=== PATIENT | male | born 1955 | race Caucasian/White ===

== ENCOUNTER 2017-08-24 10:00 | Emergency (ER) | payer OTHER, SELFPAY ==
[2017-08-24 10:01] VITALS: BP 179/108; PULSE 113; RESP 18; TEMP 36.4; O2SAT 96; BMI 37.1
[2017-08-24 10:14] VITALS: BP 167/105; PULSE 105; RESP 17; O2SAT 97
--- NOTE | 2017-08-24 10:23 | EKG12_ITS ---
Test Reason : CP Blood Pressure : / mmHG Vent. Rate : 109 BPM Atrial Rate : 109 BPM P-R Int : 142 ms QRS Dur : 088 ms QT Int : 324 ms P-R-T Axes : 069 -10 051 degrees QTc Int : 436 ms Sinus tachycardia Nonspecific ST abnormality Abnormal ECG Confirmed by JUSTIN SHERWOOD, SARAH ([id number]), commissioning editor HEIDY RAPHAEL ([id number] on 08/27/2017 3:53:56 PM Referred By: BRIAN Confirmed By:SARAH ANDERSON MD
--- NOTE | 2017-08-24 10:23 | RAD_ITS ---
STUDY: X-RAY CHEST REASON FOR EXAM: Male, 62 years old. Chest pain TECHNIQUE: Frontal and lateral views of the chest. COMPARISON: None. FINDINGS: The lungs are clear and expanded. There is no demonstrated pleural abnormality. Normal size heart. Normal mediastinum and ramon. Normal visualized pulmonary arteries. Normal visualized aortic arch and descending thoracic aorta. There are diffuse degenerative changes of the visualized thoracic spine. There is degenerative osteoarthritis of the bilateral shoulders. There is no demonstrated abnormality of the visualized soft tissue structures of the upper abdomen. RAD/Chest PA and Lateral IMPRESSION: Degenerative changes, as described above. No demonstrated acute cardiopulmonary process. Electronically Signed: Giselle Pelletier MD at 10:56 EST Tel , Service support ,
--- NOTE | 2017-08-24 10:24 | ED.VISSUMM ---
- ER Visit Summary Date of Service: 08/24/17 Chief Complaint: High blood pressure, blurry vision History of Present Illness: The patient is a 62 M with history of hypertension on lisinopril who presents concerned for frequent high blood pressure and an episode of blurry vision this morning. Patient is currently under a lot of stress from a court case in [place], and is having to drive back and forth. He has been documenting his blood pressure and noted it is been running high. He saw his doctor on August 16 and it was high at that time as well. He states he has been on lisinopril for quite some time for blood pressure control and it usually is within normal limits. Patient noted on his drive home this morning in the dark that his vision seemed blurry. He currently denies any issues with it. Also while in court he had a brief episode of left-sided chest discomfort this past week that resolved spontaneously. He denies any further chest pain, shortness of breath, nausea or vomiting, fever, weakness in the arms or legs or any other complaints. Physical Examination: Vital signs: afebrile, hemodynamically stable, no hypoxia on room air General: well nourished, well developed, in no distress Skin: warm, dry, no rash, no pallor HEENT: normocephalic and atraumatic; PERRL, EOMI, moist mucous membranes Cardiovascular: Tachycardic rate and rhythm without murmurs, no peripheral edema, 2+ pulses all distal extremities Respiratory: No increased work of breathing, lungs are clear to auscultation bilaterally, no rales, rhonchi or wheezing Abdominal: Abdomen is soft, nontender with normoactive bowel sounds, no guarding or rebound, no masses MSK: Moves all extremities, no deformities, normal strength Neuro: Awake and alert, oriented ?4. No facial droop, sensation and motor function intact and symmetric Test Results: Abnormal Lab Results 08/24/17 08/24/17 08/24/17 10:15 10:15 10:15 WBC 7.9 RBC 5.66 Hgb 16.9 H Hct 49.1 MCV 86.7 MCH 29.9 MCHC 34.4 RDW 13.3 RDW Differential 42.1 Plt Count 226 MPV 11.0 Immature Gran % (Auto) 0.100 Neut % (Auto) 71.8 H Lymph % (Auto) 18.7 L [place] % (Auto) 5.9 Eos % (Auto) 2.9 Baso % (Auto) 0.6 Absolute Neuts (auto) 5.7 Absolute Lymphs (auto) 1.48 Total Counted Not Reportable D-Dimer Quant (PE/DVT) < 0.27 L Sodium 143 Potassium 4.2 Chloride 108 H Carbon Dioxide 29.0 Anion Gap 6 BUN 18 Creatinine 0.92 Estim Creat Clear Calc 84.86 Est GFR (MDRD) Af Amer 107 Est GFR (MDRD) Non-Af 89 BUN/Creatinine Ratio 19.6 Glucose 94 Calcium 8.7 Troponin I < 0.02 Emergency Department Course and Treatment: Patient presents mainly concerned about his hypertension that is been an ongoing issue, especially with increased stress with family and core issues in his life. Patient's blood pressure remained with consistently elevated systolic and diastolic pressure. Chest x-ray showed no acute process. EKG showed a sinus rhythm without ischemia or ectopy. Patient was tachycardic when he would move and when he became more tearful. Because of his tachycardia and anxiousness and the fact he has been doing a lot of driving, d-dimer was included to rule out PE, and it was negative. Labs were unremarkable. Patient was discussed with his primary care practice regarding his persistent elevated blood pressure and whether they would like us to go ahead and start him on another antihypertensive. They requested he be started on daily HCTZ. Patient will follow up on Saturday with his doctor. He was given one Ativan tablet to take home to use tonight to help him sleep and to help him relax. We discussed that his blood pressure may be partly due to the constant stress in his life. Patient will not use any alcohol or other depressants if he does take the Ativan tonight. He will do no driving or other dangerous activity. Patient agreed with this plan was discharged home. Treatment Plan: [] Disposition: [] Impression: Uncontrolled hypertension, stress This note was generated with [employer] software. It may contain incorrect words, spelling, and punctuation that were not noted in review of the chart prior to signing ED Disposition - Plan for ED Patient: Disposition: Home or Assisted Living Chief Complaint: Hypertension Instructions: ED Hypertension Conf Out Of Control Prescriptions: Hydrochlorothiazide [Hctz] 25 mg PO DAILY #30 tab Referrals: Colton Longoria MD [Primary Care Provider] - 2 Days Additional Instructions: Please take the hydrochlorothiazide daily as prescribed. Follow-up with Dr. Longoria on Saturday for reevaluation and to further discuss your high blood pressure and your current high level of stress. You have been given one Ativan tablet to take tonight at home before you go to bed to help you with your stress sleep. Do not drink alcohol at all tonight. Do not take the medication before doing anything that might put you endanger, such as driving or climbing on a ladder. Any worsening of your condition or any new concerning symptoms, please return immediately to the emergency department for another evaluation.
[2017-08-24 10:31] LABS: Absolute Lymphocyte Count 1.48 X10^3/ul (0.83-4.51); Absolute Neutrophil Count 5.7 X10^3/uL (2.0-7.7); Basophil# 0.05 X10^3/uL; Basophil% 0.6 % (0-1); Eosinophil# 0.23 X10^3/uL; Eosinophils% 2.9 % (0-5); Hematocrit 49.1 % (40-54); Hemoglobin 16.9 g/dl (13.0-16.5); Lymphocyte # 1.48 X10^3/ul (4.0); Lymphocyte % 18.7 % (19-41); Mean Corp Hgb Conc 34.4 g/gl (32-36); Mean Corpuscular Hgb 29.9 pg (27.0-32.0); Mean Corpuscular Volume 86.7 fL (80-94); Monocyte# 0.47 X10^3/uL; Monocyte% 5.9 % (0-10); Neutrophil # 5.69 X10^3/uL (2.7-7.7); Neutrophil % 71.8 % (47-70); POSITIVE COUNT NO; POSITIVE DIFFERENTIAL NO; POSITIVE MORPHOLOGY NO; Platelet Count 226 K/mm3 (150-450); RBC Distribution Width CV 13.3 % (11.6-14.6); RBC Distribution Width SD 42.1 fl (35.1-43.9); Red Blood Count 5.66 M/mm3 (4.6-6.2); White Blood Count 7.9 K/mm3 (4.4-11.0)
[2017-08-24] MEDS: Aspirin 81 MG TAB.CHEW 324 MG PO (10:43)
[2017-08-24 10:45] LABS: Anion Gap 6 (5-15); BUN 18 mg/dL (7-18); BUN/Creat Ratio 19.6 RATIO (10-20); Calcium,Total 8.7 mg/dL (8.5-10.1); Chloride 108 mmol/L (98-107); Creatinine, Serum 0.92 mg/dL (0.70-1.30); EST Glomerular Filtration Rate 89 mL/min (>60); Est Glom Filt Rate - Afr Amer 107 mL/min (>60); Estimated Creatinine Clearance 84.86 ml/min; Glucose 94 mg/dL (74-106); Potassium 4.2 mmol/L (3.5-5.1); Sodium Level 143 mmol/L (136-145)
[2017-08-24 10:56] LABS: D-Dimer Quantitative (DVT/PE) < 0.27 FEU/ug/m (0.27-0.49)
[2017-08-24 11:56] VITALS: BP 166/108; PULSE 77; PULSE 82; RESP 14; RESP 16; O2SAT 96; O2SAT 97
--- NOTE | 2017-08-24 12:18 | ED.DEP ---
ED Disposition - Plan for ED Patient: Chief Complaint: Hypertension Instructions: ED Hypertension Conf Out Of Control Prescriptions: Hydrochlorothiazide [Hctz] 25 mg PO DAILY #30 tab Referrals: Colton Longoria MD [Primary Care Provider] - 2 Days Additional Instructions: Please take the hydrochlorothiazide daily as prescribed. Follow-up with Dr. Longoria on Saturday for reevaluation and to further discuss your high blood pressure and your current high level of stress. You have been given one Ativan tablet to take tonight at home before you go to bed to help you with your stress sleep. Do not drink alcohol at all tonight. Do not take the medication before doing anything that might put you endanger, such as driving or climbing on a ladder. Any worsening of your condition or any new concerning symptoms, please return immediately to the emergency department for another evaluation.
[2017-08-24] MEDS: LORazepam 1 MG Tablet PO (12:41)
[2017-08-24 12:44] VITALS: BP 157/114; PULSE 79; RESP 22; O2SAT 100
--- NOTE | 2017-08-24 12:44 | ED.RN ---
THIS NURSE REVIEWED D/C INSTRUCTIONS WITH PT. PT VERBALIZED UNDERSTANDING OF INSTRUCTIONS. IV D/C. IV CATHETER INTACT. PT TOLERATED WELL. PT DENIES FURTHER NEEDS OR QUESTIONS AT THIS TIME.
== END 2017-08-24 12:45 | disposition home or self-care (01) ==
LOC: ED 11:01
PROVIDERS: Emergency Provider Emergency Medicine; Family Provider Family Medicine; PCP Family Medicine
DX: I10 Essential (primary) hypertension (principal); F43.9 Reaction to severe stress, unspecified; E66.9 Obesity, unspecified; Z79.899 Other long term (current) drug therapy
CPT/HCPCS: 71046; 80048; 84484; 85025; 85379; 93005; 99285; A4216

== ENCOUNTER 2020-11-21 16:11 | Emergency (ER) | payer MEDICARE, SELFPAY ==
[2020-11-21 16:14] VITALS: BP 156/91; PULSE 95; RESP 18; TEMP 37.1; O2SAT 95; BMI 36.0
--- NOTE | 2020-11-21 16:43 | EDS_ITS ---
HPI History of Present Illness Chief Complaint: Upper Extremity Injury Narrative Narrative: This patient is a pleasant 65-year-old male who presents with left elbow swelling. Symptoms began on the . He saw his primary care provider on the and was started on doxycycline. He actually had a right shoulder surgery then on the . At that time his orthopedic surgeon with [facility] did aspirate bursal fluid on the left. He is not sure of the results. He is still on doxycycline. His swelling did not gone down so when he contacted his primary care physician's antibiotics were extended an additional 3 days. He only complains of mild discomfort. He was told by his primary care provider that if he did have infection and it could go to the shoulder given his recent surgery so he was concerned and presented here. Patient actually has an appointment with orthopedics tomorrow. [facility] Medical History (Updated 11/21/20 @ 17:[address] Avi Loza MD) Hypertension Home Medications cholecalciferol (vitamin D3) [Vitamin D3] 1,000 unit PO DAILY 08/24/17 [History Last Taken 08/23/17] coenzyme Q10 [Co Q-10] 100 mg PO DAILY 08/24/17 [History Last Taken 08/23/17] hydrochlorothiazide 25 mg PO DAILY #30 tab 08/24/17 [Rx Last Taken Unknown] lisinopril 40 mg PO DAILY 08/24/17 [History Last Taken 08/23/17] meloxicam 15 mg PO DAILY 08/24/17 [History Last Taken 08/23/17] Allergy/AdvReac Type Severity Reaction Status Date / Time fenofibrate Allergy Other Verified 11/21/20 16:16 diclofenac AdvReac Nausea/Vom/ Verified 11/21/20 16:16 Diarrhea Social History Smoking Status: Former smoker ROS [facility] ED Constitutional Constitutional ED: Reports other Details: No fevers Cardiovascular Cardiovascular: Denies chest pain Respiratory/Chest Respiratory/Chest: Denies dyspnea Gastrointestinal Gastrointestinal: Denies diarrhea or vomiting Musculoskeletal Musculoskeletal: Reports other Details: Left elbow swelling Integumentary Denies rash Neurologic Neurologic: Denies headache(s) EXAM Physical Exam Const Vital Signs: 11/21/20 16:14 Temperature 98.7 F Temperature Source Temporal Pulse Rate 95 Respiratory Rate 18 Blood Pressure 156/91 H Blood Pressure Mean 112 Pulse Ox 95 Oxygen Delivery Method Room Air HEENT normocephalic and atraumatic Eyes EOMs intact bilaterally Chest Wall inspection of chest normal Resp normal respiratory effort Cardio regular rate and regular rhythm Extremity Extremity Narrative: Right shoulder in a sling, patient has findings consistent with olecranon bursitis of the left elbow there is mild overlying erythema it is not hot to the touch this appears to be more inflammatory in nature. He is not tender on palpation he has no pain with range of motion of the elbow. Neuro Sensorium / Orientation: alert Skin Rashes: no rashes MDM MDM MDM Narrative Medical decision making narrative: Patient's presentation is more consistent with an inflammatory olecranon bursitis rather than a septic arthritis. However he has been on antibiotics and is concerned for infection so aspiration was performed. The area was cleansed with Betadine and anesthetized with 3 cc of lidocaine without epinephrine. Olecranon bursa aspirated with an 18-gauge needle, 9 cc of bloody fluid was obtained. This is not cloudy. Gram stain is negative for organisms, cell count shows 8000 WBCs which is more consistent with an inflammatory process than septic. Patient will follow up with orthopedics as scheduled tomorrow. Patient discharged. Discharge Plan Triage Chief Complaint: Upper Extremity Injury ED Provider: Avi Loza Dx/Rx/DC Orders Clinical Impression: Bursitis, olecranon Instructions: ED Bursitis of the Elbow (Olecranon) Prescriptions: No Action meloxicam 15 MG tablet 15 mg PO DAILY RF: 0 lisinopril 40 MG tablet 40 mg PO DAILY RF: 0 cholecalciferol (vitamin D3) [Vitamin D3] 1,000 UNIT capsule 1,000 unit PO DAILY RF: 0 coenzyme Q10 [Co Q-10] 100 MG capsule 100 mg PO DAILY RF: 0 hydrochlorothiazide 25 MG tablet 25 mg PO DAILY Qty: 30 RF: 0 Primary Care Provider: Colton Longoria Referrals: Colton Longoria MD [Primary Care Provider] - Disposition Disposition: Home, self care
[2020-11-21 17:17] LABS: RBC /Synovial Fluid 0.066 10^6/uL (0); Synovial Fld Mononuclear WBC % 27.9 %; Synovial Fld Polynuclear WBC # 5.933 10^3/uL; Synovial Fld Polynuclear WBC % 72.1 %
[2020-11-21 17:43] LABS: AUTO B FLUID DILUENT BKGD CT WBC <0.1 RBC <0.01 (W<.1,R<.01); Synovial Fld Mononuclear WBC # 2.302 10^3/ul
[2020-11-21 17:44] LABS: Appearance /Synovial Fluid Turbid (CLEAR); Color / Synovial Fluid Red (Pale Yellow); Viscosity / Synovial Fluid Liquid (HIGH)
[2020-11-21 17:45] LABS: Source / Synovial Fluid BURSA
[2020-11-21 18:01] LABS: Body Fluid QC Type(s) BF1Q; Lymph 16 %; Monocyte /Synovial Fluid 10 %; Neutrophil 74 % (0-25)
[2020-11-22 12:12] LABS: Pathologist Comment Reviewed
== END 2020-11-21 18:02 | disposition home or self-care (01) ==
PROVIDERS: Emergency Provider Emergency Medicine; PCP Family Medicine
DX: M70.22 Olecranon bursitis, left elbow (principal); I10 Essential (primary) hypertension; Z79.2 Long term (current) use of antibiotics; Z79.899 Other long term (current) drug therapy; Z87.891 Personal history of nicotine dependence
CPT/HCPCS: 20605; 20610; 87070; 87075; 87205; 89050; 89051; 99282

== ENCOUNTER 2021-05-18 21:39 | Emergency (ER) | payer MEDICARE, SELFPAY ==
[2021-05-18 21:39] VITALS: BP 174/105; PULSE 91; RESP 18; TEMP 36.1; O2SAT 97; BMI 36.6
--- NOTE | 2021-05-18 21:50 | RAD_ITS ---
HISTORY: cough EXAMINATION/TECHNIQUE: XR Chest 1 View AP view COMPARISON: Two-view chest x-ray from 08/24/17 FINDINGS: LINES/DEVICES: None. LUNGS: No focal airspace consolidation. No pulmonary edema. No pleural effusion. No pneumothorax. MEDIASTINUM AND CARDIOVASCULAR STRUCTURES: Cardiac silhouette not enlarged. Central airways and mediastinal contour are unremarkable. BONES AND SOFT TISSUES: No acute findings. Previous right shoulder arthroplasty. RAD/Chest 1 View (Portable) IMPRESSION: No radiographic evidence of acute cardiopulmonary disease. at 2315 Reported and signed by: Bobby Zhang MD Electronically Signed: Bobby Zhang MD at 23:13 EST Tel , Service support ,
[2021-05-18 22:19] VITALS: RESP 18
--- NOTE | 2021-05-18 22:20 | EDS_ITS ---
HPI HPI - URI History of Present Illness Chief Complaint: Cough Narrative Narrative: 66-year-old male presenting with cough x1 week. He states it is mildly productive. He does not have chest pain, palpitations, shortness of breath, fevers, chills, myalgias, change in taste or smell. He has had all 3 Covid immunizations. He states he feels otherwise well. He states he had conversation with his brother who told him that he had an upper respiratory tract infection he should get antibiotics so he can get better faster. Patient encouraged to come to the emergency room for an evaluation. [facility] ED Constitutional Constitutional ED: Denies chills, fever(s) or subjective Eyes Eyes: Denies blurry vision or diplopia ENT ENT ED: Denies rhinorrhea or sore throat Cardiovascular Cardiovascular: Denies chest pain, palpitations or racing heartbeat Respiratory/Chest Respiratory/Chest: Reports cough; Denies dyspnea or dyspnea on exertion Gastrointestinal Gastrointestinal: Denies abdominal pain, nausea or vomiting Genitourinary Genitourinary ED: Denies dysuria or hematuria Musculoskeletal Musculoskeletal: Denies arthralgias or myalgias Integumentary Denies Abrasions or rash Neurologic Neurologic: Denies headache(s) or paresthesias Psychiatric Psychiatric: Denies anxiety or depression [facility] Medical History Hypertension Home Medications cholecalciferol (vitamin D3) [Vitamin D3] 1,000 unit PO DAILY 08/24/17 [History Last Taken 08/23/17] hydrochlorothiazide 25 mg PO DAILY #30 tab 08/24/17 [Rx Last Taken Unknown] lisinopril 40 mg PO DAILY 08/24/17 [History Last Taken 08/23/17] meloxicam 15 mg PO DAILY 08/24/17 [History Last Taken 08/23/17] Allergy/AdvReac Type Severity Reaction Status Date / Time fenofibrate Allergy Other Verified 05/18/21 21:39 diclofenac AdvReac Nausea/Vom/ Verified 05/18/21 21:39 Diarrhea Social History Smoking Status: Former smoker EXAM Physical Exam Const Vital Signs: 05/18/21 21:39 05/18/21 22:19 Temperature 97.0 F L Temperature Source Temporal Pulse Rate 91 Respiratory Rate 18 18 Blood Pressure 174/105 H Blood Pressure Mean 128 Pulse Ox 97 Oxygen Delivery Method Room Air Positive well nourished General Appearance ED: NAD; Negative for pallor HEENT normocephalic and atraumatic Eyes PERRL and EOMs intact bilaterally Neck supple and no meningeal signs Resp normal respiratory effort and clear to auscultation bilaterally Cardio Rate: regular rate Rhythm: regular rhythm Neuro oriented x3 Sensorium / Orientation: alert Psych mental status grossly normal Skin General Skin Exam: Negative for jaundice or pallor MDM MDM MDM Narrative Medical decision making narrative: Patient presenting cough x7 days without any other symptoms. His Covid testing is negative. Chest x-ray is normal. Vital signs are stable he is afebrile. I do not believe he needs any antibiotics. I did discuss with him that he may want to talk to his primary care physician about changing his lisinopril as this could be the cause of his cough. He acknowledged understanding. He discharged home in stable condition. Impression: 1. Cough Radiography Diagnostic Testing: Clinical Impression(s) from Imaging Studies Chest X-Ray 05/18/21 21:50 IMPRESSION: No radiographic evidence of acute cardiopulmonary disease. at 2315 Reported and signed by: Bobby Zhang MD Electronically Signed: Bobby Zhang MD at 23:13 EST Tel , Service support , Discharge Plan Triage Chief Complaint: Cough ED Provider: Lloyd Beltran Dx/Rx/DC Orders Prescriptions: No Action meloxicam 15 MG tablet 15 mg PO DAILY RF: 0 lisinopril 40 MG tablet 40 mg PO DAILY RF: 0 cholecalciferol (vitamin D3) [Vitamin D3] 1,000 UNIT capsule 1,000 unit PO DAILY RF: 0 hydrochlorothiazide 25 MG tablet 25 mg PO DAILY Qty: 30 RF: 0 Primary Care Provider: Colton Longoria Referrals: Colton Longoria MD [Primary Care Provider] - Activity Restrictions/Additional Instructions: Today he presented with a cough x1 week. Your chest x-ray was normal. I do not believe he needs antibiotics. I also did discuss with him I want to talk to your primary care physician about changing her lisinopril this may be causing a cough. Disposition Disposition: Home, Self Care
[2021-05-18 23:35] VITALS: BP 162/78; PULSE 78; RESP 18; O2SAT 100
== END 2021-05-18 23:36 | disposition home or self-care (01) ==
PROVIDERS: Emergency Provider Student in an Organized Health Care Education/Training Program; PCP Family Medicine
DX: R05.9 Cough, unspecified (principal); I10 Essential (primary) hypertension; Z79.899 Other long term (current) drug therapy; Z87.891 Personal history of nicotine dependence
CPT/HCPCS: 71045; 87426; 99282

== ENCOUNTER 2021-08-15 06:31 | Emergency (ER) | payer MEDICARE, SELFPAY ==
[2021-08-15 06:33] VITALS: BP 127/115; PULSE 24; RESP 17; TEMP 36.8; O2SAT 98; BMI 39.2
--- NOTE | 2021-08-15 07:14 | EDS_ITS ---
HPI History of Present Illness Chief Complaint: Complaint Narrative Narrative: Patient is a 66-year-old male with past medical history of prostate cancer he finished radiation treatment approximately 1 month ago. Patient states he is taking Flomax and Lupron. He states that over the past week or 2 he has noticed some slight decrease in his urinary stream. He states he was still urinating however so he did not think much of this. He states about 24 hours ago he felt the urge to urinate but was unable to do so. He states as he had been urinating he was not concerned but decided to take 2 Flomax pills just in case. He states that despite doing this he is continued not to have any urination and is now having abdominal pain and distention and therefore comes to the hospital for evaluation [facility] Medical History Hypertension Home Medications cholecalciferol (vitamin D3) [Vitamin D3] 1,000 unit PO DAILY 08/24/17 [History Last Taken 08/23/17] hydrochlorothiazide 25 mg PO DAILY #30 tab 08/24/17 [Rx Last Taken Unknown] lisinopril 40 mg PO DAILY 08/24/17 [History Last Taken 08/23/17] meloxicam 15 mg PO DAILY 08/24/17 [History Last Taken 08/23/17] Allergy/AdvReac Type Severity Reaction Status Date / Time fenofibrate Allergy Other Verified 08/15/21 06:36 diclofenac AdvReac Nausea/Vom/ Verified 08/15/21 06:36 Diarrhea Social History Smoking Status: Former smoker ROS ROS ED Constitutional Constitutional ED: Denies chills or fever(s) ENT ENT ED: Denies sore throat Cardiovascular Cardiovascular: Denies chest pain Respiratory/Chest Respiratory/Chest: Denies cough or dyspnea Gastrointestinal Gastrointestinal: Reports abdominal pain; Denies diarrhea, nausea or vomiting Genitourinary Genitourinary ED: Reports other Details: Positive urinary retention ; Denies dysuria Musculoskeletal Musculoskeletal: Denies back pain or myalgias Integumentary Denies rash Neurologic Neurologic: Denies headache(s) Hematologic/Lymphatic Hematologic/Lymphatic: Denies easy bleeding or easy bruising EXAM Physical Exam Const Vital Signs: 08/15/21 06:33 Temperature 98.2 F Temperature Source Temporal Pulse Rate 24 L Respiratory Rate 17 Blood Pressure 127/115 H Blood Pressure Mean 119 Pulse Ox 98 Oxygen Delivery Method Room Air Positive well nourished, well developed and obese General Appearance ED: well developed Nutritional Appearance: obese Eyes PERRL and EOMs intact bilaterally Neck supple Resp normal respiratory effort and clear to auscultation bilaterally Cardio regular rate and regular rhythm GI GI Narrative: Obese with postsurgical changes. There is distention in the lower midline with pain on palpation and organomegaly at the site consistent with a distended bladder. Otherwise no fluid wave guarding or pulsatile mass Narrative: No blood or discharge from the urethral meatus no testicular swelling or masses noted no overlying soft tissue changes to suggest Ronald's gangrene. Extremity normal to inspection Neuro oriented x3 and CN's II-XII intact bilaterally Sensorium / Orientation: alert Motor Exam: strength 5/5 throughout Psych mental status grossly normal Skin no rashes or lesions noted MDM MDM MDM Narrative Medical decision making narrative: Patient presented to the ER hypertensive but was in pain from acute urinary retention. Based on his history and physical exam a [place] catheter was placed and 1400 mL of fluid was drained from his bladder. On reevaluation there is no longer organomegaly distention or pain. Based on the patient's recent diagnosis of prostate cancer I did elect to check a urine sample. Also as he has not urinated for approximately 1 day I did feel the need to rule out acute kidney injury from the urinary retention and therefore those 2 labs were ordered. Urine showed no sign of infection and kidney function is normal and therefore as patient now has a catheter in place draining his bladder he is safe for discharge Lab Data Attestation: I reviewed the patient's lab results. Labs: Laboratory Results - last 24 hr 08/15/21 08/15/21 06:45 07:05 Sodium 141 Potassium 3.7 Chloride 109 H Carbon Dioxide 26.0 Anion Gap 6 BUN 20 H Creatinine 0.87 Estim Creat Clear Calc 85.07 Est GFR (MDRD) Af Amer 112 Est GFR (MDRD) Non-Af 93 BUN/Creatinine Ratio 22.9 H Glucose 138 H Calcium 9.2 Urine Color Yellow Urine Clarity Clear Urine pH 6.0 Ur Specific [place] 1.020 Urine Protein Negative Urine Glucose (UA) Normal Urine Ketones Negative Urine Occult Blood Negative Urine Nitrite Negative Urine Bilirubin Negative Urine Urobilinogen Normal Ur Leukocyte Esterase Negative Urine RBC 0 SEEN Urine WBC 0 SEEN Ur Squamous Epith Cells 0 SEEN Urine Bacteria 0 SEEN Urine Mucus 0 SEEN Discharge Plan Triage Chief Complaint: Complaint ED Provider: Tommy Gordillo Dx/Rx/DC Orders Clinical Impression: Acute urinary retention Instructions: ED Urinary Retention, Male Prescriptions: No Action meloxicam 15 MG tablet 15 mg PO DAILY RF: 0 lisinopril 40 MG tablet 40 mg PO DAILY RF: 0 cholecalciferol (vitamin D3) [Vitamin D3] 1,000 UNIT capsule 1,000 unit PO DAILY RF: 0 hydrochlorothiazide 25 MG tablet 25 mg PO DAILY Qty: 30 RF: 0 Primary Care Provider: Colton Longoria Referrals: Colton Longoria MD [Primary Care Provider] - Activity Restrictions/Additional Instructions: Please follow-up with your urologist/Dr. Harris for repeat evaluation and keep the urinary catheter in until he evaluates you and removes it. Please return to the ER should you have any further concerns or the catheter is no longer draining Disposition Disposition: Home, Self Care
[2021-08-15 07:16] LABS: Bacteria 0 SEEN /hpf (None Seen); Mucous, Urine 0 SEEN /hpf (<or=2+); Red Blood Cells-Urine 0 SEEN /hpf (0-5); Squamous Epithelial Cells - UA 0 SEEN /hpf (0-5); White Blood Cells 0 SEEN /hpf (0-5)
[2021-08-15 07:18] LABS: Color, Urine Yellow (Yellow); Glucose, Dipstick Normal (Normal); Ketone-Dipstick Negative (Negative); Leukocyte Esterase-Dipstick Negative /ul (Negative); Nitrite-Dipstick Negative (Negative); Occult Blood-Urine Negative /ul (Negative); Protein-Dipstick Negative (Negative); Urine Bilirubin Dipstick Negative (Negative); Urine Clarity Clear (Clear); Urine Urobilinogen Normal (Normal)
[2021-08-15 07:29] LABS: Anion Gap 6 (5-15); BUN 20 mg/dL (7-18); BUN/Creat Ratio 22.9 RATIO (10-20); Calcium,Total 9.2 mg/dL (8.5-10.1); Chloride 109 mmol/L (98-107); Creatinine, Serum 0.87 mg/dL (0.70-1.30); EST Glomerular Filtration Rate 93 mL/min (>60); Est Glom Filt Rate - Afr Amer 112 mL/min (>60); Estimated Creatinine Clearance 85.07 ml/min; Glucose 138 mg/dL (74-106); Potassium 3.7 mmol/L (3.5-5.1); Sodium Level 141 mmol/L (136-145)
[2021-08-15 08:09] VITALS: BP 134/69; PULSE 72; RESP 16; O2SAT 98
== END 2021-08-15 08:10 | disposition home or self-care (01) ==
PROVIDERS: Emergency Provider Emergency Medicine; PCP Family Medicine; Visit Provider Emergency Medicine
DX: R33.9 Retention of urine, unspecified (principal); C61 Malignant neoplasm of prostate; I10 Essential (primary) hypertension; R30.9 Painful micturition, unspecified; Z87.891 Personal history of nicotine dependence; Z92.3 Personal history of irradiation; Z79.899 Other long term (current) drug therapy
CPT/HCPCS: 51702; 80048; 81001; 99283

== ENCOUNTER 2024-08-31 18:20 | Inpatient (IN) | payer MEDICARE, SELFPAY ==
[2024-08-31] VITALS (7 sets, daily range): BP systolic 128–153; BP diastolic 84–102; PULSE 86–104; RESP 17–21; TEMP 36.2–36.6; O2SAT 94–95; BMI 40.1; BMI 39.6
--- NOTE | 2024-08-31 18:29 | EKG12_ITS ---
Test Reason : CP Blood Pressure : */* mmHG Vent. Rate : 110 BPM Atrial Rate : 110 BPM P-R Int : 152 ms QRS Dur : 84 ms QT Int : 338 ms P-R-T Axes : 63 0 27 degrees QTcB Int : 457 ms Sinus tachycardia Non-specific ST & T wave changes Septal infarct , age undetermined Abnormal ECG Confirmed by Graham aCrr ([id number]), fan mail editor TIFFANIE ADLER ([id number]) on 09/01/2024 11:00:12 AM Referred By: Confirmed By: Graham Carr
--- NOTE | 2024-08-31 19:03 | ED.VIS.CHEST ---
HPI History of Present Illness Chief Complaint: Chest Pain Informant: patient Narrative Narrative: Presenting exertional chest tightness dyspnea for the past week. Patient typically swims 100 yards every Saturday. Since last week only able to swim 4 laps before he stops due to symptoms. Symptoms go away after 2 minutes. He had symptoms again this morning 9:30 AM. No symptoms since then. No numbness down the arms neck or back. Denies recent travel, surgeries, or immobilizations. No history of PE or DVT. History of hypertension on medications. No tobacco history. Denies diabetes or hyperlipidemia. Father had MN at age of 60. She has had a stress test years ago. No history of heart caths. Spoke with his sister who is a nurse and this assists told to go to the ED. He states he was scheduled for routine colonoscopy tomorrow in [place]. Has not had any rectal bleeding. Prior Similar Symptoms: No CVD Risk Factors: Positive for Hypertension; Negative for Diabetes, Hypercholesterolemia, Family History 1' </=55 or Smoking PE Risk Factors: Negative for Recent Travel/Surgery, Recent Immobilization or Prior DVT or PE [facility] Medical History Hypertension Home Medications ?Medication ?Instructions ?Recorded ?Last Taken ?Type cholecalciferol (vitamin D3) 25 1,000 unit PO DAILY 08/24/17 08/31/24 History mcg (1,000 unit) capsule (Vitamin D3) hydrochlorothiazide 25 mg tablet 25 mg PO DAILY #30 tabs 08/24/17 08/31/24 Rx meloxicam 15 mg tablet 15 mg PO DAILY 08/24/17 08/23/17 History Held on 08/31/24. Instructions: Held by patient lisinopril 20 2 tab PO DAILY 08/31/24 08/31/24 History mg-hydrochlorothiazide 12.5 mg tablet Allergy/AdvReac Type Severity Reaction Status Date / Time fenofibrate Allergy Other Verified 08/31/24 18:24 diclofenac AdvReac Nausea/Vom/ Verified 08/31/24 18:24 Diarrhea Social History Smoking Status: Former smoker ROS ROS ED Constitutional Constitutional ED: Denies chills, fever(s) or sweats ENT ENT ED: Denies sore throat Cardiovascular Cardiovascular: Reports chest pain; Denies leg edema, palpitations or racing heartbeat Respiratory/Chest Respiratory/Chest: Reports dyspnea and dyspnea on exertion; Denies cough Gastrointestinal Gastrointestinal: Denies abdominal pain, diarrhea, nausea or vomiting Genitourinary Genitourinary ED: Denies dysuria, hematuria or urinary frequency Musculoskeletal Musculoskeletal: Denies back pain, extremity pain or neck pain Integumentary Denies rash or wounds Neurologic Neurologic: Denies headache(s), paresthesias or weakness EXAM Physical Exam Const Vital Signs: 08/31/24 18:25 08/31/24 19:21 08/31/24 20:00 Temperature 97.8 F Temperature Source Temporal Pulse Rate 104 H 102 H 100 Respiratory Rate 20 H 17 21 H Blood Pressure 139/102 H 153/100 H 131/93 H Blood Pressure Mean 114 117 105 Pulse Ox 95 95 95 Oxygen Delivery Method Room Air Room Air Room Air 08/31/24 21:00 08/31/24 22:00 08/31/24 22:29 Temperature 97.8 F Temperature Source Pulse Rate 92 92 92 Respiratory Rate 19 H 17 17 Blood Pressure 128/84 H 128/84 H Blood Pressure Mean 98 98 Pulse Ox 94 94 94 Oxygen Delivery Method Room Air Room Air Positive well nourished and well developed General Appearance ED: well developed and NAD HEENT Reports moist mucous membranes normocephalic and atraumatic Eyes General Eye ED: Yes normal appearance of both eyes Neck full ROM Chest Wall Chest: Negative for tenderness Resp normal respiratory effort and normal air movement Effort and Inspection: symmetric chest movement; Negative for respiratory distress Cardio regular rate, regular rhythm and no murmurs Peripheral Pulses: pulses 2+ throughout GI normal to inspection, nondistended, normoactive bowel sounds and non-tender Palpation: Negative for guarding or rebound tenderness present Extremity normal to inspection General Extremety ED: Negative for edema or tenderness General Extremity: Negative for edema Neuro oriented x3 and no sensory deficits noted Sensorium / Orientation: awake and alert Skin no rashes or lesions noted and no wounds Heart Score History: Highly Suspicious ECG: Significant ST-Depression Age: >/= 65 years Risk Factors: 1 or 2 Risk Factors Troponin: >1 - <3 Normal Limit Score: 8 MDM MDM MDM Narrative Medical decision making narrative: Interventions / MDM: Differential diagnosis: Angina, NSTEMI Diagnosis considered but do not suspect: PE however CTA negative. My EKG interpretation: Sinus rate of 110, ST depression lateral leads nonspecific elevation in aVR. New changes compared to August 2017. Imaging independently reviewed and interpreted by myself: 1 view chest x-ray: Vascular congestion CTA chest: No PE. External documents reviewed: N/A Test considered but not ordered:N/A ED course: Patient EKG ST depression with nonspecific ovation aVR. Currently symptom-free. Symptoms are concerning for angina. Currently symptom-free. Aspirin ordered. Cardiac workup initiated. Low risk Wells criteria for PE with tachycardia D-dimer obtained. 2030: Chest x-ray and concerns for vascular congestion. Added BNP. 2100: Initial troponin 54 BNP 205. D-dimer elevated at 3.2. remains chest pain-free. Will obtain CT chest to rule out PE. 2209: CTA chest negative. Troponin 2 hours up to 54. Remains chest pain-free. I spoke with cardiology Dr. Carr, will give therapeutic Lovenox, he would like echocardiogram performed first in the morning. He will see the patient in the morning. Discussed with hospitalist Dr. Boyd for admission to PCU. Re-evaluation: stable Disposition discussed with patient/family/significant other: Patient Case discussed with consulting clinician: Cardiology, hospitalist This note was generated with [employer] dictation software. It may contain incorrect words, spelling, and punctuation that were not noted in checking the note before signing. Lab Data Attestation: I reviewed the patient's lab results. Labs: Laboratory Results - last 24 hr 08/31/24 08/31/24 08/31/24 18:55 18:58 21:05 WBC 9.7 RBC 5.70 Hgb 17.2 H Hct 49.7 MCV 87.2 MCH 30.2 MCHC 34.6 RDW Std Deviation 43.2 RDW Coeff of Aida 13.6 Plt Count 263 MPV 11.2 Immature Gran % (Auto) 0.400 Neut % (Auto) 72.6 H Lymph % (Auto) 17.8 L [place] % (Auto) 6.7 Eos % (Auto) 1.7 Baso % (Auto) 0.8 Absolute Neuts (auto) 7.0 Absolute Lymphs (auto) 1.72 Nucleated RBC % 0 PT 13.5 INR 1.0 APTT 27.7 D-Dimer Quant (PE/DVT) 3.21 H* Sodium 137 Potassium 3.8 Chloride 100 Carbon Dioxide 21.0 Anion Gap 17 H BUN 13 Creatinine 0.98 Estim Creat Clear Calc 93.89 Est GFR (MDRD) Non-Af 83 BUN/Creatinine Ratio 13.5 Glucose 90 Calcium 9.8 Troponin T High Sens 54 H* Troponin T Hi Sens 2 Hr 58 H* Troponin T Hi Sens 4Hr NT pro BNP II 205 08/31/24 22:56 WBC RBC Hgb Hct MCV MCH MCHC RDW Std Deviation RDW Coeff of Aida Plt Count MPV Immature Gran % (Auto) Neut % (Auto) Lymph % (Auto) [place] % (Auto) Eos % (Auto) Baso % (Auto) Absolute Neuts (auto) Absolute Lymphs (auto) Nucleated RBC % PT INR APTT D-Dimer Quant (PE/DVT) Sodium Potassium Chloride Carbon Dioxide Anion Gap BUN Creatinine Estim Creat Clear Calc Est GFR (MDRD) Non-Af BUN/Creatinine Ratio Glucose Calcium Troponin T High Sens Troponin T Hi Sens 2 Hr Troponin T Hi Sens 4Hr 65 H* NT pro BNP II Radiography Diagnostic Testing: Clinical Impression(s) from Imaging Studies Chest X-Ray 08/31/24 19:15 IMPRESSION: Findings of fluid overload/CHF including trace left pleural effusion. Reading Location: [facility] Chest CTA 08/31/24 20:47 IMPRESSION: No evidence of pulmonary embolism or acute findings in the thorax. Mild upper lobe emphysema. One or more dose reduction techniques were used (e.g., Automated exposure control, adjustment of the mA and/or kV according to patient size, use of iterative reconstruction technique). Reading Location: [facility] Critical Care Time Critical Care Time: Yes Critical care time (excluding procedures): 30-74 minutes, Discussing w/Patient &/or Family/Entry Clerk, Discussing w/Consultants, Arranging Admission or Transfer, Performing Direct Patient Care at Bedside and - (40 minutes) Discharge Plan Dx/Rx/DC Orders Clinical Impression: Angina of effort, Non-ST elevation MN (NSTEMI), History of hypertension Disposition Disposition: Acute Care Hospital [facility] Discharge Date/Time: 08/31/24 23:23
--- NOTE | 2024-08-31 19:15 | RAD_ITS ---
PROCEDURE: CHEST 1 VIEW (PORTABLE) REASON FOR EXAM: 69 y/o M,CHEST PAIN, [place]. TECHNIQUE: Frontal view of the chest. COMPARISON: Chest radiograph 05/18/21. FINDINGS: Partially visualized reverse right shoulder arthroplasty. Heart size is mildly enlarged with pulmonary venous congestion. Trace left pleural effusion. No focal consolidation or pneumothorax. Degenerative changes are identified within the thoracic spine. RAD/Chest 1 View (Portable) IMPRESSION: Findings of fluid overload/CHF including trace left pleural effusion. Reading Location: [id number]
[2024-08-31] MEDS: Aspirin 81 MG TAB.CHEW 324 MG PO (19:22)
[2024-08-31 20:32] LABS: Absolute Lymphocyte Count 1.72 X10^3/uL (0.83-4.51); Basophil# 0.08 X10^3/uL; Basophil% 0.8 % (0-1); Eosinophil# 0.16 X10^3/uL; Eosinophils% 1.7 % (0-5); Hematocrit 49.7 % (40-54); Hemoglobin 17.2 g/dL (13.0-16.5); Lymphocyte # 1.72 X10^3/ul (0.83-4.51); Lymphocyte % 17.8 % (19-41); Mean Corp Hgb Conc 34.6 g/dL (32-36); Mean Corpuscular Hgb 30.2 pg (27.0-32.0); Mean Corpuscular Volume 87.2 fL (80-94); Mean Platelet Vol. 11.2 fl (6.2-12.0); Monocyte# 0.65 X10^3/uL; Monocyte% 6.7 % (0-10); NRBC Flagged by Analyzer 0 % (0-5); Neutrophil # 7.01 X10^3/uL (2.7-7.7); Neutrophil % 72.6 % (47-70); Platelet Count 263 K/mm3 (150-450); RBC Distribution Width CV 13.6 % (11.6-14.6); RBC Distribution Width SD 43.2 fl (35.1-43.9); White Blood Count 9.7 K/mm3 (4.4-11.0)
[2024-08-31 20:33] LABS: Partial Thromboplast Time 27.7 Seconds (24.1-36.2)
[2024-08-31 20:36] LABS: Prothrombin Time (Protime)PT. 13.5 SECONDS (11.7-14.9)
[2024-08-31 20:37] LABS: D-Dimer Quantitative (DVT/PE) 3.21 FEU/ug/m (0.27-0.49)
--- NOTE | 2024-08-31 20:40 | ED.RN ---
Critical D Dimer of 3.[address] Burger notified
[2024-08-31 20:45] LABS: Anion Gap 17 (5-15); BUN 13 mg/dL (4-19); BUN/Creat Ratio 13.5 RATIO (10-20); Calcium,Total 9.8 mg/dL (7.6-11.0); Chloride 100 mmol/L (98-108); Creatinine, Serum 0.98 mg/dL (0.70-1.20); EST Glomerular Filtration Rate 83 (>60); Estimated Creatinine Clearance 93.89 ml/min (50-250); Glucose 90 mg/dL (70-99); Potassium 3.8 mmol/L (3.3-5.1); Sodium Level 137 mmol/L (133-145); Troponin T High Sensitivity 54 ng/L (<=22)
--- NOTE | 2024-08-31 20:47 | CT_ITS ---
PROCEDURE: CTA CHEST W/WO CONTRAST REASON FOR EXAM: CHEST PAIN, DYSPNEA TECHNIQUE: CTA imaging of the chest with intravenous contrast. 3D reconstructions. CONTRAST: COMPARISON: None. FINDINGS: Hardware: None. Lymph nodes: No mediastinal hilar or axillary lymphadenopathy. Heart: Normal heart size. No pericardial effusion. Moderate coronary artery calcifications. RV/LV Diameter Ratio: N/A Thoracic Aorta: No thoracic aortic aneurysm or dissection. Pulmonary Vessels: No evidence of acute pulmonary emboli through the major subsegmental branches. Most Proximal Level of Embolus (if embolus present): N/A Lungs and Airways: Central airways are patent without endobronchial lesions. Mild upper lobe centrilobular emphysema. Patchy opacities in the lung base, compatible with atelectasis. No suspicious pulmonary nodules. No pneumothorax. No pleural effusion. Pleura: No pleural effusion. No pneumothorax. Upper Abdomen: Visualized portions of the upper abdominal viscera are unremarkable. Bones: Bone windows are unremarkable. CT/CTA Chest W/WO Contrast IMPRESSION: No evidence of pulmonary embolism or acute findings in the thorax. Mild upper lobe emphysema. One or more dose reduction techniques were used (e.g., Automated exposure contr ol, adjustment of the mA and/or kV according to patient size, use of iterative reconstruction technique). Reading Location: [facility]
[2024-08-31 21:05] LABS: Pro- Brain NATRIURETIC PEPTIDE 205 pg/mL (<=900)
[2024-08-31 22:21] LABS: Troponin T High Sens 2 HR 58 ng/L (<=22)
--- NOTE | 2024-08-31 22:37 | PCM.HP.STD ---
[facility] - General General Date of Admission: 08/31/24 Date of Service: 08/31/24 Chief Complaint: Chest Pain. HPI Narrative KOBY CHANEY, is a 69 M with a past medical history of essential hypertension; on lisinopril-hydrochlorothiazide, morbid obesity; with BMI of 40.2 this admission, former history of tobacco abuse, positive family history of premature CAD in his father who had an VT at age 60, history of olecranon bursitis and OA; with meloxicam who presents to [facility] ER complaining of chest pain. Mr. Chaney reports his symptoms began approximately one week prior to admission with intermittent chest tightness with patient typically able to swim ~100 yards every Saturday, Saturday and Saturday - but since last week he can only swim 4 laps before he had to stop due to chest tightness. He also admits to dyspnea on exertion the improved after ~2 minutes of rest. Then this morning he had a recurrence of his symptoms ~9:30 AM, so he spoke to his sister who is a nurse and she encouraged him to come in to the ER for further evaluation and treatment. He states he was scheduled for a colonoscopy tomorrow in [place], [place] - but he denies recent GI bleeding. He denies similar previous episodes and his last stress test was years ago. There was no report of associated fever, chills, nausea, vomiting, diaphoresis, abdominal pain, nausea, vomiting, diarrhea, constipation, headache, recent travel or recent medication changes. In the ER he was noted to have an elevated d-dimer of 3.21 present on admission followed by a CTA of the chest negative for PE but was positive for mild upper lobe emphysema complicated by elevated troponin T of 54 ng/L followed by a second increasing troponin T of 58 ng/L consistent with suspected NSTEMI and he was then admitted to the PCU for ongoing care for a stay that is expected to extend beyond 2 midnights. [facility], [facility] Medical History Hypertension Home Medications ?Medication ?Instructions ?Recorded ?Last Taken ?Type cholecalciferol (vitamin D3) 25 1,000 unit PO DAILY 08/24/17 08/31/24 History mcg (1,000 unit) capsule (Vitamin D3) hydrochlorothiazide 25 mg tablet 25 mg PO DAILY #30 tabs 08/24/17 08/31/24 Rx meloxicam 15 mg tablet 15 mg PO DAILY 08/24/17 08/23/17 History Held on 08/31/24. Instructions: Held by patient lisinopril 20 2 tab PO DAILY 08/31/24 08/31/24 History mg-hydrochlorothiazide 12.5 mg tablet Allergy/AdvReac Type Severity Reaction Status Date / Time fenofibrate Allergy Other Verified 08/31/24 18:24 diclofenac AdvReac Nausea/Vom/ Verified 08/31/24 18:24 Diarrhea Social History Smoking Status: Former smoker ROS ROS Narrative Review of Systems: Constitutional: Patient denies fever or chills. Eyes: Patient denies changes in vision or discharge from eyes. ENT: Patient denies runny nose, sore throat or ear pain. Resp: Patient admits to dyspnea on exertion but denies cough. CV: Patient admits to chest tightness and pain as per HPI. He denies lower extremity edema palpitations or heart racing. GI: Patient denies abdominal pain, nausea, vomiting, diarrhea or constipation. : Patient denies dysuria or hematuria. MSK: Patient denies arthralgias or myalgias. Skin: Patient denies rash, abscess, wounds or jaundice. Psych: Patient denies symptoms of uncontrolled depression or anxiety. Neuro: Patient denies headache, paresthesias or focal neurologic weakness. Allergy: Patient denies lip swelling, tongue swelling or urticaria. Hematology: Patient denies easy bleeding or easy bruisability. Endocrinology: Patient denies polyuria, polydipsia or polyphagia. 14 point ROS otherwise negative save for positives noted above in HPI. Vital Signs Vital Signs Vital Signs: 08/31/24 18:25 08/31/24 19:21 08/31/24 20:00 Temperature 97.8 F Temperature Source Temporal Pulse Rate 104 H 102 H 100 Respiratory Rate 20 H 17 21 H Blood Pressure 139/102 H 153/100 H 131/93 H Blood Pressure Mean 114 117 105 Pulse Ox 95 95 95 Oxygen Delivery Method Room Air Room Air Room Air 08/31/24 21:00 08/31/24 22:00 08/31/24 22:29 Temperature 97.8 F Temperature Source Pulse Rate 92 92 92 Respiratory Rate 19 H 17 17 Blood Pressure 128/84 H 128/84 H Blood Pressure Mean 98 98 Pulse Ox 94 94 94 Oxygen Delivery Method Room Air Room Air Weight Weight: 280 lb 3.2 oz Body Mass Index (BMI) 40.1 Physical Exam Const alert, oriented x3 and no apparent distress Constitutional Narrative: Morbidly obese. General Appearance: cooperative HEENT normocephalic, head/scalp atraumatic, hearing grossly normal bilaterally and moist oral mucous membranes Eyes PERRL, EOMs intact bilaterally and conjunctivae normal Neck no lymphadenopathy, supple and no JVD Resp normal respiratory effort, no retractions, no use of accessory muscles and clear to auscultation bilaterally Cardio regular rate and regular rhythm GI normal to inspection, nondistended, normoactive bowel sounds, soft to palpation, non-tender and non-distended GI Narrative: Morbidly obese. Extremity normal to inspection, full ROM and no clubbing, cyanosis or edema Skin Skin Narrative: Patient has no evidence of rash, abscess, wounds or jaundice. Neuro oriented x3, CN's II-XII intact bilaterally, moves all extremities and no focal motor deficits Sensorium / Orientation: awake, alert, oriented to person, oriented to place and oriented to time Speech: speech normal Psych affect normal Results Medical Records Data Attestation: I reviewed the patient's medical records Lab / Micro Data Attestation: I reviewed the patient's lab results. 09/01/24 05:36 09/01/24 05:36 Labs: Laboratory Results - last 24 hr 08/31/24 18:55: WBC 9.7, RBC 5.70, Hgb 17.2 H, Hct 49.7, MCV 87.2, MCH 30.2, MCHC 34.6, RDW Std Deviation 43.2, RDW Coeff of Aida 13.6, Plt Count 263, MPV 11.2, Immature Gran % (Auto) 0.400, Neut % (Auto) 72.6 H, Lymph % (Auto) 17.8 L, [place] % (Auto) 6.7, Eos % (Auto) 1.7, Baso % (Auto) 0.8, Absolute Neuts (auto) 7.0, Absolute Lymphs (auto) 1.72, Nucleated RBC % 0 08/31/24 18:58: PT 13.5, INR 1.0, APTT 27.7, D-Dimer Quant (PE/DVT) 3.21 H*, Sodium 137, Potassium 3.8, Chloride 100, Carbon Dioxide 21.0, Anion Gap 17 H, BUN 13, Creatinine 0.98, Estim Creat Clear Calc 93.89, Est GFR (MDRD) Non-Af 83, BUN/Creatinine Ratio 13.5, Glucose 90, Calcium 9.8, Troponin T High Sens 54 H*, NT pro BNP II 205 08/31/24 21:05: Troponin T Hi Sens 2 Hr 58 H* Imaging Radiology Impression Chest X-Ray 08/31/24 19:15 IMPRESSION: Findings of fluid overload/CHF including trace left pleural effusion. Reading Location: [id number] Chest CTA 08/31/24 20:47 IMPRESSION: No evidence of pulmonary embolism or acute findings in the thorax. Mild upper lobe emphysema. One or more dose reduction techniques were used (e.g., Automated exposure control, adjustment of the mA and/or kV according to patient size, use of iterative reconstruction technique). [facility] Assessment & Plan Assessment/Plan (1) Non-ST elevation VT (NSTEMI): (2) History of hypertension: (3) Morbid obesity with BMI of 40.0-44.9, adult: (4) Former tobacco use: (5) Family history of coronary artery disease: PLAN: Plan 1. Non-ST elevation VT; evidenced by elevated troponin T of 54 ng/L present on admission followed by second upwardly trending troponin T of 58 ng/L in the setting of recently evolving unstable angina - Admit to PCU. Continue full dose Lovenox begun in ER plus enteric-coated aspirin plus add statin. Check echocardiogram to evaluate LVEF. Serialize troponin. Check Lipid Profile and hemoglobin A1c. Give acetaminophen prn for [id number] (level 1-5/10) pain or fever. Give morphine IV prn for severe (level 6-10/10) pain. Finally, we will consult [facility] see this patient on rounds in the a.m. for further recommendations regarding C this admission with help appreciated in advance. 2. Essential Hypertension; on lisinopril-hydrochlorothiazide complicating #1 - Maintain current regimen plus add Metoprolol 25 mg PO BID and titrate as needed. 3. Morbid Obesity; with BMI of 40.2 this admission compounding #1 & #2 - Weight loss will be recommended. Check TSH. This complicates his case and may hamper recovery. 4. Former history of Tobacco Abuse adding to the medical complexity of #1 - #3 - Noted. 5. Positive family history of premature CAD in his father who had an VT at age 60 - Noted. 6. History of olecranon bursitis - Noted. 7. OA; on meloxicam - Hold meloxicam in favor of prn acetaminophen. 8. DVT prophylaxis - Patient on full-dose Lovenox for #1. Total time: Approximately (but not less than) 75 minutes. Charges/Coding Visit Charges Inpatient E&M: 18307 Init Hosp L3
[2024-08-31] MEDS: Enoxaparin 150 MG/ML Syringe SC (22:42)
--- NOTE | 2024-08-31 23:32 | EKG12_ITS ---
Test Reason : POST PCI Blood Pressure : */* mmHG Vent. Rate : 79 BPM Atrial Rate : 79 BPM P-R Int : 160 ms QRS Dur : 86 ms QT Int : 388 ms P-R-T Axes : 67 4 36 degrees QTcB Int : 444 ms Normal sinus rhythm Nonspecific ST abnormality Abnormal ECG When compared with ECG of 01-Sep-2024 14:30, MANUAL COMPARISON REQUIRED DATA IS UNCONFIRMED Confirmed by DIONISIO SHERWOOD, ARRON ([id number]), news copy editor TIFFANIE ADLER ([id number]) on 09/07/2024 11:41:09 AM Referred By: Confirmed By: ARRON NICHOLE MD
[2024-08-31 23:40] LABS: Troponin T High Sens 4 HR 65 ng/L (<=22)
[2024-08-31 23:54] LABS: Hemoglobin A1c 5.7 % (<=5.6)
[2024-09-01] VITALS (16 sets, daily range): BP systolic 120–142; BP diastolic 52–97; PULSE 61–86; RESP 18; TEMP 36.5–36.9; O2SAT 94–99; BMI 12.5; BMI 40.1
[2024-09-01] MEDS: 0.9% Normal Saline (1000mL) 1,000 ML 70 ML IV (00:16)
[2024-09-01 00:28] LABS: Cholesterol 160 mg/dL (<=200); High Density Lipoprotein 40 mg/dL; Low Density Lipoprotein Calc. 90 mg/dL; Triglycerides 150 mg/dL; Very Low Density Lipoprotein 30 mg/dL (5-40); cholesterol:hdl ratio screen 3.98
[2024-09-01] MEDS: Atorvastatin Calcium 40 MG Tablet PO ×2 (00:47→22:04)
[2024-09-01] MEDS: Metoprolol Tartrate 25 MG Tablet PO ×3 (00:48→22:04)
[2024-09-01 05:47] LABS: Hematocrit 49.8 % (40-54); Hemoglobin 16.9 g/dL (13.0-16.5); Mean Corp Hgb Conc 33.9 g/dL (32-36); Mean Corpuscular Volume 88.5 fL (80-94); Mean Platelet Vol. 10.5 fl (6.2-12.0); Platelet Count 210 K/mm3 (150-450); RBC Distribution Width CV 13.6 % (11.6-14.6); RBC Distribution Width SD 44.3 fl (35.1-43.9); Red Blood Count 5.63 M/mm3 (4.6-6.2); White Blood Count 6.4 K/mm3 (4.4-11.0)
--- NOTE | 2024-09-01 05:55 | ECHOD_ITS ---
Reason For Study Reason For Study: S/P AR Procedure This was a 2D Doppler, Color Flow transthoracic echocardiogram. Exam performed portable in patient room. Left Ventricle Normal LV size. The estimated ejection fraction is 55 %. No evidence for diastolic dysfunction. No regional wall motion abnormalities noted. Right Ventricle Normal RV size. Normal systolic function. Atria The left and right atria are normal. No doppler evidence for ASD. Mitral Valve There is no mitral valve stenosis. No mitral valve insufficiency. Tricuspid Valve There is no tricuspid stenosis. Unable to estimate RV systolic pressure due to inadequate jet, pulmonary artery pressure probably normal. Aortic Valve Trisinus/trileaflet aortic valve. There is no aortic stenosis. No aortic valve insufficiency. Pulmonic Valve There is no pulmonic valvular stenosis. No pulmonic valve insufficiency. Great Vessels Normal sized aortic root. Pericardium/Pleural No pericardial effusion. MMode/2D Measurements & Calculations LVIDd: 5.2 cm IVSd: 1.1 cm Ao root diam: 3.8 cm LVIDs: 3.2 cm LVPWd: 1.1 cm RVDd: 3.3 cm FS: 38.8 % LAV(MOD-bp): 37.5 ml LVAd ap4: 27.4 cm2 SV(MOD-sp4): 52.5 ml LAV(MOD-bp) Indexed: 15.7 ml/m2 LVLd ap4: 7.8 cm SI(MOD-sp4): 21.9 ml/m2 LAV(MOD-sp2): 34.8 ml EDV(MOD-sp4): 85.2 ml LAV(MOD-sp4): 35.0 ml EDV(sp4-el): 81.9 ml LVAs ap4: 15.5 cm2 LVLs ap4: 6.5 cm ESV(MOD-sp4): 32.7 ml ESV(sp4-el): 31.5 ml EF(MOD-sp4): 61.6 % EF(sp4-el): 61.6 % SV(sp4-el): 50.4 ml LA A4 area: 14.8 cm2 LA dimension(2D): 3.6 cm RA A4 area: 13.8 cm2 TAPSE: 2.0 cm Time Measurements MV dec time: 0.24 sec Doppler Measurements & Calculations MV E max amilcar: 57.1 cm/sec Lat Peak E' Amilcar: 11.0 cm/sec Med Peak E' Amilcar: 12.3 cm/sec MV A max amilcar: 85.1 cm/sec E/E' lat: 5.2 E/E' med: 4.7 MV E/A: 0.67 MV V2 max: 102.6 cm/sec MV P1/2t max amilcar: 67.0 cm/sec Ao V2 max: 98.2 cm/sec MV max P.2 mmHg MV P1/2t: 79.5 msec Ao max P.9 mmHg MV V2 mean: 47.6 cm/sec MV mean P.1 mmHg MV dec slope: 246.9 cm/sec2 MV V2 VTI: 19.9 cm MVA(P1/2t): 2.8 cm2 LV V1 max: 108.8 cm/sec LV V1 max P.7 mmHg LV V1 mean P.3 mmHg LV V1 mean: 69.8 cm/sec LV V1 VTI: 21.1 cm ECHO/Echo Complete Interpretation Summary The estimated ejection fraction is 55 %. No evidence for diastolic dysfunction. Ordering Physician: Mian Hutchison Performed By: Perez Espinosa RCS
[2024-09-01] MEDS: Aspirin E.C. 81 MG Tablet PO (06:00)
[2024-09-01] MEDS: Lisinopril 20 MG Tablet PO (06:00)
[2024-09-01 06:11] LABS: Scan Indicated on CBC? Y/N NO
[2024-09-01 06:28] LABS: ALB/GLOB Ratio 1.5 RATIO (0.9-2.4); AST(SGOT) 35 U/L (<=37); Alanine Aminotransfer ALT/SGPT 25 U/L (<=46); Albumin, Serum 4.3 g/dL (3.4-4.8); Alkaline Phosphatase 91 U/L (40-129); Anion Gap 13 (5-15); BUN 14 mg/dL (4-19); BUN/Creat Ratio 12.8 RATIO (10-20); Calcium,Total 9.2 mg/dL (7.6-11.0); Carbon Dioxide 22.9 mmol/L (21.0-32.0); Chloride 102 mmol/L (98-108); Creatinine, Serum 1.08 mg/dL (0.70-1.20); EST Glomerular Filtration Rate 74 (>60); Estimated Creatinine Clearance 35.65 ml/min (50-250); Globulin 2.9 g/dL (2.2-4.2); Glucose 117 mg/dL (70-99); Magnesium 2.3 mg/dL (1.5-2.2); Phosphorus 2.5 mg/dL (2.7-4.5); Potassium 3.8 mmol/L (3.3-5.1); Protein, Total 7.2 g/dL (5.9-8.4); Sodium Level 137 mmol/L (133-145); Total Bilirubin 1.06 mg/dL (0.00-1.30)
--- NOTE | 2024-09-01 07:50 | PCM.CONS.C ---
Assessment & Plan Assessment/Plan (1) Accelerating angina: PLAN: Patient's symptoms are classic for accelerating angina. He started having dyspnea on exertion with some chest tightness a week ago Saturday this is progressed to come more frequent and last longer as of Saturday yesterday. The patient does have significant risk factors including a family history and hypertension as well as remote smoking. EKG shows what appears to be some dynamic changes in the ST segments in the 3 through V6. His troponins were 54-58-65. This is above normal in the high-sensitivity troponin T assay. However it is very low levels. The patient's symptoms, he has dynamic EKG changes, and the troponins are consistent with an accelerating angina picture. I recommend the patient undergo left heart catheterization. The procedure risk/benefit and alternatives were explained to the patient in detail he voiced understanding and agrees to proceed. (2) Hypertension: QUALIFIERS: Hypertension type: primary hypertension Qualified Code(s): I10 - Essential (primary) hypertension PLAN: Patient's blood pressures been controlled on the combination of hydrochlorothiazide and lisinopril hydrochlorothiazide. (3) Hyperlipidemia: QUALIFIERS: Hyperlipidemia type: pure hypercholesterolemia Qualified Code(s): E78.00 - Pure hypercholesterolemia, unspecified PLAN: Patient's lipid on this admission shows a total cholesterol of 160 triglycerides of 150, LDL of 90, and HDL of 40. Given the high likelihood that this is in the face of atherosclerotic disease his target LDL cholesterol should be less than 70. And given his accelerating anginal symptoms I agree with the addition of atorvastatin 40 mg daily to his medical regiment. Fasting lipids and liver function should be reevaluated in 6 weeks. PLAN: Plan 1. Recommend addition of atorvastatin 40 mg daily to his medical regimen. 2. Continue aspirin we will hold enoxaparin for catheterization. Continue his other medical therapy. 3. Will schedule left heart catheterization this morning with Dr. Chavez. HPI Consult Data Date of Consult: 09/01/24 HPI Narrative Reason for Consultation: Accelerating angina HPI Narrative: KOBY CHANEY, is a 69 M who presents with a 10-day history of chest discomfort and dyspnea on exertion. The patient swims on Saturday and Saturday and a week ago Saturday he noticed when he started this with him as he got into his routine he was short of breath and had a pressure sensation across his chest. He stopped and rested and it went away in about 5 minutes. The same thing happened on Saturday and Saturday of last week. And then yesterday when the patient went swimming the discomfort started earlier and stopped him after 4 laps when normally he was doing 20 laps. He came to the emergency room for evaluation. His initial EKG showed sinus tachycardia to [address]-T wave changes in the anterior lateral leads V3 through V6. Repeat EKG this morning shows sinus rhythm at 78 bpm with much less ST segment changes in those same leads. The troponins were 54-58-65. He had a positive D-dimer but CTA showed no evidence of PE or intrathoracic abnormalities of the vasculature. The patient's had no previous history. Patient does have a family history of coronary artery disease before age 60. He is a remote smoker he has a history of hypertension he denies any history of hyperlipidemia or diabetes. The patient does note that his weight is increased when he got out of his swimming routine recently and was just getting back into it when the symptoms started. The patient has a significant past medical history of multiple abdominal surgeries due to diverticulitis the latest of which was in 2012. He also has a history of chronic back issues. Currently the patient is resting comfortably in the cot recumbent position in bed denying any anginal type symptoms denies any PND orthopnea and denies any lower extremity edema. He has no signs or symptoms of claudication. Patient does have a history of prostate cancer status post radiation treatment with subsequent proctitis. He denies any history of allergies to contrast. [facility] Medical History Hypertension Home Medications ?Medication ?Instructions ?Recorded ?Last Taken ?Type cholecalciferol (vitamin D3) 25 1,000 unit PO DAILY 08/24/17 08/31/24 History mcg (1,000 unit) capsule (Vitamin D3) hydrochlorothiazide 25 mg tablet 25 mg PO DAILY #30 tabs 08/24/17 08/31/24 Rx meloxicam 15 mg tablet 15 mg PO DAILY 08/24/17 08/23/17 History Held on 08/31/24. Instructions: Held by patient lisinopril 20 2 tab PO DAILY 08/31/24 08/31/24 History mg-hydrochlorothiazide 12.5 mg tablet Allergy/AdvReac Type Severity Reaction Status Date / Time fenofibrate Allergy Other Verified 08/31/24 18:24 diclofenac AdvReac Nausea/Vom/ Verified 08/31/24 18:24 Diarrhea Family History (Updated 09/01/24 @ 07:[address] Graham Carr MD) Father CAD (coronary artery disease) Social History Smoking Status: Former smoker ROS Constitutional Constitutional: Reports as per HPI Eyes Eyes: Reports systems reviewed and no addt'l complaints, except as documented ENT HEENT: Reports systems reviewed and no addt'l complaints, except as documented Cardiovascular Cardiovascular: Reports as per HPI Respiratory/Chest Respiratory/Chest: Reports as per HPI Gastrointestinal Gastrointestinal: Reports as per HPI Genitourinary Genitourinary: Reports as per HPI Musculoskeletal Musculoskeletal: Reports as per HPI Integumentary Integumentary: Reports systems reviewed and no addt'l complaints, except as documented Neurologic Neurologic: Reports systems reviewed and no addt'l complaints, except as documented Psychiatric Psychiatric: Reports systems reviewed and no addt'l complaints, except as documented Endocrine Endocrinology: Reports as per HPI Hematologic/Lymphatic Hematologic/Lymphatic: Reports systems reviewed and no addt'l complaints, except as documented Allergic/Immunologic Allergic/Immunologic: Reports as per HPI Physical Exam Narrative Well-developed well-nourished white male moderately overweight. Const alert and oriented x3 HEENT normocephalic Eyes PERRL Neck no JVD and no carotid bruits Chest inspection of chest normal Resp normal respiratory effort and clear to auscultation bilaterally Cardio regular rate, regular rhythm, S1 normal heart sound, S2 normal heart sound, no murmurs, no rub and no gallops Peripheral Pulses: pulses 2+ throughout GI soft to palpation GI Narrative: Extensive midline scar from the umbilicus down to the pubic ramus. Extremity no pedal edema Neuro Neuro Narrative: Alert and oriented x 3 Psych mental status grossly normal Risk Stratification Risk Stratification Applicable: Yes Age >/= 65: Yes >/= 3 CAD Risk Factors (HTN, HLD, DM, family hx of CAD, or current smoker): Yes Aspirin Use in the Past 7 Days: No Severe Angina (>/= episodes in 24 hours): Yes EKG ST Changes >/= 0.5mm: Yes Positive Cardiac Marker: Yes HA Risk Stratification Score: 5 HA % Risk: 25% Risk Charges/Coding Visit Charges Inpatient E&M: 18972 Init Hosp L3 Objective Data Vital Signs: Vital Signs Temp Pulse Resp BP Pulse Ox O2 Del Method 97.7 F L 84 18 120/84 H 99 Room Air 09/01/24 04:24 09/01/24 05:59 09/01/24 04:24 09/01/24 05:57 09/01/24 04:24 09/01/24 04:24 Oxygen Delivery Method Room Air Weight: 87 lb 4.849 oz Body Mass Index (BMI) 12.5 Lab / Micro Data 09/01/24 05:36 09/01/24 05:36 Labs: Laboratory Results - last 24 hr 08/31/24 18:55: WBC 9.7, RBC 5.70, Hgb 17.2 H, Hct 49.7, MCV 87.2, MCH 30.2, MCHC 34.6, RDW Std Deviation 43.2, RDW Coeff of Aida 13.6, Plt Count 263, MPV 11.2, Immature Gran % (Auto) 0.400, Neut % (Auto) 72.6 H, Lymph % (Auto) 17.8 L, Sumner % (Auto) 6.7, Eos % (Auto) 1.7, Baso % (Auto) 0.8, Absolute Neuts (auto) 7.0, Absolute Lymphs (auto) 1.72, Nucleated RBC % 0 08/31/24 18:58: PT 13.5, INR 1.0, APTT 27.7, D-Dimer Quant (PE/DVT) 3.21 H*, Sodium 137, Potassium 3.8, Chloride 100, Carbon Dioxide 21.0, Anion Gap 17 H, BUN 13, Creatinine 0.98, Estim Creat Clear Calc 93.89, Est GFR (MDRD) Non-Af 83, BUN/Creatinine Ratio 13.5, Glucose 90, Calcium 9.8, Troponin T High Sens 54 H*, NT pro BNP II 205 08/31/24 21:05: Troponin T Hi Sens 2 Hr 58 H* 08/31/24 22:56: Troponin T Hi Sens 4Hr 65 H*, Triglycerides 150, Cholesterol 160, LDL Cholesterol, Calc 90, VLDL Cholesterol 30, HDL Cholesterol 40, Cholesterol/HDL Ratio 3.98, TSH 3.470 08/31/24 23:20: Hemoglobin A1c 5.7 09/01/24 05:36: WBC 6.4, RBC 5.63, Hgb 16.9 H, Hct 49.8, MCV 88.5, MCH 30.0, MCHC 33.9, RDW Std Deviation 44.3 H, RDW Coeff of Aida 13.6, Plt Count 210, MPV 10.5, Sodium 137, Potassium 3.8, Chloride 102, Carbon Dioxide 22.9, Anion Gap 13, BUN 14, Creatinine 1.08, Estim Creat Clear Calc 35.65 L, Est GFR (MDRD) Non-Af 74, BUN/Creatinine Ratio 12.8, Glucose 117 H, Calcium 9.2, Phosphorus 2.5 L, Magnesium 2.3 H, Total Bilirubin 1.06, AST 35, ALT 25, Alkaline Phosphatase 91, Total Protein 7.2, Albumin 4.3, Globulin 2.9, Albumin/Globulin Ratio 1.5 Rhythm Strip Rhythm Strip: Sinus Rhythm Rate: 78 Cardiology Labs/Tests 08/31/24 18:55: WBC 9.7, RBC 5.70, Hgb 17.2 H, Hct 49.7, MCV 87.2, MCH 30.2, MCHC 34.6, Plt Count 263, MPV 11.2, Immature Gran % (Auto) 0.400, Neut % (Auto) 72.6 H, Lymph % (Auto) 17.8 L, Sumner % (Auto) 6.7, Eos % (Auto) 1.7, Baso % (Auto) 0.8, Absolute Neuts (auto) 7.0, Nucleated RBC % 0 08/31/24 18:58: PT 13.5, INR 1.0, APTT 27.7, D-Dimer Quant (PE/DVT) 3.21 H*, Sodium 137, Potassium 3.8, Chloride 100, Carbon Dioxide 21.0, Anion Gap 17 H, BUN 13, Creatinine 0.98, Est GFR (MDRD) Non-Af 83, BUN/Creatinine Ratio 13.5, Glucose 90, Calcium 9.8 08/31/24 22:56: Triglycerides 150, Cholesterol 160, VLDL Cholesterol 30, HDL Cholesterol 40, Cholesterol/HDL Ratio 3.98 08/31/24 23:20: Hemoglobin A1c 5.7 09/01/24 05:36: WBC 6.4, RBC 5.63, Hgb 16.9 H, Hct 49.8, MCV 88.5, MCH 30.0, MCHC 33.9, Plt Count 210, MPV 10.5, Sodium 137, Potassium 3.8, Chloride 102, Carbon Dioxide 22.9, Anion Gap 13, BUN 14, Creatinine 1.08, Est GFR (MDRD) Non-Af 74, BUN/Creatinine Ratio 12.8, Glucose 117 H, Calcium 9.2, Phosphorus 2.5 L, Magnesium 2.3 H, Total Bilirubin 1.06 Rhythm: EKG: ECHO: Stress Test: Cardiac Cath: PCI: CT Surgery: Holter monitor: EPS: PPM: CXR: Chest CT Scan: Radiography Diagnostic Testing: Radiology Impression Chest X-Ray 08/31/24 19:15 IMPRESSION: Findings of fluid overload/CHF including trace left pleural effusion. Reading Location: [facility] Chest CTA 08/31/24 20:47 IMPRESSION: No evidence of pulmonary embolism or acute findings in the thorax. Mild upper lobe emphysema. One or more dose reduction techniques were used (e.g., Automated exposure control, adjustment of the mA and/or kV according to patient size, use of iterative reconstruction technique). Reading [facility]
--- NOTE | 2024-09-01 10:00 | CASEMGMT ---
NILDA BEE Assessment: Face to Face with pt for initial transition planning/care coordination assessment. NILDA BEE introduced self and role at [facility], pt voices understanding and consents to assessment. Pt is A&O x4 and answers all questions appropriately at this time. Pt sitting up in bed in no distress. Care providers, pharmacy, and demographics verified/updated. Strata: 2 Admitting Dx: NSTEMI PCP: Swati Specialists: Denies Preferred Pharmacy: [facility] Insurance: [facility] Prescription Benefit: yes LNOK: DaughterAnne Living Arrangements: Pt lives alone in a 2 story home with everything he needs to access on the main level. ADLs: Pt states I at baseline. Transportation: Pt drives self and denies concerns with transportation. DME: Denies HHC/SNF: Denies Hx of Pt states no concerns with going home at time of dc. Pt states no further concerns/needs. CM to follow. Advised pt to ask CM if any further question/concerns/needs arise, voices understanding. Pt Goal: Home Plan: Home, follow for safe DC. Amparo MUNGUIA CM
--- NOTE | 2024-09-01 10:03 | NURSING ---
Report called to nurse Lino RN for pt to be transported to lab animal technician.
--- NOTE | 2024-09-01 11:07 | CASEMGMT ---
RN CM noted pt going to engineering laboratory technician, asked DC vp strategic planning to add tertiary list to pt chart.
--- NOTE | 2024-09-01 11:44 | CASEMGMT ---
Insurance review for hospitals In-network with [facility] Group [facility] Advantage PPO insurance if transfer is recommended is as follows: [facility], [facility], [place], [facility], [facility], [facility], , [place], [facility], and [place]. Madalyn Riley, Discharge Planning Asst.
--- NOTE | 2024-09-01 11:46 | CL.I_ITS ---
Patient Name: KOBY CHANEY Study Date: 09/01/2024 Performing: Alonzo Chavez MD Ht: 70 inches 177.8 cm : 1955 Wt: 280.7 lbs 127.14 kg Age: 69 Gender: male BSA: 2.41 PROCEDURE(S) PERFORMED DC01-(94155)LHC/COR/LV IC12-([id number])STEPHEN W/WO PTCA, SINGLE CORONARY ARTERY CLINICAL PROFILE AND CO-MORBIDITIES Indications: Unstable Angina Heart Failure: None CONCLUSIONS CAD as described. No significant or MR. LVEF is 60%. Successful STEPHEN to pLCX RECOMMENDATIONS DESCRIPTION OF PROCEDURE The patient arrived to the procedure lab. The risks and benefits of the procedure as well as a full description of our services here and lack of surgical backup were fully explained to the patient and/or their significant other prior to the catheterization. The Timeout was completed, verifying the correct patient and procedure. The patient's procedural site was prepped and draped in the usual fashion. Local anesthetic was given subcutaneously to right radial region with Lidocaine 2%. Using a modified Seldinger technique, arterial access was obtained via the right radial artery, a 6Fr sheath was inserted.. Left Coronary Artery selective angiography was performed in multiple views using a 5 Fr. JL3.5 catheter. Left Ventriculography was performed in COLBERT projection using a 5 Fr. JR 4.0. LV to AO pullback pressures were then recorded. Right Coronary Artery selective angiography was then performed in multiple views using a 5 Fr. JR 4 catheterThe images were reviewed and options discussed. A decision was then made to proceed with an Intervention, IVUS or other adjunct procedure. EBU 3.5 Guide catheter was inserted and engaged into the LCA. BMW Guide wire was advanced to the Circumflex. 3 x 12 Emerge Balloon catheter was inserted. Balloon catheter was advanced across lesion in the circumflex, mid. PTCA balloon inflated at 6 atms for 5 secs. PTCA balloon inflated at 14 atms for 30 secs. 4 x 15 [place] Drug Eluting stent was inserted. Drug Eluting stent was advanced across the lesion in the circumflex, prox. Angiogram performed post stent deployment. The arterial sheath was pulled and a TR Band was applied for hemostasis CORONARY ANGIOGRAPHY DOMINANCE: Left Dominant LEFT HEART ASSESSMENT Left Ventricular Ejection Fraction: by LV Gram 60 % LEFT MAIN: Mild luminal irregularities LEFT ANTERIOR DESCENDING ARTERY: OSTIAL LAD: 60 % Stenosis CIRCUMFLEX ARTERY: PROX CIRC: 95 % Stenosis RIGHT CORONARY ARTERY: MID RCA: 60 % Stenosis VALVE FINDINGS: No Aortic Valve Stenosis No Mitral Insufficiency INTERVENTION INFORMATION LESION SITE: Circumflex (Proximal) Lesion Complexity: High/C, chronic total occlusion: No, lesion at bifurcation: No, thrombus present: No, lesion length: 12 mm, culprit lesion: Yes, Previously treated lesion: No Pre Stenosis: 95 % Pre intervention HA flow: 3 PROCEDURE: Drug Eluting Stent with pre dilatation. Post Stenosis: 0 % Post intervention HA flow: 3 Lesion Devices: Medtronic 6 Fr EBU3.5 100cm Guide Catheter Wick .014 190cm [employer] [facility] Straight Hilario Sci EMERGE MR 3.00x12 BALLOON Medtronic 4.0 x 15 PILY FRONTIER STEPHEN COMPLICATIONS No Complications PROCEDURE MEDICATIONS Fentanyl 50 mcg IV Versed 1 mg IV Oxygen: 2 L/min via nasal cannula Brilinta 180 mg PO @ 09/01/2024 11:01:36 Heparin given IA 09/01/2024 10:40:52 Heparin 6000 unit(s) IV 09/01/2024 10:57:05 Verapamil 2.5mg, Ntg 100mcgs, 3000 units of Heparin given IA 09/01/2024 10:40:52 SUMMARY OF HEMODYNAMIC DATA Time AIR REST ECG 10:11:30 AO 83/60 (68) SA 10:40:48 LV 116/2, 8 10:52:22 LV 110/4, 10 10:52:30 LV 138/-1, 15 10:53:53 LVp 137/0, 14 10:54:03 AOp 128/78 (103) 10:54:10 AO 115/77 (95) 11:01:14 Signed By Alonzo Chavez MD On 09/01/2024 11:45:14 Alonzo Chavez MD
--- NOTE | 2024-09-01 12:00 | EKG12_ITS ---
Test Reason : CP ADMIT Blood Pressure : */* mmHG Vent. Rate : 78 BPM Atrial Rate : 78 BPM P-R Int : 160 ms QRS Dur : 90 ms QT Int : 378 ms P-R-T Axes : 66 -13 6 degrees QTcB Int : 430 ms Normal sinus rhythm Nonspecific ST abnormality Abnormal ECG When compared with ECG of 31-Aug-2024 18:34, Criteria for Septal infarct are no longer Present Confirmed by DIONISIO SHERWOOD, ARRON ([id number]), assignment editor TIFFANIE ADLER ([id number]) on 09/07/2024 11:43:45 AM Referred By: Confirmed By: ARRON NICHOLE MD
--- NOTE | 2024-09-01 12:22 | CRPHASE1 ---
Patient Communication Patient Information Former Patient:: Phase I PHII Cardiac Rehab Discussed with Patient:: Yes Guide to Cardiac Rehab Given to Patient:: Yes Cardiac Rehab Facility Choice List Given to Patient:: Yes Communication to Cardiac Rehab [facility] [employer] [facility]:: Cindy Chavez Sessions:: 36 sessions - 3 days/wk, 12 weeks Cardiac Rehabilitation Info Program Information Cardiac Rehabilitation Program Information: Cardiac Rehab The cardiac rehab team at [facility] consists of highly skilled exercise physiologists, nurses, respiratory therapists and physicians working together with you. Our purpose is to help you have a full recovery and achieve the goals you set for yourself. Over the years many of our patients have returned to activities they assumed they would never do again! We can help restore your confidence and motivation to make lifestyle changes that can have a significant impact on your health and quality of life! We can help answer questions and concerns you may have about exercise, lifestyle, medications, diet, stress and anxiety which are common following a hospitalization. WE monitor ECG and vital signs during exercise and discuss your progress with you and report to your physician(s). Cardiac Rehab is proven to help reduce readmissions, improve functional capacity and lower recurrence of problems with your heart. Our Cardiac Rehab program is Certified by the [place] [employer]-V[employer] and Pulmonary [employer] (AACVPR) and Accredited by the [place] [employer] through our [facility]. You can contact us at . We invite you to call us with your questions or to get started in our program. If you have other questions or concerns be sure to ask your physician/provider during your follow-up visit. WE look forward to seeing you!
--- NOTE | 2024-09-01 12:23 | CRPH1.INSTRU ---
General Education Discussed with Patient CAD and cardiac anatomy and function:: Patient communicates acknowledgment Explanation of diagnoses and procedures:: Patient communicates acknowledgment Sign/Symptoms of ID:: Patient communicates acknowledgment Antiplatelet therapy: Patient communicates acknowledgment Proper use of NTG-SL: Patient communicates acknowledgment Emergency procedures and activation of EMS: Patient communicates acknowledgment Compliance of all prescribed medications: Patient communicates acknowledgment Smoking Risk Factors Patient Nicotine/Smoking Risk Factors Are:: Non-smoker Recommendations Recommendations Include:: Previous smoker; encourage continued cessation Response Code Nicotine/Smoking Response Code:: Patient communicates acknowledgment Dyslipidemia Recommendations Recommendations Include:: Lipid profile provided Response Code Dyslipidemia Response Code:: Patient communicates acknowledgment Overweight/Obesity Risk Factors Patient Overweight/Obesity Risk Factors Are:: Obesity - > or = 30 Recommendations Recommendations Include:: Weight loss of 5-10%, Reduced calorie diet and Exercise 5-7 times/week Response Code Overweight/Obesity:: Patient communicates acknowledgment Hypertension Recommendations Recommendations Include:: Maintain BP <130/85 Response Code Hypertension:: Patient communicates acknowledgment Heart Disease Risk Factors Patient Heart Disease Risk Factors Are:: Family history of heart disease < 65 years old Recommendations Recommendations Include:: Educated family members of their risk Response Code Heart Disease Response Code:: Patient communicates acknowledgment Diabetes Risk Factors Patient Diabetes Risk Factors Are:: No documented hx of diabetes Metabolic Syndrome Recommendations Recommendations Include:: Does not meet criteria Sedentary Recommendations Recommendations Include:: Benefits of regular exercise and Monitored Outpatient Cardiac Rehab Response Code Sedentary Response Code:: Patient communicates acknowledgment Stress Recommendations Recommendations Include:: Identification of stressors, and assessment of coping skills and Stress management techniques Response Code Stress Response Code:: Patient communicates acknowledgment
[2024-09-01] MEDS: Potassium Phosphate 15 MM in 0.9% Normal Saline (250mL Bag) 250 ML 125 MM IV (13:11)
[2024-09-01] MEDS: Cholecalciferol (VIT D3) 25 MCG TABLET (1,000 UNITS) PO (13:13)
[2024-09-01] MEDS: hydroCHLOROthiazide 12.5mg 12.5 MG PO (13:13)
--- NOTE | 2024-09-01 13:54 | PCM.PN.HOSP ---
Reason for Visit Reason for Visit: Diagnoses Morbid (severe) obesity due to excess calories (08/31/24) Pure hypercholesterolemia, unspecified (08/31/24) Essential (primary) hypertension (08/31/24) Unstable angina (08/31/24) Non-ST elevation (NSTEMI) myocardial infarction (08/31/24) Body mass index [BMI] 40.0-44.9, adult (08/31/24) Family history of ischemic heart disease and other diseases of the circulatory system (08/31/24) Personal history of other diseases of the circulatory system (08/31/24) Personal history of nicotine dependence (08/31/24) Objective Data Objective Data Vital Signs: Vital Signs Temp Pulse Resp BP Pulse Ox O2 Del Method 97.8 F 74 18 128/82 H 99 Room Air 09/01/24 13:06 09/01/24 13:06 09/01/24 13:06 09/01/24 13:06 09/01/24 13:06 09/01/24 13:06 Oxygen Delivery Method Room Air Weight: 126.9 kg Body Mass Index (BMI) 40.1 Lab / Micro Data 09/01/24 05:36 09/01/24 05:36 Labs: Laboratory Results - last 24 hr 08/31/24 18:55: WBC 9.7, RBC 5.70, Hgb 17.2 H, Hct 49.7, MCV 87.2, MCH 30.2, MCHC 34.6, RDW Std Deviation 43.2, RDW Coeff of Aida 13.6, Plt Count 263, MPV 11.2, Immature Gran % (Auto) 0.400, Neut % (Auto) 72.6 H, Lymph % (Auto) 17.8 L, [place] % (Auto) 6.7, Eos % (Auto) 1.7, Baso % (Auto) 0.8, Absolute Neuts (auto) 7.0, Absolute Lymphs (auto) 1.72, Nucleated RBC % 0 08/31/24 18:58: PT 13.5, INR 1.0, APTT 27.7, D-Dimer Quant (PE/DVT) 3.21 H*, Sodium 137, Potassium 3.8, Chloride 100, Carbon Dioxide 21.0, Anion Gap 17 H, BUN 13, Creatinine 0.98, Estim Creat Clear Calc 93.89, Est GFR (MDRD) Non-Af 83, BUN/Creatinine Ratio 13.5, Glucose 90, Calcium 9.8, Troponin T High Sens 54 H*, NT pro BNP II 205 08/31/24 21:05: Troponin T Hi Sens 2 Hr 58 H* 08/31/24 22:56: Troponin T Hi Sens 4Hr 65 H*, Triglycerides 150, Cholesterol 160, LDL Cholesterol, Calc 90, VLDL Cholesterol 30, HDL Cholesterol 40, Cholesterol/HDL Ratio 3.98, TSH 3.470 08/31/24 23:20: Hemoglobin A1c 5.7 09/01/24 05:36: WBC 6.4, RBC 5.63, Hgb 16.9 H, Hct 49.8, MCV 88.5, MCH 30.0, MCHC 33.9, RDW Std Deviation 44.3 H, RDW Coeff of Aida 13.6, Plt Count 210, MPV 10.5, Sodium 137, Potassium 3.8, Chloride 102, Carbon Dioxide 22.9, Anion Gap 13, BUN 14, Creatinine 1.08, Estim Creat Clear Calc 35.65 L, Est GFR (MDRD) Non-Af 74, BUN/Creatinine Ratio 12.8, Glucose 117 H, Calcium 9.2, Phosphorus 2.5 L, Magnesium 2.3 H, Total Bilirubin 1.06, AST 35, ALT 25, Alkaline Phosphatase 91, Total Protein 7.2, Albumin 4.3, Globulin 2.9, Albumin/Globulin Ratio 1.5 Radiography Diagnostic Testing: Radiology Impression Chest X-Ray 08/31/24 19:15 IMPRESSION: Findings of fluid overload/CHF including trace left pleural effusion. Reading Location: [facility] Chest CTA 08/31/24 20:47 IMPRESSION: No evidence of pulmonary embolism or acute findings in the thorax. Mild upper lobe emphysema. One or more dose reduction techniques were used (e.g., Automated exposure control, adjustment of the mA and/or kV according to patient size, use of iterative reconstruction technique). Reading Location: [facility] Echocardiogram 09/01/24 05:55 Interpretation Summary The estimated ejection fraction is 55 %. No evidence for diastolic dysfunction. Ordering Physician: Mian Hutchison Performed By: Perez Espinosa RCS Rhythm Strip Rhythm Strip: Sinus Rhythm Rate: 78 Assessment & Plan Assessment/Plan (1) Non-ST elevation NH (NSTEMI): PLAN: Plan # NSTEMI type I -Patient came to the ED with symptoms concerning for cardiac etiology, he was admitted and troponin 54 up trended to 58 and he was given full dose Lovenox and hospitalist contacted for admission -Cardiology consulted and noted the concerning story with increased troponins and EKG with ST segment changes in 3 through V6 and heart cath was recommended as well as aspirin and statin -Left heart cath 09/01/2024 revealed EF of 60% and stenosis of the pLCx, patient underwent successful STEPHEN and was transferred back to PCU in stable condition -Brilinta added to his regimen # Coronary artery disease -Patient now status post stenting to pLCx -Echocardiogram with EF of 55% and no evidence of diastolic dysfunction, no comment on wall motion abnormalities present either -Continue aspirin, statin, beta-jami, Brilinta -Stop full dose anticoagulation #Hypertension -Holding lisinopril?hydrochlorothiazide given patient had contrast with heart cath and CTA, plan will be to resume lisinopril on 09/03 if kidney function stable -Metoprolol started #Morbid obesity -BMI documented as 40.1 kg/m? at time of admission -Complicates treatment, prognosis, outcomes -Recommend weight loss and lifestyle changes #DVT ppx: Lovenox subcu Mayra Rodriguez MD Charges/Coding Visit Charges Inpatient E&M: 72657 Subs Hosp L2
[2024-09-01] MEDS: TICAGRELOR 90 MG TABLET PO (22:04)
[2024-09-01] MEDS: Enoxaparin 40 MG/0.4 ML Syringe SC (22:04)
[2024-09-02 02:50] VITALS: BP 117/68; PULSE 79; RESP 18; TEMP 36.4; O2SAT 95
[2024-09-02 05:18] VITALS: BMI 40.8
[2024-09-02 06:23] LABS: Hematocrit 47.3 % (40-54); Hemoglobin 16.1 g/dL (13.0-16.5); Mean Corpuscular Volume 88.1 fL (80-94); Mean Platelet Vol. 10.7 fl (6.2-12.0); Platelet Count 195 K/mm3 (150-450); RBC Distribution Width CV 13.5 % (11.6-14.6); RBC Distribution Width SD 43.5 fl (35.1-43.9); Red Blood Count 5.37 M/mm3 (4.6-6.2)
[2024-09-02 06:40] LABS: Magnesium 2.3 mg/dL (1.5-2.2); Phosphorus 2.3 mg/dL (2.7-4.5)
[2024-09-02 06:48] LABS: ALB/GLOB Ratio 1.5 RATIO (0.9-2.4); AST(SGOT) 36 U/L (<=37); Alanine Aminotransfer ALT/SGPT 24 U/L (<=46); Albumin, Serum 4.1 g/dL (3.4-4.8); Alkaline Phosphatase 86 U/L (40-129); Anion Gap 14 (5-15); BUN 14 mg/dL (4-19); BUN/Creat Ratio 15.7 RATIO (10-20); Calcium,Total 9.2 mg/dL (7.6-11.0); Carbon Dioxide 22.7 mmol/L (21.0-32.0); Chloride 102 mmol/L (98-108); Creatinine, Serum 0.92 mg/dL (0.70-1.20); EST Glomerular Filtration Rate 90 (>60); Estimated Creatinine Clearance 100.82 ml/min (50-250); Globulin 2.7 g/dL (2.2-4.2); Glucose 105 mg/dL (70-99); Protein, Total 6.9 g/dL (5.9-8.4); Sodium Level 139 mmol/L (133-145); Total Bilirubin 1.05 mg/dL (0.00-1.30)
--- NOTE | 2024-09-02 07:01 | PN.CARD_ITS ---
Subjective Subjective Patient resting comfortably in bed in no apparent distress. Patient underwent successful stenting of the large dominant circumflex yesterday. Has had no recurrence of his anginal symptoms. Telemetry shows sinus bradycardia in the 50 bpm range. Patient denies any issues with his right wrist access point. Objective Data Vital Signs: Vital Signs Temp Pulse Resp BP Pulse Ox O2 Del Method 97.6 F L 79 18 117/68 95 Room Air 09/02/24 02:50 09/02/24 02:50 09/02/24 02:50 09/02/24 02:50 09/02/24 02:50 09/02/24 02:50 Oxygen Delivery Method Room Air Weight: 284 lb 6.341 oz Body Mass Index (BMI) 40.8 Intake & Output: Intake and Output for Last 24 Hours 08/31/24 09/01/24 09/02/24 23:59 23:59 23:59 Intake Total 1615 / 1615 Balance 1615 / 1615 Lab / Micro Data Attestation: I reviewed the patient's lab results. 09/02/24 05:14 09/02/24 05:14 Labs: Laboratory Results - last 24 hr 09/02/24 05:14: WBC 8.0, RBC 5.37, Hgb 16.1, Hct 47.3, MCV 88.1, MCH 30.0, MCHC 34.0, RDW Std Deviation 43.5, RDW Coeff of Aida 13.5, Plt Count 195, MPV 10.7, Sodium 139, Potassium 4.0, Chloride 102, Carbon Dioxide 22.7, Anion Gap 14, BUN 14, Creatinine 0.92, Estim Creat Clear Calc 100.82, Est GFR (MDRD) Non-Af 90, BUN/Creatinine Ratio 15.7, Glucose 105 H, Calcium 9.2, Phosphorus 2.3 L, M agnesium 2.3 H, Total Bilirubin 1.05, AST 36, ALT 24, Alkaline Phosphatase 86, Total Protein 6.9, Albumin 4.1, Globulin 2.7, Albumin/Globulin Ratio 1.5 Rhythm Strip Rhythm Strip: Sinus Rhythm Rate: 60 Cardiology Labs/Tests 09/02/24 05:14: WBC 8.0, RBC 5.37, Hgb 16.1, Hct 47.3, MCV 88.1, MCH 30.0, MCHC 34.0, Plt Count 195, MPV 10.7, Sodium 139, Potassium 4.0, Chloride 102, Carbon Dioxide 22.7, Anion Gap 14, BUN 14, Creatinine 0.92, Est GFR (MDRD) Non-Af 90, BUN/Creatinine Ratio 15.7, Glucose 105 H, Calcium 9.2, Phosphorus 2.3 L, M agnesium 2.3 H, Total Bilirubin 1.05 Rhythm: EKG: ECHO: Stress Test: Cardiac Cath: PCI: CT Surgery: Holter monitor: EPS: PPM: CXR: Chest CT Scan: Radiography Diagnostic Testing: Radiology Impression Echocardiogram 09/01/24 05:55 Interpretation Summary The estimated ejection fraction is 55 %. No evidence for diastolic dysfunction. Ordering Physician: Mian Hutchison Performed By: Perez Espinosa RCS Physical Exam Const alert and oriented x3 HEENT normocephalic Eyes PERRL Neck no JVD Chest inspection of chest normal Resp normal respiratory effort Cardio regular rate and regular rhythm Cardio Narrative: Right radial access site clean and dry. Normal capillary refill in the right hand no sensory deficits. Extremity no pedal edema Neuro Neuro Narrative: Alert and oriented x 3 Psych mental status grossly normal Assessment & Plan Assessment/Plan (1) Accelerating angina: PLAN: Patient underwent diagnostic left heart catheterization which revealed critical disease in the proximal huge dominant circumflex which was stented. The patient denies any recurrent symptoms. Access site is healing well. The patient will be continued on dual antiplatelet therapy uninterrupted for a year. I went over with this in detail with him about stent thrombosis risk. The patient does have moderate disease in the ostium of the LAD and mild disease in the large nondominant right coronary artery. (2) Hyperlipidemia: QUALIFIERS: Hyperlipidemia type: pure hypercholesterolemia Q ualified Code(s): E78.00 - Pure hypercholesterolemia, unspecified PLAN: Patient has been started on atorvastatin 40 mg daily. He has been intolerant of fenofibrate in the past. Should the patient develop myalgias I would recommend switching him to rosuvastatin 20 mg daily but this will be addressed in the ambulatory setting. (3) History of hypertension: PLAN: Patient should be continued on his lisinopril hydrochlorothiazide at home medical therapy. He is also on metoprolol 25 mg daily which we will switch to 25 mg succinate every morning on discharge. His nighttime heart rate was getting into the 40s. PLAN: Plan 1. Will plan to discharge today. 2. Will switch metoprolol to tartrate 25 twice daily to metoprolol succinate 25 every morning due to nocturnal bradycardia. 3. Continue atorvastatin 40 mg nightly. Will recheck fasting lipids and liver functions in 6 weeks. Should the patient develop myalgias would switch to rosuvastatin 20 mg nightly. 4. Patient should follow-up in the [facility] office in 7 to 10 days with one of the [facility]'s. Patient will follow-up with Dr. Carr in 6 to 8 weeks. Charges/Coding Visit Charges Inpatient E&M: 00053 Subs Hosp L2
[2024-09-02 08:39] VITALS: PULSE 90
[2024-09-02] MEDS: Metoprolol Tartrate 25 MG Tablet PO (08:39)
[2024-09-02] MEDS: Aspirin E.C. 81 MG Tablet PO (08:39)
[2024-09-02] MEDS: TICAGRELOR 90 MG TABLET PO (08:39)
[2024-09-02] MEDS: Enoxaparin 40 MG/0.4 ML Syringe SC (08:39)
[2024-09-02] MEDS: Cholecalciferol (VIT D3) 25 MCG TABLET (1,000 UNITS) PO (08:40)
[2024-09-02 08:48] VITALS: BP 131/90; PULSE 90; RESP 18; TEMP 36.6; O2SAT 98
--- NOTE | 2024-09-02 12:00 | EKG12_ITS ---
Test Reason : SERIES Blood Pressure : */* mmHG Vent. Rate : 78 BPM Atrial Rate : 78 BPM P-R Int : 144 ms QRS Dur : 86 ms QT Int : 382 ms P-R-T Axes : 63 -21 17 degrees QTcB Int : 435 ms Normal sinus rhythm Nonspecific ST abnormality Abnormal ECG Confirmed by DIONISIO SHERWOOD, ARRON ([id number]), editorial specialist TIFFANIE ADLER ([id number]) on 09/07/2024 11:43:34 AM Referred By: BANDAR Confirmed By: ARRON NICHOLE MD
--- NOTE | 2024-09-02 13:08 | DCINST_ITS ---
Discharge Instructions Diet Discharge Diet: - (DASH diet) DC O2, CPAP, BIPAP needs Home O2 Discharge instructions: No Dressing / Incision Discharge Activity: - (See discharge instructions) Follow Up Care Test Results: Test results from this visit will be discussed in further detail at your follow- up appointment, if applicable. Discharge Plan Admission Admit Date/Time: 08/31/24 23:07 Primary Reason for Your Visit: Chest pain Attending Provider: Mayra Rodriguez Primary Care Provider: Colton Longoria Consulting Providers: Graham Carr; Mian Hutchison Instructions Patient Instructions: Cardiac Catheterization Dc Additional Instructions / Restrictions: DISCHARGE INSTRUCTIONS PLEASE READ *Please take this with you to your next doctors appointment* -You will be discharged on several new medications. You will be discharged on metoprolol succinate 25 mg daily, aspirin, Brilinta 90 mg twice daily, and atorvastatin -You will resume your home blood pressure medications and was advised to not resume meloxicam on discharge -Do only light and easy activities for 2 to 3 days after your stent placement, ask for help with chores and errands while you recover and have someone drive you to your appointments. -Unless your job involves lifting you may return to normal activities within 2 days -Please take your medications as prescribed, do not skip doses -Check your incisions every day for signs of infection which would include redness, swelling, leaking. It is normal to have a small bruise or bump where the catheter was placed but a bruise that is getting larger is not normal. Please tell your healthcare team about this. Please proceed to the emergency department if you have uncontrollable bleeding from the site. -It is important to eat a diet that is low in fat, salt, and cholesterol -You will be set up with cardiac rehab upon discharge, it is important that you follow-up -Okay to shower from the day after your heart catheterization but keep your incision site clean and dry. -Would recommend lab work (fasting lipid panel and liver function) in 6 weeks, this can be coordinated through your primary care physician office or the cardiology office, please call on discharge to inquire about scheduling blood work. -Please follow-up with the [facility] in 7 to 10 days upon discharge. Please call their office to schedule hospital follow-up appointment upon discharge. -Please call your primary care provider's office upon discharge to schedule a hospital follow up within 1 week. -For any concerning signs or symptoms please call 911 or proceed to the nearest emergency department Discharge Orders/Prescriptions Prescriptions: New aspirin 81 mg Tablet,Delayed Release (Dr/Ec) 81 mg PO BREAKFAST Qty: 30 0RF atorvastatin 40 mg Tablet 40 mg PO QHS 30 Days Qty: 30 0RF metoprolol succinate 25 mg tablet extended release 24 hr 25 mg PO DAILY Qty: 30 0RF Brilinta 90 mg Tablet 90 mg PO BID 30 Days Qty: 60 0RF Continued cholecalciferol (vitamin D3) [Vitamin D3] 1,000 UNIT capsule 1,000 unit PO DAILY hydrochlorothiazide 25 MG tablet 25 mg PO DAILY Qty: 30 0RF lisinopril-hydrochlorothiazide 20-12.5 mg tablet 2 tab PO DAILY Discontinued meloxicam 15 MG tablet 15 mg PO DAILY Referrals / Follow Up: Colton Longoria MD [Primary Care Provider] - Within 1 Week Graham Carr MD [Med Staff - Active Staff] - In 1 Week (follow-up in the [facility] office in 7 to 10 days with one of the advanced practice providers. Please call the office upon discharge to schedule this appointment) Disposition Disposition (needs filled in before D/C Order can be placed): Home, Self Care
--- NOTE | 2024-09-02 13:14 | DS.PCM_ITS ---
Providers Date of Admission: 08/31/24 Date of Discharge: 09/02/24 Primary Care Physician: Dr. Colton Longoria MD Consultations 08/31/24 23:32 Consult: Cardiology Routine Consulting Provider: Graham Carr Reason for Consult: NSTEMI EMERGENT Consult: No MD Notified: Yes Date Notified: 08/31/24 Time Notified: 23:08 Method of Notification: ED Physician Initiated Method of Consult:: In-Person Reason For Visit: NSTEMI Diagnosis Discharge Diagnosis (1) Accelerating angina: Status: Acute Code(s): I20.0 - Unstable angina (2) Hyperlipidemia: Status: Acute Code(s): E78.5 - Hyperlipidemia, unspecified Qualifiers: Hyperlipidemia type: pure hypercholesterolemia Qualified Code(s): E 78.00 - Pure hypercholesterolemia, unspecified (3) History of hypertension: Status: Acute Code(s): Z86.79 - Personal history of other diseases of the circulatory system Plan # NSTEMI type I # Coronary artery disease #Hypertension #Morbid obesity Medications at Discharge Home Medications cholecalciferol (vitamin D3) 25 mcg (1,000 unit) capsule (Vitamin D3) 1,000 unit PO DAILY 08/24/17 hydrochlorothiazide 25 mg tablet 25 mg PO DAILY #30 tabs 08/24/17 lisinopril 20 mg-hydrochlorothiazide 12.5 mg tablet 2 tab PO DAILY 08/31/24 aspirin 81 mg tablet,delayed release 81 mg PO BREAKFAST #30 tabs 09/02/24 atorvastatin 40 mg tablet 40 mg PO QHS 30 days #30 tabs 09/02/24 metoprolol succinate 25 mg tablet,extended release 24 hr 25 mg PO DAILY #30 tabs 09/02/24 ticagrelor 90 mg tablet (Brilinta) 90 mg PO BID 30 days #60 tabs 09/02/24 Hospital Course Procedures Cardiac catheterization and Transthoracic echo Summary of Care Provided Minutes Spent on Discharge: 32 Hospital Course: Per HPI: KOBY CHANEY, is a 69 M with a past medical history of essential hypertension; on lisinopril-hydrochlorothiazide, morbid obesity; with BMI of 40.2 this admission, former history of tobacco abuse, positive family history of premature CAD in his father who had an NJ at age 60, history of olecranon bursitis and OA; with meloxicam who presents to [facility] ER complaining of chest pain. Mr. Chaney reports his symptoms began approximately one week prior to admission with intermittent chest tightness with patient typically able to swim ~100 yards every Saturday, Saturday and Saturday - but since last week he can only swim 4 laps before he had to stop due to chest tightness. He also admits to dyspnea on exertion the improved after ~2 minutes of rest. Then this morning he had a recurrence of his symptoms ~9:30 AM, so he spoke to his sister who is a nurse and she encouraged him to come in to the ER for further evaluation and treatment. He states he was scheduled for a colonoscopy tomorrow in [place], [place] - but he denies recent GI bleeding. He denies similar previous episodes and his last stress test was years ago. There was no report of associated fever, chills, nausea, vomiting, diaphoresis, abdominal pain, nausea, vomiting, diarrhea, constipation, headache, recent travel or recent medication changes. In the ER he was noted to have an elevated d-dimer of 3.21 present on admission followed by a CTA of the chest negative for PE but was positive for mild upper lobe emphysema complicated by elevated troponin T of 54 ng/L followed by a second increasing troponin T of 58 ng/L consistent with suspected NSTEMI and he was then admitted to the PCU for ongoing care for a stay that is expected to extend beyond 2 midnights. INTERVAL HISTORY: Cardiology evaluated and recommended cardiac cath. Patient had cardiac catheterization 09/01/2024 and had successful STEPHEN to pLCX. Patient was placed on aspirin, Brilinta, atorvastatin, beta-kennedy and did well postcatheterization. Echocardiogram without any significant abnormalities. On day of discharge patient doing well with no new or acute complaints, cleared for discharge by cardiology. Discharge instructions as follows: DISCHARGE INSTRUCTIONS PLEASE READ *Please take this with you to your next doctors appointment* -You will be discharged on several new medications. You will be discharged on metoprolol succinate 25 mg daily, aspirin, Brilinta 90 mg twice daily, and atorvastatin -You will resume your home blood pressure medications and was advised to not resume meloxicam on discharge -Do only light and easy activities for 2 to 3 days after your stent placement, ask for help with chores and errands while you recover and have someone drive you to your appointments. -Unless your job involves lifting you may return to normal activities within 2 days -Please take your medications as prescribed, do not skip doses -Check your incisions every day for signs of infection which would include redness, swelling, leaking. It is normal to have a small bruise or bump where the catheter was placed but a bruise that is getting larger is not normal. Please tell your healthcare team about this. Please proceed to the emergency department if you have uncontrollable bleeding from the site. -It is important to eat a diet that is low in fat, salt, and cholesterol -You will be set up with cardiac rehab upon discharge, it is important that you follow-up -Okay to shower from the day after your heart catheterization but keep your incision site clean and dry. -Would recommend lab work (fasting lipid panel and liver function) in 6 weeks, this can be coordinated through your primary care physician office or the cardiology office, please call on discharge to inquire about scheduling blood work. -Please follow-up with the [facility] in 7 to 10 days upon discharge. Please call their office to schedule hospital follow-up appointment upon discharge. -Please call your primary care provider's office upon discharge to schedule a hospital follow up within 1 week. -For any concerning signs or symptoms please call 911 or proceed to the nearest emergency department Physical Exam Narrative General: Alert, oriented, no apparent distress HEENT: Atraumatic, normocephalic Eyes: Anicteric, normal conjunctiva, extraocular movements grossly intact Neck: Supple Respiratory: Clear to auscultation bilaterally, normal respiratory effort Cardiovascular: Regular rate and rhythm GI: Soft, nontender, nondistended Extremities: No edema Musculoskeletal: Moving all extremities Neuro: No overt focal neurological deficits Skin: No rashes appreciated Psych: Cooperative Weight / BMI Weight Weight: 129 kg Body Mass Index (BMI) 40.8 ABG / Lab / Microbiology Data 09/02/24 05:14 09/02/24 05:14 Laboratory: Laboratory Results - last 24 hr 09/02/24 05:14: WBC 8.0, RBC 5.37, Hgb 16.1, Hct 47.3, MCV 88.1, MCH 30.0, MCHC 34.0, RDW Std Deviation 43.5, RDW Coeff of Aida 13.5, Plt Count 195, MPV 10.7, Sodium 139, Potassium 4.0, Chloride 102, Carbon Dioxide 22.7, Anion Gap 14, BUN 14, Creatinine 0.92, Estim Creat Clear Calc 100.82, Est GFR (MDRD) Non-Af 90, BUN/Creatinine Ratio 15.7, Glucose 105 H, Calcium 9.2, Phosphorus 2.3 L, M agnesium 2.3 H, Total Bilirubin 1.05, AST 36, ALT 24, Alkaline Phosphatase 86, Total Protein 6.9, Albumin 4.1, Globulin 2.7, Albumin/Globulin Ratio 1.5 D/C Instructions Discharge Diet: - (DASH diet) DC O2, CPAP, BIPAP Needs Home O2 Discharge instructions: No Meaningful Use Info Meaningful Use Meaningful Use Diagnoses (Choose all that apply): AMI AMI/Post PCI/Angioplasty Aspirin given w/in 24hrs of arrival?: Yes ASA at discharge?: Yes Antiplatelet Therapy at Discharge:: Yes Statins at discharge?: Yes Collin/ARB at discharge?: Yes Beta Kennedy at discharge?: Yes Done w/ Acute NJ measure.: Yes Documented LVEF (%): 55 Ischemic Stroke Statin Dosing Therapy Reference: STATIN DOSE THERAPY REFERENCE: * Patients > 75 years receive moderate or high dose statin therapy. * Patients 75 years or YOUNGER should receive HIGH intensity statin dose unless contraindicated. You will be required to document reason for non-treatment if statin daily dose does not meet guidelines. HIGH DOSE STATIN THERAPY DAILY Atorvastatin > than or = to 40 mg Rosuvastatin > than or = to 20 mg Amlodipine + Atorvastatin > than or = to 2.5/40 mg Ezetimibe + Simvastatin 10/80 mg Simvastatin 80mg Discharge Plan Admission Admit Date/Time: 08/31/24 23:07 Primary Reason for Your Visit: Chest pain Attending Provider: Mayra Rodriguez Primary Care Provider: Colton Longoria Consulting Providers: Graham Carr; Mian Hutchison Instructions Patient Instructions: Cardiac Catheterization Dc Additional Instructions / Restrictions: DISCHARGE INSTRUCTIONS PLEASE READ *Please take this with you to your next doctors appointment* -You will be discharged on several new medications. You will be discharged on metoprolol succinate 25 mg daily, aspirin, Brilinta 90 mg twice daily, and atorvastatin -You will resume your home blood pressure medications and was advised to not resume meloxicam on discharge -Do only light and easy activities for 2 to 3 days after your stent placement, ask for help with chores and errands while you recover and have someone drive you to your appointments. -Unless your job involves lifting you may return to normal activities within 2 days -Please take your medications as prescribed, do not skip doses -Check your incisions every day for signs of infection which would include redness, swelling, leaking. It is normal to have a small bruise or bump where the catheter was placed but a bruise that is getting larger is not normal. Please tell your healthcare team about this. Please proceed to the emergency department if you have uncontrollable bleeding from the site. -It is important to eat a diet that is low in fat, salt, and cholesterol -You will be set up with cardiac rehab upon discharge, it is important that you follow-up -Okay to shower from the day after your heart catheterization but keep your incision site clean and dry. -Would recommend lab work (fasting lipid panel and liver function) in 6 weeks, this can be coordinated through your primary care physician office or the cardiology office, please call on discharge to inquire about scheduling blood work. -Please follow-up with the [facility] in 7 to 10 days upon discharge. Please call their office to schedule hospital follow-up appointment upon discharge. -Please call your primary care provider's office upon discharge to schedule a hospital follow up within 1 week. -For any concerning signs or symptoms please call 911 or proceed to the nearest emergency department Discharge Orders/Prescriptions Prescriptions: New aspirin 81 mg Tablet,Delayed Release (Dr/Ec) 81 mg PO BREAKFAST Qty: 30 0RF atorvastatin 40 mg Tablet 40 mg PO QHS 30 Days Qty: 30 0RF metoprolol succinate 25 mg tablet extended release 24 hr 25 mg PO DAILY Qty: 30 0RF Brilinta 90 mg Tablet 90 mg PO BID 30 Days Qty: 60 0RF Continued cholecalciferol (vitamin D3) [Vitamin D3] 1,000 UNIT capsule 1,000 unit PO DAILY hydrochlorothiazide 25 MG tablet 25 mg PO DAILY Qty: 30 0RF lisinopril-hydrochlorothiazide 20-12.5 mg tablet 2 tab PO DAILY Discontinued meloxicam 15 MG tablet 15 mg PO DAILY Referrals / Follow Up: Colton Longoria MD [Primary Care Provider] - Within 1 Week Graham Carr MD [Med Staff - Active Staff] - In 1 Week (follow-up in the [facility] office in 7 to 10 days with one of the advanced practice providers. Please call the office upon discharge to schedule this appointment) Disposition Disposition (needs filled in before D/C Order can be placed): Home, Self Care Charges/Coding Visit Charges Inpatient E&M: 72222 Disch Hosp >30min
--- NOTE | 2024-09-02 14:15 | CASEMGMT ---
Addendum entered by Dale Medina 09/02/24 14:31: Pt would like medications delivered to his room. [facility] retail pharmacy made aware. Original Note: NILDA BEE NOTE: Discharge order is in. NILDA BEE to room. Introduced self and role. Rx for Brilinta, as well as metoprolol, atorvastatin, and ASA has been sent to [facility] in [place]. Call to [facility]. Pt's insurance does cover Brilinta, co-pay is $40, pt aware, and states this is affordable. [facility] does not have this in stock, they will need to order it in, and it should be in by tomorrow. Pt made aware and instructed on importance of not missing any doses. He states to have Rx's sent to [facility] pharmacy. Call placed to Rajani @ [facility] retail pharmacy and she was made aware. Pt has plenty ASA @ home and does not want to get this today, Rajani aware. Pt denies having other discharge needs/concerns. Chuck BE RN CM
--- NOTE | 2024-09-02 14:32 | PHA.DC.MC.R ---
Pharmacy [facility] has performed discharge medication reconciliation and counseling for this patient. 1. ASPIRIN 81MG PO BREAKFAST 2. ATORVASTATIN 40MG PO QHS 3. TICAGRELOR 90MG PO BID 4. METOPROLOL SUCCINATE 25MG PO DAILY 5. STOP MOBIC The patient's discharge medication list was reviewed for discrepancies and discrepancies were resolved. The patient was counseled on the following discharge medications and changes in medications for homegoing were reviewed. The Reason for Use, instructions for use, and potential side effects were reviewed for all new medications. The patient's questions regarding all of their medications were answered. The patient was able to verbally demonstrate an understanding of their discharge medications. Medications at Discharge Home Medications cholecalciferol (vitamin D3) 25 mcg (1,000 unit) capsule (Vitamin D3) 1,000 unit PO DAILY 08/24/17 lisinopril 20 mg-hydrochlorothiazide 12.5 mg tablet 2 tab PO DAILY 08/31/24 aspirin 81 mg tablet,delayed release 81 mg PO BREAKFAST #30 tabs 09/02/24 atorvastatin 40 mg tablet 40 mg PO QHS 30 days #30 tabs 09/02/24 metoprolol succinate 25 mg tablet,extended release 24 hr 25 mg PO DAILY #30 tabs 09/02/24 ticagrelor 90 mg tablet (Brilinta) 90 mg PO BID 30 days #60 tabs 09/02/24
[2024-09-02 14:48] VITALS: BP 140/88; PULSE 99; RESP 17; TEMP 37; O2SAT 98
== END 2024-09-02 16:50 | disposition home or self-care (01) | DRG 322 ==
LOC: ED 22:39 → PCU 23:21
PROVIDERS: Specialist; Admitting Provider Internal Medicine; Emergency Provider Emergency Medicine; PCP Family Medicine; Visit Provider Internal Medicine
DX: I21.4 Non-ST elevation (NSTEMI) myocardial infarction (principal); Z68.41 Body mass index [BMI] 40.0-44.9, adult; E66.01 Morbid (severe) obesity due to excess calories; J43.9 Emphysema, unspecified; I10 Essential (primary) hypertension; I25.2 Old myocardial infarction; M19.90 Unspecified osteoarthritis, unspecified site; E78.00 Pure hypercholesterolemia, unspecified; I25.10 Atherosclerotic heart disease of native coronary artery without angina pectoris; M70.20 Olecranon bursitis, unspecified elbow; Z79.1 Long term (current) use of non-steroidal anti-inflammatories (NSAID); Z87.891 Personal history of nicotine dependence; Z79.82 Long term (current) use of aspirin; Z79.02 Long term (current) use of antithrombotics/antiplatelets; Z88.8 Allergy status to other drugs, medicaments and biological substances; Z95.5 Presence of coronary angioplasty implant and graft; Z82.49 Family history of ischemic heart disease and other diseases of the circulatory system; Z79.899 Other long term (current) drug therapy; Z79.631 Long term (current) use of antimetabolite agent; Z86.79 Personal history of other diseases of the circulatory system
CPT/HCPCS: 36415; 71045; 71275; 80048; 80053; 80061; 83036; 83735; 83880; 84100; 84443; 84484; 85025; 85027; 85379; 85610; 85730; 92928; 93005; 93306; 93458; 99152; 99153; 99285; Q9967; A4216; C1725; C1769; C1874; C1887; C1894; C9600; J1327

== ENCOUNTER → 2024-10-16 | Outpatient (CLI) | payer MEDICARE, SELFPAY ==
[2024-10-16 11:37] LABS: AST(SGOT) 38 U/L (<=37); Alanine Aminotransfer ALT/SGPT 29 U/L (<=46); Albumin, Serum 4.5 g/dL (3.4-4.8); Alkaline Phosphatase 108 U/L (40-129); Bilirubin, Direct 0.41 mg/dL (0.00-0.30); Cholesterol 87 mg/dL (<=200); High Density Lipoprotein 40 mg/dL; Low Density Lipoprotein Calc. 34 mg/dL; Protein, Total 7.5 g/dL (5.9-8.4); Total Bilirubin 0.88 mg/dL (0.00-1.30); Triglycerides 70 mg/dL; Very Low Density Lipoprotein 14 mg/dL (5-40)
== END | disposition home or self-care (01) ==
LOC: LAB 10:05
PROVIDERS: PCP Family Medicine; Referring Provider Student in an Organized Health Care Education/Training Program; Visit Provider Student in an Organized Health Care Education/Training Program
DX: I25.10 Atherosclerotic heart disease of native coronary artery without angina pectoris (principal)
CPT/HCPCS: 36415; 80061; 80076

== ENCOUNTER 2025-03-19 17:42 | Emergency (ER) | payer MEDICARE, SELFPAY ==
[2025-03-19 17:42] VITALS: BP 157/89; PULSE 113; RESP 16; TEMP 36.6; O2SAT 96; BMI 39.1
--- NOTE | 2025-03-19 20:00 | EX.ED.DYSGE1 ---
HPI History of Present Illness Chief Complaint: Sore Throat Narrative Narrative: Patient is a 69-year-old male with past medical history hypertension, CAD, NSTEMI who presents to the emergency department with a chief complaint of sore throat. He states that he recently followed up with his primary care physician and he states that he forgot to tell them about his sore throat he states that this been going on for quite some time. He states that he was talking to his ex- earlier today and they were concerned sending him back here to the emergency department to be evaluated. Patient states that he has been eating and drinking without any difficulty denies any fevers. [facility] Medical History Non-ST elevation OR (NSTEMI) (08/31/24) CAD (coronary artery disease) Hypertension Home Medications ?Medication ?Instructions ?Recorded ?Last Taken ?Type cholecalciferol (vitamin D3) 25 1,000 unit PO DAILY 08/24/17 08/31/24 History mcg (1,000 unit) capsule (Vitamin D3) lisinopril 20 2 tab PO DAILY 08/31/24 08/31/24 History mg-hydrochlorothiazide 12.5 mg tablet aspirin 81 mg tablet,delayed 81 mg PO BREAKFAST #30 tabs 09/02/24 Unknown Rx release metoprolol succinate 25 mg 25 mg PO DAILY #90 tabs 09/11/24 Unknown Rx tablet,extended release 24 hr clopidogrel 75 mg tablet 75 mg PO .COMPLEX #94 tabs 12/28/24 Unknown Rx ezetimibe 10 mg tablet (Zetia) 10 mg PO QDAY #90 tabs 02/15/25 Unknown Rx Allergy/AdvReac Type Severity Reaction Status Date / Time fenofibrate Allergy Other Verified 03/19/25 17:44 [id number]-SOC-[id number] Reductase AdvReac Severe myalgias Verified 03/19/25 17:44 Inhibitor rosuvastatin AdvReac Intermediate Myalgias Verified 03/19/25 17:44 all over, stopped November 22 2024 diclofenac AdvReac Nausea/Vom/ Verified 03/19/25 17:44 Diarrhea Family History Father CAD (coronary artery disease) Surgical History Stented coronary artery (09/01/24) Social History Smoking Status: Former smoker alcohol intake: current alcohol intake frequency: holidays/special occasions only substance use type: marijuana caffeine: Yes ROS ROS ED ROS Narrative Constitutional: Denies any fevers or chills Eyes, ears nose throat: Denies any difficulty swallowing, complains sore throat as noted above Cardiovascular: Denies chest pain Respiratory: Denies shortness of breath Abdomen: Denies nausea vomit diarrhea Neurological: Denies numbness, weakness, tingling Musculoskeletal: Denies neck pain Skin: Denies any rashes or lesions EXAM Physical Exam Narrative Exam Narrative: General: Patient was lying in bed resting comfortably did not appear to be acute distress Head: Atraumatic, normocephalic Eyes, ears, nose, throat: Mild erythema to the posterior pharynx uvula midline, no evidence of peritonsillar abscess, no sublingual swelling noted Neck: Soft, supple, trachea midline, patient has full range of motion of his neck without any pain elicited no signs of Randal's angina Cardiovascular: Patient tachycardic with a regular rhythm Extremities: +5/5 strength in the bilateral lower extremities, radial pulses +2/4 in the bilateral extremities Neurological: Patient follow commands knew that he was at [facility] the year is 2024 Skin: Warm, dry, tact no rashes or lesions noted Const Vital Signs: 03/19/25 17:42 Temperature 97.8 F Temperature Source Oral Pulse Rate 113 H Respiratory Rate 16 Blood Pressure 157/89 H Blood Pressure Mean 111 Pulse Ox 96 Oxygen Delivery Method Room Air MDM MDM MDM Narrative Medical decision making narrative: Patient is a 69-year-old male who presents to the emergency department chief complaint sore throat. On the differential diagnose includes but not limited to viral pharyngitis, strep throat. Once workup is obtained reviewed he will be reevaluated. Patient will be given dexamethasone. Patient strep test was negative. Discussed results with patient he like to go home at this point time. He is advised to follow-up on strep culture results and return for worsening symptoms or concerns. He is advised to continue supportive care. He is agreeable to plan all question concerns answered is discharged home in stable condition. Discharge Plan Triage Chief Complaint: Sore Throat ED Provider: Nicolas Gould Dx/Rx/DC Orders Clinical Impression: Sore throat, Viral pharyngitis, Hypertension, CAD (coronary artery disease), Stented coronary artery Prescriptions: No Action metoprolol succinate 25 mg tablet extended release 24 hr 25 mg PO DAILY Qty: 90 3RF cholecalciferol (vitamin D3) [Vitamin D3] 1,000 UNIT capsule 1,000 unit PO DAILY lisinopril-hydrochlorothiazide 20-12.5 mg tablet 2 tab PO DAILY aspirin 81 mg Tablet,Delayed Release (Dr/Ec) 81 mg PO BREAKFAST Qty: 30 0RF clopidogrel 75 mg tablet 75 mg PO .COMPLEX Qty: 94 3RF Rx Instructions: 75 mg orally take FOUR tablets TODAY, all at once, for a loading dose, then 1 tablet by mouth daily; ezetimibe [Zetia] 10 mg tablet 10 mg PO QDAY Qty: 90 3RF Primary Care Provider: Colton Longoria Referrals: Colton Longoria MD [Primary Care Provider, Family Practice] Activity Restrictions/Additional Instructions: Your strep test was negative. Follow-up your doctor in outpatient setting. You are given dose steroids they will continue to work over the next few days. Rotate Tylenol and ibuprofen [id number] for your throat pain. When you do this you can take 7 every 3 hours for pain max dose of Tylenol in 24 hours 4000 mg max dose of ibuprofen in 24 hours 3200 mg. Print Language: Hebrew Disposition Disposition: Home, Self Care
--- OUTSIDE RECORDS SUMMARY | 2025-03-19 20:30 | XMS RPT_ITS | CCD ---
Author Organization [facility] Care Team Providers Care Adhesive Primer Name Role Phone Colton Krishnamurthy Primary Care Provider Dr. Colton Krishnamurthy MD Primary Care Provider [phone] Dr. Demian Burger DO Emergency Provider [phone] Hutchison DO, Dr. Pappas Admit Provider Unavail able Dr. Mian Hutchison DO Attending Provider Unav ailable Hutchison DO, Dr. Pappas Other Provider Unavail able Dr. Graham Carr MD Other Provider Dr. Mayra Rodriguez MD Attending Provider [phone] Dr. Graham Carr MD Attending Provider Dr. Mayra Rodriguez MD Other Provider [phone] Scott SHERWOOD, Dr. White Attending Provider Colton Krishnamurthy MD Primary Care Provider Dr. Colton Krishnamurthy MD Referring Provider Ghassan Pereira Attending Provider Ghassan Pereira Referring Provider [phone] Mian Hutchison Admitting Unavailable Colton Krishnamurthy Primary Care Unavailable Mayra Rodriguez Attending Unavailable Graham Carr Consulting Unavailable Mian Hutchison Consulting Unavailable Mayra Rodriguez Consulting Unavailable Ghassan Gallardo Attending Unavailable Colton Krishnamurthy Primary Care Unavailable Colton Krishnamurthy Referring Unavailable Yessy, Colton Primary Care Unavailable Yessy, Colton Referring Unavailable Graham Carr Attending Unavailable Yessy, Colton Primary Care Unavailable Cindy Chavez Attending Unavailabl e Mian Hutchison Attending Unavailable Graham Carr Attending Unavailable Yessy, Colton Primary Care Unavailable Graham Carr Referring Unavailable Graham Carr Attending Unavailable Ghassan Gallardo Referring Unavailable Ghassan Gallardo Attending Unavailable Yessy, Colton Primary Care Unavailable Yessy, Colton Primary Care Unavailable Graham Carr Consulting Unavailable Mayra Rodriguez Attending Unavailable Mian Hutchison Admitting Unavailable Mian Hutchison Consulting Unavailable CHRIS ANTOINE Attending Unavailable YESSY, COLTON Primary Care Unavailable YESSY, COLTON Primary Care Unavailable YESSY, COLTON Attending Unavailable YESSY, COLTON Attending Unavailable YESSY, COLTON Primary Care Unavailable YESSY, COLTON Attending Unavailable YESSY, COLTON Primary Care Unavailable YESSY, COLTON Primary Care Unavailable IRMA JOHNSON Attending Unavailable YESSY, COLTON Attending Unavailable YESSY, COLTON Primary Care Unavailable Allergies Allergy Classification Reported Allergen(s) Allergy Type Date of Onset Reaction(s) Facility Fenofibrate (1 source) [facility] (2 sources) Diclofenac Drug Allergy 6 Other (See Comments) [facility] (10 sources) Diclofenac Drug Allergy 6 [facility] Work Phone: (13 sources) Fenofibrate Drug Allergy 6 Other [facility] Work Phone: Comment on above: INTENSE PAIN IN FEET , (10 sources) meloxicam Drug Allergy 1 Other (See Comments) [facility] Work Phone: (20 sources) Diclofenac Drug Allergy 6 Nausea/Vom/Diar sita [facility] (20 sources) Fenofibrate Drug Allergy 6 [facility] (20 sources) rosuvastatin Drug Allergy 4 Other [facility] Work Phone: (3 sources) meloxicam Drug Allergy 1 Other [facility] (1 source) Ruaisbn-Khg-Mrv Reductase Inhibitor Propensity to adverse reactions 5 myalgias [facility] (1 source) Diclofenac Drug Allergy 5 [facility] (1 source) Fenofibrate Drug Allergy 5 [facility] (1 source) rosuvastatin Drug Allergy 5 [facility] (1 source) Bvqnzcy-Jxi-Fvn Reductase Inhibitor Drug allergy (disorder) 5 [facility] (1 source) HMG-CoA reductase inhibitor Drug Allergy 5 [facility] Medications Current Medications Medication Drug Class(es) Dates Sig (Normalized) Sig (Original) acetaminophen 500 mg / diphenhydrAMINE hydrochloride 25 mg oral tablet (20 sources) Histamine-1 Receptor Antagonist take 25-500 mg by mouth once as needed diphenhydrAMINE- acetaminophen (Tylenol PM) 25-500 MG per tablet Take 1 tablet by mouth Nightly as needed for sleep. Active acetaminophen 325 mg / oxyCODONE hydrochloride 5 mg oral tablet (3 sources) Opioid Agonist Start: 01-29-2024 End: 02-03-2024 take 1 tablet by mouth every six hours as needed for pain oxyCODONE-acetam inophen (Percocet) 5-325 MG tablet Indications: Post-op pain Take 1 tablet by mouth every 6 hours as needed for severe pain (7-10) for up to 5 days. 15 tablet 01/29/2024 02/03/2024 Active aspirin 81 mg delayed release oral tablet (16 sources) Platelet Aggregation Inhibitor, Nonsteroidal Anti-inflammatory Drug Start: 09-02-2024 take 1 tablet by mouth once daily at breakfast Aspirin Low Dose 81 MG EC tablet Take 81 mg by mouth daily (with breakfast). 09/02/2024 Active Start: 08-31-2019 take 2 tablets by mo uth once daily aspirin 81 MG EC tablet Take 2 tablets by mouth daily 60 tablet 0 08/31/2019 Active benzonatate 200 mg oral capsule (1 source) Non-narcotic Antitussive Start: 06-10-2024 End: 06-20-2024 take 1 capsule by mouth three times daily as needed for cough benzonatate (Tessalon) 200 MG capsule Take 1 capsule (200 mg) by mouth 3 times daily as needed for cough for up to 10 days. Do not crush or chew. 30 capsule 06/10/2024 06/20/2024 Active cefdinir 300 mg oral capsule (4 sources) Cephalosporin Antibacterial Start: 01-29-2024 End: 02-08-2024 take 1 capsule by mouth twice daily cefdinir (Omnicef) 300 MG capsule Take 1 capsule (300 mg) by mouth 2 times daily for 10 days. 20 capsule 01/29/2024 02/08/2024 Active cholecalciferol 0.025 mg oral capsule (20 sources) Vitamin D Start: 08-24-2017 take 1 capsule by mouth once daily Cholecalciferol (Vitamin D3) (Vitamin D3) 1,000 UNIT capsule Active 1000 U PO DAILY August 24, 2017 1:00am cholecalciferol (Vitamin D-3) 50 MCG (2000 UT) capsule Take by mouth. Active Cholecalciferol (VITAMIN D) 2000 units CAPS capsule Take by mouth 0 Active clopidogrel 75 mg oral tablet (1 source) P2Y12 Platelet Inhibitor Start: 12-28-2024 clopidogrel (Plavix) 75 MG tablet TAKE 4 TABLETS ON DAY 1 FOR LOADING DOSE, THEN 1 TAB PER DAY. INS ONLY PAYS FOR 1/DAY. 12/28/2024 Active diphenhydrAMINE-APAP, sleep, (TYLENOL PM EXTRA STRENGTH PO) (2 sources) diphenhydrAMINE- APAP, sleep, (TYLENOL PM EXTRA STRENGTH PO) Take by mouth as needed 0 Active diphenhydrAMINE- APAP, sleep, (TYLENOL PM EXTRA STRENGTH PO) Take by mouth 0 Active escitalopram 10 mg oral tablet (2 sources) Serotonin Reuptake Inhibitor Start: 01-28-2023 End: 03-29-2023 take 1 tablet by mouth once daily escitalopram (Lexapro) 10 MG tablet Indications: Anxiety Take 1 tablet (10 mg) by mouth daily. 30 tablet 1 01/28/2023 03/29/2023 Active ezetimibe 10 mg oral tablet (1 source) Dietary Cholesterol Absorption Inhibitor Start: 02-15-2025 take 1 tablet by mouth once daily ezetimibe (Zetia) 10 MG tablet Take 10 mg by mouth daily. 02/15/2025 Active hydroCHLOROthiazide 12.5 mg / lisinopril 20 mg oral tablet (20 sources) Thiazide Diuretic, Angiotensin Converting Enzyme Inhibitor Start: 03-11-2024 End: 02-24-2025 take 2 tablets by mouth once daily lisinopril-hydroC HLOROthiazide 20-12.5 MG tablet TAKE 2 TABLETS BY MOUTH EVERY DAY 180 tablet 1 02/24/2025 Active Start: 09-04-2023 take 2 tablets by mouth once daily lisinopril-hydroCHLOROthiazide 20-12.5 M G tablet Take 2 tablets by mouth daily. 180 tablet 1 09/04/2023 Active 24 hr metoprolol succinate 25 mg extended release oral tablet (7 sources) beta-Adrenergic Jami Start: 09-02-2024 End: 09-11-2024 take 1 tablet by mouth once daily metoprolol succinate XL (Toprol-XL) 25 MG 24 hr tablet Take 25 mg by mouth daily. 09/02/2024 Active penicillin v potassium 500 mg oral tablet (1 source) Start: 01-13-2024 penicillin v potassium (Veetid) 500 MG tablet 01/13/2024 Active predniSONE 20 mg oral tablet (4 sources) Start: 10-22-2023 predniSONE (Deltasone) 20 MG tablet Take 3 tabs (60mg) daily for 5 days, then take 2 tabs (40mg) daily for 3 days, then take 1 tab (20mg) daily for 2 days. 23 tablet 10/22/2023 Active Start: 11-30-2020 predniSONE (DE LTASONE) 20 MG tablet 3 tablets once a day x 3 days, then 2 x 3 days and 1 x 2 days 17 tablet 0 11/30/2020 Active rosuvastatin calcium 5 mg oral tablet (1 source) HMG-CoA Reductase Inhibitor Start: 11-11-2024 take 1 tablet by mouth once daily Rosuvastatin 5 mg tablet Active 5 mg PO daily November 11, 2024 12:00am ticagrelor 90 mg oral tablet (7 sources) Start: 09-02-2024 End: 09-11-2024 take 1 tablet by mouth twice daily Brilinta 90 MG tablet Take 90 mg by mouth 2 times daily. 09/02/2024 Active triamcinolone acetonide 5 mg/ml topical cream (20 sources) Corticosteroid Start: 03-02-2021 triamcinolone (Kenalog) 0.5 % cream Apply topically 2 times daily. 03/02/2021 Active Start: 03-02-2021 triamcinolone (ARISTOCORT) 0.5 % cream Apply topically 2 times daily. 60 g 0 03/02/2021 Active Start: 10-30-2019 triamcinolone (ARISTOCORT) 0.5 % cream Apply topically 2 times daily. 60 g 0 10/30/2019 Active Completed/Discontinued Medications Medication Drug Class(es) Dates Sig (Normalized) Sig (Original) acetaminophen 500 mg oral tablet (2 sources) Start: 01-29-20 End: 01-29-20 take 1000 mg by mouth once, then take 4000 mg by mouth every twenty-four hours 1,000 mg, Oral, Once, On Sat01/29/24 at 0600, For 1 dose, Preprocedure, Maximum dose of acetaminophen is 4000 mg from all sources in 24 hours. Do not administer if patient has taken tylenol ALPRAZolam 0.25 mg disintegrating oral tablet (2 sources) Benzodiazepine Start: 01-29-20 End: 01-29-20 0.25 mg, Oral, PRN, anxiety, Starting on Sat01/29/24 at 0557, For 1 dose, Preprocedure atorvastatin 40 mg oral tablet (7 sources) HMG-CoA Reductase Inhibitor Start: 09-03-19 End: 03-17-20 atorvastatin (Lipitor) 40 MG tablet 09/02/2024 03/17/2025 Discontinued (Med list cleanup) calcium chloride 0.0014 meq/ml / potassium chloride 0.004 meq/ml / sodium chloride 0.103 meq/ml / sodium lactate 0.028 meq/ml injectable solution (2 sources) Start: 01-29-20 End: 01-29-20 take 50 mL intravenously every hour 50 mL/hr, IntraVENous, Continuous, Starting on Sat01/29/24 at 0600, Preprocedure, Upon admission to sameday - please start iv if patient does not have iv access. Use 500ml NS for patients on dialysis. fluticasone propionate 0.05 mg/actuat metered dose nasal spray (20 sources) Corticosteroid Start: 01-09-20 End: 03-19-20 take 2 spray(s) nasal route once daily fluticasone (Flonase) 50 MCG/ACT nasal spray Indications: Seasonal allergies Administer 2 sprays into each nostril daily. Shake gently. Before first use, prime pump. After use, clean tip and replace cap. 16 g 5 01/08/2023 03/19/2024 Discontinued (Therapy completed) gabapentin 300 mg oral capsule (9 sources) Anti-epileptic Agent Start: 10-15-19 End: 03-19-20 take 1 capsule by mouth three times daily gabapentin (Neurontin) 300 MG capsule Take 300 mg by mouth 3 times daily. 10/15/2023 03/19/2024 Discontinued (Therapy completed) gadobutrol (GADAVIST) injection 11.5 mL (1 source) Start: 02-03-20 End: 02-03-20 gadobutrol (GADAVIST) injection 11.5 mL hydroCHLOROthiazide 25 mg oral tablet (20 sources) Thiazide Diuretic Start: 08-25-19 End: 09-03-19 take 1 tablet by mouth once daily hydroCHLOROthiazide (HYDRODiuril) 25 MG tablet take 1 tablet by mouth once daily 90 tablet 1 08/26/2023 09/04/2023 Discontinued Leuprolide (8 sources) Gonadotropin Releasing Hormone Receptor Agonist End: 09-04-19 Leuprolide Acetate (LUPRON IJ) Inject as directed. 0 09/04/2023 Discontinued (Therapy completed) Leuprolide Aceta te (LUPRON IJ) Inject as directed. 0 Active 10 ml lidocaine hydrochloride 20 mg/ml injection (4 sources) Antiarrhythmic, Amide Local Anesthetic Start: 09-22-2024 End: 09-22-2024 lidocaine (Xylocaine) 2 % injection 2 mL Start: 09-22-2024 End: 09-22-2024 2 mL, Injection, Once, On 09/22/24 at 1500, For 1 dose Start: 09-22-2024 End: 09-22-2024 lidocaine (Xylocaine) 2 % in jection 2 mL Start: 09-22-2024 End: 09-22-2024 2 mL, Injection, Once, On 09/22/24 at 1445, For 1 dose lisinopril 40 mg oral tablet (20 sources) Angiotensin Converting Enzyme Inhibitor Start: 08-30-2020 take 1 tablet by mouth once daily lisinopril (PRINIVIL;ZESTRIL) 20 MG tablet Take 1 tablet by mouth daily 90 tablet 1 08/30/2020 Active Start: 08-24-2017 End: 08-31-2024 take 1 tablet by mouth once daily Lisinopril 40 MG tablet Discontinued 40 mg PO DAILY August 24, 2017 1:00am August 31, 2024 7:26pm loperamide hydrochloride 2 mg oral capsule (20 sources) Opioid Agonist End: 03-19-2024 loperamide (Imodium) 2 MG capsule Take 2 mg by mouth as needed for diarrhea. 03/19/2024 Discontinued (Therapy completed) melatonin 5 mg oral capsule (20 sources) End: 09-10-2024 Melatonin 5 MG capsule Take by mouth as needed. 09/10/2024 Discontinued (Therapy completed) meloxicam 15 mg oral tablet (20 sources) Nonsteroidal Anti-inflammatory Drug Start: 08-24-2017 End: 09-10-2024 take 1 tablet by mouth once daily Meloxicam 15 MG tablet Discontinued 15 mg PO DAILY August 24, 2017 1:00am September 02, 2024 1:11pm On Hold: Held by patient 1 ml methylPREDNISolone acetate 40 mg/ml injection (7 sources) Corticosteroid Start: 09-22-2024 End: 09-22-2024 methylPREDNISolone acetate (DEPO-Medrol) injection 40 mg Start: 09-22-2024 End: 09-22-2024 40 mg, Intra-artICUlar, Once , On Sat09/22/24 at 1500, For 1 dose Start: 09-22-2024 End: 09-22-2024 methylPREDNISolone acetate ( DEPO-Medrol) injection 40 mg Start: 09-22-2024 End: 09-22-2024 40 mg, Intra-artICUlar, Once , On Sat09/22/24 at 1445, For 1 dose Start: 01-29-2024 End: 02-05-2024 methylPREDNISolone (Medrol D ospak) 4 MG tablets Follow schedule on package instructions 21 tablet 01/29/2024 02/05/2024 Active oxymetazoline hydrochloride 0.5 mg/ml nasal spray (10 sources) End: 03-19-2024 oxymetazoline (Afrin) 0.05 % nasal spray Administer into each nostril. Do not use for more than 3 days. 03/19/2024 Discontinued (Therapy completed) sildenafil 100 mg oral tablet (10 sources) Phosphodiesterase 5 Inhibitor Start: 09-04-2023 End: 03-19-2024 take 1 tablet by mouth every twenty-four hours as needed sildenafil (Viagra) 100 MG tablet Take 1 tablet (100 mg) by mouth Daily as needed for erectile dysfunction. 4 tablet 09/04/2023 03/19/2024 Discontinued (Therapy completed) 5 ml sodium chloride 9 mg/ml injection (12 sources) Start: 01-29-2024 End: 01-29-2024 10 mL, IntraVENous, Every 12 hours scheduled (2 times per day), First dose on Sat01/29/24 at 0900, Preprocedure Start: 01-29-2024 End: 01-29-2024 take 100 mL intravenously every hour as needed, then take 20 mL intravenously every hour as needed 5-250 mL/hr, IntraVENous, PRN, if patient receiving piggyback infusions and maintenance fluids are not ordered OR KVO fluids to protect IV site / prevent frequent line interruptions/ long duration, Starting on Sat01/29/24 at 0557, Preprocedure, For piggyback infusion, administer at same rate as piggyback for a total of 25 mL. Enter 25 mL into dose field and piggyback rate into rate field of order. If piggyback is infusing at a rate less than 100 mL/hr, enter 25 mL into dose field and 100 mL/hr into rate field of order. For KVO fluids, enter rate of 20 mL/hr or less into rate field of order. Start: 01-29-2024 End: 01-29-2024 take 10 mL intravenously once as needed 10 mL, IntraVENous, PRN, line care, Starting on Sat01/29/24 at 0557, Preprocedure, After every IV line use Start: 01-29-2024 End: 01-29-2024 take 5-40 mL intravenously every twelve hours 5-40 mL, IntraVENous, Every 12 hours, First dose on Sat01/29/24 at 0600, Preprocedure, For Line Patency: Peripheral IV = 5 mL; Midline or Central Line = 10 mL/lumen. If following IV push medication, administer flush at same rate as the IV push. Flush volume is determined by type of infusion therapy being given. For non-viscous solutions use: Peripheral IV = 5 mL Midline or Central Line = 10 mL/lumen For viscous solutions (i.e. blood components, parenteral nutrition, contrast media, or after obtaining blood sample) use: Peripheral IV = 10 mL Midline or Central Line = 20 mL/lumen tamsulosin hydrochloride 0.4 mg oral capsule (5 sources) alpha-Adrenergic Jami Start: 10-22-2022 End: 01-08-2023 take 1 capsule by mouth once daily in the morning, then take 1 capsule by mouth at bedtime tamsulosin (Flomax) 0.4 MG 24 hr capsule take 1 capsule by mouth every morning and then 1 tablet at bedtime 90 capsule 1 10/22/2022 01/08/2023 Discontinued (Side effects) Start: 07-16-2022 take 1 capsule by mo uth once daily in the morning, then take 1 capsule by mouth at bedtime tamsulosin (Flomax) 0.4 MG 24 hr capsule take 1 capsule by mouth every morning and then 1 tablet at bedtime 90 capsule 3 07/16/2022 Active Start: 09-01-2021 take 1 capsule by mo uth every twenty-four hours in the morning tamsulosin (Flomax) 0.4 MG 24 hr capsule Take 0.4 mg by mouth in the morning. 0 09/01/2021 Active zolpidem tartrate 5 mg oral tablet (5 sources) gamma-Aminobutyric Acid-ergic Agonist Start: 07-30-2023 End: 09-04-2023 take 1 tablet by mouth at bedtime zolpidem (Ambien) 5 MG tablet Indications: HUEY (obstructive sleep apnea) Take one tablet PO at bedtime on the night of your sleep study 1 tablet 0 07/30/2023 09/04/2023 Discontinued (Therapy completed) Problems Active Problems Problem Classification Problem Date Documented Date Episodic/Chronic Acute myocardial infarction (7 sources) Myocardial infarction; Translations: [Non-ST elevation (NSTEMI) myocardial infarction] Onset: 08-31-2024 08-31-2024 Chronic Anxiety disorders (20 sources) Anxiety; Translations: [Anxiety disorder, unspecified] Onset: 02-07-2016 02-07-2016 Chronic Cancer of prostate (20 sources) Malignant tumor of prostate; Translations: [Malignant neoplasm of prostate] Onset: 03-31-2021 Chronic Coronary atherosclerosis and other heart disease (20 sources) Coronary arteriosclerosis; Translations: [Atherosclerotic heart disease of redding coronary artery with other forms of angina pectoris] Onset: 09-09-2024 09-10-2024 Chronic Coronary atherosclerosis and other heart disease (3 sources) Stented coronary artery; Translations: [Presence of coronary angioplasty implant and graft] Onset: 09-01-2024 09-02-2024 Episodic Comment on above: [place] STEPHEN 4. 0 X 15 mm to LCX 3/10/25. Disorders of lipid metabolism (20 sources) Hyperlipidemia; Translations: [Hyperlipidemia, unspecified] Onset: 03-02-2021 Resolved: 08-18-2018 08-18-2018 Chronic Diverticulosis and diverticulitis (20 sources) Diverticulosis of colon; Translations: [Diverticulosis of large intestine without perforation or abscess without bleeding] Onset: 02-07-2016 02-07-2016 Chronic Diverticulosis and diverticulitis (1 source) Diverticulosis of colon; Translations: [Diverticula of colon] 02-07-2016 Essential hypertension (20 sources) Hypertensive disorder; Translations: [Essential (primary) hypertension] Onset: 02-07-2016 02-07-2016 Chronic Hyperplasia of prostate (20 sources) Benign prostatic hypertrophy with outflow obstruction; Translations: [Benign prostatic hyperplasia with lower urinary tract symptoms] Onset: 02-19-2017 02-19-2017 Chronic Mood disorders (20 sources) Mild major depression, single episode; Translations: [Major depressive disorder, single episode, mild] Onset: 08-28-2021 Resolved: 01-08-2023 01-08-2023 Chronic Osteoarthritis (20 sources) Degenerative joint disease involving multiple joints; Translations: [Other hypertrophic osteoarthropathy, multiple sites] Onset: 02-07-2016 02-07-2016 Chronic Other aftercare (2 sources) Surgical follow-up; Translations: [Encounter for follow-up examination after completed treatment for conditions other than malignant neoplasm] 02-06-2024 Episodic Other circulatory disease (6 sources) H/O: hypertension; Translations: [Personal history of other diseases of the circulatory system] 08-31-2024 Episodic Other nervous system disorders (2 sources) Other chronic pain; Translations: [Other chronic pain] Onset: 04-24-2022 Chronic Other nervous system disorders (2 sources) Postoperative pain ; Translations: [Other acute postprocedural pain] 01-29-2024 Episodic Other nutritional; endocrine; and metabolic disorders (20 sources) Morbid obesity; Translations: [Morbid (severe) obesity due to excess calories] Onset: 01-08-2023 01-08-2023 Chronic Other nutritional; endocrine; and metabolic disorders (6 sources) Body mass index 40+ - severely obese; Translations: [Morbid (severe) obesity due to excess calories] 08-31-2024 Chronic Other nutritional; endocrine; and metabolic disorders (1 source) Morbid (severe) obesity due to excess calories; Translations: [Morbid (severe) obesity due to excess calories] Onset: 09-09-2024 Chronic Other nutritional; endocrine; and metabolic disorders (1 source) Body mass index (BMI) 40.0-44.9, adult; Translations: [Body mass index [BMI] 40.0-44.9, adult] Onset: 09-09-2024 Chronic Other upper respiratory disease (20 sources) Seasonal allergy; Translations: [Other seasonal allergic rhinitis] Onset: 01-08-2023 01-08-2023 Chronic Other upper respiratory disease (2 sources) Nasal congestion; Translations: [Nasal congestion] 01-02-2024 Episodic Other upper respiratory disease (1 source) Deviated nasal septum; Translations: [Deviated nasal septum] 01-14-2024 Episodic Other upper respiratory disease (1 source) Hypertrophy of nasal turbinates; Translations: [Hypertrophy of nasal turbinates] 01-14-2024 Episodic Residual codes; unclassified (20 sources) Daytime hypersomnia; Translations: [Hypersomnia, unspecified] Onset: 01-08-2023 01-08-2023 Chronic Residual codes; unclassified (20 sources) Obstructive sleep apnea syndrome; Translations: [Obstructive sleep apnea (adult) (pediatric)] Onset: 10-17-2023 07-09-2023 Chronic Residual codes; unclassified (1 source) Inadequate sleep hygiene; Translations: [Inadequate sleep hygiene] 07-09-2023 Episodic Residual codes; unclassified (1 source) Other specified health status; Translations: [Other specified conditions influencing health status] 01-02-2024 Episodic Residual codes; unclassified (6 sources) Family history of coronary arteriosclerosis; Translations: [Family history of ischemic heart disease and other diseases of the circulatory system] 08-31-2024 Episodic Spondylosis; intervertebral disc disorders; other back problems (20 sources) Chronic low back pain; Translations: [Chronic midline low back pain without sciatica] Onset: 04-24-2022 04-24-2022 Episodic Unclassified (3 sources) Patient encounter status; Translations: [Encounter for screening for cardiovascular disorders] Onset: 01-30-2017 Resolved: 03-19-2018 03-19-2018 Unclassified (2 sources) Z95.5 - Presence of coronary angioplasty implant and graft,I21.4 - Non-ST elevation (NSTEMI) myocardial infarction,I25.10 - Atherosclerotic heart disease of redding coronary artery without angina pectoris,E78.00 - Pure hypercholesterolemia, unspecified,I20.0 - Unstable angina,Z87.891 - Personal history of nicotine dependence,I10 - Essential (primary) hypertension Unclassified (2 sources) follow-up in the [facility] office in 7 to 10 days with one of the advanced practice providers. Please call the office upon discharge to schedule this appointment Unclassified (1 source) Low back pain, unspecified; Translations: [Low back pain, unspecified] Onset: 04-24-2022 Unclassified (1 source) Subacute cough; Translations: [Subacute cough] Onset: 06-10-2024 Past or Other Problems Problem Classification Problem Date Documented Da te Episodic/Chronic Allergic reactions (20 sources) Allergic contact dermatitis; Translations: [Allergic contact dermatitis, unspecified cause] Onset: 05-11-2015 05-11-2015 Episodic Cancer of prostate (1 source) History of malignant neoplasm of prostate; Translations: [Personal history of malignant neoplasm of prostate] Episodic Diabetes mellitus without complication (20 sources) Hyperglycemia; Translations: [Hyperglycemia, unspecified] Onset: 03-02-2021 03-02-2021 Episodic Genitourinary symptoms and ill-defined conditions (20 sources) Retention of urine; Translations: [Retention of urine, unspecified] Onset: 10-06-2019 Resolved: 03-17-2025 10-06-2019 Episodic Hemorrhoids (20 sources) Hemorrhoids; Translations: [Unspecified hemorrhoids] Onset: 02-07-2016 02-07-2016 Episodic Mood disorders (20 sources) Mood disorders Onset: 03-06-2023 Resolved: 03-18-2024 03-06-2023 Other aftercare (2 sources) Encounter for follow-up examination after completed treatment for conditions other than malignant neoplasm; Translations: [Encounter for follow-up examination after completed treatment for conditions other than malignant neoplasm] Onset: 05-07-2024 Episodic Other and unspecified benign neoplasm (20 sources) Dysplastic nevus of skin; Translations: [Melanocytic nevi, unspecified] Onset: 04-24-2022 04-24-2022 Episodic Other circulatory disease (1 source) Personal history of other diseases of the circulatory system; Translations: [Personal history of other diseases of the circulatory system] Onset: 09-09-2024 Episodic Other connective tissue disease (20 sources) Bursitis of olecranon of left elbow; Translations: [Olecranon bursitis, left elbow] Onset: 11-10-2020 11-30-2020 Episodic Other connective tissue disease (4 sources) Olecranon bursitis; Translations: [Olecranon bursitis, unspecified elbow] Onset: 11-30-2020 11-21-2020 Episodic Other gastrointestinal disorders (20 sources) Functional diarrhea; Translations: [Functional diarrhea] Onset: 03-01-2022 Resolved: 03-19-2024 04-05-2022 Episodic Other gastrointestinal disorders (20 sources) 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; Translations: [Gastroenteritis and colitis due to radiation] Onset: 03-08-2022 04-05-2022 Episodic Other gastrointestinal disorders (2 sources) Diarrhea; Translations: [Diarrhea, unspecified] Episodic Other lower respiratory disease (14 sources) Persistent cough; Translations: [Persistent cough for 3 weeks or longer] Onset: 10-17-2023 Resolved: 03-19-2024 10-17-2023 Episodic Other lower respiratory disease (6 sources) Cough; Translations: [Subacute cough] Onset: 10-17-2023 06-10-2024 Episodic Other lower respiratory disease (3 sources) Cough; Translations: [Subacute cough] Onset: 10-17-2023 Resolved: 03-17-2025 06-10-2024 Episodic Other screening for suspected conditions (not mental disorders or infectious disease) (20 sources) Raised prostate specific antigen; Translations: [Elevated prostate specific antigen [PSA]] Onset: 01-30-2017 Resolved: 03-19-2018 01-30-2017 Episodic Other skin disorders (20 sources) Excessive sweating; Translations: [Generalized hyperhidrosis] Onset: 03-22-2021 03-22-2021 Episodic Other skin disorders (20 sources) Multiple skin tags; Translations: [Other hypertrophic disorders of the skin] Onset: 04-24-2022 04-24-2022 Episodic Residual codes; unclassified (20 sources) Family history of prostate cancer; Translations: [Family history of malignant neoplasm of prostate] Onset: 01-30-2017 01-30-2017 Episodic Residual codes; unclassified (20 sources) Flushing; Translations: [Flushing] Onset: 01-08-2023 01-08-2023 Episodic Residual codes; unclassified (17 sources) Difficult venous access; Translations: [Other specified health status] Onset: 01-21-2024 01-21-2024 Episodic Residual codes; unclassified (1 source) History of partial resection of colon; Translations: [Acquired absence of other specified parts of digestive tract] Episodic Residual codes; unclassified (1 source) Family history of ischemic heart disease and other diseases of the circulatory system; Translations: [Family history of ischemic heart disease and other diseases of the circulatory system] Onset: 09-09-2024 Episodic Screening and history of mental health and substance abuse codes (7 sources) Ex-tobacco user; Translations: [Personal history of nicotine dependence] Onset: 09-09-2024 08-31-2024 Episodic Unclassified (1 source) Low back pain, unspecified; Translations: [Low back pain, unspecified] Onset: 03-17-2025 Unclassified (1 source) Subacute cough; Translations: [Subacute cough] Onset: 06-10-2024 Results Test Name Value Interpretation Reference Range Facility Office Visiton 03-17-2025 Follow-up visit [id number] Mitul Martinez 1955 M Date Provider Department Center 03/17/2025 [id number] LEWIS [facility] Family History Problem Relation Age of Onset Prostate cancer Father Family Status - Relation Status Age at Mother Father Level of Service:11783 OR OFFICE/OUTPATIENT ESTABLISHED MOD MDM 30 MIN Reason for Visit and Comments: Medication Check [[id number]] Normal [facility] Progress Noteon 03-17-2025 Progress Note [address] [address] Nabil Percy Martinez is a 69 y.o. male who presents for Medication Check Assessment/Plan 1. Chronic midline low back pain without sciatica (M54.50, G89.29) - chronic, worsening - Patient reports significant pain and disability due to chronic back pain - Referral to pain management clinic in [place] to be initiated - Discussed potential non-opioid pain management options, patient declined trial of Cymbalta or amitriptyline due to concerns about side effects 2. 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 Primary hypertension (I10) - chronic, stable - Blood pressure noted as good during visit - Continue current antihypertensive medication - 4. Reactive Depression F32.9: - Patient reports feelings of depression related to chronic pain - Discussed potential for antidepressant medication, patient declined at this time - Will reassess at future visits - Suicidal Ideation: - Patient expresses thoughts about but denies active suicidal ideation or intent - Safety plan discussed, including recommendation to temporarily remove firearms from home - Patient states he will not harm himself due to sikh beliefs - Will continue to monitor at future visits - Marijuana Use: - Patient reports occasional use for pain management - Advised this may interfere with future pain management treatment plans - Patient states willingness to discontinue if required for pain management - Follow-up: - Scheduled to see Dr. Krishnamurthy in August - Will follow up after pain management consultation to reassess pain control and overall health status Nabil was seen today for medication check. 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 Subjective History of Present Illness NABIL MARTINEZ, a 69-year-old male, presents seeking a referral for pain management due to chronic back pain. The patient reports a history of falling off a billboard in 1981, which led to a ruptured disc. He underwent back surgery in 1989, where it was discovered that the ruptured disc had turned into scar tissue. The patient states that the surgery helped for a long time, but he continues to experience significant back pain, especially when standing for prolonged periods. The patient reports that his back pain keeps him inactive, contributing to weight gain and feelings of depression. He mentions difficulty walking for more than 15 minutes and describes himself as handicapped due to the pain. The patient also reports numbness in his feet due to neuropathy, which has caused him to fall multiple times. Mr. Martinez states that he previously attended pain management 12-13 years ago but discontinued due to concerns about costs and ethical issues. He expresses frustration with the current healthcare system and the difficulties in obtaining pain relief. The patient reports using marijuana occasionally for pain relief but feels it is not sufficient. The patient also mentions a history of multiple stomach surgeries, which have left him with gastrointestinal issues, including multiple daily bowel movements. He reports having a heart stent procedure recently and states he was advised to attend cardiac rehab but declined due to his back pain. Mr. Martinez expresses feelings of hopelessness and mentions thoughts about , though he denies any intention to harm himself. He states that his Restorationist upbringing prevents him from considering suicide. I obtained verbal consent from the patient and/or patient's guardian to use ambient listening technology during this encounter before the ambient technology was engaged. Review of Systems Constitutional: Positive for fatigue. Negative for activity change, appetite change, chills, diaphoresis and unexpected weight change. HENT: Negative. Respiratory: Negative. Cardiovascular: Negative. Gastrointestinal: Positive for diarrhea. Negative for abdominal pain, blood in stool, constipation, nausea and vomiting. Genitourinary: Negative for difficulty urinating. Musculoskeletal: Positive for arthralgias and back pain. Psychiatric/Behavioral: Positive for dysphoric mood and sleep disturbance. Negative for suicidal ideas. The patient is not nervous/anxious. Objective BP 128/84 Pulse 91 Temp 37 ?C (98.6 ?F) (Infrared) Resp 20 Wt 276 lb (125 k (more content not included)... Normal [facility] 36on 02-24-2025 36 Prescription Request : LISINOPRIL-HCTZ 20-12.5 MG TAB Last medication check: 03/19/24 Last physical exam: 09/10/24 Next scheduled appointment: 03/17/25 Last date of refill on this medication 06/10/24 ( qty 180 refill 1) Normal [facility] Cardiology Visit Reporton Cardiology Visit Report [facility] [address] [place] [address]. [address] [place] [address] OFFICE VISIT Date of Service: 11/11/24 MR#: [id number] Acct: [id number] Name: MITUL MARTINEZ Rep #: [id number] : 1955 Provider: Dr. Graham peters MD Age/Sex: 69/M Location: [facility] [place] Status: Signed HPI HPI History of Present Illness Details: Patient 69-year-old white male comes today for monitor of his cardiovascular disease. Patient originally presented September 01, 2024 with chest discomfort and shortness of breath with swimming. He routinely was swimming 20 laps 3 times a week but got to where he can only swim 4 laps without getting profoundly short of breath and developed some chest tightness. His initial ECG showed diffuse ST segment depression he was taken to the [facility] and a large circumflex vessel which was dominant was stented. He also had documented in ostial moderate LAD disease of about 60% and is a large nondominant right coronary artery that had minimal disease. The patient remains on his dual antiplatelet therapy. The patient has been intolerant of statin therapy due to myalgias. He is unable to do much of anything he could hardly do his swimming because of his muscle aches. He also has significant chronic back pain. Patient's blood pressure is adequately controlled in his home environment. He is back to swimming 20 laps 3 days a week. He is not experiencing any dyspnea on exertion or any restrictions in his swimming. In fact he feels he can swim further and faster than he could prior to his event. The patient is reluctant to do anything that could cause his back to hurt such as walking the treadmill. Given the fact that he is back to swimming 3 times a week without any restrictions and has no other signs or symptoms of ischemia I would recommend we forego the stress test given his back situation. I feel it is much more important to monitor him routinely with his swimming then it is to do a single stress test. 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 Accompanied by: Self Is patient in pain?: No Allergies fenofibrate Allergy (Verified 11/11/24 08:51) Other Anxzybb-JKP-ZfB Reductase Inhibitor Adverse Reaction (Severe, Verified 11/11/24 08:51) myalgias diclofenac Adverse Reaction (Verified 11/11/24 08:51) Nausea/Vom/Diarrhea Medications ???Medication ???Instructions ???Recorded ???Confirmed ???Type cholecalciferol (vitamin D3) 25 1,000 unit PO DAILY 08/24/1711/11 History mcg (1,000 unit) capsule (Vitamin D3) lisinopril 20 2 tab PO DAILY 08/31/24 11/11/24 H istory mg-hydrochlorothiazide 12.5 mg tablet aspirin 81 mg tablet,delayed 81 mg PO BREAKFAST #30 tabs 11/11/24 Rx release metoprolol succinate 25 mg 25 mg PO DAILY #90 tabs 09/11/24 0 11/11/24 Rx tablet,extended release 24 hr ticagrelor 90 mg tablet (Brilinta) 90 mg PO BID 90 days #180 tabs 0 09/11/24 11/11/24 Rx rosuvastatin 5 mg tablet 5 mg PO QDAY #30 tabs 11/11/24 Rx Ejection fraction %: 60 Have you fallen in the past year?: No PFSH Medical History Non-ST elevation TN (NSTEMI) (08/31/24) CAD (coronary artery disease) Hypertension Surgical History Stented coronary artery (09/01/24) Family History Father CAD (coronary artery disease) Social History Smoking Status: Former smoker alcohol intake: current alcohol intake frequency: holidays/special occasions only substance use type: marijuana caffeine: Yes ROS Const Const: Positive for weakness (attributes to back pain); Negative for fatigue ENT ENT: Negative for dizziness or balance problems Cardio Chest Pain: No Palpitations: No Edema: None Muscle aches with walking: None Resp Respiratory: Negative for SOB with activity, SOB at rest or SOB orthopnea SOB lying down GI GI: Negative nausea, vomiting or heartburn Musc Musc: Negative for muscle weakness or balance problems Neuro Neuro: Positive for weakness (attributes to back pain); Negative for dizziness, lightheadedness, near syncope or syncope Endo Endo: Negative for fatigue Cardiology Exam Const Appearance: cooperative, comfortable and no acute distress Nutritional Appearance (more content not included)... Normal [facility] Bilirubin directOrdered By: Ghassan Gallardo on 10-16-2024 Bilirubin.direct [Mass/Vol] 0.41 mg/dL High 0.00-0.30 [facility] Bilirubin, totalOrdered By: Ghassan Gallardo on 10-16-2024 Bilirubin [Mass/Vol] 0.88 mg/dL 0.00-1.30 [facility] Calculated very low density lipoprotein (VLDL) cholesterol measurementOrdered By: Ghassantodd Gallardo on 10-16-2024 Calculated very low density lipoprotein (VLDL) cholesterol measurement 14 mg/dL 5-40 [facility] LDL calc ser/plasOrdered By: Ghassandaksha Gallardo on 10-16-2024 Cholesterol in LDL [Mass/Vol] 34 mg/dL [facility] Comment on above: Jwcdkivqow=123-317 m g/dL & Higher Tini=834 mg/dL or greater Laboratory - Chemistry and C hemistry - challengeOrdered By: Ghassan Gallardo on 10-16-2024 AST [Catalytic activity/Vol] 38 U/L <38 [facility] Lipid Profileon 10-16-2024 CHOL:HDL 2.20 Normal [facility] Comment on above: Performed By: #### L 100.0500, L500.4050, L501.2300, L501.5200 #### [facility] [address] [place], [address] Cholesterol [Mass/Vol] 87 mg/dL Normal <=200 [facility] Comment on above: Result Comment: Chol esterol level, Desirable <200 mg/dL Borderline high cholesterol 200-239 mg/dL High cholesterol >=240 mg/dL Recommendations of the NCEP Adult Treatment Panel for the following risk-cutoff thresholds for the [place] population. Performed By: #### L 100.0500, L500.4050, L501.2300, L501.5200 #### [facility] [address] [place], [address] Cholesterol in HDL [Mass/Vol] 40 mg/dL Normal [facility] Comment on above: Result Comment: Emmanuelle onal Cholesterol Education Program (NCEP) guidelines: <40 mg/dL: Low HDL-cholesterol (major risk factor for CHD) >= 60 mg/dL: High HDL-cholesterol (negative risk factor for CHD) HDL-cholesterol is affected by a number of factors, e.g. smoking, exercise, hormones, sex and age. Performed By: #### L 100.0500, L500.4050, L501.2300, L501.5200 #### [facility] [address] [place], [address] Cholesterol in LDL [Mass/Vol] 34 mg/dL Normal [facility] Comment on above: Result Comment: Bord mcojck=006-731 mg/dL Higher Kvis=715 mg/dL or greater Performed By: #### L 100.0500, L500.4050, L501.2300, L501.5200 #### [facility] [address] [place], [address] Cholesterol in VLDL [Mass/Vol] 14 mg/dL Normal 5-40 [facility] Comment on above: Performed By: #### L 100.0500, L500.4050, L501.2300, L501.5200 #### [facility] [address] [place], [address] Triglyceride [Mass/Vol] 70 mg/dL [facility] Comment on above: Result Comment: The drugs N-Acetylcysteine and Metamizole may falsely depress this assay. Normal range: <150 mg/dL Borderline High: 150-199 mg/dL High: 200-499 mg/dL Very High: >500 mg/dL Performed By: #### L 100.0500, L500.4050, L501.2300, L501.5200 #### [facility] [address] [place], [address] Liver Profileon 10-16-2024 Albumin [Mass/Vol] 4.5 g/dL Normal 3.4-4.8 [facility] Comment on above: Performed By: #### L 100.0500, L500.4050, L501.2300, L501.5200 #### [facility] [address] [place], [address] ALK PHOS 108 U/L Normal 40-129 [facility] Comment on above: Performed By: #### L 100.0500, L500.4050, L501.2300, L501.5200 #### [facility] [address] [place], [address] ALT [Catalytic activity/Vol] 29 U/L Normal <=46 [facility] Comment on above: Performed By: #### L 100.0500, L500.4050, L501.2300, L501.5200 #### [facility] [address] [place], [address] AST [Catalytic activity/Vol] 38 U/L Normal <=37 [facility] Comment on above: Performed By: #### L 100.0500, L500.4050, L501.2300, L501.5200 #### [facility] [address] [place], [address] Bilirubin [Mass/Vol] 0.88 mg/dL Normal 0.00-1.30 [facility] Comment on above: Performed By: #### L 100.0500, L500.4050, L501.2300, L501.5200 #### [facility] [address] [place], [address] Bilirubin.direct [Mass/Vol] 0.41 mg/dL High 0.00-0.30 [facility] Comment on above: Performed By: #### L 100.0500, L500.4050, L501.2300, L501.5200 #### [facility] [address] [place], [address] Globulin (S) [Mass/Vol] 3.0 g/dL Normal 2.2-4.2 [facility] Comment on above: Performed By: #### L 100.0500, L500.4050, L501.2300, L501.5200 #### [facility] [address] [place], [address] T PROT 7.5 g/dL Normal 5.9-8.4 [facility] Comment on above: Performed By: #### L 100.0500, L500.4050, L501.2300, L501.5200 #### [facility] [address] [place], [address] Screening total cholesterol/ high density lipoprotein (HDL) cholesterol ratioOrdered By: Ghassan Gallardo on 10-16-2024 Cholesterol.total/Sandrine sterol in HDL [Mass ratio] 2.20 {ratio} [facility] Serum globulin measurementOr dered By: Ghassan Gallardo on 10-16-2024 Globulin (S) [Mass/Vol] 3.0 g/dL 2.2-4.2 [facility] Serum or plasma alanine rosario otransferase (ALT) measurementOrdered By: Ghassan Gallardo on 10-16-2024 ALT [Catalytic activity/Vol] 29 U/L <47 [facility] Serum or plasma albumin jack urement (mass/volume)Ordered By: Ghassan Gallardo on 10-16-2024 Albumin [Mass/Vol] 4.5 g/dL 3.4-4.8 [facility] Serum or plasma alkaline noe sphatase measurementOrdered By: Ghassan Gallardo on 10-16-2024 ALP [Catalytic activity/Vol] 108 U/L 40-129 [facility] Serum or plasma cholesterol in HDL measurement (mass/volume)Ordered By: Ghassan Gallardo on 10-16-2024 Cholesterol in HDL [Mass/Vol] 40 mg/dL >40 [facility] Comment on above: National Cholesterol Education Program (NCEP) guidelines:<40 mg/dL: Low HDL-cholesterol (major risk factor for CHD)>= 60 mg/dL: High HDL-cholesterol (negative risk factor for CHD)HDL-cholesterol is affected by a number of factors, e.g. smoking, exercise, hormones, sex and age. Serum or plasma cholesterol measurement (mass/volume)Ordered By: Ghassan Gallardo on 10-16-2024 Cholesterol [Mass/Vol] 87 mg/dL <201 [facility] Comment on above: Cholesterol level, D esirable <200 mg/dLBorderline high cholesterol 200-239 mg/dLHigh cholesterol >=240 mg/dLRecommendations of the NCEP Adult Treatment Panel for the following risk-cutoff thresholds for the [place] population. Total proteinOrdered By: Elvis Gallardo on 10-16-2024 Protein [Mass/Vol] 7.5 g/dL 5.9-8.4 [facility] Triglycerides measurementOrd ered By: Ghassan Gallardo on 10-16-2024 Triglyceride [Mass/Vol] 70 mg/dL <199 [facility] Comment on above: The drugs N-Acetylcy steine and Metamizole may falsely depress this assay. Normal range: <150 mg/dLBorderline High: 150-199 mg/dLHigh: 200-499 mg/dLVery High: >500 mg/dL Office Visiton 09-22-2024 Follow-up visit [id number] Mitul Martinez 1955 M Date Provider Department Center [facility]20[facility] Family History Problem Relation Age of Onset Prostate cancer Father Family Status - Relation Status Age at Mother Father Level of Service:59180 OR OFFICE/OUTPT VISIT,PROCEDURE ONLY Reason for Visit and Comments: Knee Pain [[id number]] - B/l asking for injections Normal [facility] Progress Noteon 09-22-2024 Progress Note Patient verified by last name and date of . Normal [facility] Progress Note 09/22/2024 Mitul Martinez (: 1955) is a 69 y.o. male , Established patient, here for evaluation of the following chief complaint(s): Knee Pain (B/l asking for injections) ASSESSMENT/PLAN: 1. Bilateral primary osteoarthritis of knee Assessment & Plan: Injection procedure: Location bilateral knees Consent: Verbal Consent Obtained-Discussed risks including hypo/hyperpigmentation, fat atrophy, steroid flare, bleeding and infection and potential consequences of over use of steroids. Prep: Betadine. Anesthesia: 2% lidocaine. Medication: 1 ml depomedrol 40 mg. Needle: 25 gauge 1.5 in. needle. Complications: No Complications, Hemostasis achieved. Orders: - Large Joint Injection/Arthrocentesi s - methylPREDNISolone acetate (DEPO-Medrol) injection 40 mg; 40 mg, Intra-artICUlar, Once, On Sat09/22/24 at 1445, For 1 dose - lidocaine (Xylocaine) 2 % injection 2 mL; 2 mL, Injection, Once, On Sat09/22/24 at 1445, For 1 dose - Large Joint Injection/Arthrocentesi s - methylPREDNISolone acetate (DEPO-Medrol) injection 40 mg; 40 mg, Intra-artICUlar, Once, On Sat09/22/24 at 1500, For 1 dose - lidocaine (Xylocaine) 2 % injection 2 mL; 2 mL, Injection, Once, On Sat09/22/24 at 1500, For 1 dose Follow up if symptoms worsen or fail to improve. SUBJECTIVE/OBJECTIVE: JOSE ANGEL Jones comes in today for follow-up on his knees he has arthritis and he would like to have injections in both of his knees today we discussed his at his last office visit. Review of Systems Vitals: 09/22/24 1425 BP: 124/82 Pulse: 73 SpO2: 95% Weight: 280 lb (127 kg) Height: 5' 9 (1.753 m) Physical Exam Bilateral knee pain, no edema normal range of motion and no effusion. Negative Jori's negative Peewee's bilateral An electronic signature was used to authenticate this note. Colton Krishnamurthy MD 09/22/2024 2:50 PM Normal [facility] Cardiology Visit Reporton Cardiology Visit Report [facility] [address] [place] [address] OFFICE VISIT Date of Service: 09/11/24 MR#: [id number] Acct: [id number] Name: MITUL MARTINEZ Rep #: [id number] : 1955 Provider: ISRAEL Henson Age/Sex: 69/M Location: [facility] [place]NE[place], [place].WHG Status: Signed Agree with assessment and plan as outlined. HPI HPI History of Present Illness Details: Mitul Martinez is a 69-year-old male who presents to office today for hospital follow-up. Patient presented to ED 09/01/2024 with concerns of chest pain and shortness of breath with exertion. Patient reports he routinely swims 20 laps 3 days a week and he noticed he could only tolerate 4 laps 4 different days prior to presentation in which he had to stop swimming secondary to shortness of breath and chest tightness. EKG in emergency department with ST depression. Patient underwent heart catheterization and underwent stenting in the proximal huge dominant circumflex. Of note, patient does have moderate disease in the ostium and LAD and mild disease in the large nondominant right RCA. Patient was discharged from the hospital 09/02/2024 with new medications consisting of dual antiplatelet, beta-jami, statin. Since hospitalization, patient reports doing well. Patient reports chronic joint pain. Patient denies muscle aches, chest pain, chest tightness, shortness of breath. Patient denies any bleeding concerns. Patient reports obtaining BP readings at home around 108/70s but denies any associated symptoms such as lightheaded, dizziness, syncope, near syncope. Further ROS below. 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 Is patient in pain?: No Allergies fenofibrate Allergy (Verified 08/31/24 18:24) Other diclofenac Adverse Reaction (Verified 08/31/24 18:24) Nausea/Vom/Diarrhea Medications ???Medication ???Instructions ???Recorded ???Confirmed ???Type cholecalciferol (vitamin D3) 25 1,000 unit PO DAILY 08/24/1709/11 History mcg (1,000 unit) capsule (Vitamin D3) lisinopril 20 2 tab PO DAILY 08/31/24 09/11/24 H istory mg-hydrochlorothiazide 12.5 mg tablet aspirin 81 mg tablet,delayed 81 mg PO BREAKFAST #30 tabs 09/11/24 Rx release atorvastatin 40 mg tablet 40 mg PO QHS 90 days #90 tabs 08/2309/11/24 Rx metoprolol succinate 25 mg 25 mg PO DAILY #90 tabs 09/11/24 0 09/11/24 Rx tablet,extended release 24 hr ticagrelor 90 mg tablet (Brilinta) 90 mg PO BID 90 days #180 tabs 0 09/11/24 09/11/24 Rx Have you fallen in the past year?: No PFSH Medical History (Updated 09/11/24 @ 14:14 by ISRAEL Henson) Non-ST elevation [place] (NSTEMI) (08/31/24) CAD (coronary artery disease) Hypertension Surgical History (Updated 09/10/24 @ 00:03 by Yash Browne) Stented coronary artery (09/01/24) Family History (Updated 09/01/24 @ 07:[address] Graham Carr MD) Father CAD (coronary artery disease) Social History Smoking Status: Former smoker ROS Const Const: Negative for fatigue, weakness, headache(s) or frequent falls Eyes Eyes: Negative for blurry vision ENT ENT: Negative for headache(s), dizziness or Nosebleed/epistaxis Cardio Chest Pain: No Palpitations: No Edema: None Muscle aches with walking: None Resp Respiratory: Negative for SOB with activity, SOB at rest or SOB orthopnea SOB lying down GI GI: Negative nausea, vomiting, heartburn, bright, red blood in stools or black,tarry stools : Negative for hematuria Neuro Neuro: Negative for dizziness, lightheadedness, near syncope, syncope, frequent falls, headache(s), weakness or blurry vision Endo Endo: Negative for fatigue Cardiology Exam Const Appearance: no acute distress and well developed; Negative diaphoretic or ill appearing Nutritional Appearance: obese Orientation: alert and oriented x3 Ambulating without assistive device Head Head: normocephalic and atraumatic Nose: external nose normal and Negative epistaxis Face and Sinus: face symmetric Eyes General: appearance normal, both eyes and all related structures Conjunctivae: Negative scleral icterus EOM: EOM intact bilaterally Neck Neck: no JVD Neck Mass: Negative Neck mass Chest Chest inspection: normal respiratory effort; Negative respiratory distress, audible wheezes or tachypneic Auscultation: Bilateral: Clear to Auscultation Cardio Rate: regular rate Rhythm: regular rhythm Heart sounds: S1 normal (more content not included)... Normal [facility] [id number] 09-10-2024 [id number] Last read by Nabil Martinez at 4:10 PM on 08/31/2024. Normal [facility] 37on 09-10-2024 37 Personalized Preventative Plan for Mitul Martinez - 09/10/2024 Medicare offers a range of preventative health benefits. Some of the tests and screenings are paid in full while others may be subject to a deductible, co-insurance, and / or copay. Some of these benefits include a comprehensive review of your medical history including lifestyle, illnesses that may run in your family, and various assessments and screenings as appropriate. After reviewing your medical record and screening and assessments performed today, your provider may have ordered immunizations, labs, imaging, and / or referrals for you. A list of these orders (if applicable) as well as your Preventative Care list are included within your After Visit Summary for your review. Other Preventative Recommendations: A preventive eye exam by an screw eye assembler is recommended every 1-2 years to screen for glaucoma, cataracts, macular degeneration, and other eye disorders. A preventive dental visit is recommended every 6 months. Try to get at least 150 minutes of exercise per week or 10,000 steps per day on a pedometer. You need 1200-1500mg of calcium and 4452-1509 international units of vitamin D per day. It is possible to meet your calcium requirement with diet alone, but a vitamin D supplement is usually necessary to meet this goal. When exposed to the sun, use a sunscreen that protects against both UVA and UVB radiation with an SPF of 30 or greater. Reapply every 2-3 hours or after sweating, drying off with a towel, or swimming. Always wear a seat belt when traveling in a car. Always wear a helmet when riding a bicycle or a motorcycle Normal [facility] Office Visiton 09-10-2024 Follow-up visit [id number] Mitul Martinez 1955 Date Provider Department Center 09/10/2024 24325-[facility]MON[facility]UKLAN[facility] Family History Problem Relation Age of Onset Prostate cancer Father Family Status - Relation Status Age at Mother Father Level of Service:G0439 OR PPPS, SUBSEQ VISIT Reason for Visit and Comments: Medicare Annual Wellness Visit Initial [676] Health Maintenance [872] Normal [facility] Progress Noteon 09-10-2024 Progress Note Uncontrolled, contin ue atorvastatin 40 mg daily Normal [facility] Progress Note stable, will check fasting blood sugar and an A1c Normal [facility] Progress Note Stable, will have patient reschedule for bilateral joint injections of the knees Normal [facility] Progress Note Stable, repeat PSA today Normal [facility] Progress Note Controlled, continue lisinopril hydrochlorothiazide 20-12.5 mg 2 a day and metoprolol 25 mg daily Progress Note Stable, status post stent placement he is waiting on cardiac rehab. Continue atorvastatin 40 mg daily and Brilinta 90 mg twice a day Progress Note [facility] [address] [address] Dept: [phone] Dept Chief Complaint: Mitul Martinez is an 69 y.o. male here for an annual wellness visit. 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 Continue atorvastatin 40 mg daily and Brilinta 90 mg twice a day Relevant Medications metoprolol succinate XL (Toprol-XL) 25 MG 24 hr tablet Brilinta 90 MG tablet Hyperglycemia stable, will check fasting blood sugar and an A1c Relevant Orders Comprehensive metabolic panel Hemoglobin A1c Hypertension Controlled, continue lisinopril hydrochlorothiazide 20-12.5 mg 2 a day and metoprolol 25 mg daily Primary osteoarthritis involving multiple joints Stable, will have patient reschedule for bilateral joint injections of the knees Prostate cancer (HCC) Stable, repeat PSA today Relevant Orders PSA Screening Pure hypercholesterolemia Uncontrolled, continue atorvastatin 40 mg daily Relevant Orders Lipid panel Other Visit Diagnoses Routine general medical examination at health care facility - Primary I have reviewed and reconciled the medication list with the patient today. Current Outpatient Medications Medication Sig Dispense Refill atorvastatin (Lipitor) 40 MG tablet Brilinta 90 MG tablet Take 90 mg by mouth 2 times daily. cholecalciferol (Vitamin D-3) 50 MCG (1999) capsule Take by mouth. diphenhydrAMINE-acetami nophen (Tylenol PM) 25-500 MG per tablet Take 1 tablet by mouth Nightly as needed for sleep. lisinopril-hydroCHLOROt hiazide 20-12.5 MG tablet Take 2 tablets by mouth daily. 180 tablet 1 metoprolol succinate XL (Toprol-XL) 25 MG 24 hr tablet Take 25 mg by mouth daily. triamcinolone (Kenalog) 0.5 % cream Apply topically 2 times daily. No current facility-administered medications for this visit. Also reviewed during this visit: The following health maintenance schedule was reviewed with the patient and provided in printed form in the after visit summary: Health Maintenance Topic Date Due Depression Monitoring 09/15/2024 Hepatitis C Screening 03/18/2025 (Originally 1973) Diabetes Screening 08/30/2025 DTaP/Tdap/Td Vaccines (4 - Td or Tdap) 04/11/2027 Lipid Panel 10/02/2028 Medicare Advantage Annual Wellness Visit Completed RSV Immunization for Adults Completed Influenza Vaccine Completed Pneumococcal Vaccine: 50+ Years Completed Zoster Vaccines Completed COVID-19 Vaccine Completed RSV Immunization under 20 Months Aged Out HIB Vaccines Aged Out Hepatitis B Vaccines Aged Out IPV Vaccines Aged Out Hepatitis A Vaccines Aged Out Meningococcal Vaccine Aged Out Rotavirus Vaccines Aged Out HPV Vaccines Aged Out Colorectal Cancer Screening Discontinued List of current healthcare providers: Patient Care Team: Colton Krishnamurthy MD as PCP - General Orders Placed This Encounter Procedures Comprehensive metabolic panel Standing Status: Future Number of Occurrences: 1 Standing Expiration Date: 09/09/2025 Lipid panel Standing Status: Future Number of Occurrences: 1 Standing Expiration Date: 09/09/2025 PSA Screening Standing Status: Future Number of Occurrences: 1 Standing Expiration Date: 09/09/2025 Hemoglobin A1c Standing Status: Future Number of Occurrences: 1 Standing Expiration Date: 09/10/2025 Review of Systems Constitutional: Negative for activity change, appetite change, chills, fever and unexpected weight change. HENT: Negative for ear pain and sore throat. Respiratory: Negative for shortness of breath. Cardiovascular: Negative for chest pain and palpitations. Gastrointestinal: Negative for abdominal pain, blood in stool, constipation and diarrhea. Genitourinary: Negative for dysuria, frequency, hematuria and urgency. Musculoskeletal: Negative for arthralgias and back pain. Skin: Negative. Neurological: Negative for weakness and numbness. Psychiatric/Behavioral: Negative for dysphoric mood. The patient is not nervous/anxious. Physical Exam Vitals and nursing note reviewed. Constitutional: General: He is not in acute distress. Appearance: Normal appearance. He is obese. HENT: Right Ear: Tympanic membrane, ear canal and external ear normal. Left Ear: Tympanic membrane, ear canal and external ear normal. Mouth/Throat: Mouth: Mucous membranes are moist. Pharynx: Oropharynx is clear. Eyes: Extraocular Movements: Extraocular movements intact. Conjunctiva/sclera: Conjunctivae normal. Pupils: Pupils are equal, round, and reactive to light. Neck: Thyroid: No thyromegaly. Vascular: No carotid bruit. Cardiovascular: Rate and Rhythm: Normal rate and regular rhythm. Heart sounds: Normal heart sounds. No murmur heard. Pu (more content not included)... Normal [facility] Progress Note Patient was identifi ed by name and Date of . Health Maintenance Due Topic Diabetes Screening-TODAY Medicare Advantage Annual Wellness Visit-TODAY Depression Monitoring-NEEDS COMPLETED Normal [facility] 12 Lead EKGon 09-02-2024 12 Lead EKG [facility] [address] [place] [address] 12 Lead EKG 09/01/24 1430 MR#: [id number] Acct: [id number] Name: MITUL MARTINEZ Rep #: [id number] : 1955 69 From: Cindy Chavez MD Attending Dr: Dr. Mayra Rodriguez MD Status: DIS IN Ordering Dr: Cindy Chavez MD Date: 5 Location: [facility] Sex: M C Admitted: 08/31/24 Test Reason : SERIES Blood Pressure : */* mmHG Vent. Rate : 78 BPM Atrial Rate : 78 BPM P-R Int : 144 ms QRS Dur : 86 ms QT Int : 382 ms P-R-T Axes : 63 -21 17 degrees QTcB Int : 435 ms Normal sinus rhythm Nonspecific ST abnormality Abnormal ECG Confirmed by SCOTT SHERWOOD, ALONZO ([id number]), news copy editor TIFFANIE ADLER ([id number]) on 09/07/2024 11:43:34 AM Referred By: BANDAR Confirmed By: ALONZO CHAVEZ MD 09/07/24 1143 Date Cindy Chavez MD CC: Dr. Colton Krishnamurthy MD; Dr. Cindy Chavez MD; Dr. Mayra Rodriguez MD Signed Normal [facility] Anion gap in Serum or Plasma Ordered By: Cindy Chavez on 09-02-2024 Anion gap [Moles/Vol] 14 mmol/L - [facility] BUN/creatinine ratioOrdered By: Cindy Chavez on 09-02-2024 Urea nitrogen/Creatinine [Mass ratio] 15.7 mg/mg - [facility] Bilirubin, totalOrdered By: Cindy Chavez on 09-02-2024 Bilirubin [Mass/Vol] 1.05 mg/dL 0.00-1.30 [facility] CBC-Complete Blood Cnt No Di ffon 09-02-2024 Erythrocyte distribution width (RBC) [Ratio] 13.5 % Normal 11.6-14.6 [facility] Comment on above: Performed By: #### L 100.0500 #### [facility] [address] [place], [place], [id number] Hematocrit (Bld) [Volume fraction] 47.3 % Normal 40-54 [facility] Comment on above: Performed By: #### L 100.0500 #### [facility] [address] [place], [address] Hemoglobin (Bld) [Mass/Vol] 16.1 g/dL Normal 13.0-16.5 [facility] Comment on above: Performed By: #### L 100.0500 #### [facility] [address] [place], [address] MCH (RBC) [Entitic mass] 30.0 pg Normal 27.0-32.0 [facility] Comment on above: Performed By: #### L 100.0500 #### [facility] [address] [place], [address] MCHC (RBC) [Mass/Vol] 34.0 g/dL Normal 32-36 [facility] Comment on above: Performed By: #### L 100.0500 #### [facility] [address] [place], [address] MCV (RBC) [Entitic vol] 88.1 fL Normal 80-94 [facility] Comment on above: Performed By: #### L 100.0500 #### [facility] [address] [place], [address] Platelet mean volume (Bld) [Entitic vol] 10.7 fL Normal 6.2-12.0 [facility] Comment on above: Performed By: #### L 100.0500 #### [facility] [address] [place], [address] Platelets (Bld) [#/Vol] 195 10*3/uL Normal 150-450 [facility] Comment on above: Performed By: #### L 100.0500 #### [facility] [address] [place], [address] RBC (Bld) [#/Vol] 5.37 10*6/uL Normal 4.6-6.2 [facility] Comment on above: Performed By: #### L 100.0500 #### [facility] [address] [place], [address] RDW SD 43.5 fl Normal 35.1-43.9 [facility] Comment on above: Performed By: #### L 100.0500 #### [facility] [address] [place], [address] WBC (Bld) [#/Vol] 8.0 10*3/uL Normal 4.4-11.0 [facility] Comment on above: Performed By: #### L 100.0500 #### [facility] [address] [place], [address] Carbon dioxide, total [Moles /volume] in Central venous bloodOrdered By: Cindy Chavez on 09-02-2024 CO2 [Moles/Vol] 22.7 mmol/L 21.0-32.0 [facility] Chloride assayOrdered By: Sharon Chavez on 09-02-2024 Chloride [Moles/Vol] 102 mmol/L 98-108 [facility] Comprehensive Metabolic Prof ilon 09-02-2024 Albumin [Mass/Vol] 4.1 g/dL Normal 3.4-4.8 [facility] Comment on above: Performed By: #### L 100.0500, L500.4050, L501.2300, L501.5200 #### [facility] [address] [place], [address] Albumin/Globulin [Mass ratio] 1.5 {ratio} Normal 0.9-2.4 [facility] Comment on above: Performed By: #### L 100.0500, L500.4050, L501.2300, L501.5200 #### [facility] [address] [place], [address] ALK PHOS 86 U/L Normal 40-129 [facility] Comment on above: Performed By: #### L 100.0500, L500.4050, L501.2300, L501.5200 #### [facility] [address] [place], [address] ALT [Catalytic activity/Vol] 24 U/L Normal <=46 [facility] Comment on above: Performed By: #### L 100.0500, L500.4050, L501.2300, L501.5200 #### [facility] [address] [place], [address] AST [Catalytic activity/Vol] 36 U/L Normal <=37 [facility] Comment on above: Result Comment: Hemo lysis present, Results??could be affected. ?? Performed By: #### L 100.0500, L500.4050, L501.2300, L501.5200 #### [facility] [address] [place], [address] Bilirubin [Mass/Vol] 1.05 mg/dL Normal 0.00-1.30 [facility] Comment on above: Performed By: #### L 100.0500, L500.4050, L501.2300, L501.5200 #### [facility] [address] [place], [address] BUN/CRE 15.7 RATIO Normal 10-20 [facility] Comment on above: Performed By: #### L 100.0500, L500.4050, L501.2300, L501.5200 #### [facility] [address] [place], [address] Calcium [Mass/Vol] 9.2 mg/dL Normal 7.6-11.0 [facility] Comment on above: Performed By: #### L 100.0500, L500.4050, L501.2300, L501.5200 #### [facility] [address] [place], [address] Chloride [Moles/Vol] 102 mmol/L Normal 98-108 [facility] Comment on above: Performed By: #### L 100.0500, L500.4050, L501.2300, L501.5200 #### [facility] [address] [place], [address] CO2 [Moles/Vol] 22.7 mmol/L Normal 21.0-32.0 [facility] Comment on above: Performed By: #### L 100.0500, L500.4050, L501.2300, L501.5200 #### [facility] [address] [place], [address] Creatinine [Mass/Vol] 0.92 mg/dL Normal 0.70-1.20 [facility] Comment on above: Performed By: #### L 100.0500, L500.4050, L501.2300, L501.5200 #### [facility] [address] [place], [address] ECRCL 100.82 ml/min Normal 50-250 [facility] Comment on above: Performed By: #### L 100.0500, L500.4050, L501.2300, L501.5200 #### [facility] [address] [place], [address] GAP 14 Normal 5-15 [facility] Comment on above: Performed By: #### L 100.0500, L500.4050, L501.2300, L501.5200 #### [facility] [address] [place], [address] GFR/1.73 sq M.predicted among non-blacks MDRD (S/P/Bld) [Vol rate/Area] 90 mL/min/{1.73_m2} Normal >60 [facility] Comment on above: Result Comment: mL/m in/1.73m2 CKD-EPI Creatinine Equation (2020) Performed By: #### L 100.0500, L500.4050, L501.2300, L501.5200 #### [facility] [address] [place], [address] Globulin (S) [Mass/Vol] 2.7 g/dL Normal 2.2-4.2 [facility] Comment on above: Performed By: #### L 100.0500, L500.4050, L501.2300, L501.5200 #### [facility] [address] [place], [address] Glucose [Mass/Vol] 105 mg/dL High 70-99 [facility] Comment on above: Performed By: #### L 100.0500, L500.4050, L501.2300, L501.5200 #### [facility] [address] [place], [address] Potassium [Moles/Vol] 4.0 mmol/L Normal 3.3-5.1 [facility] Comment on above: Result Comment: Hemo lysis present, Results??could be affected. ?? Performed By: #### L 100.0500, L500.4050, L501.2300, L501.5200 #### [facility] [address] [place], [address] Sodium [Moles/Vol] 139 mmol/L Normal 133-145 [facility] Comment on above: Performed By: #### L 100.0500, L500.4050, L501.2300, L501.5200 #### [facility] [address] [place], [address] T PROT 6.9 g/dL Normal 5.9-8.4 [facility] Comment on above: Performed By: #### L 100.0500, L500.4050, L501.2300, L501.5200 #### [facility] [address] [place], [address] Urea nitrogen [Mass/Vol] 14 mg/dL Normal 4-19 [facility] Comment on above: Performed By: #### L 100.0500, L500.4050, L501.2300, L501.5200 #### [facility] [address] [place], [address] Discharge Instructionon 08-22 Discharge Instruction [facility] Medical Records Department [address] [place] [address] Instructions for Home/Discharge Instructions 09/02/24 1308 MR#: [id number] Acct: [id number] Name: MITUL MARTINEZ Rep #: [id number] : 1955 69 From: Mayra Rodriguez MD PCP: Dr. Colton Krishnamurthy MD Status:ADM IN Discharge Instructions Diet Discharge Diet: - (DASH diet) DC O2, CPAP, BIPAP needs Home O2 Discharge instructions: No Dressing / Incision Discharge Activity: - (See discharge instructions) Follow Up Care Test Results: Test results from this visit will be discussed in further detail at your follow-up appointment, if applicable. Discharge Plan Admission Admit Date/Time: 08/31/24 23:07 Primary Reason for Your Visit: Chest pain Attending Provider: Mayra Rodriguez Primary Care Provider: Colton Krishnamurthy Consulting Providers: Graham Carr; Mian Hutchison Instructions Patient Instructions: Cardiac Catheterization Dc Additional Instructions / Restrictions: DISCHARGE INSTRUCTIONS PLEASE READ *Please take this with you to your next doctors appointment* -You will be discharged on several new medications. You will be discharged on metoprolol succinate 25 mg daily, aspirin, Brilinta 90 mg twice daily, and atorvastatin -You will resume your home blood pressure medications and was advised to not resume meloxicam on discharge -Do only light and easy activities for 2 to 3 days after your stent placement, ask for help with chores and errands while you recover and have someone drive you to your appointments. -Unless your job involves lifting you may return to normal activities within 2 days -Please take your medications as prescribed, do not skip doses -Check your incisions every day for signs of infection which would include redness, swelling, leaking. It is normal to have a small bruise or bump where the catheter was placed but a bruise that is getting larger is not normal. Please tell your healthcare team about this. Please proceed to the emergency department if you have uncontrollable bleeding from the site. -It is important to eat a diet that is low in fat, salt, and cholesterol -You will be set up with cardiac rehab upon discharge, it is important that you follow-up -Okay to shower from the day after your heart catheterization but keep your incision site clean and dry. -Would recommend lab work (fasting lipid panel and liver function) in 6 weeks, this can be coordinated through your primary care physician office or the cardiology office, please call on discharge to inquire about scheduling blood work. -Please follow-up with the [place] [facility] in 7 to 10 days upon discharge. Please call their office to schedule hospital follow-up appointment upon discharge. -Please call your primary care provider's office upon discharge to schedule a hospital follow up within 1 week. -For any concerning signs or symptoms please call 911 or proceed to the nearest emergency department Discharge Orders/Prescriptions Prescriptions: New aspirin 81 mg Tablet,Delayed Release (Dr/Ec) 81 mg PO BREAKFAST Qty: 30 0RF atorvastatin 40 mg Tablet 40 mg PO QHS 30 Days Qty: 30 0RF metoprolol succinate 25 mg tablet extended release 24 hr 25 mg PO DAILY Qty: 30 0RF Brilinta 90 mg Tablet 90 mg PO BID 30 Days Qty: 60 0RF Continued cholecalciferol (vitamin D3) [Vitamin D3] 1,000 UNIT capsule 1,000 unit PO DAILY hydrochlorothiazide 25 MG tablet 25 mg PO DAILY Qty: 30 0RF lisinopril-hydrochlorot hiazide 20-12.5 mg tablet 2 tab PO DAILY Discontinued meloxicam 15 MG tablet 15 mg PO DAILY Referrals / Follow Up: Colton Krishnamurthy MD [Primary Care Provider] - Within 1 Week Graham Carr MD [Med Staff - Active Staff] - In 1 Week (follow-up in the [facility] office in 7 to 10 days with one of the advanced practice providers. Please call the office upon discharge to schedule this appointment) Disposition Disposition (needs filled in before D/C Order can be placed): Home, Self Care 09/02/24 1314 Mayra Rodriguez MD CC: Dr. Colton Krishnamurthy MD; Dr. Mian Hutchison DO; Dr. Graham Carr MD Signed Normal [facility] Erythrocyte distribution wid th ratioOrdered By: Cindy Chavez on 09-02-2024 Erythrocyte distribution width (RBC) [Ratio] 13.5 % 11.6-14.6 [facility] Erythrocyte distribution wid th standard deviationOrdered By: Cindy Chavez on 09-02-2024 Erythrocyte distribution width (RBC) [Entitic vol] 43.5 fL 35.1-43.9 [facility] Erythrocyte distribution width (RBC) [Ratio] 43.5 fl 35.1-43.9 [facility] Estimation of creatinine rogelio aranceOrdered By: Cindy Chavez on 09-02-2024 Estimated Creatinine Clearance Calc 100.82 ml/min 50-250 [facility] GFR/1.73 sq M.predicted leena g non-blacks MDRD (S/P/Bld) [Vol rate/Area]Ordered By: Cindy Chavez on 09-02-2024 Estimated GFR (MDRD) Non-Af Amer 90 >60 [facility] Comment on above: mL/min/1.73m2 CKD-EP I Creatinine Equation (2020) Glomerular filtration rate ( GFR) estimation/1.73 sq m using serum, plasma, or whole bOrdered By: Cindy Chavez on 09-02-2024 GFR/1.73 sq M.predicted among non-blacks MDRD (S/P/Bld) [Vol rate/Area] 90 mL/min/{1.73_m2} >60 [facility] Comment on above: mL/min/1.73m2 CKD-EP I Creatinine Equation (2020) Hematocrit Auto (Bld) [Volum e fraction]Ordered By: Cindy Chavez on 09-02-2024 Hematocrit (Bld) [Volume fraction] 47.3 % 40-54 [facility] Hemoglobin measurementOrdere d By: Cindy Chavez on 09-02-2024 Hemoglobin (Bld) [Mass/Vol] 16.1 g/dL 13.0-16.5 [facility] Laboratory - Chemistry and C hemistry - challengeOrdered By: Cindy Chavez on 09-02-2024 AST [Catalytic activity/Vol] 36 U/L <38 [facility] Comment on above: Hemolysis present, R esults could be affected. MCV (mean corpuscular volume ) determinationOrdered By: Cindy Chavez on 09-02-2024 MCV (RBC) [Entitic vol] 88.1 fL 80-94 [facility] Magnesiumon 09-02-2024 Magnesium [Mass/Vol] 2.3 mg/dL High 1.5-2.2 [facility] Comment on above: Performed By: #### L 100.0500, L500.4050, L501.2300, L501.5200 #### [facility] [address] [place], [address] Magnesium (Unsp spec) [Mass/ Vol]Ordered By: Mian Jones on 09-02-2024 Magnesium [Mass/Vol] 2.3 mg/dL High 1.5-2.2 [facility] Magnesium measurement (mass/ volume)Ordered By: Mian Jones on 09-02-2024 Magnesium (Unsp spec) [Mass/Vol] 2.3 mg/dL High 1.5-2.2 [facility] Mean corpuscular hemoglobin (MCH) determinationOrdered By: Cindy Chavez on 09-02-2024 MCH (RBC) [Entitic mass] 30.0 pg 27.0-32.0 [facility] Mean corpuscular hemoglobin concentration (MCHC) determinationOrdered By: Cindy Chavez on 09-02-2024 MCHC (RBC) [Mass/Vol] 34.0 g/dL 32-36 [facility] Mean platelet volume determi nationOrdered By: Cindy Chavez on 09-02-2024 Platelet mean volume (Bld) [Entitic vol] 10.7 fL 6.2-12.0 [facility] Phosphoruson 09-02-2024 Phosphate [Mass/Vol] 2.3 mg/dL Low 2.7-4.5 [facility] Comment on above: Performed By: #### L 100.0500, L500.4050, L501.2300, L501.5200 #### [facility] [address] [place], [address] Platelet countOrdered By: Sharon Chavez on 09-02-2024 Platelets (Bld) [#/Vol] 195 10*3/uL 150-450 [facility] Potassium (Unsp spec) [Mass/ Vol]Ordered By: Cindy Chavez on 09-02-2024 Potassium [Moles/Vol] 4.0 mmol/L 3.3-5.1 [facility] Comment on above: Hemolysis present, R esults could be affected. Potassium measurement (mass/ volume)Ordered By: Cindy Chavez on 09-02-2024 Potassium (Unsp spec) [Mass/Vol] 4.0 mmol/L 3.3-5.1 [facility] Comment on above: Hemolysis present, R esults could be affected. RBC Auto (Bld) [#/Vol]Ordere d By: Cindy Chavez on 09-02-2024 RBC (Bld) [#/Vol] 5.37 10*6/uL 4.6-6.2 [facility] Serum creatinine measurement (mass/volume)Ordered By: Cindy Chavez on 09-02-2024 Creatinine [Mass/Vol] 0.92 mg/dL 0.70-1.20 [facility] Serum globulin measurementOr dered By: Cindy Chavez on 09-02-2024 Globulin (S) [Mass/Vol] 2.7 g/dL 2.2-4.2 [facility] Serum glucose measurement (m ass/volume)Ordered By: Cindy Chavez on 09-02-2024 Glucose [Mass/Vol] 105 mg/dL High 70-99 [facility] Serum or plasma alanine rosario otransferase (ALT) measurementOrdered By: Cindy Chavez on 09-02-2024 ALT [Catalytic activity/Vol] 24 U/L <47 [facility] Serum or plasma albumin jack urement (mass/volume)Ordered By: Cindy Chavez on 09-02-2024 Albumin [Mass/Vol] 4.1 g/dL 3.4-4.8 [facility] Serum or plasma albumin/glob ulin mass ratioOrdered By: Cindy Chavez on 09-02-2024 Albumin/Globulin [Mass ratio] 1.5 {ratio} 0.9-2.4 [facility] Serum or plasma alkaline noe sphatase measurementOrdered By: Cindy Chavez on 09-02-2024 ALP [Catalytic activity/Vol] 86 U/L 40-129 [facility] Serum or plasma calcium jack urement (mass/volume)Ordered By: Cindy Chavez on 09-02-2024 Calcium [Mass/Vol] 9.2 mg/dL 7.6-11.0 [facility] Serum or plasma urea nitroge n measurement (mass/volume)Ordered By: Cindy Chavez on 09-02-2024 Urea nitrogen [Mass/Vol] 14 mg/dL 4-19 [facility] Serum phosphorus measurement Ordered By: Mian Jones on 09-02-2024 Phosphorus Level 2.3 mg/dL Low 2.7-4.5 [facility] Sodium levelOrdered By: Agus Chavez on 09-02-2024 Sodium [Moles/Vol] 139 mmol/L 133-145 [facility] Total proteinOrdered By: Olaf Chavez on 09-02-2024 Protein [Mass/Vol] 6.9 g/dL 5.9-8.4 [facility] White blood cell (WBC) count Ordered By: Cindy Chavez on 09-02-2024 WBC (Bld) [#/Vol] 8.0 10*3/uL 4.4-11.0 [facility] 12 Lead EKGon 09-01-2024 12 Lead EKG [facility] Cardiovascular Services [address] [place] [address] 12 Lead EKG 09/01/24 0128 MR#: [id number] Acct: [id number] Name: MITUL MARTINEZ Rep #: [id number] : 1955 69 From: Cindy Chavez MD Attending Dr: Dr. Mayra Rodriguez MD Status: DIS IN Ordering Dr: Cindy Chavez MD Date: 5 Location: [facility] Sex: M C Admitted: 08/31/24 Test Reason : CP ADMIT Blood Pressure : */* mmHG Vent. Rate : 78 BPM Atrial Rate : 78 BPM P-R Int : 160 ms QRS Dur : 90 ms QT Int : 378 ms P-R-T Axes : 66 -13 6 degrees QTcB Int : 430 ms Normal sinus rhythm Nonspecific ST abnormality Abnormal ECG When compared with ECG of 31-Aug-2024 18:34, Criteria for Septal infarct are no longer Present Confirmed by SCOTT SHERWOOD, ALONZO ([id number]), news copy editor TIFFANIE ADLER ([id number]) on 09/07/2024 11:43:45 AM Referred By: Confirmed By: ALONZO CHAVEZ MD 09/07/24 1143 Date Cindy Chavez MD CC: Dr. Colton Krishnamurthy MD; Dr. Cindy Chavez MD; Dr. Mayra Rodriguez MD Signed [facility] 36on 09-01-2024 36 Agree, thank you CBC-Complete Blood Cnt No Di ffon 09-01-2024 Erythrocyte distribution width (RBC) [Ratio] 13.6 % Normal 11.6-14.6 [facility] Comment on above: Performed By: #### L 100.0500, L500.4050, L501.2300, L501.5200 #### [facility] [address] [place], [address] Hematocrit (Bld) [Volume fraction] 49.8 % Normal 40-54 [facility] Comment on above: Performed By: #### L 100.0500, L500.4050, L501.2300, L501.5200 #### [facility] [address] [place], [address] Hemoglobin (Bld) [Mass/Vol] 16.9 g/dL High 13.0-16.5 [facility] Comment on above: Performed By: #### L 100.0500, L500.4050, L501.2300, L501.5200 #### [facility] [address] [place], [address] MCH (RBC) [Entitic mass] 30.0 pg Normal 27.0-32.0 [facility] Comment on above: Performed By: #### L 100.0500, L500.4050, L501.2300, L501.5200 #### [facility] [address] [place], [address] MCHC (RBC) [Mass/Vol] 33.9 g/dL Normal 32-36 [facility] Comment on above: Performed By: #### L 100.0500, L500.4050, L501.2300, L501.5200 #### [facility] [address] [place], [address] MCV (RBC) [Entitic vol] 88.5 fL Normal 80-94 [facility] Comment on above: Performed By: #### L 100.0500, L500.4050, L501.2300, L501.5200 #### [facility] [address] [place], [address] Platelet mean volume (Bld) [Entitic vol] 10.5 fL Normal 6.2-12.0 [facility] Comment on above: Performed By: #### L 100.0500, L500.4050, L501.2300, L501.5200 #### [facility] [address] [place], [address] Platelets (Bld) [#/Vol] 210 10*3/uL Normal 150-450 [facility] Comment on above: Performed By: #### L 100.0500, L500.4050, L501.2300, L501.5200 #### [facility] [address] [place], [address] RBC (Bld) [#/Vol] 5.63 10*6/uL Normal 4.6-6.2 [facility] Comment on above: Performed By: #### L 100.0500, L500.4050, L501.2300, L501.5200 #### [facility] [address] [place], [address] RDW SD 44.3 fl High 35.1-43.9 [facility] Comment on above: Performed By: #### L 100.0500, L500.4050, L501.2300, L501.5200 #### [facility] [address] [place], [address] WBC (Bld) [#/Vol] 6.4 10*3/uL Normal 4.4-11.0 [facility] Comment on above: Performed By: #### L 100.0500, L500.4050, L501.2300, L501.5200 #### [facility] [address] [place], [address] Cardiac Cath Interventionon 09-01-2024 Cardiac Cath Intervention [facility] Imaging Services [address] [place] [address] Cardiac Cath Intervention MR#: [id number] Acct: [id number] Name: MITUL MARTINEZ Rep #: [id number] : 1955 69 From: Cindy Chavez MD PCP: Dr. Colton Krishnamurthy MD Status:ADM IN Patient Name: MITUL MARTINEZ Study Date: 09/01/2024 Performing: Alonzo Chavez MD Ht: 70 inches 177.8 cm : 1955 Wt: 280.7 lbs 127.14 kg Age: 69 Gender: male BSA: 2.41 PROCEDURE(S) PERFORMED DC01-(53264)LHC/COR/LV IC12-(61927/C9600)STEPHEN W/WO PTCA, SINGLE CORONARY ARTERY CLINICAL PROFILE AND CO-MORBIDITIES Indications: Unstable Angina Heart Failure: None CONCLUSIONS CAD as described. No significant or MR. LVEF is 60%. Successful STEPHEN to pLCX RECOMMENDATIONS DESCRIPTION OF PROCEDURE The patient arrived to the procedure lab. The risks and benefits of the procedure as well as a full description of our services here and lack of surgical backup were fully explained to the patient and/or their significant other prior to the catheterization. The Timeout was completed, verifying the correct patient and procedure. The patient's procedural site was prepped and draped in the usual fashion. Local anesthetic was given subcutaneously to right radial region with Lidocaine 2%. Using a modified Seldinger technique, arterial access was obtained via the right radial artery, a 6Fr sheath was inserted.. Left Coronary Artery selective angiography was performed in multiple views using a 5 Fr. JL3.5 catheter. Left Ventriculography was performed in COLBERT projection using a 5 Fr. JR 4.0. LV to AO pullback pressures were then recorded. Right Coronary Artery selective angiography was then performed in multiple views using a 5 Fr. JR 4 catheterThe images were reviewed and options discussed. A decision was then made to proceed with an Intervention, IVUS or other adjunct procedure. EBU 3.5 Guide catheter was inserted and engaged into the LCA. BMW Guide wire was advanced to the Circumflex. 3 x 12 Emerge Balloon catheter was inserted. Balloon catheter was advanced across lesion in the circumflex, mid. PTCA balloon inflated at 6 atms for 5 secs. PTCA balloon inflated at 14 atms for 30 secs. 4 x 15 Alexsander Drug Eluting stent was inserted. Drug Eluting stent was advanced across the lesion in the circumflex, prox. Angiogram performed post stent deployment. The arterial sheath was pulled and a TR Band was applied for hemostasis CORONARY ANGIOGRAPHY DOMINANCE: Left Dominant LEFT HEART ASSESSMENT Left Ventricular Ejection Fraction: by LV Gram 60 % LEFT MAIN: Mild luminal irregularities LEFT ANTERIOR DESCENDING ARTERY: OSTIAL LAD: 60 % Stenosis CIRCUMFLEX ARTERY: PROX CIRC: 95 % Stenosis RIGHT CORONARY ARTERY: MID RCA: 60 % Stenosis VALVE FINDINGS: No Aortic Valve Stenosis No Mitral Insufficiency INTERVENTION INFORMATION LESION SITE: Circumflex (Proximal) Lesion Complexity: High/C, chronic total occlusion: No, lesion at bifurcation: No, thrombus present: No, lesion length: 12 mm, culprit lesion: Yes, Previously treated lesion: No Pre Stenosis: 95 % Pre intervention HA flow: 3 PROCEDURE: Drug Eluting Stent with pre dilatation. Post Stenosis: 0 % Post intervention HA flow: 3 Lesion Devices: Medtronic 6 Fr EBU3.5 100cm Guide Catheter Wick .014 190cm BMW [place] Straight Hilario Sci EMERGE MR 3.00x12 BALLOON Medtronic 4.0 x 15 ALEXSANDER FRONTIER STEPHEN COMPLICATIONS No Complications PROCEDURE MEDICATIONS Fentanyl 50 mcg IV Versed 1 mg IV Oxygen: 2 L/min via nasal cannula Brilinta 180 mg PO @ 09/01/2024 11:01:36 Heparin given IA 09/01/2024 10:40:52 Heparin 6000 unit(s) IV 09/01/2024 10:57:05 Verapamil 2.5mg, Ntg 100mcgs, 3000 units of Heparin given IA 09/01/2024 10:40:52 SUMMARY OF HEMODYNAMIC DATA Time AIR REST ECG 10:11:30 AO 83/60 (68) SA 10:40:48 LV 116/2, 8 10:52:22 LV 110/4, 10 10:52:30 LV 138/-1, 15 10:53:53 LVp 137/0, 14 10:54:03 AOp 128/78 (103) 10:54:10 AO 115/77 (95) 11:01:14 Signed By Alonzo Chavez MD On 09/01/2024 11:45:14 Alonzo Chavez MD 09/01/24 1146 Date Cindy Chavez MD Cosigner Signature: Date (if indicated) CC: Dr. Colton Krishnamurthy MD; Dr. Cindy Chavez MD; Dr. Mayra Rodriguez MD Date Dictated: 09/01/24 1035 Date Transcribed: 09/01/24 114 Cloth Drier: AGNIESZKA Signed Normal [facility] Cardiac catheterization repo rtOrdered By: Cindy Chavez on 09-01-2024 Cardiac catheterization study [facility] Imaging Services [address] [place] [address] Cardiac Cath Intervention MR#: [id number] Acct: [id number] Name: MITUL MARTINEZ Rep #:[id number] : 1955 69 From: Cindy acosta MD PCP: Dr. Colton Krishnamurthy MD Status:ADM IN Patient Name: MITUL MARTINEZ Study Date: 09/01/2024 Performing: Alonzo Chavez MD Ht: 70 inches 177.8 cm : 1955 Wt: 280.7 lbs 127.14 kg Age: 69 Gender: male BSA: 2.41 PROCEDURE(S) PERFORMED DC01-(76749)LHC/COR/LV IC12-(14749/C9600)STEPHEN W/WO PTCA, SINGLE CORONARY ARTERY CLINICAL PROFILE AND CO-MORBIDITIES Indications: Unstable Angina Heart Failure: None CONCLUSIONS CAD as described. No significant or MR. LVEF is 60%. Successful STEPHEN to pLCX RECOMMENDATIONS DESCRIPTION OF PROCEDURE The patient arrived to the procedure lab. The risks and benefits of the procedure as well as a full description of our services here and lack of surgical backup were fully explained to the patient and/or their significant other prior to the catheterization. The Timeout was completed, verifying the correct patient and procedure. The patient's procedural site was prepped and draped in the usual fashion. Local anesthetic was given subcutaneously to right radial region with Lidocaine 2%. Using a modified Seldinger technique, arterial access was obtained via the right radial artery, a 6Fr sheath was inserted.. Left Coronary Artery selective angiography was performed in multiple views using a 5 Fr. JL3.5 catheter. Left Ventriculography was performed in COLBERT projection using a 5 Fr. JR 4.0. LV to AO pullback pressures were then recorded. Right Coronary Artery selective angiography was then performed in multiple views using a 5 Fr. JR 4 catheterThe images were reviewed and options discussed. A decision was then made to proceed with an Intervention, IVUS or other adjunct procedure. EBU 3.5 Guide catheter was inserted and engaged into the LCA. BMW Guide wire was advanced to the Circumflex. 3 x 12 Emerge Balloon catheter was inserted. Balloon catheter was advanced across lesion in the circumflex, mid. PTCA balloon inflated at 6 atms for 5 secs. PTCA balloon inflated at 14 atms for 30 secs. 4 x 15 Alexsander Drug Eluting stent was inserted. Drug Eluting stent was advanced across the lesion in the circumflex, prox. Angiogram performed post stent deployment. The arterial sheath was pulled and a TR Band was applied for hemostasis CORONARY ANGIOGRAPHY DOMINANCE: Left Dominant LEFT HEART ASSESSMENT Left Ventricular Ejection Fraction: by LV Gram 60 % LEFT MAIN: Mild luminal irregularities LEFT ANTERIOR DESCENDING ARTERY: OSTIAL LAD: 60 % Stenosis CIRCUMFLEX ARTERY: PROX CIRC: 95 % Stenosis RIGHT CORONARY ARTERY: MID RCA: 60 % Stenosis VALVE FINDINGS: No Aortic Valve Stenosis No Mitral Insufficiency INTERVENTION INFORMATION LESION SITE: Circumflex (Proximal) Lesion Complexity: High/C, chronic total occlusion: No, lesion at bifurcation: No, thrombus present: No, lesion length: 12 mm, culprit lesion: Yes, Previously treated lesion: No Pre Stenosis: 95 % Pre intervention HA flow: 3 PROCEDURE: Drug Eluting Stent with pre dilatation. Post Stenosis: 0 % Post intervention HA flow: 3 Lesion Devices: Medtronic 6 Fr EBU3.5 100cm Guide Catheter Wick .014 190cm BMW [place] Straight Hilario Sci EMERGE MR 3.00x12 BALLOON Medtronic 4.0 x 15 ALEXSANDER FRONTIER STEPHEN COMPLICATIONS No Complications PROCEDURE MEDICATIONS Fentanyl 50 mcg IV Versed 1 mg IV Oxygen: 2 L/min via nasal cannula Brilinta 180 mg PO @ 09/01/2024 11:01:36 Heparin given IA 09/01/2024 10:40:52 Heparin 6000 unit(s) IV 09/01/2024 10:57:05 Verapamil 2.5mg, Ntg 100mcgs, 3000 units of Heparin given IA 09/01/2024 10:40:52 SUMMARY OF HEMODYNAMIC DATA Time AIR REST ECG 10:11:30 AO 83/60 (68) SA 10:40:48 LV 116/2, 8 10:52:22 LV 110/4, 10 10:52:30 LV 138/-1, 15 10:53:53 LVp 137/0, 14 10:54:03 AOp 128/78 (103) 10:54:10 AO 115/77 (95) 11:01:14 Signed By Alonzo Chavez MD On 09/01/2024 11:45:14 Alonzo Chavez MD 09/01/24 1146 Date _ Cindy Chavez MD Cosigner Signature: Date (if indicated) CC: Dr. Colton Krishnamurthy MD; Dr. Cindy Chavez MD; Dr. Mayra Rodriguez MD ~ Date Dictated: 09/01/24 1035 Date Transcribed: 09/01/24 1145 Cloth Drier: NN Signed [facility] Work Phone: Cardiac rehabilitation repor tOrdered By: Rosita Ng on 09-01-2024 Study report [facility] Cardiac Rehab [address] [place] [address] CR: Phase I Assessment MR#: [id number] Acct: [id number] Name: MITUL MARTINEZ Rep #:[id number] : 1955 69 From: Rosita augustin PCP: Dr. Colton Krishnamurthy MD DOS: 08/22 Patient Communication Patient Information Former Patient:: Phase I PHII Cardiac Rehab Discussed with Patient:: Yes Guide to Cardiac Rehab Given to Patient:: Yes Cardiac Rehab Facility Choice List Given to Patient:: Yes Communication to Cardiac Rehab Hoof And Shoe Inspector:: Cindy Chavez Sessions:: 36 sessions - 3 days/wk, 12 weeks Cardiac Rehabilitation Info Program Information Cardiac Rehabilitation Program Information: Cardiac Rehab The cardiac rehab team at [facility] consists of highly skilled exercise physiologists, nurses, respiratory therapists and physicians working together with you. Our purpose is to help you have a full recovery and achieve the goals you set for yourself. Over the years many of our patients have returned to activities they assumed they would never do again! We can help restore your confidence and motivation to make lifestyle changes that can have a significant impact on your health and quality of life! We can help answer questions and concerns you may have about exercise, lifestyle, medications, diet, stress and anxiety which are common following a hospitalization. WE monitor ECG and vital signs during exercise and discuss your progress with you and report toyour physician(s). Cardiac Rehab is proven to help reduce readmissions, improve functional capacityand lower recurrence of problems with your heart. Our Cardiac Rehab program is Certified by the [place] [employer]io-Vascular and Pulmonary [employer] (AACVPR) and Accredited by the [place] [employer] through our [facility]. You can contact us at . We invite you to call us with your questions or to get started in our program. If you have other questions or concerns be sure to ask your physician/provider during your follow-up visit. WE look forward to seeing you! 09/01/24 1223 Date Rosita Ng Outcome assessment reviewed. Exercise plan approved as documented. Treatment plan and goals support patient needs/abilities. Continue with current plan. I certify the patient demonstrates improvement and remains willing and capable of participation. the patient continues to benefit from cardiac rehab services/training. The patient may continue at current intensity, endurance andmodality and progress per protocol. Nidiaer Signature: Date CC: ~ Signed [facility] Comprehensive Metabolic Prof ilon 09-01-2024 Albumin [Mass/Vol] 4.3 g/dL Normal 3.4-4.8 [facility] Comment on above: Performed By: #### L 100.0500, L500.4050, L501.2300, L501.5200 #### [facility] [address] [place], [address] Albumin/Globulin [Mass ratio] 1.5 {ratio} Normal 0.9-2.4 [facility] Comment on above: Performed By: #### L 100.0500, L500.4050, L501.2300, L501.5200 #### [facility] [address] [place], [address] ALK PHOS 91 U/L Normal 40-129 [facility] Comment on above: Performed By: #### L 100.0500, L500.4050, L501.2300, L501.5200 #### [facility] [address] [place], [address] ALT [Catalytic activity/Vol] 25 U/L Normal <=46 [facility] Comment on above: Performed By: #### L 100.0500, L500.4050, L501.2300, L501.5200 #### [facility] [address] [place], [address] AST [Catalytic activity/Vol] 35 U/L Normal <=37 [facility] Comment on above: Performed By: #### L 100.0500, L500.4050, L501.2300, L501.5200 #### [facility] [address] [place], [address] Bilirubin [Mass/Vol] 1.06 mg/dL Normal 0.00-1.30 [facility] Comment on above: Performed By: #### L 100.0500, L500.4050, L501.2300, L501.5200 #### [facility] [address] [place], [address] BUN/CRE 12.8 RATIO Normal 10-20 [facility] Comment on above: Performed By: #### L 100.0500, L500.4050, L501.2300, L501.5200 #### [facility] [address] [place], [address] Calcium [Mass/Vol] 9.2 mg/dL Normal 7.6-11.0 [facility] Comment on above: Performed By: #### L 100.0500, L500.4050, L501.2300, L501.5200 #### [facility] [address] [place], [address] Chloride [Moles/Vol] 102 mmol/L Normal 98-108 [facility] Comment on above: Performed By: #### L 100.0500, L500.4050, L501.2300, L501.5200 #### [facility] [address] [place], [address] CO2 [Moles/Vol] 22.9 mmol/L Normal 21.0-32.0 [facility] Comment on above: Performed By: #### L 100.0500, L500.4050, L501.2300, L501.5200 #### [facility] [address] [place], [address] Creatinine [Mass/Vol] 1.08 mg/dL Normal 0.70-1.20 [facility] Comment on above: Performed By: #### L 100.0500, L500.4050, L501.2300, L501.5200 #### [facility] [address] [place], [address] ECRCL 35.65 ml/min Low 50-250 [facility] Comment on above: Performed By: #### L 100.0500, L500.4050, L501.2300, L501.5200 #### [facility] [address] [place], [address] GAP 13 Normal 5-15 [facility] Comment on above: Performed By: #### L 100.0500, L500.4050, L501.2300, L501.5200 #### [facility] [address] [place], [address] GFR/1.73 sq M.predicted among non-blacks MDRD (S/P/Bld) [Vol rate/Area] 74 mL/min/{1.73_m2} Normal >60 [facility] Comment on above: Result Comment: mL/m in/1.73m2 CKD-EPI Creatinine Equation (2020) Performed By: #### L 100.0500, L500.4050, L501.2300, L501.5200 #### [facility] [address] [place], [address] Globulin (S) [Mass/Vol] 2.9 g/dL [facility] 2[facility]2-4.2 [facility] Comment on above: Performed By: #### L 100.0500, L500.4050, L501.2300, L501.5200 #### [facility] [address] [place], [address] Glucose [Mass/Vol] 117 mg/dL High 70-99 [facility] Comment on above: Performed By: #### L 100.0500, L500.4050, L501.2300, L501.5200 #### [facility] [address] [place], [address] Potassium [Moles/Vol] 3.8 mmol/L Normal 3.3-5.1 [facility] Comment on above: Performed By: #### L 100.0500, L500.4050, L501.2300, L501.5200 #### [facility] [address] [place], [address] Sodium [Moles/Vol] 137 mmol/L Normal 133-145 [facility] Comment on above: Performed By: #### L 100.0500, L500.4050, L501.2300, L501.5200 #### [facility] [address] [place], [address] T PROT 7.2 g/dL Normal 5.9-8.4 [facility] Comment on above: Performed By: #### L 100.0500, L500.4050, L501.2300, L501.5200 #### [facility] [address] [place], [address] Urea nitrogen [Mass/Vol] 14 mg/dL Normal 4-19 [facility] Comment on above: Performed By: #### L 100.0500, L500.4050, L501.2300, L501.5200 #### [facility] [address] [place], [address] Consultation - Cardiologyon 09-01-2024 Consultation - Cardiology [facility] Medical Records Department [address] [place] [address] Consultation - Cardiology 09/01/24 0750 MR#: [id number] Acct: [id number] Name: MITUL MARTINEZ Rep #: [id number] : 1955 69 From: Graham Carr MD PCP: Dr. Colton Krishnamurthy MD Status:ADM IN Location: [place] [address] Assessment Plan Assessment/Plan (1) Accelerating angina: PLAN: Patient's symptoms are classic for accelerating angina. He started having dyspnea on exertion with some chest tightness a week ago Saturday this is progressed to come more frequent and last longer as of Saturday yesterday. The patient does have significant risk factors including a family history and hypertension as well as remote smoking. EKG shows what appears to be some dynamic changes in the ST segments in the 3 through V6. His troponins were 54-58-65. This is above normal in the high-sensitivity troponin T assay. However it is very low levels. The patient's symptoms, he has dynamic EKG changes, and the troponins are consistent with an accelerating angina picture. I recommend the patient undergo left heart catheterization. The procedure risk/benefit and alternatives were explained to the patient in detail he voiced understanding and agrees to proceed. (2) Hypertension: QUALIFIERS: Hypertension type: primary hypertension Qualified Code(s): I10 - Essential (primary) hypertension PLAN: Patient's blood pressures been controlled on the combination of hydrochlorothiazide and lisinopril hydrochlorothiazide. (3) Hyperlipidemia: QUALIFIERS: Hyperlipidemia type: pure hypercholesterolemia Qualified Code(s): E78.00 - Pure hypercholesterolemia, unspecified PLAN: Patient's lipid on this admission shows a total cholesterol of 160 triglycerides of 150, LDL of 90, and HDL of 40. Given the high likelihood that this is in the face of atherosclerotic disease his target LDL cholesterol should be less than 70. And given his accelerating anginal symptoms I agree with the addition of atorvastatin 40 mg daily to his medical regiment. Fasting lipids and liver function should be reevaluated in 6 weeks. PLAN: Plan 1. Recommend addition of atorvastatin 40 mg daily to his medical regimen. 2. Continue aspirin we will hold enoxaparin for catheterization. Continue his other medical therapy. 3. Will schedule left heart catheterization this morning with Dr. Chavez. HPI Consult Data Date of Consult: 09/01/24 HPI Narrative Reason for Consultation: Accelerating angina HPI Narrative: MITUL MARTINEZ, is a 69 M who presents with a 10-day history of chest discomfort and dyspnea on exertion. The patient swims on Saturday and Saturday and a week ago Saturday he noticed when he started this with him as he got into his routine he was short of breath and had a pressure sensation across his chest. He stopped and rested and it went away in about 5 minutes. The same thing happened on Saturday and Saturday of last week. And then yesterday when the patient went swimming the discomfort started earlier and stopped him after 4 laps when normally he was doing 20 laps. He came to the emergency room for evaluation. His initial EKG showed sinus tachycardia to [address]-T wave changes in the anterior lateral leads V3 through V6. Repeat EKG this morning shows sinus rhythm at 78 bpm with much less ST segment changes in those same leads. The troponins were 54-58-65. He had a positive D-dimer but CTA showed no evidence of PE or intrathoracic abnormalities of the vasculature. The patient's had no previous history. Patient does have a family history of coronary artery disease before age 60. He is a remote smoker he has a history of hypertension he denies any history of hyperlipidemia or diabetes. The patient does note that his weight is increased when he got out of his swimming routine recently and was just getting back into it when the symptoms started. The patient has a significant past medical history of multiple abdominal surgeries due to diverticulitis the latest of which was in 2012. He also has a history of chronic back issues. Currently the patient is resting comfortably in the cot recumbent position in bed denying any anginal type symptoms denies any PND orthopnea and denies any lower extremity edema. He has no signs or symptoms of claudication. Patient does have a history of prostate cancer status post radiation treatment with subsequent proctitis. He denies any history of allergies to contrast. [facility] Medical History Hypertension Home Medications ???Medication ???Instructions ???Recorded ???Last Taken ???Type cholecalciferol (vitamin D3) 25 1,000 unit PO DAILY 08/24/1708/31 History mcg (1,000 unit) capsule (Vitamin D3) hydrochlorothiazide 25 mg tablet 25 mg PO DAILY #30 tabs 08/24/17 (more content not included)... Normal [facility] Echo Completeon 09-01-2024 Echo [facility] Services [address] [place] [address] Echo Complete 09/01/24 0923 MR#: [id number] Acct: [id number] Name: MITUL MARTINEZ Rep #: [id number] : 1955 69 From: Cindy Chavez MD Attending Dr: Dr. Mayra Rodriguez MD Status: ADM IN Ordering Dr: Mian Hutchison DO Date: 09/01/24 Location: U Sex: M C Admitted: 08/31/24 Reason For Study Reason For Study: S/P TN Procedure This was a 2D Doppler, Color Flow transthoracic echocardiogram. Exam performed portable in patient room. Left Ventricle Normal LV size. The estimated ejection fraction is 55 %. No evidence for diastolic dysfunction. No regional wall motion abnormalities noted. Right Ventricle Normal RV size. Normal systolic function. Atria The left and right atria are normal. No doppler evidence for ASD. Mitral Valve There is no mitral valve stenosis. No mitral valve insufficiency. Tricuspid Valve There is no tricuspid stenosis. Unable to estimate RV systolic pressure due to inadequate jet, pulmonary artery pressure probably normal. Aortic Valve Trisinus/trileaflet aortic valve. There is no aortic stenosis. No aortic valve insufficiency. Pulmonic Valve There is no pulmonic valvular stenosis. No pulmonic valve insufficiency. Great Vessels Normal sized aortic root. Pericardium/Pleural No pericardial effusion. MMode/2D Measurements Calculations LVIDd: 5.2 cm IVSd: 1.1 cm Ao root diam: 3.8 cm LVIDs: 3.2 cm LVPWd: 1.1 cm RVDd: 3.3 cm FS: 38.8 % LAV(MOD-bp): 37.5 ml LVAd ap4: 27.4 cm2 SV(MOD-sp4): 52.5 ml LAV(MOD-bp) Indexed: 15.7 ml/m2 LVLd ap4: 7.8 cm SI(MOD-sp4): 21.9 ml/m2 LAV(MOD-sp2): 34.8 ml EDV(MOD-sp4): 85.2 ml LAV(MOD-sp4): 35.0 ml EDV(sp4-el): 81.9 ml LVAs ap4: 15.5 cm2 LVLs ap4: 6.5 cm ESV(MOD-sp4): 32.7 ml ESV(sp4-el): 31.5 ml EF(MOD-sp4): 61.6 % EF(sp4-el): 61.6 % SV(sp4-el): 50.4 ml LA A4 area: 14.8 cm2 LA dimension(2D): 3.6 cm RA A4 area: 13.8 cm2 TAPSE: 2.0 cm Time Measurements MV dec time: 0.24 sec Doppler Measurements Calculations MV E max shawnee: 57.1 cm/sec Lat Peak E' Shaw[place]: 11.0 cm/sec Med Peak E' [place]nee: 12.3 cm/sec MV A max shawnee: 85.1 cm/sec E/E' lat: 5.2 E/E' med: 4.7 MV E/A: 0.67 MV V2 max: 102.6 cm/sec MV P1/2t max shawnee: 67.0 cm/sec Ao V2 max: 98.2 cm/sec MV max P.2 mmHg MV P1/2t: 79.5 msec Ao max P.9 mmHg MV V2 mean: 47.6 cm/sec MV mean P.1 mmHg MV dec slope: 246.9 cm/sec2 MV V2 VTI: 19.9 cm MVA(P1/2t): 2.8 cm2 LV V1 max: 108.8 cm/sec LV V1 max P.7 mmHg LV V1 mean P.3 mmHg LV V1 mean: 69.8 cm/sec LV V1 VTI: 21.1 cm ECHO/Echo Complete Interpretation Summary The estimated ejection fraction is 55 %. No evidence for diastolic dysfunction. Ordering Physician: Mian Hutchison Performed By: Perez Espinosa RCS 09/01/246 Date Cindy Chavez MD CC: Dr. Colton Krishnamurthy MD; Dr. Mian Hutchison DO; Dr. Mayra Rodriguez MD Date Dictated: 09/01/24922 Date Transcribed: 09/01/241245 Cloth Drier: Signed Normal [facility] Echocardiogram study reportO rdered By: Cindy Chavez on 09-01-2024 Study report [facility] [address] [place] [address] Echo Complete 09/01/24 0923 MR#: [id number] Acct: [id number] Name: MITUL MARTINEZ Rep #:[id number] : 1955 69 From: Cindy robles MD Attending Dr: Dr. Mayra Rodriguez MD Status: ADM IN Ordering Dr: Mian Hutchison DO Date: 09/01/24 Location: [facility] Sex: M C Admitted: 08/31/24 Reason For Study Reason For Study: S/P TN Procedure This was a 2D Doppler, Color Flow transthoracic echocardiogram. Exam performed portable in patient room. Left Ventricle Normal LV size. The estimated ejection fraction is 55 %. No evidence for diastolic dysfunction. No regional wall motion abnormalities noted. Right Ventricle Normal RV size. Normal systolic function. Atria The left and right atria are normal. No doppler evidence for ASD. Mitral Valve There is no mitral valve stenosis. No mitral valve insufficiency. Tricuspid Valve There is no tricuspid stenosis. Unable to estimate RV systolic pressure due to inadequate jet, pulmonary artery pressure probably normal. Aortic Valve Trisinus/trileaflet aortic valve. There is no aortic stenosis. No aortic valve insufficiency. Pulmonic Valve There is no pulmonic valvular stenosis. No pulmonic valve insufficiency. Great Vessels Normal sized aortic root. Pericardium/Pleural No pericardial effusion. MMode/2D Measurements & Calculations LVIDd: 5.2 cm IVSd: 1.1 cm Ao root diam: 3.8 cm LVIDs: 3.2 cm LVPWd: 1.1 cm RVDd: 3.3 cm FS: 38.8 % LAV(MOD-bp): 37.5 ml LVAd ap4: 27.4 cm2 SV(MOD-sp4): 52.5 ml LAV(MOD-bp) Indexed: 15.7 ml/m2 LVLd ap4: 7.8 cm SI(MOD-sp4): 21.9 ml/m2 LAV(MOD-sp2): 34.8 ml EDV(MOD-sp4): 85.2 ml LAV(MOD-sp4): 35.0 ml EDV(sp4-el): 81.9 ml LVAs ap4: 15.5 cm2 LVLs ap4: 6.5 cm ESV(MOD-sp4): 32.7 ml ESV(sp4-el): 31.5 ml EF(MOD-sp4): 61.6 % EF(sp4-el): 61.6 % SV(sp4-el): 50.4 ml LA A4 area: 14.8 cm2 LA dimension(2D): 3.6 cm RA A4 area: 13.8 cm2 TAPSE: 2.0 cm Time Measurements MV dec time: 0.24 sec Doppler Measurements & Calculations MV E max shawnee: 57.1 cm/sec Lat Peak E' Shawnee: 11.0 cm/sec Med Peak E' Shawnee: 12.3 cm/sec MV A max shawnee: 85.1 cm/sec E/E' lat: 5.2 E/E' med: 4.7 MV E/A: 0.67 MV V2 max: 102.6 cm/sec MV P1/2t max shawnee: 67.0 cm/sec Ao V2 max: 98.2 cm/sec MV max P.2 mmHg MV P1/2t: 79.5 msec Ao max P.9 mmHg MV V2 mean: 47.6 cm/sec MV mean P.1 mmHg MV dec slope: 246.9 cm/sec2 MV V2 VTI: 19.9 cm MVA(P1/2t): 2.8 cm2 LV V1 max: 108.8 cm/sec LV V1 max P.7 mmHg LV V1 mean P.3 mmHg LV V1 mean: 69.8 cm/sec LV V1 VTI: 21.1 cm ECHO/Echo Complete Interpretation Summary The estimated ejection fraction is 55 %. No evidence for diastolic dysfunction. Ordering Physician: Mian Hutchison Performed By: Perez Espinosa RCS 09/01/24 1246 Date _ Cindy Chavez MD CC: Dr. Colton Krishnamurthy MD; Dr. Mian Hutchison DO; Dr. Mayra Rodriguez MD ~ Date Dictated: 09/01/24922 Date Transcribed: 09/01/24 1246 Cloth Drier: Signed [facility] Work Phone: Electrocardiogram reportOrde red By: Graham Carr on 09-01-2024 EKG study [facility] Cardi[facility] Services [address] [place] [address] 12 Lead EKG 08/31/24 1834 MR#: [id number] Acct: [id number] Name: MITUL MARTINEZ Rep #:[id number] : 1955 69 From: Graham peters MD Attending Dr: Dr. Mayra Rodriguez MD Status: ADM IN Ordering Dr: Demian Burger DO Date: 5 Location: [facility] Sex: M C Admitted: 08/31/24 Test Reason : CP Blood Pressure : */* mmHG Vent. Rate : 110 BPM Atrial Rate : 110 BPM P-R Int : 152 ms QRS Dur : 84 ms QT Int : 338 ms P-R-T Axes : 63 0 27 degrees QTcB Int : 457 ms Sinus tachycardia Non-specific ST & T wave changes Septal infarct , age undetermined Abnormal ECG Confirmed by Graham Carr ([id number]), news copy editor TIFFANIE ADLER ([id number]) on 511:00:12 AM Referred By: Confirmed By: Graham Carr 09/01/24 1100 Date _ Graham Carr MD CC: Dr. Colton Krishnamurthy MD; Dr. Mayra Rodriguez MD; Dr. Demian Burger DO ~ Signed [facility] Work Phone: Lipid Profileon 09-01-2024 CHOL:HDL 3.98 Normal [facility] Comment on above: Performed By: #### L 100.0500, L500.4050, L501.2300, L501.5200 #### [facility] [address] [place], [address] Cholesterol [Mass/Vol] 160 mg/dL Normal <=200 [facility] Comment on above: Result Comment: Chol esterol level, Desirable <200 mg/dL Borderline high cholesterol 200-239 mg/dL High cholesterol >=240 mg/dL Recommendations of the NCEP Adult Treatment Panel for the following risk-cutoff thresholds for the [place] population. Performed By: #### L 100.0500, L500.4050, L501.2300, L501.5200 #### [facility] [address] [place], [address] Cholesterol in HDL [Mass/Vol] 40 mg/dL Normal [facility] Comment on above: Result Comment: Emmanuelle onal Cholesterol Education Program (NCEP) guidelines: <40 mg/dL: Low HDL-cholesterol (major risk factor for CHD) >= 60 mg/dL: High HDL-cholesterol (negative risk factor for CHD) HDL-cholesterol is affected by a number of factors, e.g. smoking, exercise, hormones, sex and age. Performed By: #### L 100.0500, L500.4050, L501.2300, L501.5200 #### [facility] [address] [place], [address] Cholesterol in LDL [Mass/Vol] 90 mg/dL Normal [facility] Comment on above: Result Comment: Bord kwotsz=897-304 mg/dL Higher Cpuw=875 mg/dL or greater Performed By: #### L 100.0500, L500.4050, L501.2300, L501.5200 #### [facility] [address] [place], [address] Cholesterol in VLDL [Mass/Vol] 30 mg/dL Normal 5-40 [facility] Comment on above: Performed By: #### L 100.0500, L500.4050, L501.2300, L501.5200 #### [facility] [address] [place], [address] Triglyceride [Mass/Vol] 150 mg/dL Normal [facility] Comment on above: Result Comment: The drugs N-Acetylcysteine and Metamizole may falsely depress this assay. Normal range: <150 mg/dL Borderline High: 150-199 mg/dL High: 200-499 mg/dL Very High: >500 mg/dL Performed By: #### L 100.0500, L500.4050, L501.2300, L501.5200 #### [facility] [address] [place], [address] Magnesiumon 09-01-2024 Magnesium [Mass/Vol] 2.3 mg/dL High 1.5-2.2 [facility] Comment on above: Performed By: #### L 100.0500, L500.4050, L501.2300, L501.5200 #### [facility] [address] [place], [address] Phosphoruson 09-01-2024 Phosphate [Mass/Vol] 2.5 mg/dL Low 2.7-4.5 [facility] Comment on above: Performed By: #### L 100.0500, L500.4050, L501.2300, L501.5200 #### [facility] [address] [place], [address] Thyroid Stim Hormone (TSH)on 09-01-2024 TSH 3.470 uIU/mL Normal 0.300-4.200 [facility] Comment on above: Performed By: #### L 100.0500, L500.4050, L501.2300, L501.5200 #### [facility] [address] [place], [address] 12 Lead EKGon 08-31-2024 12 Lead EKG [facility] Cardiovascular Services [address] [place] [address] 12 Lead EKG 09/02/24 0529 MR#: [id number] Acct: [id number] Name: MITUL MARTINEZ Rep #: [id number] : 1955 69 From: Cindy Chavez MD Attending Dr: Dr. Mayra Rodriguez MD Status: DIS IN Ordering Dr: Mian Hutchison DO Date: 08/31/24 Location: U Sex: M C Admitted: 08/31/24 Test Reason : POST PCI Blood Pressure : */* mmHG Vent. Rate : 79 BPM Atrial Rate : 79 BPM P-R Int : 160 ms QRS Dur : 86 ms QT Int : 388 ms P-R-T Axes : 67 4 36 degrees QTcB Int : 444 ms Normal sinus rhythm Nonspecific ST abnormality Abnormal ECG When compared with ECG of 01-Sep-2024 14:30, MANUAL COMPARISON REQUIRED DATA IS UNCONFIRMED Confirmed by SCOTT SHERWOOD, ALONZO ([id number]), news copy editor TIFFANIE ADLER ([id number]) on 09/07/2024 11:41:09 AM Referred By: Confirmed By: ALONZO CHAVEZ MD 09/07/24 1141 Date Cindy Chavez MD CC: Dr. Colton Krishnamurthy MD; Dr. Main Hutchison DO; Dr. Mayra Rodriguez MD Signed Normal [facility] 12 Lead EKG [facility] Cardiovascular Services [address] [place] [address] 12 Lead EKG 08/31/24 1834 MR#: [id number] Acct: [id number] Name: MITUL MARTINEZ Rep #: [id number] : 1955 69 From: Graham Carr MD Attending Dr: Dr. Mayra Rodriguez MD Status: ADM IN Ordering Dr: Demian Burger DO Date: 08/31/24 Location: U Sex: M C Admitted: 08/31/24 Test Reason : CP Blood Pressure : */* mmHG Vent. Rate : 110 BPM Atrial Rate : 110 BPM P-R Int : 152 ms QRS Dur : 84 ms QT Int : 338 ms P-R-T Axes : 63 0 27 degrees QTcB Int : 457 ms Sinus tachycardia Non-specific ST T wave changes Septal infarct , age undetermined Abnormal ECG Confirmed by Graham Carr ([id number]), news copy editor TIFFANIE ADLER ([id number]) on 09/01/2024 11:00:12 AM Referred By: Confirmed By: Graham Carr 09/01/24 1100 Date Graham Carr MD CC: Dr. Colton Krishnamurthy MD; Dr. Mayra Rodriguez MD; Dr. Demian Burger DO Signed [facility] 36on 08-31-2024 36 Agree with recommendations provided. Should be seen in the ER if symptoms persist to be safe. 36 S: Patient spoke to [facility] nurse regarding chest burning and shortness of breath with exercise B: Onset of symptoms/concerns a week ago A: Patient states that this week while he was exercising in the pool his lungs were on fire and his chest hurt. When he got home he checked his blood pressure and found that it was elevated at 176/111. This happened the next time that patient went to exercise. Patient then stopped taking his meloxicam because he thought it was raising his blood pressure. His blood pressure went down to 142/94. Patient states that he feels this was when working in the backyard also. Patient states he has no symptoms when he is not exercising. Patient mentioned that his friends told him that he should go to the ED because he could have a blockage. Patient at first was concerned and wanting to go to the ED and was going to cancel his colonoscopy but after talking to me changed his mind and stated that wanted to get his colonoscopy over with [facility]. I offered to look for an appointment today in the office but patient states that Dr. Krishnamurthy isn't going to be able to do anything in the office. Explained to patient that Dr. Krishnamurthy would order treatment based on his findings. Patient declined office visit stating that he wanted to get his colonoscopy over with [facility] which is scheduled for tomorrow. R: Advised patient that he should be seen in the office today but he declined an appointment. Patient verbalized understanding of recommendations. Advised that I would send message to Dr. Krishnamurthy. Reason for Disposition Patient wants to be seen Protocols used: Breathing [id number] Normal [facility] Absolute lymphocyte countOrd ered By: Demian Burger on 08-31-2024 Lymphocytes Auto (Unsp spec) [#/Vol] 1.72 10*3/uL 0.83-4.51 [facility] Absolute neutrophil countOrd ered By: Demian Burger on 08-31-2024 Neutrophils (Bld) [#/Vol] 7.0 10*3/uL 2.0-7.7 [facility] Activated partial thrombopla stin time (aPTT) in platelet poor plasma by coagulation aOrdered By: Demian Burger on 08-31-2024 aPTT Coag (PPP) [Time] 27.7 s 24.1-36.2 [facility] Anion gap in Serum or Plasma Ordered By: Demian Burger on 08-31-2024 Anion gap [Moles/Vol] 17 mmol/L High 5-15 [facility] Automated lymphocyte count a s percentage of total leukocytesOrdered By: Demian Burger on 08-31-2024 Lymphocytes/100 WBC Auto (Unsp spec) 17.8 % Low 19-41 [facility] BUN/creatinine ratioOrdered By: Demian Burger on 08-31-2024 Urea nitrogen/Creatinine [Mass ratio] 13.5 mg/mg 10- [facility] Basic Metabolic Profile (BMP )on 08-31-2024 BUN/CRE 13.5 RATIO Normal - [facility] Comment on above: Performed By: #### L 100.0500, L500.4050, L501.2300, L501.5200 #### [facility] [address] [place], [address] Calcium [Mass/Vol] 9.8 mg/dL Normal 7.6-11.0 [facility] Comment on above: Performed By: #### L 100.0500, L500.4050, L501.2300, L501.5200 #### [facility] [address] [place], [address] Chloride [Moles/Vol] 100 mmol/L Normal 98-108 [facility] Comment on above: Performed By: #### L 100.0500, L500.4050, L501.2300, L501.5200 #### [facility] [address] [place], [address] CO2 [Moles/Vol] 21.0 mmol/L Normal 21.0-32.0 [facility] Comment on above: Performed By: #### L 100.0500, L500.4050, L501.2300, L501.5200 #### [facility] [address] [place], [address] Creatinine [Mass/Vol] 0.98 mg/dL Normal 0.70-1.20 [facility] Comment on above: Performed By: #### L 100.0500, L500.4050, L501.2300, L501.5200 #### [facility] [address] [place], [address] ECRCL 93.89 ml/min Normal 50-250 [facility] Comment on above: Performed By: #### L 100.0500, L500.4050, L501.2300, L501.5200 #### [facility] [address] [place], [address] GAP 17 High 5-15 [facility] Comment on above: Performed By: #### L 100.0500, L500.4050, L501.2300, L501.5200 #### [facility] [address] [place], [address] GFR/1.73 sq M.predicted among non-blacks MDRD (S/P/Bld) [Vol rate/Area] 83 mL/min/{1.73_m2} Normal >60 [facility] Comment on above: Result Comment: mL/m in/1.73m2 CKD-EPI Creatinine Equation (2020) Performed By: #### L 100.0500, L500.4050, L501.2300, L501.5200 #### [facility] [address] [place], [address] Glucose [Mass/Vol] 90 mg/dL Normal 70-99 [facility] Comment on above: Performed By: #### L 100.0500, L500.4050, L501.2300, L501.5200 #### [facility] [address] [place], [address] Potassium [Moles/Vol] 3.8 mmol/L Normal 3.3-5.1 [facility] Comment on above: Performed By: #### L 100.0500, L500.4050, L501.2300, L501.5200 #### [facility] [address] [place], [address] Sodium [Moles/Vol] 137 mmol/L Normal 133-145 [facility] Comment on above: Performed By: #### L 100.0500, L500.4050, L501.2300, L501.5200 #### [facility] [address] [place], [address] Urea nitrogen [Mass/Vol] 13 mg/dL Normal 4-19 [facility] Comment on above: Performed By: #### L 100.0500, L500.4050, L501.2300, L501.5200 #### [facility] [address] [place], [address] Basophil percentageOrdered B y: Demian Le on 08-31-2024 Basophils/100 WBC (Bld) 0.8 % 0-1 [facility] CBC W/Diff, Automatedon 08-22-2024 Absolute Lymph 1.72 X10 3/uL Normal 0.83-4.51 [facility] Comment on above: Performed By: #### L 100.0500, L500.4050, L501.2300, L501.5200 #### [facility] [address] [place], [address] Absolute Neut 7.0 X10 3/uL Normal 2.0-7.7 [facility] Comment on above: Performed By: #### L 100.0500, L500.4050, L501.2300, L501.5200 #### [facility] [address] [place], [address] Basophils/100 WBC (Bld) 0.8 % Normal 0-1 [facility] Comment on above: Performed By: #### L 100.0500, L500.4050, L501.2300, L501.5200 #### [facility] [address] [place], [address] Eosinophils/100 WBC (Bld) 1.7 % Normal 0-5 [facility] Comment on above: Performed By: #### L 100.0500, L500.4050, L501.2300, L501.5200 #### [facility] [address] [place], [address] Erythrocyte distribution width (RBC) [Ratio] 13.6 % Normal 11.6-14.6 [facility] Comment on above: Performed By: #### L 100.0500, L500.4050, L501.2300, L501.5200 #### [facility] [address] [place], [address] Hematocrit (Bld) [Volume fraction] 49.7 % Normal 40-54 [facility] Comment on above: Performed By: #### L 100.0500, L500.4050, L501.2300, L501.5200 #### [facility] [address] [place], [address] Hemoglobin (Bld) [Mass/Vol] 17.2 g/dL High 13.0-16.5 [facility] Comment on above: Performed By: #### L 100.0500, L500.4050, L501.2300, L501.5200 #### [facility] [address] [place], [address] IG% 0.400 Normal 0.0-0.9 [facility] Comment on above: Result Comment: IG% - Immature Granulocytes (promyelocytes, myelocytes and metamyelocytes) > 1% indicates that a LEFT SHIFT is Present. Performed By: #### L 100.0500, L500.4050, L501.2300, L501.5200 #### [facility] [address] [place], [address] Lymphocytes/100 WBC (Bld) 17.8 % Low 19-41 [facility] Comment on above: Performed By: #### L 100.0500, L500.4050, L501.2300, L501.5200 #### [facility] [address] [place], [address] MCH (RBC) [Entitic mass] 30.2 pg Normal 27.0-32.0 [facility] Comment on above: Performed By: #### L 100.0500, L500.4050, L501.2300, L501.5200 #### [facility] [address] [place], [address] MCHC (RBC) [Mass/Vol] 34.6 g/dL Normal 32-36 [facility] Comment on above: Performed By: #### L 100.0500, L500.4050, L501.2300, L501.5200 #### [facility] [address] [place], [address] MCV (RBC) [Entitic vol] 87.2 fL Normal 80-94 [facility] Comment on above: Performed By: #### L 100.0500, L500.4050, L501.2300, L501.5200 #### [facility] [address] [place], [address] Monocytes/100 WBC (Bld) 6.7 % Normal 0-10 [facility] Comment on above: Performed By: #### L 100.0500, L500.4050, L501.2300, L501.5200 #### [facility] [address] [place], [address] Neutrophils/100 WBC (Bld) 72.6 % High 47-70 [facility] Comment on above: Performed By: #### L 100.0500, L500.4050, L501.2300, L501.5200 #### [facility] [address] [place], [address] Nucleated RBC (Bld) [#/Vol] 0 10*3/uL Normal 0-5 [facility] Comment on above: Performed By: #### L 100.0500, L500.4050, L501.2300, L501.5200 #### [facility] [address] [place], [address] Platelet mean volume (Bld) [Entitic vol] 11.2 fL Normal 6.2-12.0 [facility] Comment on above: Performed By: #### L 100.0500, L500.4050, L501.2300, L501.5200 #### [facility] [address] [place], [address] Platelets (Bld) [#/Vol] 263 10*3/uL Normal 150-450 [facility] Comment on above: Performed By: #### L 100.0500, L500.4050, L501.2300, L501.5200 #### [facility] [address] [place], [address] RBC (Bld) [#/Vol] 5.70 10*6/uL Normal 4.6-6.2 [facility] Comment on above: Performed By: #### L 100.0500, L500.4050, L501.2300, L501.5200 #### [facility] [address] [place], [address] RDW SD 43.2 fl Normal 35.1-43.9 [facility] Comment on above: Performed By: #### L 100.0500, L500.4050, L501.2300, L501.5200 #### [facility] [address] [place], [address] WBC (Bld) [#/Vol] 9.7 10*3/uL Normal 4.4-11.0 [facility] Comment on above: Performed By: #### L 100.0500, L500.4050, L501.2300, L501.5200 #### [facility] [address] [place] [place], [address] CTA Chest W/WO Contraston CTA Chest W/WO Contrast [facility] Imaging Services [address] [place] [address] CTA Chest W/WO Contrast MR#: [id number] Acct: [id number] Name: MITUL MARTINEZ Rep #: [id number] : 1955 M 69 From: Vic glaser MD PCP: Dr. Colton Krishnamurthy MD Status: [facility] ER Study: CTA Chest W/WO Contrast Date of Exam: 08/31/24 Exam# [id number] Ordering Dr: Demian Burger DO PROCEDURE: CTA CHEST W/WO CONTRAST REASON FOR EXAM: CHEST PAIN, DYSPNEA TECHNIQUE: CTA imaging of the chest with intravenous contrast. 3D reconstructions. CONTRAST: COMPARISON: None. FINDINGS: Hardware: None. Lymph nodes: No mediastinal hilar or axillary lymphadenopathy. Heart: Normal heart size. No pericardial effusion. Moderate coronary artery calcifications. RV/LV Diameter Ratio: N/A Thoracic Aorta: No thoracic aortic aneurysm or dissection. Pulmonary Vessels: No evidence of acute pulmonary emboli through the major subsegmental branches. Most Proximal Level of Embolus (if embolus present): N/A Lungs and Airways: Central airways are patent without endobronchial lesions. Mild upper lobe centrilobular emphysema. Patchy opacities in the lung base, compatible with atelectasis. No suspicious pulmonary nodules. No pneumothorax. No pleural effusion. Pleura: No pleural effusion. No pneumothorax. Upper Abdomen: Visualized portions of the upper abdominal viscera are unremarkable. Bones: Bone windows are unremarkable. CT/CTA Chest W/WO Contrast IMPRESSION: No evidence of pulmonary embolism or acute findings in the thorax. Mild upper lobe emphysema. One or more dose reduction techniques were used (e.g., Automated exposure control, adjustment of the mA and/or kV according to patient size, use of iterative reconstruction technique). [facility] CC: Dr. Colton Krishnamurthy MD; Dr. Demian Burger DO Cloth Drier: Signed Normal [facility] Calculated very low density lipoprotein (VLDL) cholesterol measurementOrdered By: Mian Jones on 08-31-2024 Calculated very low density lipoprotein (VLDL) cholesterol measurement 30 mg/dL 5-40 [facility] VLDL Cholesterol 30 mg/dL 5-40 [facility] Carbon dioxide, total [Moles /volume] in Central venous bloodOrdered By: Demian Burger on 08-31-2024 CO2 [Moles/Vol] 21.0 mmol/L 21.0-32.0 [facility] Chest 1 View (Portable)on Chest 1 View (Portable) [facility] Imaging Services [address] [place] [address] Chest 1 View (Portable) MR#: [id number] Acct: [id number] Name: MITUL MARTINEZ Rep #: [id number] : 1955 M 69 From: Stephy Hood nd, MD PCP: Dr. Colton Krishnamurthy MD Status: [facility] ER Study: Chest 1 View (Portable) Date of Exam: 08/31/24 Exam# [id number] Ordering Dr: Demian Burger DO PROCEDURE: CHEST 1 VIEW (PORTABLE) REASON FOR EXAM: 69 y/o M,CHEST PAIN, [place]. TECHNIQUE: Frontal view of the chest. COMPARISON: Chest radiograph 05/18/21. FINDINGS: Partially visualized reverse right shoulder arthroplasty. Heart size is mildly enlarged with pulmonary venous congestion. Trace left pleural effusion. No focal consolidation or pneumothorax. Degenerative changes are identified within the thoracic spine. RAD/Chest 1 View (Portable) IMPRESSION: Findings of fluid overload/CHF including trace left pleural effusion. Reading Location: [facility] CC: Dr. Colton Krishnamurthy MD; Dr. Demian Burger DO Cloth Drier: Signed Normal [facility] Chloride assayOrdered By: To katerina Burger on 08-31-2024 Chloride [Moles/Vol] 100 mmol/L 98-108 [facility] D-Dimer Quantitative (DVT/PE )on 08-31-2024 D-DIMER QUANT 3.21 FEU/ug/m Invalid Interpretation Code 0.27-0.49 [facility] Comment on above: Order Comment: CRITI JEANIE VALUE CALLED TO STANISLAW CODY08/31/242036 Roseann Veliz.RESULTS READ BACK BY SAME. Result Comment: D-Di timo ELEVATED (>0.49): Additional studies and clinical assessments are indicated to conclude diagnosis of: Deep Vein Thrombosis (DVT) or Pulmonary Embolism (PE) Performed By: #### L 100.0500, L500.4050, L501.2300, L501.5200 #### [facility] [address] [place], [place], [address] D-dimer measurement for deep venous thrombosisOrdered By: Demian Burger on 08-31-2024 D-Dimer Quantitative (PE/DVT) 3.21 FEU/ug/m High 0.27-0.49 [facility] Comment on above: D-Dimer ELEVATED (>0 .49): Additional studies and clinicalassessments are indicated to conclude diagnosis of:Deep Vein Thrombosis (DVT) or Pulmonary Embolism (PE) Emergency Department Summary on 08-31-2024 Emergency Department Summary [facility] Medical Records Department [address] [place] [address] Emergency Department Summary 08/31/24 MR#: [id number] Acct: [id number] Name: MITUL MARTINEZ Rep #: [id number] : 1955 69 From: Demian Haas PCP: Dr. Colton Krishnamurthy MD Status:ADM IN Location: [place] [address] HPI History of Present Illness Chief Complaint: Chest Pain Informant: patient Narrative Narrative: Presenting exertional chest tightness dyspnea for the past week. Patient typically swims 100 yards every Saturday. Since last week only able to swim 4 laps before he stops due to symptoms. Symptoms go away after 2 minutes. He had symptoms again this morning 9:30 AM. No symptoms since then. No numbness down the arms neck or back. Denies recent travel, surgeries, or immobilizations. No history of PE or DVT. History of hypertension on medications. No tobacco history. Denies diabetes or hyperlipidemia. Father had TN at age of 60. She has had a stress test years ago. No history of heart caths. Spoke with his sister who is a nurse and this assists told to go to the ED. He states he was scheduled for routine colonoscopy tomorrow in [place]. Has not had any rectal bleeding. Prior Similar Symptoms: No CVD Risk Factors: Positive for Hypertension; Negative for Diabetes, Hypercholesterolemia, Family History 1' PE Risk Factors: Negative for Recent Travel/Surgery, Recent Immobilization or Prior DVT or PE [facility] Medical History Hypertension Home Medications ???Medication ???Instructions ???Recorded ???Last Taken ???Type cholecalciferol (vitamin D3) 25 1,000 unit PO DAILY 08/24/1708/31 History mcg (1,000 unit) capsule (Vitamin D3) hydrochlorothiazide 25 mg tablet 25 mg PO DAILY #30 tabs 08/24/17 0 08/31/24 Rx meloxicam 15 mg tablet 15 mg PO DAILY 08/24/17 08/23/17 H istory Held on 08/31/24. Instructions: Held by patient lisinopril 20 2 tab PO DAILY 08/31/24 08/31/24 H istory mg-hydrochlorothiazide 12.5 mg tablet Allergy/AdvReac Type Severity Reaction Status Date / Time fenofibrate Allergy Other Verified 08/31/24 18:24 diclofenac AdvReac Nausea/Vom/ Verified 08/31/24 18:24 Diarrhea Social History Smoking Status: Former smoker ROS ROS ED Constitutional Constitutional ED: Denies chills, fever(s) or sweats ENT ENT ED: Denies sore throat Cardiovascular Cardiovascular: Reports chest pain; Denies leg edema, palpitations or racing heartbeat Respiratory/Chest Respiratory/Chest: Reports dyspnea and dyspnea on exertion; Denies cough Gastrointestinal Gastrointestinal: Denies abdominal pain, diarrhea, nausea or vomiting Genitourinary Genitourinary ED: Denies dysuria, hematuria or urinary frequency Musculoskeletal Musculoskeletal: Denies back pain, extremity pain or neck pain Integumentary Denies rash or wounds Neurologic Neurologic: Denies headache(s), paresthesias or weakness EXAM Physical Exam Const Vital Signs: 08/31/24 18:25 08/31/24 19:21 08/31/24 20:00 Temperature 97.8 F Temperature Source Temporal Pulse Rate 104 H 102 H 100 Respiratory Rate 20 H 17 21 H Blood Pressure 139/102 H 153/100 H 131/93 H Blood Pressure Mean 114 117 105 Pulse Ox 95 95 95 Oxygen Delivery Method Room Air Room Air Room Air 08/31/24 21:00 08/31/24 22:00 08/31/24 22:29 Temperature 97.8 F Temperature Source Pulse Rate 92 92 92 Respiratory Rate 19 H 17 17 Blood Pressure 128/84 H 128/84 H Blood Pressure Mean 98 98 Pulse Ox 94 94 94 Oxygen Delivery Method Room Air Room Air Positive well nourished and well developed General Appearance ED: well developed and NAD HEENT Reports moist mucous membranes normocephalic and atraumatic Eyes General Eye ED: Yes normal appearance of both eyes Neck full ROM Chest Wall Chest: Negative for tenderness Resp normal respiratory effort and normal air movement Effort and Inspection: symmetric chest movement; Negative for respiratory distress Cardio regular rate, regular rhythm and no murmurs Peripheral Pulses: pulses 2+ throughout GI normal to inspection, nondistended, normoactive bowel sounds and non-tender Palpation: Negative for guarding or rebound tenderness present Extremity normal to inspection General Extremety ED: Negative for edema or tenderness General Extremity: Negative for edema Neuro oriented x3 and no sensory deficits noted Sensorium / Orientation: awake and alert Skin no rashes or lesions noted and no wounds Heart Score History: Highly Suspicious ECG: Significant ST-Depression Age: >/= 65 years Risk Factors: 1 or 2 Risk Factors Troponin: >1 - <3 Normal Limit Scor (more content not included)... Normal [facility] Eosinophil percentageOrdered By: Demian Burger on 08-31-2024 Eosinophils/100 WBC (Bld) 1.7 % 0-5 [facility] Erythrocyte distribution wid th ratioOrdered By: Demian Burger on 08-31-2024 Erythrocyte distribution width (RBC) [Ratio] 13.6 % 11.6-14.6 [facility] Erythrocyte distribution wid th standard deviationOrdered By: Demian Burger on 08-31-2024 Erythrocyte distribution width (RBC) [Entitic vol] 43.2 fL 35.1-43.9 [facility] Estimation of creatinine rogelio aranceOrdered By: Demian Burger on 08-31-2024 Estimated Creatinine Clearance Calc 93.89 ml/min 50-250 [facility] GFR/1.73 sq M.predicted leena g non-blacks MDRD (S/P/Bld) [Vol rate/Area]Ordered By: Demian Burger on 08-31-2024 Estimated GFR (MDRD) Non-Af Amer 83 >60 [facility] Comment on above: mL/min/1.73m2 CKD-EP I Creatinine Equation (2020) H AND P Exam - [facility] 08-31-2024 H&P Exam - Hospitalist [facility] Medical Records Department [address] [place] [address] H P Exam - Hospitalist 08/31/247 MR#: [id number] Acct: [id number] Name: MITUL MARTINEZ Rep #: [id number] : 1955 69 From: Mian Hutchison DO PCP: Dr. Colton Krishnamurthy MD Status:ADM IN Location: [facility] [id number] HPI - General General Date of Admission: 08/31/24 Date of Service: 08/31/24 Chief Complaint: Chest Pain. HPI Narrative MITUL MARTINEZ, is a 69 M with a past medical history of essential hypertension; on lisinopril- hydrochlorothiazide, morbid obesity; with BMI of 40.2 this admission, former history of tobacco abuse, positive family history of premature CAD in his father who had an TN at age 60, history of olecranon bursitis and OA; with meloxicam who presents to [facility] ER complaining of chest pain. Mr. Martinez reports his symptoms began approximately one week prior to admission with intermittent chest tightness with patient typically able to swim 100 yards every Saturday, Saturday and Saturday - but since last week he can only swim 4 laps before he had to stop due to chest tightness. He also admits to dyspnea on exertion the improved after 2 minutes of rest. Then this morning he had a recurrence of his symptoms 9:30 AM, so he spoke to his sister who is a nurse and she encouraged him to come in to the ER for further evaluation and treatment. He states he was scheduled for a colonoscopy tomorrow in [place], [place] - but he denies recent GI bleeding. He denies similar previous episodes and his last stress test was years ago. There was no report of associated fever, chills, nausea, vomiting, diaphoresis, abdominal pain, nausea, vomiting, diarrhea, constipation, headache, recent travel or recent medication changes. In the ER he was noted to have an elevated d-dimer of 3.21 present on admission followed by a CTA of the chest negative for PE but was positive for mild upper lobe emphysema complicated by elevated troponin T of 54 ng/L followed by a second increasing troponin T of 58 ng/L consistent with suspected NSTEMI and he was then admitted to the PCU for ongoing care for a stay that is expected to extend beyond 2 midnights. [facility] Medical History Hypertension Home Medications ???Medication ???Instructions ???Recorded ???Last Taken ???Type cholecalciferol (vitamin D3) 25 1,000 unit PO DAILY 08/24/1708/31 History mcg (1,000 unit) capsule (Vitamin D3) hydrochlorothiazide 25 mg tablet 25 mg PO DAILY #30 tabs 08/24/17 0 08/31/24 Rx meloxicam 15 mg tablet 15 mg PO DAILY 03/03/18 03/02/18 H istory Held on 08/31/24. Instructions: Held by patient lisinopril 20 2 tab PO DAILY 08/31/24 08/31/24 H istory mg-hydrochlorothiazide 12.5 mg tablet Allergy/AdvReac Type Severity Reaction Status Date / Time fenofibrate Allergy Other Verified 08/31/24 18:24 diclofenac AdvReac Nausea/Vom/ Verified 08/31/24 18:24 Diarrhea Social History Smoking Status: Former smoker ROS ROS Narrative Review of Systems: Constitutional: Patient denies fever or chills. Eyes: Patient denies changes in vision or discharge from eyes. ENT: Patient denies runny nose, sore throat or ear pain. Resp: Patient admits to dyspnea on exertion but denies cough. CV: Patient admits to chest tightness and pain as per HPI. He denies lower extremity edema palpitations or heart racing. GI: Patient denies abdominal pain, nausea, vomiting, diarrhea or constipation. : Patient denies dysuria or hematuria. MSK: Patient denies arthralgias or myalgias. Skin: Patient denies rash, abscess, wounds or jaundice. Psych: Patient denies symptoms of uncontrolled depression or anxiety. Neuro: Patient denies headache, paresthesias or focal neurologic weakness. Allergy: Patient denies lip swelling, tongue swelling or urticaria. Hematology: Patient denies easy bleeding or easy bruisability. Endocrinology: Patient denies polyuria, polydipsia or polyphagia. 14 point ROS otherwise negative save for positives noted above in HPI. Vital Signs Vital Signs Vital Signs: 08/31/24 18:25 08/31/24 19:21 08/31/24 20:00 Temperature 97.8 F Temperature Source Temporal Pulse Rate 104 H 102 H 100 Respiratory Rate 20 H 17 21 H Blood Pressure 139/102 H 153/100 H 131/93 H Blood Pressure Mean 114 117 105 Pulse Ox 95 95 95 Oxygen Delivery Method Room Air Room Air Room Air 08/31/24 21:00 08/31/24 22:00 08/31/24 22:29 Temperature 97.8 F Temperature Source Pulse Rate 92 92 92 Respiratory Rate 19 H 17 17 Blood Pressure 128/84 H 128/84 H Blood Pressure Mean 98 98 Pulse Ox 94 94 94 Oxygen Delivery Method Room Air Room Air We (more content not included)... Normal [facility] Hematocrit Auto (Bld) [Volum e fraction]Ordered By: Demian Burger on 08-31-2024 Hematocrit (Bld) [Volume fraction] 49.7 % 40-54 [facility] Hemoglobin A1con 08-31-2024 HbA1c (Bld) [Mass fraction] 5.7 % Normal <=5.6 [facility] Comment on above: Performed By: #### L 100.0500, L500.4050, L501.2300, L501.5200 #### [facility] [address] [place], [place], [id number] Hemoglobin A1c percentageOrd ered By: Mian Jones on 08-31-2024 HbA1c (Bld) [Mass fraction] 5.7 % >5.7 [facility] Hemoglobin measurementOrdere d By: Demian Burger on 08-31-2024 Hemoglobin (Bld) [Mass/Vol] 17.2 g/dL High 13.0-16.5 [facility] Immature granulocytes/100 WB C Auto (Bld)Ordered By: Demian Bruger on 08-31-2024 Immature granulocytes/100 WBC (Bld) 0.400 % 0.0-0.9 [facility] Comment on above: IG% - Immature Granu locytes (promyelocytes, myelocytes and metamyelocytes) > 1% indicates that a LEFT SHIFT is Present. International normalized rat io (INR) calculationOrdered By: Demian Burger on 08-31-2024 INR Coag (Bld) [Relative time] 1.0 {INR} [facility] L499.0042on 08-31-2024 Trop T High Sen 58 ng/L Invalid Interpretation Code <=22 [facility] Comment on above: Result Comment: CRIT ICAL VALUE CALLED TO Tenisha FARMER RN ER 08/31/242149 Graham Vasquez. RESULTS READ BACK BY SAME . Critical Result(s) Called at:08-31-24 at 2200pm by:paula to kim browne rn??Results read back by same. AMENDED REPORT 08/31/242220 Trop T HS 2HR previously reported as: 58 *H ng/L CRITICAL VALUE CALLED TO Tenisha FARMER RN ER 08/31/24 2150 Graham Vasquez. RESULTS READ BACK BY SAME . Performed By: #### L 100.0500, L500.4050, L501.2300, L501.5200 #### [facility] [address] [place], [address] L499.0043on 08-31-2024 Trop T High Sen 65 ng/L Invalid Interpretation Code <=22 [facility] Comment on above: Result Comment: Crit ical Result(s) Called at:2339 by:ROB FERNÁNDEZN TO BALAJI LEE ??Results read back by same. Performed By: #### L 100.0500, L500.4050, L501.2300, L501.5200 #### [facility] [address] [place], [address] L501.4021on 08-31-2024 Trop T High Sen 54 ng/L Invalid Interpretation Code <=22 [facility] Comment on above: Result Comment: Crit ical Result(s) Called at:08-31-24 at 2044pm bymaf to kim browne internet consultant:??Results read back by same. Performed By: #### L 100.0500, L500.4050, L501.2300, L501.5200 #### [facility] [address] [place], [address] L503.7505on 08-31-2024 Natriuretic peptide B (Bld) [Mass/Vol] 205 pg/mL Normal <=900 [facility] Comment on above: Result Comment: Hear t Failure Unlikely: < 300 pg/mL Heart Failure Likely < 50 Years: > 450 pg/mL 50-75 Years: > 900 pg/mL >75 Years: > 1800 pg/mL Performed By: #### L 100.0500, L500.4050, L501.2300, L501.5200 #### [facility] [address] [place], [address] LDL calc ser/plasOrdered By: Mian Jones on 08-31-2024 Cholesterol in LDL [Mass/Vol] 90 mg/dL [facility] Comment on above: Cfsoocbyha=448-471 m g/dL & Higher Tndm=731 mg/dL or greater LDL Cholesterol, Calculated 90 mg/dL [facility] Comment on above: Tarapcslxx=778-118 m g/dL & Higher Piae=248 mg/dL or greater Laboratory - Chemistry and C hemistry - challengeOrdered By: Demian Burger on 08-31-2024 Natriuretic peptide B (Bld) [Mass/Vol] 205 pg/mL <900 [facility] Comment on above: Heart Failure Unlike ly: < 300 pg/mLHeart Failure Likely< 50 Years: > 450 pg/mL50-75 Years: > 900 pg/mL>75 Years: > 1800 pg/mL Lymphocytes Auto (Unsp spec) [#/Vol]Ordered By: Demian Burger on 08-31-2024 Lymphocytes (Bld) [#/Vol] 1.72 10*3/uL 0.83-4.51 [facility] Lymphocytes/100 WBC Auto (Un sp spec)Ordered By: Demian Burger on 08-31-2024 Lymphocytes/100 WBC (Bld) 17.8 % Low 19-41 [facility] MCV (mean corpuscular volume ) determinationOrdered By: Demian Burger on 08-31-2024 MCV (RBC) [Entitic vol] 87.2 fL 80-94 [facility] Mean corpuscular hemoglobin (MCH) determinationOrdered By: Demian Burger on 08-31-2024 MCH (RBC) [Entitic mass] 30.2 pg 27.0-32.0 [facility] Mean corpuscular hemoglobin concentration (MCHC) determinationOrdered By: Demian Burger on 08-31-2024 MCHC (RBC) [Mass/Vol] 34.6 g/dL 32-36 [facility] Mean platelet volume determi nationOrdered By: Demian Burger on 08-31-2024 Platelet mean volume (Bld) [Entitic vol] 11.2 fL 6.2-12.0 [facility] Monocyte percentageOrdered B y: Demian Burger on 08-31-2024 Monocytes/100 WBC (Bld) 6.7 % 0-10 [facility] Neutrophil percentageOrdered By: Demian Burger on 08-31-2024 Neutrophils/100 WBC (Bld) 72.6 % High 47-70 [facility] No Panel InformationOrdered By: Demian Burger on 08-31-2024 Troponin T High Sensitivity 54 ng/L High <22 [facility] Comment on above: Critical Result(s) C alled at:08-31-24 at 2044pm bymaf to kim browne rn er: Results read back by same. Nucleated red blood cell per centageOrdered By: Demian Burger on 08-31-2024 Nucleated RBC/100 WBC (Bld) [Ratio] 0 % 0-5 [facility] Partial Thromboplast Timeon 08-31-2024 aPTT Coag (Bld) [Time] 27.7 s Normal 24.1-36.2 [facility] Comment on above: Order Comment: CRITI JEANIE VALUE CALLED TO STANISLAW CODY08/31/242036 Roseann Veliz.RESULTS READ BACK BY SAME. Performed By: #### L 100.0500, L500.4050, L501.2300, L501.5200 #### [facility] [address] [place], [place], [address] Platelet countOrdered By: Edmund Burger on 08-31-2024 Platelets (Bld) [#/Vol] 263 10*3/uL 150-450 [facility] Potassium (Unsp spec) [Mass/ Vol]Ordered By: Demian Burger on 08-31-2024 Potassium [Moles/Vol] 3.8 mmol/L 3.3-5.1 [facility] Prothrombin Time w/INRon INR Coag (PPP) [Relative time] 1.0 {INR} Normal [facility] Comment on above: Order Comment: CRITI JEANIE VALUE CALLED TO STANISLAW CODY08/31/242036 Roseann Veliz.RESULTS READ BACK BY SAME. Performed By: #### L 100.0500, L500.4050, L501.2300, L501.5200 #### [facility] [address] [place], [place], [address] PT Coag (PPP) [Time] 13.5 s Normal 11.7-14.9 [facility] Comment on above: Order Comment: DAVID WARE VALUE CALLED TO STANISLAW CODY08/31/242036 Roseann Veliz.RESULTS READ BACK BY SAME. Performed By: #### L 100.0500, L500.4050, L501.2300, L501.5200 #### [facility] [address] [place], [address] Prothrombin timeOrdered By: Demian Burger on 08-31-2024 PT Coag (PPP) [Time] 13.5 s 11.7-14.9 [facility] RBC Auto (Bld) [#/Vol]Ordere d By: Demian Burger on 08-31-2024 RBC (Bld) [#/Vol] 5.70 10*6/uL 4.6-6.2 [facility] Screening total cholesterol/ high density lipoprotein (HDL) cholesterol ratioOrdered By: Mian Jones on 08-31-2024 Cholesterol.total/Sandrine sterol in HDL [Mass ratio] 3.98 {ratio} [facility] Serum creatinine measurement (mass/volume)Ordered By: Demian Burger on 08-31-2024 Creatinine [Mass/Vol] 0.98 mg/dL 0.70-1.20 [facility] Serum glucose measurement (m ass/volume)Ordered By: Demian Burger on 08-31-2024 Glucose [Mass/Vol] 90 mg/dL 70-99 [facility] Serum or plasma calcium jack urement (mass/volume)Ordered By: Demian Burger on 08-31-2024 Calcium [Mass/Vol] 9.8 mg/dL 7.6-11.0 [facility] Serum or plasma cholesterol in HDL measurement (mass/volume)Ordered By: Mian Jones on 08-31-2024 Cholesterol in HDL [Mass/Vol] 40 mg/dL >40 [facility] Comment on above: National Cholesterol Education Program (NCEP) guidelines:<40 mg/dL: Low HDL-cholesterol (major risk factor for CHD)>= 60 mg/dL: High HDL-cholesterol (negative risk factor for CHD)HDL-cholesterol is affected by a number of factors, e.g. smoking, exercise, hormones, sex and age. Serum or plasma cholesterol measurement (mass/volume)Ordered By: Mian Jones on 08-31-2024 Cholesterol [Mass/Vol] 160 mg/dL <[address] [facility] Comment on above: Cholesterol level, D esirable <200 mg/dLBorderline high cholesterol 200-239 mg/dLHigh cholesterol >=240 mg/dLRecommendations of the NCEP Adult Treatment Panel for the following risk-cutoff thresholds for the [place] population. Serum or plasma urea nitroge n measurement (mass/volume)Ordered By: Demian Burger on 08-31-2024 Urea nitrogen [Mass/Vol] 13 mg/dL 4-19 [facility] Sodium levelOrdered By: Demian Burger on 08-31-2024 Sodium [Moles/Vol] 137 mmol/L 133-145 [facility] TSH DL <= 0.005 mIU/L QnOrde red By: Mian Jones on 08-31-2024 Thyroid Stimulating Hormone (TSH) 3.470 uIU/mL 0.300-4.200 [facility] TSH Qn 3.470 uIU/mL 0.300-4.200 [facility] Triglycerides measurementOrd ered By: Mian Jones on 08-31-2024 Triglyceride [Mass/Vol] 150 mg/dL <199 [facility] Comment on above: The drugs N-Acetylcy steine and Metamizole may falsely depress this assay. Normal range: <150 mg/dLBorderline High: 150-199 mg/dLHigh: 200-499 mg/dLVery High: >500 mg/dL Troponin T.cardiac High sens itivity method [Mass/Vol]Ordered By: Demian Burger on 08-31-2024 Troponin T High Sensitivity 4 Hour 65 ng/L High <22 [facility] Comment on above: Critical Result(s) C alled at:2339 by:ROB LEE Results read back by same. Troponin T High Sensitivity 2 Hour 58 ng/L High <22 [facility] Comment on above: CRITICAL VALUE MARILU FARMER RN ER08/31/242149 Graham Vasquez.RESULTS READ BACK BY SAME . Critical Result(s) Called at:08-31-24 at 2200pm by:paula to kim browne rn Results read back by same.Previous reported result: 58 ng/LEdited by: MFOWLER on 08/31/24:2151Previous reported result: 58 ng/LEdited by: AUTOINS on 08/31/24:2221 AMENDED REPORT 08/31/242220 Trop T HS 2HR previously reported as: 58 *H ng/L CRITICAL VALUE CALLED TO Tenisha FARMER RN ER08/31/242149 Graham Vasquez.RESULTS READ BACK BY SAME . Troponin T.cardiac [Mass/vol ume] in Serum or Plasma by High sensitivity methodOrdered By: Demian Burger on 08-31-2024 Troponin T.cardiac High sensitivity method [Mass/Vol] 65 ng/L High <22 [facility] Comment on above: Critical Result(s) C alled at:2339 by:ROB LEE Results read back by same. Troponin T.cardiac High sensitivity method [Mass/Vol] 58 ng/L High <22 [facility] Comment on above: CRITICAL VALUE MICHEL D TO Tenisha FARMER RN 08/31/242149 Graham Vasquez.RESULTS READ BACK BY SAME . Critical Result(s) Called at:08-31-24 at 2200pm by:paula browne rn Results read back by same.Previous reported result: 58 ng/LEdited by: PAULA on 08/31/24:1Previous reported result: 58 ng/LEdited by: AUTOINS on 08/31/24:2221 AMENDED REPORT 08/31/242220 Trop T HS 2HR previously reported as: 58 *H ng/L CRITICAL VALUE CALLED TO Tenisha FARMER RN 08/31/242149 Graham Vasquez.RESULTS READ BACK BY SAME . White blood cell (WBC) count Ordered By: Demian Burger on 08-31-2024 WBC (Bld) [#/Vol] 9.7 10*3/uL 4.4-11.0 [facility] aPTT Coag (PPP) [Time]Ordere d By: Demian Burger on 08-31-2024 aPTT Coag (Bld) [Time] 27.7 s 24.1-36.2 [facility] 08-18-2024 36 Our office spoke wit h the patient to remind them of their colonoscopy appointment . The patient is scheduled with Dr. Maria on 09/01/2024 with arrival time of 8:45 at [facility] Verified that the patient has the prep information and all questions were answered. Normal [facility] 08-07-2024 36 Screening Questionna anna Do you have a Congestive Heart Failure ? no Do you have a pacemaker or defibrillator? no Have you had a Heart Attack in last 6 months? no Have you had any cardiac stents in last 12 months? no Have you had chest pain (angina)? no Are you using any blood thinner medication? no Have you been told you have abnormal EKG or abnormal echocardiogram or heart rhythm? no Are you using Oxygen at home? If yes, how many liters of oxygen? no Do you have COPD (Chronic Obstructive Pulmonary Disease)? no Do you have Asthma? If yes, is it mild? no 11. Do you have Sleep Apnea? Do you use a cpap? no Have you been told you have malignant hyperthermia or had any other reaction to anesthesia? no What is your height and weight? 285 lbs BMI- 42.12 Do you have Diabetes? If yes, what medications do you take and what is your latest A1C level? no A1C- Are you Immunocompromised (have a medical condition that puts you at increased risk of infection)? no Do you have myopathies (muscle diseases) ? no Do you have liver cirrhosis? no Are you ? no Do you receive dialysis? Do you have any cognitive impairment like dementia; traumatic brain injury, or from stroke? no Additional questions to determine diagnostic or screening, Have you done a home stool test like the FIT or Cologuard that had a positive result? no Do you have abdominal pain? no Have you had any unexplained weight loss more than 20 lbs? no Have you had Blood in your stool? no Have you been told you have Crohn's Disease or ulcerative colitis (inflammatory bowel disease)? no 6. Do you have anemia (low blood count)? no 7. Have you had a colonoscopy that found colon polyps? If yes, when was your last colonoscopy? no Normal [facility] 36on 06-10-2024 36 S: Patient spoke logan h [facility] nurse regarding cough B: Onset of symptoms/concern ongoing A: Patient states he has a cough that started 3 weeks ago and has been lingering on. Patient states one of the side effects of lisiniopril is a dry cough so he is not sure. Patient states he does bring so stuff up with the cough but it is small and it is not discolored. Has had an unusual earache it is not there right now. Denies any chest pain, shortness of breath, fever or wheezing. Negative COVID screen. R: Appointment scheduled for today at 1:15pm with Dr. Krishnamurthy. Insurance verified. Patient given care advice per protocol. Patient understands care advice. No further needs at this time. Patient instructed to call back with new or worsening symptoms. Reason for Disposition Cough has been present for > 3 weeks Protocols used: Cough - Acute [id number] Office Visiton 06-10-2024 Follow-up visit [id number] Mitul Martinez 1955 M Date Provider Department Center 06/10/2024 [id number] Family History Problem Relation Age of Onset Prostate cancer Father Family Status - Relation Status Age at Mother Father Level of Service:26419 OR OFFICE/OUTPATIENT ESTABLISHED LOW MDM 20 MIN Reason for Visit and Comments: Cough [28] - For about 3 weeks Progress Noteon 06-10-2024 Progress Note Tessalon Perles 200 mg 3 times a day. Increase fluids and Mucinex Normal [facility] Progress Note Patient verified by last name and date of . Progress Note 06/10/2024 Mitul Martinez (: 1955) is a 69 y.o. male , Established patient, here for evaluation of the following chief complaint(s): Cough (For about 3 weeks) ASSESSMENT/PLAN: 1. Subacute cough Assessment & Plan: Tessalon Perles 200 mg 3 times a day. Increase fluids and Mucinex Follow up in about 6 months (around 12/09/2024). SUBJECTIVE/OBJECTIVE: HPI -Bill comes in today complaining of a cough that he says he believes is a little bit of a least 3 weeks. She is occasionally cough up some phlegm that is kind of yellowish he may have a little yellow sinus drainage no fevers or chills no wheezing or shortness of breath. Review of Systems Constitutional: Negative for chills and fever. HENT: Positive for rhinorrhea. Negative for congestion, ear pain and sinus pressure. Respiratory: Positive for cough. Negative for shortness of breath. Cardiovascular: Negative for chest pain and palpitations. Vitals: 06/10/24 1306 BP: (!) 161/95 Pulse: 93 Temp: 37.2 ?C (99 ?F) SpO2: 95% Weight: 285 lb 3.2 oz (129 kg) Height: 5' 9 (1.753 m) Physical Exam Vitals and nursing note reviewed. Constitutional: General: He is not in acute distress. Appearance: Normal appearance. HENT: Head: Normocephalic. Right Ear: Tympanic membrane, ear canal and external ear normal. Left Ear: Tympanic membrane, ear canal and external ear normal. Mouth/Throat: Mouth: Mucous membranes are moist. Pharynx: Oropharynx is clear. Eyes: Extraocular Movements: Extraocular movements intact. Pupils: Pupils are equal, round, and reactive to light. Cardiovascular: Rate and Rhythm: Normal rate and regular rhythm. Heart sounds: Normal heart sounds. Pulmonary: Effort: Pulmonary effort is normal. Breath sounds: Normal breath sounds. Musculoskeletal: Cervical back: Neck supple. Neurological: Mental Status: He is alert. An electronic signature was used to authenticate this note. Colton Krishnamurthy MD 06/10/2024 3:04 PM 36on 05-19-2024 36 Received a fax from [facility]---requesting a 90 day rx for Meloxicam 15 mg take 1 tablet by mouth every day. Prescription Request: Last medication check: 03-19-24 Last physical exam: 09-04-23 Next scheduled appointment: 09-10-24 Last date of refill on this medication 02-03-24 Office Visiton 05-07-2024 Follow-up visit [id number] Mitul Martinez 1955 M Date Provider Department Center 05/07/2024 [facility] Family History Problem Relation Age of Onset Prostate cancer Father Family Status - Relation Status Age at Mother Father Level of Service:97651 OR OFFICE/OUTPATIENT ESTABLISHED [facility] 10 MIN Reason for Visit and Comments: Post-op [483] - 3 month post op Septoplasty Progress Noteon 05-07-2024 Progress Note Assessment and Recommendations: Mitul Martinez is a 69 y.o. male here for 3-month follow-up from septoplasty inferior turban reduction -Patient is healed well and is happy with his result he can follow-up with us as needed all of his questions were answered he expressed understanding Otolaryngology Head [facility] Ne[facility] Note HPI: Mitul Martinez is a 69 y.o. yo male who presents to clinic today for 3-month follow-up from septoplasty inferior turban reduction overall he notes significant improvement in his symptoms is very happy with there is result sleeping better no concerns at this time PMH: Past Medical History: Diagnosis Date Anxiety Cancer (CMS/HCC) (HCC) prostate Carotid artery stenosis Deviated septum Diverticula of colon Elevated PSA Hemorrhoid HLD (hyperlipidemia) Hypertension Neuropathy Osteoarthritis Plantar fasciitis Sleep apnea Allergies: Allergies Allergen Reactions Diclofenac Rectal discharge Fenofibrate Nerve pain Rosuvastatin Other Muscle Aches Medications: Current Outpatient Medications: cholecalciferol (Vitamin D-3) 50 MCG (1999) capsule, Take by mouth., Disp: , Rfl: diphenhydrAMINE-acetami nophen (Tylenol PM) 25-500 MG per tablet, Take 1 tablet by mouth Nightly as needed for sleep., Disp: , Rfl: lisinopril-hydroCHLOROt hiazide 20-12.5 MG tablet, Take 2 tablets by mouth daily., Disp: 180 tablet, Rfl: 1 Melatonin 5 MG capsule, Take by mouth as needed., Disp: , Rfl: meloxicam (Mobic) 15 MG tablet, take 1 tablet by mouth once daily, Disp: 90 tablet, Rfl: 1 triamcinolone (Kenalog) 0.5 % cream, Apply topically 2 times daily., Disp: , Rfl: PSH: Past Surgical History: Procedure Laterality Date COLECTOMY december 11 2012, colostomy 5 days later COLONOSCOPY 06/08/2014 COLOSTOMY 03/19/2013 reversal CYST REMOVAL pilonidial EYE SURGERY Left 01/26/2021 cataract HERNIA REPAIR umbical 2010 HERNIA REPAIR mesh 2014 NASAL SEPTUM SURGERY 01/2024 OTHER SURGICAL HISTORY 05/15/2021 transrectal US, transperineal implantation of biodegradeable perirectal gel PROSTATE SURGERY radiation 2020 SHOULDER ARTHROPLASTY (HISTORICAL) Right 11/14/2020 SPINE SURGERY laminectomy 1990 TOTAL SHOULDER ARTHROPLASTY Right 06/19/2018 x2 TOTAL SHOULDER ARTHROPLASTY Left 12/04/2018 FH: Family History Problem Relation Name Age of Onset Prostate cancer Father SH: Social History Socioeconomic History Marital status: Spouse name: Not on file Number of children: Not on file Years of education: Not on file Highest education level: Not on file Occupational History Not on file Tobacco Use Smoking status: Former Current packs/day: 0.00 Average packs/day: 2.0 packs/day for 35.0 years (70.0 ttl pk-yrs) Types: Cigarettes Start date: 06/30/1971 Quit date: 06/30/2006 Years since quittin.8 Smokeless tobacco: Never Vaping Use Vaping status: Never Used Substance and Sexual Activity Alcohol use: Yes Comment: occ Drug use: Yes Types: Marijuana Sexual activity: Not Currently Other Topics Concern Not on file Social History Narrative Not on file Social Drivers of Health Financial Resource Strain: Low Risk (09/04/2023) Overall Financial Resource Strain (CARDIA) Difficulty of Paying Living Expenses: Not hard at all Food Insecurity: No Food Insecurity (09/04/2023) Hunger Vital Sign Worried About Running Out of Food in the Last Year: Never true Ran Out of Food in the Last Year: Never true Transportation Needs: No Transportation Needs (09/04/2023) PRAPARE - Transportation Lack of Transportation (Medical): No Lack of Transportation (Non-Medical): No Physical Activity: Sufficiently Active (09/04/2023) Exercise Vital Sign Days of Exercise per Week: 7 days Minutes of Exercise per Session: 40 min Stress: No Stress Concern Present (03/18/2024) [place] [employer] - Occupational Stress Questionnaire Feeling of Stress : Not at all Social Connections: Socially Isolated (03/18/2024) Social Connection and Isolation Panel [NHANES] Frequency of Communication with Friends and Family: More than three times a week Frequency of Social Gatherings with Friends and Family: Once a week Attends Sabianism Services: Never Active Member of Clubs or Organizations: No Attends Club or Organization Meetings: Never Marital Status: Intimate Partner Violence: Not At Risk (03/18/2024) Humiliation, Afraid, Rape, and Kick questionnaire Fear of Current or Ex-Partner: No Emotionally Abused: No Physically Abused: No Sexually Abused: No Housing Stability: Low Risk (09/04/2023) Housing Stability Vital Sign Unable to Pay for Housing in the Last Year: No Number of Places Lived in the Last Year: 1 Unstable Housing in the Last Year: No Physical Exam: Constitutional: General: Patient is not in (more content not included)... Normal [facility] 36on 04-13-2024 36 Name of caller: Nabil Contact phone number: [phone] Relationship to Patient: Patient Provider: Dr. Krishnamurthy Practice: [facility] Chief Complaint/Reason for Call: Pt requesting a yearly colonoscopy. Pt a bit concerned as the last time he had one done he became sick from the drink he had to take beforehand. Please advise Best time of day caller can be reached: Any Patient advised that office/PCP has 24-48 business hours to return their call: No Normal [facility] Office Visiton 03-19-2024 Follow-up visit [id number] Mitul Martinez 1955 M [facility] Provider Department [place] 03/19/2024 [id number] KRISHNAMURTHY [facility] Family History Problem Relation Age of Onset Prostate cancer Father Family Status - Relation Status Age at Mother Father Level of Service:20153 OR OFFICE/OUTPATIENT ESTABLISHED MOD MDM 30 MIN Reason for Visit and Comments: Hypertension [850570] Hyperlipidemia [182] Depression [32] Medication Check [[id number]] - 6 month Health Maintenance [872] - Flu vaccine- agree 6th covid vaccine- not done Hep c screening- refuse Normal [facility] Progress Noteon 03-19-2024 Progress Note Controlled, continue very strict low-fat low-cholesterol diet Normal [facility] Progress Note Stable, currently on no medications. Normal [facility] Progress Note Blood pressure was initially elevated, recheck was still elevated although significantly improved, follow-up in 1 week for blood pressure check continue lisinopril hydrochlorothiazide 20-12.5 Normal [facility] Progress Note currently is not usi ng his CPAP since he had deviated septal surgery he is doing much better. Normal [facility] Progress Note Patient was verified by name and . After obtaining consent, and per orders of Dr. Krishnamurthy, injection of Fluad given in left deltoid by Maki Carlson. Patient instructed to report any adverse reaction immediately. Normal [facility] Progress Note Patient verified by last name and date of . Normal [facility] Progress Note 03/19/2024 Mitul Martinez (: 1955) is a 68 y.o. male , Established patient, here for evaluation of the following chief complaint(s): Hypertension, Hyperlipidemia, Depression, Medication Check (6 month ), and Health Maintenance (Flu vaccine- agree/6th covid vaccine- not done/Hep c screening- refuse) ASSESSMENT/PLAN: 1. Primary hypertension Assessment & Plan: Blood pressure was initially elevated, recheck was still elevated although significantly improved, follow-up in 1 week for blood pressure check continue lisinopril hydrochlorothiazide 20-12.5 2. Benign non-nodular prostatic hyperplasia with lower urinary tract symptoms Assessment & Plan: Stable, currently on no medications. 3. Pure hypercholesterolemia Assessment & Plan: Controlled, continue very strict low-fat low-cholesterol diet 4. HUEY on CPAP Assessment & Plan: currently is not using his CPAP since he had deviated septal surgery he is doing much better. Follow up in about 6 months (around 09/16/2024). SUBJECTIVE/OBJECTIVE: JOSE ANGEL MalloyNabil comes in today for 6-month follow-up on his multiple health issues which includes hypertension and his blood pressure is up slightly today we will recheck that prior to discharge. He has a history of BPH and prostate cancer and he also has high cholesterol and he has obstructive sleep apnea but he has recently had a deviated septum repair and he says he is doing fairly well without CPAP at this time. There is no longer using Flonase she is just using a saline nasal spray. He has no other complaints, see ROS. Review of Systems Constitutional: Negative for activity change, appetite change, chills, fever and unexpected weight change. HENT: Negative for ear pain and sore throat. Respiratory: Negative for shortness of breath. Cardiovascular: Negative for chest pain and palpitations. Gastrointestinal: Negative for abdominal pain, blood in stool, constipation and diarrhea. Genitourinary: Negative for dysuria, frequency, hematuria and urgency. Musculoskeletal: Negative for arthralgias and back pain. Skin: Negative. Neurological: Negative for weakness and numbness. Psychiatric/Behavioral: Negative for dysphoric mood. The patient is not nervous/anxious. Vitals: 03/19/24 0749 03/19/24 0809 BP: (!) 157/104 (!) 145/89 Pulse: 64 75 SpO2: 95% Weight: 271 lb (123 kg) Height: 5' 9 (1.753 m) Physical Exam Vitals and nursing note reviewed. Constitutional: General: He is not in acute distress. Appearance: Normal appearance. He is obese. HENT: Right Ear: Tympanic membrane, ear canal and external ear normal. Left Ear: Tympanic membrane, ear canal and external ear normal. Mouth/Throat: Mouth: Mucous membranes are moist. Pharynx: Oropharynx is clear. Eyes: Extraocular Movements: Extraocular movements intact. Conjunctiva/sclera: Conjunctivae normal. Pupils: Pupils are equal, round, and reactive to light. Neck: Thyroid: No thyromegaly. Vascular: No carotid bruit. Cardiovascular: Rate and Rhythm: Normal rate and regular rhythm. Heart sounds: Normal heart sounds. No murmur heard. Pulmonary: Effort: Pulmonary effort is normal. Breath sounds: Normal breath sounds. Abdominal: General: Bowel sounds are normal. Palpations: Abdomen is soft. Tenderness: There is no abdominal tenderness. Musculoskeletal: General: Normal range of motion. Cervical back: Neck supple. Lymphadenopathy: Cervical: No cervical adenopathy. Skin: General: Skin is warm and dry. Neurological: General: No focal deficit present. Mental Status: He is alert and oriented to person, place, and time. Psychiatric: Mood and Affect: Mood normal. An electronic signature was used to authenticate this note. Colton Krishnamurthy MD 03/19/2024 8:23 AM Normal [facility] Sleep study with pap titrati onon 08-02-2023 [facility] Home sleep teston 07-25-2023 [facility] TSHon 01-09-2023 TSH Qn 2.23 m[IU]/L [facility] TSH Qnon 01-09-2023 [facility] Radiation Onc F/U Noteon Radiation Onc F/U Note [facility] SYST EM [facility] Radiation Oncology RADIATION ONCOLOGY FOLLOW UP PATIENT: Mitul Martinez DATE OF SERVICE: 08/17/2021 [facility] : 1955 AGE: 66 PRIMARY SITE: Malignant neoplasm of prostate, adenocarcinoma, PSA 12.3, GS 8(4+4) -high risk STAGE: T1c N0 M0 IIC HISTORY OF PRESENT ILLNESS: Mr. Martinez is a 66-year-old male with history of slowly rising PSA, to a most recent level of 12.302 on 08/25/2020. In the past, he was advised to have a prostate biopsy, but because of previous multiple abdominal surgical operations, he deferred. On 03/29/2021 he had a biopsy performed. Lupron was started on 04/19/2021 for anticipated 2-year duration. Space OAR was placed on 05/15/2021. Radiation was performed with completion 07/19/[address] Fall's direction.. INTERVAL SINCE RADIATION: 1 month 06/07/21 - 07/19/21: 70.00/70.00 Gy to the Prostate_SV in 28 fractions of 2.50 Gy using the VMAT/Daily IGRT technique with 10 MV over 42 days. INTERVAL HISTORY: Patient notes that things were healing well until the beginning of this week. He awoke one night noting that he could not urinate. He was seen in [place]'s emergency department on 08/14/2020. Ultrasound was performed showing urinary retention. Catheter was placed. He notes approximately 1600 mL was removed. He notes kidney function was okay and there was no sign of urinary tract infection. Catheter is in place. He is scheduled to see urology on 08/31/2021 to evaluate for possible removal. At this point he notes irritation of the tip of the penis due to the catheter. He has to be careful with tugging. In terms of bowel pattern this has improved. He notes occasional softer loose stool. He is not needing Imodium regularly. Appetite is okay. No respiratory cardiac complaints. Energy level is increasing. PAST MEDICAL HISTORY: Diagnosis Date * Anxiety * Carotid artery stenosis * Diverticula of colon * Elevated PSA * Hemorrhoid * Hernia * Hyperlipidemia * Hypertension * Neuropathy * Osteoarthritis * Plantar fasciitis Multiple episodes of diverticulitis. PAST SURGICAL HISTORY: Procedure Laterality Date * ABDOMINAL EXPLORATION SURGERY * BACK SURGERY * COLECTOMY * COLONOSCOPY 06/08/2014 * CYST REMOVAL * HERNIA REPAIR * SHOULDER ARTHROPLASTY Right * SHOULDER ARTHROPLASTY He underwent partial colectomy. Developed some complications and had a colostomy for a brief.. He then had repair of incisional hernia with mesh. All this was 2160-2879 ALLERGIES: diclofenac potassium; fenofibrate; meloxicam MEDICATIONS: 1. aspirin - 2 Tablet Oral Daily 2. hydrochlorothiazide - 1 Tablet Oral Daily 3. lisinopril - 1 Tablet Oral Daily 4. melatonin - Tablet Oral Every day before sleep 5. Triamcinair - Topical Twice a Day 6. Tylenol PM Extra Strength - Tablet Oral As needed 7. Vitamin D - PO As Directed Medications Last Reconciled by Amarilis Martinez RN on 08/17/2021 SUMMARY OF SIGNIFICIANT X-RAY/LABORATORY FINDINGS: None REVIEW OF SYSTEMS: Pain: 0. - No pain KPS: 70 - Cares for self; unable to carry on normal activity or to do active work PHYSICAL EXAMINATION: VITALS: Temperature 97.5 F (08/17/21), Pulse 104 (08/17/21), Respirations 18 (08/17/21), Blood Pressure 132/97 (08/17/21) Weight 264 pounds 08/17/21 GENERAL: Awake, alert, oriented x3, no anxiety, dressed appropriately, appears of stated age. Ambulates without assistance. Speech pattern fluent. LUNGS: Clear to auscultation. No rales or rhonchi. HEART: Regular rate and rhythm, S1-S2 noted no murmur. NECK: Symmetric. NODES: No neck, supraclavicular, infraclavicular adenopathy. ABDOMEN: Soft, nontender, nondistended. No hepatosplenomegaly, no suspicious mass. MUSCULOSKELETAL: No swelling. No calf tenderness. No spine or posterior chest wall tenderness. IMPRESSION: 66-year-old gentleman with prostate cancer. He remains on the Lupron therapy. Radiation completed. He required Puga catheter placement due to urinary retention. It is hoped that as the days go on and the inflammation decreases, the catheter will be removed when he is seen by urology. He takes Tylenol for discomfort. We are contacting urology for any other helpful hands while the catheter is in place. Her nurse is going over things with him. PLAN: Return to office in 6 months. He knows to call if any further questions or concerns arise. Sherron Carroll MD, FACRO Electronically signed by: Sherron Carroll MD , T: 1:25 PM CC: Colton Krishnamurthy MD, Lonny Hansen MD [facility] Department of Radiation Oncology is an Accredited Facility of the [employer] ([employer]). This document was completed utilizing speech recognition software. Grammatical errors, random word insertions, pronoun errors, and (more content not included)... Normal [facility] Radiation Onc Treat [facility] Radiation Onc Treat [facility] Radiation Oncology RADIATION ONCOLOGY TREATMENT SUMMARY PATIENT: Mitul Martinez DATE OF SERVICE: 07/19/2021 [facility] : 1955 AGE: 66 PRIMARY SITE: Malignant neoplasm of prostate, adenocarcinoma, iPSA 12.3, GS 4+4 = 8-high risk STAGE: T1c N0 M0 IIC HISTORY OF PRESENT ILLNESS: Mr. Martinez is a 66-year-old male with history of slowly rising PSA, to a most recent level of 12.302 on 08/25/2020. In the past, he was advised to have a prostate biopsy, but because of previous multiple abdominal surgical operations, he deferred. However, he has no prostatism and today's AUA score is 1. Eventually he had MRI and then MRI guided biopsy. The MRI showed two PI-RADS 3 and above, nodules. 02/02/2021- TREATMENT PLAN INTERVAL SINCE RADIATION: 06/07/2021 - 07/19/2021 (42 days) 06/07/21 - 07/19/21: 70.00/70.00 Gy to the Prostate+SV in 28 fractions of 2.50 Gy using the VMAT/Daily IGRT technique with 10 MV. STATUS OF PATIENT AT THE FINISH OF THE TREATMENT: He tolerated the treatment quite well with only mild outflow symptoms, that remained stable on tamsulosin. He was able to complete the expected therapy DISPOSITION: Follow-up 1 month Electronically signed by: Ariel Fall MD , T: 10:27 AM CC: Colton Krishnamurthy MD, Lonny Hansen MD [facility] Department of Radiation Oncology is an Accredited Facility of the [employer] ([employer]). This document was completed utilizing speech recognition software. Grammatical errors, random word insertions, pronoun errors, and incomplete sentences are an occasional consequence of this system due to software limitations, ambient noise, and hardware issues. Any formal questions or concerns about the content, text or information contained within the body of this dictation should be directly addressed to the provider for clarification. PATIENT: Mitul Martinez : 1955 cc: Lonny Hansen MD [address] [place] [address] [address] [facility] [id number] Colton Krishnamurthy MD [address] [address] Normal [facility] CT Nonbill Guide Rad Therapy on 05-23-2021 CT Nonbill Guide Rad Therapy Patient Name: MITUL MARTINEZ Computed Tomography ACCESSION EXAM DATE/TIME PROCEDURE ORDERING PROVIDER [id number] 05/23/2021 10:[address] Nonbill Guide Rad [id number] -ARIEL FALL Therapy Reason For Exam (CT Nonbill Guide Rad Therapy) TPCT - PROSTATE CA Report EXAMINATION: Nondiagnostic radiation therapy planning CT of the pelvis without contrast. EXAM DATE and TIME: 05/23/2021 10:34 AM EST INDICATION: TPCT - PROSTATE CA ADDITIONAL INFORMATION: 66-year-old male presents for nondiagnostic radiation therapy planning CT of the pelvis without contrast COMPARISON: MRI pelvis dated 02/02/[address] chest abdomen pelvis dated 11/10/2012 LIMITATIONS: Evaluation of the vasculature as well as the solid and hollow viscera is limited due to the lack of intravenous and oral contrast. TECHNIQUE: Contiguous multiplanar 3 mm images were obtained through the pelvis without contrast. Images were reformatted in coronal and sagittal projections using the raw CT data and were interpreted in conjunction with the axial images to render the findings listed below. This CT is nondiagnostic and was performed specifically for the purposes of radiation therapy planning. FINDINGS: Abdominal and pelvic vasculature: Atherosclerotic vascular calcifications are present. Gastrointestinal: Postsurgical changes related to partial rectosigmoid resection are seen. Colonic diverticulosis is present. Peritoneum, retroperitoneum and mesentery: No free fluid or free air in the imaged portion of the abdomen and pelvis. Lymph nodes: No abdominal or pelvic lymphadenopathy is evident. Solid pelvic viscera: Curvilinear increased density is present posterior to the seminal vesicles. Visualized musculoskeletal structures: Degenerative changes of the spine and hips are seen. No acute fracture or destructive osseous lesion is identified. Computed Tomography Report IMPRESSION: Nondiagnostic CT of the pelvis performed specifically for the purposes of radiation therapy. Chronic findings as above. Report Dictated on Final Dictated: 05/23/2021 12:58 pm Dictating Physician: MD MABRY CHRISTOPHER Signed Date and Time: 05/23/2021 1:12 pm Signed by: MD MABRY CHRISTOPHER Transcribed Date and Time: 05/23/2021 1:00 Normal [facility] No Panel Informationon 05-23 [id number] Tomography ACCESSION EXAM DATE/TIME PROCEDURE ORDERING PROVIDER [id number] 05/23/2021 10:[address] Nonbill Guide Rad [id number] -ARIEL FALL Therapy Reason For Exam (CT Nonbill Guide Rad Therapy) TPCT - PROSTATE CA Report EXAMINATION: Nondiagnostic radiation therapy planning CT of the pelvis without contrast. EXAM DATE & TIME: 05/23/2021 10:34 AM EST INDICATION: TPCT - PROSTATE CA ADDITIONAL INFORMATION: 66-year-old male presents for nondiagnostic radiation therapy planning CT of the pelvis without contrast COMPARISON: MRI pelvis dated 02/02/[address] chest abdomen pelvis dated 11/10/2012 LIMITATIONS: Evaluation of the vasculature as well as the solid and hollow viscera is limited due to the lack of intravenous and oral contrast. TECHNIQUE: Contiguous multiplanar 3 mm images were obtained through the pelvis without contrast. Images were reformatted in coronal and sagittal projections using the raw CT data and were interpreted in conjunction with the axial images to render the findings listed below. This CT is nondiagnostic and was performed specifically for the purposes of radiation therapy planning. FINDINGS: Abdominal and pelvic vasculature: Atherosclerotic vascular calcifications are present. Gastrointestinal: Postsurgical changes related to partial rectosigmoid resection are seen. Colonic diverticulosis is present. Peritoneum, retroperitoneum and mesentery: No free fluid or free air in the imaged portion of the abdomen and pelvis. Lymph nodes: No abdominal or pelvic lymphadenopathy is evident. Solid pelvic viscera: Curvilinear increased density is present posterior to the seminal vesicles. Visualized musculoskeletal structures: Degenerative changes of the spine and hips are seen. No acute fracture or destructive osseous lesion is identified. Computed Tomography Report IMPRESSION: Nondiagnostic CT of the pelvis performed specifically for the purposes of radiation therapy. Chronic findings as above. Report Dictated on --- Final --- Dictated: 05/23/2021 12:58 pm Dictating Physician: MD MABRY CHRISTOPHER Signed Date and Time: 05/23/2021 1:12 pm Signed by: MD MABRY CHRISTOPHER Transcribed Date and Time: 05/23/2021 1:00 [facility] Work Phone: Result, Unknown Provider - 05/23/2021 [id number] Computed Tomography ACCESSION EXAM DATE/TIME PROCEDURE ORDERING PROVIDER [id number] 05/23/2021 10:[address] Nonbill Guide Rad [id number] -ARIEL FALL Therapy Reason For Exam (CT Nonbill Guide Rad Therapy) TPCT - PROSTATE CA Report EXAMINATION: Nondiagnostic radiation therapy planning CT of the pelvis without contrast. EXAM DATE & TIME: 05/23/2021 10:34 AM EST INDICATION: TPCT - PROSTATE CA ADDITIONAL INFORMATION: 66-year-old male presents for nondiagnostic radiation therapy planning CT of the pelvis without contrast COMPARISON: MRI pelvis dated 02/02/[address] chest abdomen pelvis dated 11/10/2012 LIMITATIONS: Evaluation of the vasculature as well as the solid and hollow viscera is limited due to the lack of intravenous and oral contrast. TECHNIQUE: Contiguous multiplanar 3 mm images were obtained through the pelvis without contrast. Images were reformatted in coronal and sagittal projections using the raw CT data and were interpreted in conjunction with the axial images to render the findings listed below. This CT is nondiagnostic and was performed specifically for the purposes of radiation therapy planning. FINDINGS: Abdominal and pelvic vasculature: Atherosclerotic vascular calcifications are present. Gastrointestinal: Postsurgical changes related to partial rectosigmoid resection are seen. Colonic diverticulosis is present. Peritoneum, retroperitoneum and mesentery: No free fluid or free air in the imaged portion of the abdomen and pelvis. Lymph nodes: No abdominal or pelvic lymphadenopathy is evident. Solid pelvic viscera: Curvilinear increased density is present posterior to the seminal vesicles. Visualized musculoskeletal structures: Degenerative changes of the spine and hips are seen. No acute fracture or destructive osseous lesion is identified. Computed Tomography Report IMPRESSION: Nondiagnostic CT of the pelvis performed specifically for the purposes of radiation therapy. Chronic findings as above. Report Dictated on --- Final --- Dictated: 05/23/2021 12:58 pm Dictating Physician: MD MABRY CHRISTOPHER Signed Date and Time: 05/23/2021 1:12 pm Signed by: MD MABRY CHRISTOPHER Transcribed Date and Time: 05/23/2021 1:00 [facility] Work Phone: Radiology Study observation (narrative) [facility] Work Phone: No Panel InformationOrdered By: Unknown Result on 05-23-2021 [facility] Op Noteon 05-15-2021 Op Note PATIENT: MITUL MARTINEZ ADMISSION DATE: 05/15/2021 SURGERY DATE: 05/15/2021 DATE OF : 1955 AGE: 66 ADMITTING PHYSICIAN: Zuhair Harris MD ATTENDING PHYSICIAN: Zuhair Harris MD DICTATING PHYSICIAN: Zuhair Harris MD OPERATIVE RECORD Procedure: TRANSRECTAL ULTRASOUND WITH TRANSPERINEAL IMPLANTATION OF THE BIODEGRADABLE PERIRECTAL GEL (SPACEOAR). Preoperative Diagnosis: Prostate cancer. Postoperative Diagnosis: Prostate cancer. Anesthesia: General. Findings: This 65-year-old gentleman has been diagnosed with prostate cancer. He presents for implantation of SpaceOAR material as requested by Radiation Oncology. The procedure, risks, and complications were discussed. Questions were answered. Consent was obtained. Findings at surgery: SpaceOAR implanted without incident. Description of Procedure: A proper surgical safety checklist was performed and all operating room personnel did participate. Under general anesthesia, in the dorsal lithotomy position, the patient was sterilely prepped and draped. The scrotum was secured to the abdominal wall by tape. Digital rectal exam showed no palpable masses. Prep was felt to be adequate. The transrectal ultrasound probe was secured into position and imaging was carried out in transverse and sagittal scanning. The transperineal apparatus was secured into position. The SpaceOAR material was prepared at the side table in standard fashion. The ascending needle was passed through entry point in the perineum and directed into the plane between the prostate and rectum without incident, off of saline was instilled through the needle and this the plane quite nicely. No injury occurred to the rectum or to the prostate. The SpaceOAR material was implanted into proper position in standard fashion. Needle was withdrawn. There was not felt to be any excessive rectal or perineal bleeding. The patient was transported to the recovery area in stable condition. Diskriter Job ID: [id number] Zuhair Harris MD DOD:05/15/2021 11:48 A /dsk DOT:05/15/2021 12:19 P Job Number: [id number] Document Number: [id number] cc: Zuhair Harris MD [address] [place] [address] [address] CBCon 05-08-2021 Hematocrit (Bld) [Volume fraction] 46.7 % 40.0 - 52.0 % [facility] Hemoglobin.gastrointest inal spec 1 Ql (Stl) 15.8 g/dL 13.0 - 18.0 g/dL [facility] MCH (RBC) [Entitic mass] 30.3 pg 26.0 - 34.0 pg [facility] MCHC (RBC) [Mass/Vol] 33.8 % 32.0 - 36.0 % [facility] MCV (RBC) [Entitic vol] 89.5 fL 80.0 - 98.0 fL [facility] Platelet distribution width (Bld) [Ratio] 13.8 % 11.5 - 14.5 % [facility] Platelet mean volume (Bld) [Entitic vol] 9.0 fL 7.4 - 10.4 fL [facility] Platelets (Bld) [#/Vol] 223 10*3/uL 140 - 440 10*3/uL [facility] RBC (Bld) [#/Vol] 5.22 10*6/uL 4.40 - 5.9 0 10*6/uL [facility] WBC (Bld) [#/Vol] 7.3 10*3/uL 3.6 - 10.7 10*3/uL [facility] Test Performed by [facility], [address] [place], [place] [id number] [place], [place] [id number] Hemogramon 05-08-2021 Erythrocyte distribution width (RBC) [Ratio] 13.8 % Normal 11.5-14.5 [facility] Comment on above: Performed By: #### H EMOG #### [address] Hematocrit (Bld) [Volume fraction] 46.7 % Normal 40.0-52.0 [facility] Comment on above: Performed By: #### H EMOG #### [address] Hemoglobin (Bld) [Mass/Vol] 15.8 g/dL Normal 13.0-18.0 [facility] Comment on above: Performed By: #### H EMOG #### [place] [address] [place], [place] MCH (RBC) [Entitic mass] 30.3 pg Normal 26.0-34.0 [facility] Comment on above: Performed By: #### H EMOG #### [address] MCHC 33.8 % Normal 32.0-36.0 [facility] Comment on above: Performed By: #### H EMOG #### [address] MCV (RBC) [Entitic vol] 89.5 fL Normal 80.0-98.0 [facility] Comment on above: Performed By: #### H EMOG #### [facility] [address], [place] Platelet mean volume (Bld) [Entitic vol] 9.0 fL Normal 7.4-10.4 [facility] Comment on above: Performed By: #### H EMOG #### [facility] [address], [place] Platelets (Bld) [#/Vol] 223 10*3/uL Normal 140-440 [facility] Comment on above: Performed By: #### H EMOG #### [facility] [address], [place] RBC (Bld) [#/Vol] 5.22 10*6/uL Normal 4.40-5.90 [facility] Comment on above: Performed By: #### H EMOG #### [facility] [address], [place] WBC (Bld) [#/Vol] 7.3 10*3/uL Normal 3.6-10.7 [facility] Comment on above: Performed By: #### H EMOG #### [facility] [address], [place] Radiation Onc Init Conson Radiation Onc Init Cons With [facility] Radiation Oncology RADIATION ONCOLOGY INITIAL CONSULTATION PATIENT: Mitul Martinez DATE OF SERVICE: 04/13/2021 [facility] ACCOUNT #: : 1955 AGE: 65 PRIMARY SITE: Malignant neoplasm of prostate, adenocarcinoma, iPSA 12.3, GS 4+4 = 8-high risk STAGE: T1c N0 M0 IIC HISTORY OF PRESENT ILLNESS: Mr. Martinez is a 65-year-old male with history of slowly rising PSA, to a most recent level of 12.302 on 08/25/2020. In the past, he was advised to have a prostate biopsy, but because of previous multiple abdominal surgical operations, he deferred. However, he has no prostatism and today's AUA score is 1. Eventually he had MRI and then MRI guided biopsy. The MRI showed two PI-RADS 3 and above, nodules. 02/02/2021- IMPRESSION: 1. PI-RADS 5 lesion in the left apex. This is broad-based along the capsule, concerning for extracapsular extension. 2. PI-RADS 3 lesion in the right mid gland. 3. Prostatomegaly and transition zone hypertrophy. 4. Prominent but subcentimeter right external iliac node, nonspecific and may be reactive. 5. Sigmoid diverticulosis. Prostate volume was 37 cc. 03/29/2021-he underwent TRUS guided biopsy of the prostate by Dr. Harris. SANAM was unremarkable with no nodule or tenderness. Prostate volume was 28.8 cc. DIAGNOSIS: A. PROSTATE, RIGHT MID, BIOPSY: - PROSTATIC ADENOCARCINOMA, LILA SCORE 6 (3+3). GRADE GROUP 1. - ADENOCARCINOMA PRESENT IN ONE OF TWO TISSUE CORES (1 MM OF 20 MM TOTAL). - PERCENTAGE OF PROSTATIC TISSUE INVOLVED BY ADENOCARCINOMA: 5%. B. PROSTATE, left APEX, BIOPSY: - PROSTATIC ADENOCARCINOMA, LILA SCORE 8 (4+4). GRADE GROUP 4. - ADENOCARCINOMA PRESENT IN THREE OF THREE TISSUE CORES (30 MM OF 33 MM TOTAL). - PERCENTAGE OF PROSTATIC TISSUE INVOLVED BY ADENOCARCINOMA: PAST MEDICAL HISTORY: Diagnosis Date * Anxiety * Carotid artery stenosis * Diverticula of colon * Elevated PSA * Hemorrhoid * Hernia * Hyperlipidemia * Hypertension * Neuropathy * Osteoarthritis * Plantar fasciitis Multiple episodes of diverticulitis. PAST SURGICAL HISTORY: Procedure Laterality Date * ABDOMINAL EXPLORATION SURGERY * BACK SURGERY * COLECTOMY * COLONOSCOPY 06/08/2014 * CYST REMOVAL * HERNIA REPAIR * SHOULDER ARTHROPLASTY Right * SHOULDER ARTHROPLASTY He underwent partial colectomy. Developed some complications and had a colostomy for a brief.. He then had repair of incisional hernia with mesh. All this was [id number] SOCIAL HISTORY: He is . Has past smoking history. FAMILY HISTORY: Father with history of prostate cancer ALLERGIES: diclofenac potassium; fenofibrate; meloxicam MEDICATIONS: 1. Lisinopril 40 mg p.o. daily, hydrochlorothiazide, baby aspirin, melatonin as needed, cholecalciferol SUMMARY OF SIGNIFICIANT X-RAY/LABORATORY FINDINGS: REVIEW OF SYSTEMS: Pain: 0 - No pain Constitutional: Good appetite. Good energy level. No fever, chills, sweats, or headaches. Vision: Stable. No glasses or contacts. Ears Nose Throat and Mouth: No hearing loss. No mouth, throat, or swallowing issues. Respiratory: No shortness of breath at rest. No dyspnea on exertion. No cough. No paroxysmal nocturnal dyspnea or orthopnea. Not on oxygen. Cardiovascular: No chest pain. No heart racing. No palpitations. Gastrointestinal: No nausea, vomiting, diarrhea, or constipation. No reflux. Genitourinary: No dysuria, hematuria, frequency, nocturia. Gynecological: No vaginal discomfort or bleeding. Musculoskeletal: No arthritic symptoms. No swelling. Good range of motion. Skin: No rashes, open areas, or pruritus. Neurological: No numbness, tingling, or weakness. Psychiatric: No anxiety or depression. Hematology/Lymphatic: Blood counts okay. No anemia. No blood transfusion. Allergy/Immunologic: No connective tissue disease, such as rheumatoid arthritis, scleroderma, or lupus. Endocrine: No thyroid or diabetic issues. ECOG Performance Status: None KPS: None PHYSICAL EXAMINATION: VITALS: GENERAL: Awake, alert, oriented x3, no anxiety, dressed appropriately, appears of stated age. Ambulates without assistance. Speech pattern fluent. HEAD AND NECK: Oral cavity not examined because of mask. Nonicteric sclera LUNGS: Clear to auscultation. No rales or rhonchi. HEART: Regular rate and rhythm, S1-S2 noted no murmur. NECK: Symmetric. No thyroid nodule. NODES: No neck, supraclavicular, infraclavicular, or axillary adenopathy. ABDOMEN: Soft, nontender, nondistended. No hepatosplenomegaly, no suspicious mass. PROSTATE: SANAM not done. Recently done by his urologist, recorded above MUSCULOSKELETAL: No swelling. No calf tenderness. Motor strength 5/5 in upper and lower extremities with sensation intact to light touch. No spine or posterior chest wall tenderness. No dullness to percussion. SKIN: Without excessiv (more content not included)... Normal [facility] [facility] CR Ribs 4+ Views w/ PA Chest Bilateralon 04-12-2021 CR Ribs 4+ Views w/ PA Chest Bilateral Patient Name: MITUL MARTINEZ Diagnostic Radiology ACCESSION EXAM DATE/TIME PROCEDURE ORDERING PROVIDER [id number] 04/12/2021 13:56 EDT CR Ribs 4+ Views w/ PA ZUHAIR HARRIS Chest Bilateral CPT code 44873 Reason For Exam (CR Ribs 4+ Views w/ PA Chest Bilateral) Prostate cancer , recent abnormal bone scan , compare to bone scan Report BILATERAL RIBS AND CHEST CLINICAL INDICATION: Prostate cancer. TECHNIQUE: Three views were obtained COMPARISON: None. FINDINGS: The cardiac and mediastinal silhouettes are unremarkable. The lungs demonstrate no consolidation or area of atelectasis. The costophrenic angles are sharp. No pneumothorax is noted. No rib fracture or sclerotic/blastic lesion identified. Reverse right shoulder arthroplasty. IMPRESSION: 1. No acute cardiopulmonary disease. 2. No rib fracture or sclerotic/blastic lesion identified. Report Dictated on Final Dictating Physician: MD HICKEY JASON Signed Date and Time: 04/13/2021 10:58 am Signed by: MD HICKEY JASON Transcribed Date and Time: 04/13/2021 10:59 Normal [facility] NM Bone Imaging Whole Bodyon 04-11-2021 NM Bone Imaging Whole Body Patient Name: MITUL MARTINEZ Nuclear Medicine ACCESSION EXAM DATE/TIME PROCEDURE ORDERING PROVIDER [id number] 04/11/2021 13:14 EDT NM Bone Imaging Whole ZUHAIR HARRIS Body CPT code 81845 Reason For Exam (NM Bone Imaging Whole Body) Newly diagnosed high grade prostate cancer Report Indication: Prostate malignancy. The patient was injected with 22 mCi of tech 99m MDP, anterior and posterior whole body delayed images as well as spot delayed images over the skull, ribs and pelvis were obtained. No prior bone scans are available for comparison. There is a focal area of moderately intense radiotracer accumulation involving the lateral aspect of the approximate right seventh rib. This may be posttraumatic or metastatic in etiology. No other suspicious moderate or intense areas of radiotracer accumulation are visualized. There are mild and mild to moderately intense areas of radiotracer accumulation involving multiple levels of the spine (particularly at the lumbosacral junction), left shoulder, sternoclavicular joints, sacroiliac joints, hips, knees, ankles and feet. Given the appearance and intensity of uptake, these findings are probably degenerative in nature. Note is made of a right shoulder arthroplasty. Nonspecific mild to moderately intense radiotracer accumulation is identified along the bone/prosthetic interface. Impression: 1. Focal area of moderately intense radiotracer accumulation involving the approximate right seventh rib. This may be posttraumatic or metastatic in etiology. X-ray correlation would be helpful. 2. Probable degenerative changes of the spine and peripheral joints as described above. Report Dictated on Final Dictating Physician: DO DUTTON ANTHONY Signed Date and Time: 04/11/2021 1:47 pm Signed by: DO DUTTON ANTHONY Transcribed Date and Time: 04/11/2021 1:48 Normal [facility] MRI MP Pelvis w/ + w/o Contr zaki 02-02-2021 MRI MP Pelvis w/ + w/o Contrast Patient Name: MITUL MARTINEZ Magnetic Resonance Imaging ACCESSION EXAM DATE/TIME PROCEDURE ORDERING PROVIDER [id number] 02/02/2021 10:48 EDT MRI MP Pelvis w/ + w/o ZUHAIR HARRIS Contrast CPT code 39159 Reason For Exam (MRI MP Pelvis w/ + w/o Contrast) Elevated PSA Report EXAM TYPE: MRI MP Pelvis w/ + w/o Contrast EXAM DATE AND TIME: 02/02/2021 10:48 AM EDT INDICATION: 65 years Male with elevated PSA COMPARISON: None TECHNIQUE: Multiplanar MRI of the pelvic was obtained with multiparametric analysis. Imaging was performed before and following the IV administration of 11.5 mL Gadavist contrast without immediate complications. The study was also processed on the Fair value application. FINDINGS: Prostate: The prostate measures 4.7 x 3.8 x 4.1 cm in [id number], anterior-posterior and craniocaudal dimensions. Prostate volume of approximately 37 mL (based on post-processed gland segmentation using [employer] software). There is hypertrophy of the transition zone. Nodule #1 Location: Left posterior medial and lateral peripheral zone of the apex and extending into the posterior transition zone Size: 1.5 x 0.8 cm Appearance on ADC and diffusion-weighted images: Focal markedly hypointense on ADC and markedly hyperintense on high b-value DWI; >=1.5cm in greatest dimension. PI-RADS score: 5 Appearance on T2-weighted images: Circumscribed, homogenous moderate hypointense focus/mass >= 1.5 cm in greatest dimension. PI-RADS score: 5 Appearance on dynamic contrast-enhanced images: Focal enhancement, earlier than adjacent normal prostatic tissue. PI-RADS score: (+) Extracapsular extension: Tumor-capsule interface of greater than 1.0 cm suggesting extracapsular extension Total PI-RADS score: 5 Nodule #2 Location: Right posterior medial peripheral zone of the mid gland Size: 0.7 x 0.4 cm Appearance on ADC and diffusion-weighted images: Focal (discrete and different from background) hypointense on ADC. PI-RADS score: 3 Appearance on T2-weighted images: Circumscribed, homogenous moderate hypointense focus/mass confined to prostate and <1.5 cm in greatest dimension. PI-RADS score: 4 Appearance on dynamic contrast-enhanced images: No early enhancement. Magnetic Resonance Imaging Report PI-RADS score: (-) Extracapsular extension: No extracapsular extension Total PI-RADS score: 3 SEMINAL VESICLES: The seminal vesicles are unremarkable. PELVIC LYMPH NODES: No abnormally enlarged pelvic lymph nodes. There is a prominent but subcentimeter right external iliac node measuring 8 mm in short axis diameter. PERITONEUM: No free or loculated fluid collections in the pelvis. OTHER ORGANS: The urinary bladder appears normal. There is sigmoid diverticulosis. BONES: The visualized osseous structures are unremarkable. IMPRESSION: 1. PI-RADS 5 lesion in the left apex. This is broad-based along the capsule, concerning for extracapsular extension. 2. PI-RADS 3 lesion in the right mid gland. 3. Prostatomegaly and transition zone hypertrophy. 4. Prominent but subcentimeter right external iliac node, nonspecific and may be reactive. 5. Sigmoid diverticulosis. Prostate nodule descriptions are based on PI-RADS Version 2.1. Shima B, Rosengina AB, Faraz KAPADIA, et al. Prostate Imaging Reporting and Data System Version 2.1: 2019 Update of Prostate Imaging Reporting and Data System Version 2. Eur Urol. 2019;76(3):340-351. doi:[email or web address] [email or web address] Report Dictated on Final Dictated: 02/06/2021 3:50 pm Dictating Physician: MD LEMA NICHOLAS Signed Date and Time: 02/06/2021 4:03 pm Signed by: MD LEMA NICHOLAS Transcribed Date and Time: 02/06/2021 4:02 [facility] VL AAA SCREENINGon [id number] ACCESSION EXAM DATE/TIME PROCEDURE ORDERING PROVIDER [id number] 08/30/2020 08:20 EST VL Aorta Iliac Duplex MD KRISHNAMURTHY DARRELL Scr for Medicare LEROY CPT code 53316 Reason For Exam (VL Aorta Iliac Duplex Scr for Medicare) aaa screening Report RETROPERITONEAL ULTRASOUND - LIMITED TO AORTA: EXAM DATE AND TIME: 08/30/2020 8:20 AM EST INDICATION: 65 years Male with abdominal aortic aneurysm screening and history of smoking COMPARISON: None TECHNIQUE: Ultrasonographic evaluation of the aorta and iliac arteries, including color flow and spectral Doppler imaging. FINDINGS: No significant aortic calcified or noncalcified plaque is identified. Measurements: Upper aorta: 2.6 x 2.5 cm Mid aorta: 1.9 x 2.1 cm Lower aorta: 1.9 x 2.0 cm Right iliac: 1.1 x 1.2 cm Left iliac: 1.2 x 1.2 cm IMPRESSION: Ectatic aorta measuring up to 2.6 cm. Recommend follow-up imaging as below. Recommended interval for initial follow-up imaging of ectatic aortas and aneurysms: Lita et al. JACR. 2013 Diameter Imaging interval 2.5-2.9 cm 5 y 3.0-3.4 cm 3 y 3.5-3.9 cm 2 y 4.0-4.4 cm 1 y 4.5-4.9 cm 6 mo 5.0-5.5 cm 3-6 mo Report Dictated on Workstation: [id number] --- Final --- Dictating Physician: MD LEMA NICHOLAS Signed Date and Time: 08/30/2020 9:18 am Signed by: MD LEMA NICHOLAS Transcribed Date and Time: 08/30/2020 9:19 Cardiovascular ACCESSION EXAM DATE/TIME PROCEDURE [id number] 08/30/2020 08:20 EST VL Aorta Iliac Duplex Scr for Medicare CPT code 58655 Reason For Exam (VL Aorta Iliac Duplex Scr for Medicare) aaa screening Report RETROPERITONEAL ULTRASOUND - LIMITED TO AORTA: EXAM DATE AND TIME: 08/30/2020 8:20 AM EST INDICATION: 65 years Male with abdominal aortic aneurysm screening and history of smoking COMPARISON: None TECHNIQUE: Ultrasonographic evaluation of the aorta and iliac arteries, including color flow and spectral Doppler imaging. FINDINGS: No significant aortic calcified or noncalcified plaque is identified. Measurements: Upper aorta: 2.6 x 2.5 cm Mid aorta: 1.9 x 2.1 cm Lower aorta: 1.9 x 2.0 cm Right iliac: 1.1 x 1.2 cm Left iliac: 1.2 x 1.2 cm IMPRESSION: Ectatic aorta measuring up to 2.6 cm. Recommend follow-up imaging as below. Recommended interval for initial follow-up imaging of ectatic aortas and aneurysms: Lita et al. JACR. 2013 Diameter Imaging interval 2.5-2.9 cm 5 y 3.0-3.4 cm 3 y 3.5-3.9 cm 2 y 4.0-4.4 cm 1 y 4.5-4.9 cm 6 mo 5.0-5.5 cm 3-6 mo Report Dictated on Workstation: [id number] --- Final --- Dictating Physician: MD LEMA NICHOLAS Signed Date and Time: 08/30/2020 9:18 am Signed by: MD LEMA NICHOLAS Transcribed Date and Time: 08/30/2020 9:19 [facility] Work Phone: [facility], [facility] Incoming Cardiology Results From [employer] - 08/30/2020 9:19 AM EST [facility]: [id number] Ul[facility]ound ACCESSION EXAM DATE/TIME PROCEDURE ORDERING PROVIDER [id number] 08/30/2020 08:20 EST VL Aorta Iliac Duplex MD KRISHNAMURTHY DARRELL Scr for Medicare CHRISTIN CPT code 60356 Reason For Exam (VL Aorta Iliac Duplex Scr for Medicare) aaa screening Report RETROPERITONEAL ULTRASOUND - LIMITED TO AORTA: EXAM DATE AND TIME: 08/30/2020 8:20 AM EST INDICATION: 65 years Male with abdominal aortic aneurysm screening and history of smoking COMPARISON: None TECHNIQUE: Ultrasonographic evaluation of the aorta and iliac arteries, including color flow and spectral Doppler imaging. FINDINGS: No significant aortic calcified or noncalcified plaque is identified. Measurements: Upper aorta: 2.6 x 2.5 cm Mid aorta: 1.9 x 2.1 cm Lower aorta: 1.9 x 2.0 cm Right iliac: 1.1 x 1.2 cm Left iliac: 1.2 x 1.2 cm IMPRESSION: Ectatic aorta measuring up to 2.6 cm. Recommend follow-up imaging as below. Recommended interval for initial follow-up imaging of ectatic aortas and aneurysms: Lita et al. JACR. 2013 Diameter Imaging interval 2.5-2.9 cm 5 y 3.0-3.4 cm 3 y 3.5-3.9 cm 2 y 4.0-4.4 cm 1 y 4.5-4.9 cm 6 mo 5.0-5.5 cm 3-6 mo Report Dictated on Workstation: [id number] --- Final --- Dictating Physician: MD LEMA NICHOLAS Signed Date and Time: 08/30/2020 9:18 am Signed by: MD LEMA NICHOLAS Transcribed Date and Time: 08/30/2020 9:19 Cardiovascular ACCESSION EXAM DATE/TIME PROCEDURE [id number] 08/30/2020 08:20 EST VL Aorta Iliac Duplex Scr for Medicare CPT code 96452 Reason For Exam (VL Aorta Iliac Duplex Scr for Medicare) aaa screening Report RETROPERITONEAL ULTRASOUND - LIMITED TO AORTA: EXAM DATE AND TIME: 08/30/2020 8:20 AM EST INDICATION: 65 years Male with abdominal aortic aneurysm screening and history of smoking COMPARISON: None TECHNIQUE: Ultrasonographic evaluation of the aorta and iliac arteries, including color flow and spectral Doppler imaging. FINDINGS: No significant aortic calcified or noncalcified plaque is identified. Measurements: Upper aorta: 2.6 x 2.5 cm Mid aorta: 1.9 x 2.1 cm Lower aorta: 1.9 x 2.0 cm Right iliac: 1.1 x 1.2 cm Left iliac: 1.2 x 1.2 cm IMPRESSION: Ectatic aorta measuring up to 2.6 cm. Recommend follow-up imaging as below. Recommended interval for initial follow-up imaging of ectatic aortas and aneurysms: cecy [place]. JACR. 2013 Diameter Imaging interval 2.5-2.9 cm 5 y 3.0-3.4 cm 3 y 3.5-3.9 cm 2 y 4.0-4.4 cm 1 y 4.5-4.9 cm 6 mo 5.0-5.5 cm 3-6 mo Report Dictated on Workstation: [id number] --- Final --- Dictating Physician: MD LEMA NICHOLAS Signed Date and Time: 08/30/2020 9:18 am Signed by: MD LEMA NICHOLAS Transcribed Date and Time: 08/30/2020 9:19 [facility] Work Phone: VL Aorta Iliac Duplex Scr fo r Medicareon 08-30-2020 VL Aorta Iliac Duplex Scr for Medicare [facility]: [id number] Ul[facility]ound ACCESSION EXAM DATE/TIME PROCEDURE ORDERING PROVIDER [id number] 08/30/2020 08:20 EST VL Aorta Iliac Duplex MD KRISHNAMURTHY DARRELL Scr for Medicare LEROY CPT code 59242 Reason For Exam (VL Aorta Iliac Duplex Scr for Medicare) aaa screening Report RETROPERITONEAL ULTRASOUND - LIMITED TO AORTA: EXAM DATE AND TIME: 08/30/2020 8:20 AM EST INDICATION: 65 years Male with abdominal aortic aneurysm screening and history of smoking COMPARISON: None TECHNIQUE: Ultrasonographic evaluation of the aorta and iliac arteries, including color flow and spectral Doppler imaging. FINDINGS: No significant aortic calcified or noncalcified plaque is identified. Measurements: Upper aorta: 2.6 x 2.5 cm Mid aorta: 1.9 x 2.1 cm Lower aorta: 1.9 x 2.0 cm Right iliac: 1.1 x 1.2 cm Left iliac: 1.2 x 1.2 cm IMPRESSION: Ectatic aorta measuring up to 2.6 cm. Recommend follow-up imaging as below. Recommended interval for initial follow-up imaging of ectatic aortas and aneurysms: cecy [place]. JACR. 2013 Diameter Imaging interval 2.5-2.9 cm 5 y 3.0-3.4 cm 3 y 3.5-3.9 cm 2 y 4.0-4.4 cm 1 y 4.5-4.9 cm 6 mo 5.0-5.5 cm 3-6 mo Report Dictated on Workstation: [id number] Final Dictating Physician: MD LEMA NICHOLAS Signed Date and Time: 08/30/2020 9:18 am Signed by: MD LEMA NICHOLAS Transcribed Date and Time: 08/30/2020 9:19 Cardiovascular ACCESSION EXAM DATE/TIME PROCEDURE [id number] 08/30/2020 08:20 EST VL Aorta Iliac Duplex Scr for Medicare CPT code 09928 Reason For Exam (VL Aorta Iliac Duplex Scr for Medicare) aaa screening Report RETROPERITONEAL ULTRASOUND - LIMITED TO AORTA: EXAM DATE AND TIME: 08/30/2020 8:20 AM EST INDICATION: 65 years Male with abdominal aortic aneurysm screening and history of smoking COMPARISON: None TECHNIQUE: Ultrasonographic evaluation of the aorta and iliac arteries, including color flow and spectral Doppler imaging. FINDINGS: No significant aortic calcified or noncalcified plaque is identified. Measurements: Upper aorta: 2.6 x 2.5 cm Mid aorta: 1.9 x 2.1 cm Lower aorta: 1.9 x 2.0 cm Right iliac: 1.1 x 1.2 cm Left iliac: 1.2 x 1.2 cm IMPRESSION: Ectatic aorta measuring up to 2.6 cm. Recommend follow-up imaging as below. Recommended interval for initial follow-up imaging of ectatic aortas and aneurysms: Lita et al. JACR. 2013 Diameter Imaging interval 2.5-2.9 cm 5 y 3.0-3.4 cm 3 y 3.5-3.9 cm 2 y 4.0-4.4 cm 1 y 4.5-4.9 cm 6 mo 5.0-5.5 cm 3-6 mo Report Dictated on Workstation: [id number] Final Dictating Physician: MD LEMA NICHOLAS Signed Date and Time: 08/30/2020 9:18 am Signed by: MD LEMA NICHOLAS Transcribed Date and Time: 08/30/2020 9:19 [facility] 04-06-2019 [facility] HNO ID: [id number] Author: Lorri (Rt) Susana Chase Service: Radiology Author Type: [employer] Type: [facility] Filed: 04/06/2019 1:23 PM Note Text: Radiology Service Progress Note PATIENT NAME: Mitul Martinez DATE OF SERVICE: April 06, 2019 TIME: 1:23 PM PATIENT IDENTITY VERIFICATION COMPLETED USING TWO (2) METHODS: Name and Date of confirmed by patient verbally. PATIENT GENDER DATA: Male PATIENT RELEVANT IMPLANT DATA REVIEWED: Not Applicable RADIOLOGY DEPARTMENT: General X-ray: Exam(s) Completed: Chest X-Ray Rib X-Ray: Left PERIPHERAL IV DATA: Not applicable SIGNED BY: RT Joaquin April 06, 2019 1:23 PM [facility] XR RIB/CHST 3V AP RIB/OBL/CH ST Lino 04-06-2019 XR RIB/CHST 3V AP RIB/OBL/CHST L * * *Final Report* * * DATE OF EXAM: Apr 06 2019 1:21PM MDX 5243 - XR RIB/CHST 3V AP RIB/OBL/CHST L / PROCEDURE REASON: multiple diagnoses * * * * Physician Interpretation * * * * EXAMINATION: FRONTAL CHEST X-RAY, AP AND OBLIQUE X-RAYS OF LEFT RIBS History: Fall, initial encounter Left-sided chest pain M: XC2 Comparison: None. RESULT: 1. Lines, Tubes, and Devices: N/A 2. Lungs and Pleura: Mild bibasilar atelectasis. No convincing consolidation. No pleural effusion or pneumothorax. 3. Cardiomediastinal silhouette: Within normal limits. 4. Bones: No acute osseous abnormality. - - IMPRESSION: NO ACUTE RADIOGRAPHIC ABNORMALITY OR RIB FRACTURE. Cloth Drier: PSCB Transcribe Date/Time: Apr 06 2019 1:25P Dictated by : JOHANNA SALEH MD This examination was interpreted and the report reviewed and electronically signed by: JOHANNA SALEH MD on Apr 06 2019 1:28PM EST [id number] [facility] Vital Signs Date Time Vital Sign Value Performing Clinician Facility 03-17-2025 10:44-0400 Body mass index (BMI) [Ratio] 40.76 kg/m2 Chris Bridenthal [employer] Work Phone: [facility] 03-17-2025 10:44-0400 Body temperature 98.6 [degF] Chris Bridenthal [employer] Work Phone: [facility] 03-17-2025 10:44-0400 Body weight 125.19 kg Chris Bridenthal [employer] Work Phone: [facility] 03-17-2025 10:44-0400 Diastolic blood pressure 84 mm[Hg] Chris Bridenthal [employer] Work Phone: [facility] 03-17-2025 10:44-0400 Heart rate 91 /min Chris Bridenthal [employer] Work Phone: [facility] 03-17-2025 10:44-0400 Respiratory rate 20 /min Chris Bridenthal [employer] Work Phone: [facility] 03-17-2025 10:44-0400 SaO2% (BldA) [Mass fraction] 94 % Chris Bridenthal [employer] Work Phone: [facility] 03-17-2025 10:44-0400 Systolic blood pressure 128 mm[Hg] Chris Bridenthal [employer] Work Phone: [facility] 11-11-2024 08:45-0400 Body height 177.[address] Colton Krishnamurthy MD Work Phone: [facility] 11-11-2024 08:45-0400 Body mass index (BMI) [Ratio] 39.3 kg/m2 Dr. Colton Krishnamurthy MD Work Phone: [facility] 11-11-2024 08:45-0400 Body weight 124.[address] Colton Krishnamurthy MD Work Phone: [facility] 11-11-2024 08:45-0400 Diastolic blood pressure 84 mm[Hg] Dr. Colton Krishnamurthy MD Work Phone: [facility] 11-11-2024 08:45-0400 Heart rate 80 /min Dr. Colton Krishnamurthy MD Work Phone: [facility] 11-11-2024 08:45-0400 Respiratory rate 18 /min Dr. Colton Krishnamurthy MD Work Phone: [facility] 11-11-2024 08:45-0400 SaO2% (BldA) [Mass fraction] 96 % Dr. Colton Krishnamurthy MD Work Phone: [facility] 11-11-2024 08:45-0400 Systolic blood pressure 138 mm[Hg] Dr. Colton Krishnamurthy MD Work Phone: [facility] 09-22-2024 14:25-0400 Body height 175.3 cm Colton Krishnamurthy MD Work Phone: [facility] 09-22-2024 14:25-0400 Body mass index (BMI) [Ratio] 41.35 kg/m2 Colton Krishnamurthy MD Work Phone: [facility] 09-22-2024 14:25-0400 Body weight 127.01 kg Colton Krishnamurthy MD Work Phone: [facility] 09-22-2024 14:25-0400 Diastolic blood pressure 82 mm[Hg] Colton Krishnamurthy MD Work Phone: [facility] 09-22-2024 14:25-0400 Heart rate 73 /min Colton Krishnamurthy MD Work Phone: [facility] 09-22-2024 14:25-0400 SaO2% (BldA) [Mass fraction] 95 % Colton Krishnamurthy MD Work Phone: [facility] 09-22-2024 14:25-0400 Systolic blood pressure 124 mm[Hg] Colton Krishnamurthy MD Work Phone: [facility] 09-11-2024 07:47-0400 Body mass index (BMI) [Ratio] 40.3 kg/m2 Dr. Colton Krishnamurthy MD Work Phone: [facility] 09-11-2024 07:47-0400 Body weight 127.[address] Colton Krishnamurthy MD Work Phone: [facility] 09-11-2024 07:47-0400 Diastolic blood pressure 81 mm[Hg] Dr. Colton Krishnamurthy MD Work Phone: [facility] 09-11-2024 07:47-0400 Heart rate 87 /min Dr. Colton Krishnamurthy MD Work Phone: [facility] 09-11-2024 07:47-0400 Respiratory rate 20 /min Dr. Colton Krishnamurthy MD Work Phone: [facility] 09-11-2024 07:47-0400 SaO2% (BldA) [Mass fraction] 96 % Dr. Colton Krishnamurthy MD Work Phone: [facility] 09-11-2024 07:47-0400 Systolic blood pressure 126 mm[Hg] Dr. Colton Krishnamurthy MD Work Phone: [facility] 09-10-2024 09:25-0400 Body mass index (BMI) [Ratio] 41.2 kg/m2 Colton Krishnamurthy MD Work Phone: [facility] 09-10-2024 09:25-0400 Body weight 126.55 kg Colton Krishnamurthy MD Work Phone: [facility] 09-10-2024 09:25-0400 Diastolic blood pressure 77 mm[Hg] Colton Krishnamurthy MD Work Phone: [facility] 09-10-2024 09:25-0400 Heart rate 58 /min Colton Krishnamurthy MD Work Phone: [facility] 09-10-2024 09:25-0400 Respiratory rate 20 /min Colton Krishnamurthy MD Work Phone: [facility] 09-10-2024 09:25-0400 SaO2% (BldA) [Mass fraction] 98 % Colton Krishnamurthy MD Work Phone: [facility] 09-10-2024 09:25-0400 Systolic blood pressure 126 mm[Hg] Colton Krishnamurthy MD Work Phone: [facility] 09-02-2024 14:48-0400 Body temperature 98.6 [degF] Dr. Colton Krishnamurthy MD Work Phone: [facility] 09-02-2024 14:48-0400 Diastolic blood pressure 88 mm[Hg] Dr. Colton Krishnamurthy MD Work Phone: [facility] 09-02-2024 14:48-0400 Heart rate 99 /min Dr. Colton Krishnamurthy MD Work Phone: [facility] 09-02-2024 14:48-0400 Respiratory rate 17 /min Dr. Colton Krishnamurthy MD Work Phone: [facility] 09-02-2024 14:48-0400 SaO2% (BldA) [Mass fraction] 98 % Dr. Colton Krishnamurthy MD Work Phone: [facility] 09-02-2024 14:48-0400 Systolic blood pressure 140 mm[Hg] Dr. Colton Krishnamurthy MD Work Phone: [facility] 09-02-2024 05:18-0400 Body mass index (BMI) [Ratio] 40.8 kg/m2 Dr. Colton Krishnamurthy MD Work Phone: [facility] 09-02-2024 05:18-0400 Body weight [address] Colton Krishnamurthy MD Work Phone: [facility] 08-31-2024 23:33-0400 Body height 177.[address] Colton Krishnamurthy MD Work Phone: [facility] 08-31-2024 22:29-0400 Body temperature 97.8 [degF] Dr. Colton Krishnamurthy MD Work Phone: [facility] 08-31-2024 22:29-0400 Diastolic blood pressure 84 mm[Hg] Dr. Colton Krishnamurthy MD Work Phone: [facility] 08-31-2024 22:29-0400 Heart rate 92 /min Dr. Colton Krishnamurthy MD Work Phone: [facility] 08-31-2024 22:29-0400 Respiratory rate 17 /min Dr. Colton Krishnamurthy MD Work Phone: [facility] 08-31-2024 22:29-0400 SaO2% (BldA) [Mass fraction] 94 % Dr. Colton Krishnamurthy MD Work Phone: [facility] 08-31-2024 22:29-0400 Systolic blood pressure 128 mm[Hg] Dr. Colton Krishnamurthy MD Work Phone: [facility] 08-31-2024 18:25-0400 Body height 177.[address] Colton Krishnamurthy MD Work Phone: [facility] 08-31-2024 18:25-0400 Body mass index (BMI) [Ratio] 40.1 kg/m2 Dr. Colton Krishnamurthy MD Work Phone: [facility] 08-31-2024 18:25-0400 Body weight 127.[address] Colton Krishnamurthy MD Work Phone: [facility] 06-10-2024 13:06-0500 Body height 175.3 cm Colton Krishnamurthy MD Work Phone: [facility] 06-10-2024 13:06-0500 Body mass index (BMI) [Ratio] 42.12 kg/m2 Colton Krishnamurthy MD Work Phone: [facility] 06-10-2024 13:06-0500 Body temperature 99 [degF] Colton Krishnamurthy MD Work Phone: [facility] 06-10-2024 13:06-0500 Body weight 129.37 kg Colton Krishnamurthy MD Work Phone: [facility] 06-10-2024 13:06-0500 Diastolic blood pressure 95 mm[Hg] Colton Krishnamurthy MD Work Phone: [employer] 06-10-2024 13:06-0500 Heart rate 93 /min Colton Krishnamurthy MD Work Phone: [facility] 06-10-2024 13:06-0500 SaO2% (BldA) [Mass fraction] 95 % Colton Krishnamurthy MD Work Phone: [facility] 06-10-2024 13:06-0500 Systolic blood pressure 161 mm[Hg] Colton Krishnamurthy MD Work Phone: [facility] 05-07-2024 09:11-0500 Body height 175.3 cm Irma Johnson MD Work Phone: [facility] 05-07-2024 09:11-0500 Body mass index (BMI) [Ratio] 40.46 kg/m2 Irma Johnson MD Work Phone: [facility] 05-07-2024 09:11-0500 Body weight 124.29 kg Irma Johnson MD Work Phone: [facility] 03-19-2024 08:09-0400 Diastolic blood pressure 89 mm[Hg] Colton Krishnamurthy MD Work Phone: [facility] 03-19-2024 08:09-0400 Heart rate 75 /min Colton Krishnamurthy MD Work Phone: [facility] 03-19-2024 08:09-0400 Systolic blood pressure 145 mm[Hg] Colton Krishnamurthy MD Work Phone: [employer] [facility] 03-19-2024 07:49-0400 Body height 175.3 cm Colton Krishnamurthy MD Work Phone: [employer] [facility] 03-19-2024 07:49-0400 Body mass index (BMI) [Ratio] 40.02 kg/m2 Colton Krishnamurthy MD Work Phone: [employer] 03-19-2024 07:49-0400 Body weight 122.92 kg Colton Krishnamurthy MD Work Phone: [facility] 03-19-2024 07:49-0400 SaO2% (BldA) [Mass fraction] 95 % Colton Krishnamurthy MD Work Phone: [facility] 02-06-2024 09:14-0400 Body height 175.3 cm Irma Johnson MD Work Phone: [facility] 02-06-2024 09:14-0400 Body mass index (BMI) [Ratio] 38.4 kg/m2 Irma Johnson MD Work Phone: [facility] 02-06-2024 09:14-0400 Body weight 117.94 kg Irma Johnson MD Work Phone: [facility] 02-06-2024 09:14-0400 Diastolic blood pressure 84 mm[Hg] Irma Johnson MD Work Phone: [facility] 02-06-2024 09:14-0400 Heart rate 71 /min Irma Johnson MD Work Phone: [facility] 02-06-2024 09:14-0400 Systolic blood pressure 159 mm[Hg] Irma Johnson MD Work Phone: [facility] 01-29-2024 09:00-0400 Diastolic blood pressure 99 mm[Hg] Irma Johnson MD Work Phone: [facility] 01-29-2024 09:00-0400 Heart rate 81 /min Irma Johnson MD Work Phone: [facility] 01-29-2024 09:00-0400 Respiratory rate 16 /min Irma Johnson MD Work Phone: [facility] 01-29-2024 09:00-0400 SaO2% (BldA) [Mass fraction] 98 % Irma Johnson MD Work Phone: [facility] 01-29-2024 09:00-0400 Systolic blood pressure 141 mm[Hg] Irma Johnson MD Work Phone: [facility] 01-29-2024 08:23-0400 Body temperature 97 [degF] Irma Johnson MD Work Phone: [facility] 01-29-2024 06:03-0400 Body height 175.3 cm Irma Johnson MD Work Phone: [facility] 01-29-2024 06:03-0400 Body mass index (BMI) [Ratio] 38.4 kg/m2 Irma Johnson MD Work Phone: [facility] 01-29-2024 06:03-0400 Body weight 117.94 kg Irma Johnson MD Work Phone: [facility] 01-14-2024 08:43-0400 Body height 177.8 cm Irma Johnson MD Work Phone: [facility] 01-14-2024 08:43-0400 Body mass index (BMI) [Ratio] 37.88 kg/m2 Irma Johnson MD Work Phone: [facility] 01-14-2024 08:43-0400 Body weight 119.75 kg Irma Johnson MD Work Phone: [facility] 01-14-2024 08:43-0400 Diastolic blood pressure 96 mm[Hg] Irma Johnson MD Work Phone: [facility] 01-14-2024 08:43-0400 Heart rate 72 /min Irma Johnson MD Work Phone: [facility] 01-14-2024 08:43-0400 Systolic blood pressure 147 mm[Hg] Irma Johnson MD Work Phone: [facility] 01-02-2024 09:20-0400 Body height 177.8 cm Chris Li APRN [employer] Work Phone: [facility] 01-02-2024 09:20-0400 Body mass index (BMI) [Ratio] 38.4 kg/m2 Chris Malloy ROO[employer] DESIGNER Work Phone: [facility] 01-02-2024 09:20-0400 Body weight 121.38 kg Chris Li [employer] Work Phone: [facility] 01-02-2024 09:20-0400 Diastolic blood pressure 81 mm[Hg] Chris Li GLOBE M[employer]TER [employer] Work Phone: [facility] 01-02-2024 09:20-0400 Heart rate 81 /min Chris Li [employer] Work Phone: [facility] 01-02-2024 09:20-0400 Respiratory rate 16 /min Chrismorris Li [employer] Work Phone: [facility] 01-02-2024 09:20-0400 SaO2% (BldA) [Mass fraction] 99 % Chris Li [employer] Work Phone: [facility] Comment on above: 01-02-2024 09:20-0400 Systolic blood pressure 149 mm[Hg] Chris iL [employer] Work Phone: [facility] 11-13-2023 09:19-0400 Body height 177.8 cm Chris Li [employer] Work Phone: [facility] 11-13-2023 09:19-0400 Body mass index (BMI) [Ratio] 39.09 kg/m2 Chris Li [employer] Work Phone: [facility] 11-13-2023 09:19-0400 Body weight 123.56 kg Chris Li [employer] Work Phone: [facility] 11-13-2023 09:19-0400 Diastolic blood pressure 89 mm[Hg] Chris Li [employer] Work Phone: [facility] 11-13-2023 09:19-0400 Heart rate 70 /min Chris Li [employer] Work Phone: [facility] 11-13-2023 09:19-0400 Respiratory rate 18 /min Chris Li [employer] Work Phone: [facility] 11-13-2023 09:19-0400 SaO2% (BldA) [Mass fraction] 97 % Chris Li GLOBE MOUNTER - [employer] Work Phone: [facility] Comment on above: ra 11-13-2023 09:19-0400 Systolic blood pressure 136 mm[Hg] Chris Li APRN - [employer]OO[employer] DESIGN[employer] Work Phone: [facility] 10-17-2023 13:53-0400 Diastolic blood pressure 86 mm[Hg] Colton Krishnamurthy MD Work Phone: [facility] 10-17-2023 13:53-0400 Systolic blood pressure 126 mm[Hg] Colton Krishnamurthy MD Work Phone: [facility] 10-17-2023 13:24-0400 Body height 177.8 cm Colton Krishnamurthy MD Work Phone: [facility] 10-17-2023 13:24-0400 Body mass index (BMI) [Ratio] 38.31 kg/m2 Colton Krishnamurthy MD Work Phone: [facility] 10-17-2023 13:24-0400 Body weight 121.11 kg Colton Krishnamurthy MD Work Phone: [facility] 10-17-2023 13:24-0400 Heart rate 80 /min Colton Krishnamurthy MD Work Phone: [facility] 10-17-2023 13:24-0400 SaO2% (BldA) [Mass fraction] 97 % Colton Krishnamurthy MD Work Phone: [facility] 09-04-2023 08:46-0400 Diastolic blood pressure 88 mm[Hg] Colton Krishnamurthy MD Work Phone: [facility] 09-04-2023 08:46-0400 Heart rate 78 /min Colton Krishnamurthy MD Work Phone: [facility] 09-04-2023 08:46-0400 Systolic blood pressure 136 mm[Hg] Colton Krishnamurthy MD Work Phone: [facility] 09-04-2023 07:52-0400 Body height 177.8 cm Colton Krishnamurthy MD Work Phone: [employer] 09-04-2023 07:52-0400 Body mass index (BMI) [Ratio] 39.83 kg/m2 Colton Krishnamurthy MD Work Phone: [employer] 09-04-2023 07:52-0400 Body weight 125.92 kg Colton Krishnamurthy MD Work Phone: [facility] 09-04-2023 07:52-0400 SaO2% (BldA) [Mass fraction] 94 % Colton Krishnamurthy MD Work Phone: [facility] 07-30-2023 09:12-0500 Body height 177.8 cm Chris Li [employer] Work Phone: [facility] 07-30-2023 09:12-0500 Body mass index (BMI) [Ratio] 40.95 kg/m2 Chris Li [employer] Work Phone: [employer] 07-30-2023 09:12-0500 Body weight 129.46 kg Chris Li [employer] Work Phone: [facility] 07-30-2023 09:12-0500 Diastolic blood pressure 84 mm[Hg] Chris Li [employer] Work Phone: [facility] 07-30-2023 09:12-0500 Heart rate 92 /min Chris Li [employer] Work Phone: [facility] 07-30-2023 09:12-0500 Respiratory rate 18 /min Chris Li [employer] Work Phone: [facility] 07-30-2023 09:12-0500 SaO2% (BldA) [Mass fraction] 94 % Chris Li [employer] Work Phone: [facility] Comment on above: 07-30-2023 09:12-0500 Systolic blood pressure 130 mm[Hg] Chris Guillermo GLOBE MOUNTER - [employer] Work Phone: [facility] 07-09-2023 11:18-0500 Body height 177.8 cm Austen Mcneal MD Work Phone: [facility] 07-09-2023 11:18-0500 Body mass index (BMI) [Ratio] 41.09 kg/m2 Austen Mcneal MD Work Phone: [facility] 07-09-2023 11:18-0500 Body weight 129.91 kg Austen Mcneal MD Work Phone: [facility] 07-09-2023 11:18-0500 Diastolic blood pressure 86 mm[Hg] Austen Mcneal MD Work Phone: [facility] 07-09-2023 11:18-0500 Heart rate 109 /min Austen Mcneal MD Work Phone: [facility] 07-09-2023 11:18-0500 Respiratory rate 16 /min Austen Mcneal MD Work Phone: [facility] 07-09-2023 11:18-0500 SaO2% (BldA) [Mass fraction] 96 % Austen Mcneal MD Work Phone: [facility] Comment on above: 07-09-2023 11:18-0500 Systolic blood pressure 136 mm[Hg] Austen Mcneal MD Work Phone: [facility] 01-28-2023 10:14-0400 Body mass index (BMI) [Ratio] 39.06 kg/m2 Chris Bridenthal GLOBE MOUNTER - [employer] Work Phone: [facility] 01-28-2023 10:14-0400 Body temperature 98.91 [degF] Chris Bridenthal GLOBE MOUNTER - [employer] Work Phone: [facility] 01-28-2023 10:14-0400 Body weight 123.47 kg Chris Arpitenthal GLOBE MOUNTER - [employer] Work Phone: [facility] 01-28-2023 10:14-0400 Diastolic blood pressure 74 mm[Hg] Chris Bridenthal GLOBE MOUNTER - [employer] Work Phone: [facility] 01-28-2023 10:14-0400 Heart rate 102 /min Chris Bridenthal GLOBE MOUNTER - [employer] Work Phone: [facility] 01-28-2023 10:14-0400 Respiratory rate 24 /min Chris Bridenthal GLOBE MOUNTER - [employer] Work Phone: [facility] 01-28-2023 10:14-0400 SaO2% (BldA) [Mass fraction] 94 % Chris Bridenthal GLOBE MOUNTER - [employer] Work Phone: [facility] 01-28-2023 10:14-0400 Systolic blood pressure 118 mm[Hg] Chris Bridenthal GLOBE MOUNTER - [employer] Work Phone: [facility] 01-08-2023 08:44-0400 Body mass index (BMI) [Ratio] 39.93 kg/m2 Chris Bridenthal GLOBE MOUNTER - [employer] Work Phone: [facility] 01-08-2023 08:44-0400 Body temperature 97.81 [degF] Chris Bridenthal GLOBE MOUNTER - [employer] Work Phone: [facility] 01-08-2023 08:44-0400 Body weight 126.24 kg Chris Bridenthal GLOBE MOUNTER - [employer] Work Phone: [facility] 01-08-2023 08:44-0400 Diastolic blood pressure 79 mm[Hg] Chris Bridenthal GLOBE MOUNTER - [employer] Work Phone: [facility] 01-08-2023 08:44-0400 Heart rate 74 /min Chris Bridenthal GLOBE MOUNTER - [employer] Work Phone: [facility] 01-08-2023 08:44-0400 Respiratory rate 20 /min Chris Bridenthal GLOBE MOUNTER - [employer] Work Phone: [facility] 01-08-2023 08:44-0400 SaO2% (BldA) [Mass fraction] 97 % Chris Yanceyal GLOBE MOUNTER - [employer] Work Phone: [facility] 01-08-2023 08:44-0400 Systolic blood pressure 139 mm[Hg] Chris Yanceyal GLOBE MOUNTER - [employer] Work Phone: [facility] 08-30-2022 08:38-0500 Diastolic blood pressure 97 mm[Hg] Colton Krishnamurthy MD Work Phone: [facility] 08-30-2022 08:38-0500 Heart rate 86 /min Colton Krishnamurthy MD Work Phone: [facility] 08-30-2022 08:38-0500 Systolic blood pressure 168 mm[Hg] Colton Krishnamurthy MD Work Phone: [facility] 08-30-2022 08:02-0500 Body height 177.8 cm Colton Krishnamurthy MD Work Phone: [facility] 08-30-2022 08:02-0500 Body mass index (BMI) [Ratio] 39.63 kg/m2 Colton Krishnamurthy MD Work Phone: [facility] 08-30-2022 08:02-0500 Body weight 125.28 kg Colton Krishnamurthy MD Work Phone: [facility] 07-05-2022 10:05-0500 Body height 177.8 cm Crystal Meranto GLOBE M[employer]TER - [employer] Work Phone: [facility] 07-05-2022 10:05-0500 Body mass index (BMI) [Ratio] 38.88 kg/m2 Crystal Meranto GLOBE M[employer]TER - [employer] Work Phone: [facility] 07-05-2022 10:05-0500 Body temperature 97.2 [degF] Crystal Meranto G[employer] M[employer]TER - [employer] Work Phone: [facility] 07-05-2022 10:05-0500 Body weight 122.92 kg Crystal Meranto G[employer] M[employer]TER - [employer] Work Phone: [facility] 07-05-2022 10:05-0500 Diastolic blood pressure 88 mm[Hg] Kiah Martini GLOBE MOUNTER - [employer] Work Phone: [facility] 07-05-2022 10:05-0500 Heart rate 98 /min Kiah Martini GLOBE M[employer]TER - [employer] Work Phone: [facility] 07-05-2022 10:05-0500 SaO2% (BldA) [Mass fraction] 100 % Kiah Martini GLOBE MOUNTER - [employer] Work Phone: [facility] 07-05-2022 10:05-0500 Systolic blood pressure 158 mm[Hg] Kiah Martini GLOBE MOUNTER - [employer] Work Phone: [facility] 05-08-2021 13:41-0500 Diastolic blood pressure 94 mm[Hg] Zuhair Harris MD Work Phone: [facility] 05-08-2021 13:41-0500 Heart rate 66 /min Zuhair Harris MD Work Phone: [facility] 05-08-2021 13:41-0500 Systolic blood pressure 154 mm[Hg] Zuhair Harris MD Work Phone: [facility] 05-08-2021 13:12-0500 Body temperature 97.3 [degF] Zuhair Harris MD Work Phone: [facility] 05-08-2021 13:12-0500 SaO2% (BldA) [Mass fraction] 97 % Zuhair Harris MD Work Phone: [facility] 05-08-2021 13:00-0500 Body height 177.8 cm Zuhair Harris MD Work Phone: [facility] 05-08-2021 13:00-0500 Body mass index (BMI) [Ratio] 38.02 kg/m2 Zuhair Harris MD Work Phone: [facility] 05-08-2021 13:00-0500 Body weight 120.2 kg Zuhair Harris MD Work Phone: [facility] Encounters Encounter Date Encounter Type Care Provider Facility Start: 03-17-2025 End: 03-17-2025 Office outpatient visit 25 minutes Chris Antoine G[employer] M[employer]TER - [employer] Work Phone: [facility] Comment on above: Chronic midline low back pain without sciatica (Primary Dx); 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 Graham Carr MD -[facility] Work Phone: Start: 11-11-2024 End: 11-11-[address] Colton Krishnamurthy MD Work Phone: [facility] Work Phone: Start: 10-16-2024 End: 10-16-2024 Patient encounter procedure Ghassan Gallardo PA -Laboratory Work Phone: Start: 10-16-2024 End: 10-16-2024 ambulatory Ghassan Gallardo Facility:[facility] Start: 09-22-2024 End: 09-22-2024 ambulatory COLTON KRISHNAMURTHY [facility] Start: 09-22-2024 End: 09-22-2024 Patient encounter procedure Colton Krishnamurthy MD Work Phone: [facility] Comment on above: Bilateral primary os teoarthritis of knee (Primary Dx) Start: 09-11-2024 End: 09-11-2024 Patient encounter procedure Ghassan WOOD -[facility] Work Phone: Start: 09-11-2024 End: 09-11-2024 ambulatory Ghassandaksha Gallardo Facility:[facility] [place] [place] Start: 09-10-2024 End: 09-10-2024 Assay of hemosiderin, howard Krishnamurthy MD Work Phone: [facility] Work Phone: Start: 09-10-2024 End: 09-10-2024 Patient encounter procedure Colton Krishnamurthy MD Work Phone: [facility] Comment on above: Routine general medi jeanie examination at health care facility (Primary Dx); Primary hypertension; Primary osteoarthritis involving multiple joints; Hyperglycemia; Pure hypercholesterolemia; 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 Mayra disla MD [facility] Work Phone: Start: 09-02-2024 Non-patient / Non-visit Dr. Eleanor Carr MD [facility] Start: 09-01-2024 Non-patient / Non-visit Dr. Mayra disla MD [facility] Work Phone: Start: 09-01-2024 ambulatory [facility] Facility :[facility] [place] [place] Start: 09-01-2024 Non-patient / Non-visit Dr. Sharon Chavez MD -[facility] Start: 09-01-2024 Non-patient / Non-visit Dr. Eleanor Carr MD [facility] Start: 08-31-2024 End: 09-02-2024 Evaluation and management of inpatient Dr. Mian Hutchison DO -Progressive Care Unit Work Phone: Start: 08-31-2024 End: 08-31-2024 [facility] Start: 08-31-2024 End: 08-31-2024 Patient encounter procedure Alondra Fregoso Clinical Communication Start: 08-18-2024 End: 08-18-2024 Telephone encounter Sky Maria MD Work Phone: [facility] [place] Start: 06-10-2024 End: 06-10-2024 Patient encounter procedure Amarilis Peña RN [facility] Clinical Communication Start: 06-10-2024 End: 06-10-2024 Office outpatient visit 15 minutes Colton Krishnamurthy MD Work Phone: [facility] Comment on above: Subacute cough (Prim chio Dx) Start: 06-10-2024 End: 06-10-2024 ambulatory Amarilis Peña RN [facility] Clinical Communication Start: 05-19-2024 End: 05-19-2024 Refill Colton Krishnamurthy MD Work Phone: [facility] Start: 05-07-2024 End: 05-07-2024 Office outpatient visit 10 minutes Irma Johnson MD Work Phone: [facility] [place] Comment on above: Postoperative follow -up (Primary Dx) Start: 05-07-2024 End: 05-07-2024 ambulatory [facility] Start: 03-19-2024 End: 03-19-2024 Office outpatient visit 25 minutes Colton Krishnamurthy MD Work Phone: [facility] Comment on above: Primary hypertension (Primary Dx); Benign non-nodular prostatic hyperplasia with lower urinary tract symptoms; Pure hypercholesterolemia; HUEY on CPAP Start: 03-19-2024 End: 03-19-2024 ambulatory [facility] Start: 02-06-2024 End: 02-06-2024 Postop follow up visit related to original px Irma Johnson MD Work Phone: [facility] Comment on above: Postoperative follow -up (Primary Dx) Start: 02-03-2024 End: 02-03-2024 Refill Chris Janene G[employer]TER - [employer] Work Phone: [facility] Start: 01-29-2024 End: 01-29-2024 Subsequent hospital visit by physician Irma Johnson MD Work Phone: [facility] Comment on above: Post-op pain (Primar y Dx) Start: 01-14-2024 End: 01-14-2024 Office outpatient new 45 minutes Irma Johnson MD Work Phone: [facility] Comment on above: Deviated nasal septu m (Primary Dx); HUEY (obstructive sleep apnea); Nasal congestion; Hypertrophy of both inferior nasal turbinates Start: 01-02-2024 End: 01-02-2024 Office outpatient visit 40 minutes Chris Li [employer] Work Phone: [facility] Comment on above: HUEY (obstructive sle ep apnea) (Primary Dx); Intolerance of continuous positive airway pressure (CPAP) ventilation; Nasal congestion Start: 11-13-2023 End: 11-13-2023 Office outpatient visit 25 minutes Chris Li [employer] Work Phone: [facility] Comment on above: HUEY (obstructive sle ep apnea) (Primary Dx); Primary hypertension; Obesity, morbid (HCC) Start: 10-17-2023 End: 10-17-2023 Office outpatient visit 10 minutes Colton Krishnamurthy MD Work Phone: [facility] Comment on above: HUEY on CPAP (Primary Dx); Persistent cough for 3 weeks or longer Start: 09-04-2023 End: 09-04-2023 Patient encounter procedure Colton Krishnamurthy MD Work Phone: [facility] Comment on above: Encounter for annual wellness exam in Medicare patient (Primary Dx); Daytime hypersomnia; Primary hypertension; Obesity, morbid (HCC); Mild episode of recurrent major depressive disorder (HCC); Pure hypercholesterolemia; Prostate cancer (HCC); Screening for diabetes mellitus Start: 09-03-2023 Telephone encounter Lana Sharif RN [facility] Comment on above: Cpap Start: 08-26-2023 Telephone encounter Chris Li [employer] Work Phone: [facility] Comment on above: Cpap Start: 08-24-2023 Refill Colton Krishnamurthy MD Work Phone: [facility] Start: 08-01-2023 End: 08-02-2023 ambulatory Chris Li [employer] - [employer] Work Phone: [facility] Comment on above: HUEY (obstructive sle ep apnea) Start: 07-30-2023 End: 07-30-2023 Office outpatient visit 40 minutes Chris Li GLOBE MOUNTER - ROOF DESIGNER Work Phone: [facility] Comment on above: HUEY (obstructive sle ep apnea) (Primary Dx); Primary hypertension; Obesity, morbid (HCC) Start: 07-26-2023 Telephone encounter Chris Li GLOBE MOUNTER - ROOF DESIGNER Work Phone: [facility] Start: 07-16-2023 End: 07-16-2023 ambulatory Austen Mcneal MD Work Phone: [facility] Comment on above: HUEY (obstructive sle ep apnea) Start: 07-09-2023 End: 07-09-2023 Office outpatient new 30 minutes Austen Mcneal MD Work Phone: [facility] Comment on above: HUEY (obstructive sle ep apnea) (Primary Dx); Obesity, morbid (HCC); Inadequate sleep hygiene; Primary hypertension Start: 05-21-2023 Refill Colton Krishnamurthy MD Work Phone: [facility] Start: 02-24-2023 Refill Colton Krishnamurthy MD Work Phone: [facility] Start: 01-28-2023 End: 01-28-2023 Office outpatient visit 25 minutes Chris Arpitenthal GLOBE MOUNTER - LOAN INTERVIEWER [employer] Work Phone: [facility] Comment on above: Anxiety (Primary Dx) Start: 01-08-2023 End: 01-08-2023 Office outpatient visit 25 minutes Chris Bridenthal GLOBE MOUNTER - LOAN INTERVIEWER [employer] Work Phone: [facility] Comment on above: Daytime hypersomnia (Primary Dx); Obesity, morbid (HCC); Hot flashes; Seasonal allergies Start: 08-30-2022 End: 08-30-2022 Patient encounter procedure Colton Krishnamurthy MD Work Phone: [facility] Comment on above: Medicare annual well ness visit, subsequent (Primary Dx); Primary hypertension; Functional diarrhea; Prostate cancer (CMS/HCC) (HCC); Pure hypercholesterolemia; Hyperglycemia Start: 07-05-2022 End: 07-05-2022 Office outpatient visit 15 minutes Kiah Martini GLOBE MOUNTER EXPO Work Phone: [facility] Comment on above: Diarrhea (Primary Dx ); History of partial colectomy; History of prostate cancer Start: 06-04-2022 End: 06-04-2022 Office outpatient new 45 minutes [employer] Luis Felipe Affashiongabrielle GLOBE MOUNTER EXPO Work Phone: [facility] Comment on above: Diarrhea (Primary Dx ) Start: 07-19-2021 End: 07-19-2021 Subsequent hospital visit by physician Ariel Fall MD Work Phone: [facility] Start: 07-18-2021 End: 07-18-2021 Subsequent hospital visit by physician Ariel Fall MD Work Phone: [facility] Start: 07-11-2021 End: 07-11-2021 Subsequent hospital visit by physician Ariel Fall MD Work Phone: [facility] Start: 06-29-2021 End: 06-29-2021 Subsequent hospital visit by physician Ariel Fall MD Work Phone: [facility] Start: 06-21-2021 End: 06-21-2021 Subsequent hospital visit by physician Ariel Fall MD Work Phone: [facility] Start: 06-08-2021 End: 06-08-2021 Subsequent hospital visit by physician Ariel Fall MD Work Phone: [facility] Start: 05-08-2021 End: 05-08-2021 Subsequent hospital visit by physician Zuhair Harris MD Work Phone: [facility] Pre-Admit Testing Comment on above: Arrived Start: 04-13-2021 End: 04-13-2021 Subsequent hospital visit by physician Ariel Fall MD Work Phone: [facility] Start: 04-12-2021 End: 04-12-2021 Subsequent hospital visit by physician Zuhair Harris MD Work Phone: [facility] Comment on above: Prostate cancer (HCC ) Start: 02-02-2021 End: 02-02-2021 Subsequent hospital visit by physician Zuhair Harris MD Work Phone: [facility] [address] MRI Comment on above: Elevated prostate sp ecific antigen (PSA); Elevated prostate specific antigen (PSA); Family history of malignant neoplasm of prostate Start: 08-30-2020 End: 08-30-2020 Subsequent hospital visit by physician Colton Krishnamurthy Work Phone: [facility] [employer] [facility] Comment on above: Encounter for screen ing for cardiovascular disorders; Encounter for abdominal aortic aneurysm (AAA) screening Start: 04-06-2019 End: 04-06-2019 ambulatory [facility] Procedures Date Procedure Procedure Detail Performing Clinician Start: 10-16-2024 Lipid 1996 panel - S pat or Plasma Colton Krishnamurthy MD Work Phone: Start: 09-10-2024 Lipid 1996 panel - S pat or Plasma Colton Krishnamurthy MD Work Phone: Start: 09-02-[address] Colton Krishnamurthy MD Work Phone: Start: 09-02-2024 Serum inorganic phos phate measurement Dr. Colton Krishnamurthy MD Work Phone: Start: 08-31-2024 CT angiography of ch est with contrast Dr. Colton Krishnamurthy MD Work Phone: Start: 08-31-2024 Plain chest X-ray Dr. Percy Krishnamurthy MD Work Phone: Start: 08-31-2024 D-dimer assay, quantitative Dr. Colton Krishnamurthy MD Work Phone: Comment on above: D-Dimer ELEVATED (>0 .49): Additional studies and clinicalassessments are indicated to conclude diagnosis of:Deep Vein Thrombosis (DVT) or Pulmonary Embolism (PE) Start: 10-03-2023 Lipid 1996 panel - S pat or Plasma Colton Krishnamurthy MD Work Phone: Start: 08-02-2023 SLEEP STUDY WITH PAP TITRATION Chris Li GLOBE MOUNTER - ROOF DESIGNER Work Phone: Start: 07-25-2023 HOME SLEEP TEST Austen Mcneal MD Work Phone: Start: 03-06-2023 Adult depression scr eening assessment Colton Krishnamurthy MD Work Phone: Start: 01-08-2023 Thyrotropin [Units/v olume] in Serum or Plasma Chris Bridenthal GLOBE MOUNTER - LOAN INTERVIEWER [employer] Work Phone: Start: 01-08-2023 Adult depression scr eening assessment Chris Bridenthal GLOBE MOUNTER - LOAN INTERVIEWER [employer] Work Phone: Start: 08-30-2022 Lipid 1996 panel - S pat or Plasma Chris Bridenthal GLOBE MOUNTER - LOAN INTERVIEWER [employer] Work Phone: Start: 03-01-2022 History of radiation therapy P ersonal history of radiation therapy Chris Bridenthal GLOBE MOUNTER - LOAN INTERVIEWER [employer] Work Phone: Start: 08-28-2021 Lipid 1996 panel - S pat or Plasma Crystal Meranto GLOBE MOUNTER - LOAN INTERVIEWER [employer] Work Phone: Start: 05-23-2021 [facility] Ariel Fall MD Work Phone: Start: 05-08-2021 Blood count complete automated Khushbu Lentz GLOBE MOUNTER - LOAN INTERVIEWER [employer] Work Phone: Start: 05-08-2021 Ecg routine ecg w/le ast 12 lds w/i&r Khushbu Lentz GLOBE MOUNTER - LOAN INTERVIEWER [employer] Work Phone: Start: 08-30-2020 Us abdominal aorta r eal time screen study aaa Colton Krishnamurthy Work Phone: Plan of Treatment Date Care Activity Detail Author Start: 10-16-2029 Lipid panel Lipid Panel [facility] Start: 09-10-2029 Lipid panel Lipid Panel [facility] Start: 10-02-2028 Lipid panel Lipid Panel [facility] Start: 08-31-2027 Lipid panel Lipid Panel [facility] Start: 04-11-2027 DTaP/Tdap/Td vaccine (3 - Td or Tdap) DTaP/Tdap/Td vaccine (3 - Td or Tdap) [facility] Start: 04-11-2027 DTaP/Tdap/Td vaccine (3 - Td) DTaP/Tdap/Td vaccine (3 - Td) [facility] Work Phone: Start: 04-11-2027 DTaP/Tdap/Td Vaccines (3 - Td or Tdap) DTaP/Tdap/Td Vaccines (3 - Td or Tdap) [facility] Start: 04-11-2027 DTaP/Tdap/Td Vaccines (4 - Td or Tdap) DTaP/Tdap/Td Vaccines (4 - Td or Tdap) [facility] Start: 08-28-2026 Lipid panel Lipid Panel [facility] Start: 03-02-2026 Lipid panel Lipid screen [facility] Start: 12-21-2025 Influenza vaccination Influenza Vaccine (#1) [facility] Comment on above: Postponed from 02/22/2025 (Patient Refus ed) Start: 09-14-2025 Depression Monitoring Depression Monitoring [facility] Start: 09-14-2025 End: 09-14-2025 Patient encounter procedure 09/14/2025 10:30 AM EDT Office Visit [place] [address] [place] [address] Colton Krishnamurthy MD [address] [facility] [place] [address] [facility] Start: 09-10-2025 Diabetes mellitus screening Diabetes Screening [facility] Start: 08-30-2025 Diabetes mellitus screening Diabetes Screening [facility] Start: 08-25-2025 Lipid panel Lipid screen [facility] Work Phone: Start: 03-18-2025 COVID-19 Vaccine () COVID-19 Vaccine () [facility] Comment on above: Postponed from 02/23/2024 (Patient Refus ed) Start: 03-18-2025 COVID-19 Vaccine () COVID-19 Vaccine () [facility] Comment on above: Postponed from 02/23/2024 (Patient Refus ed) Start: 03-18-2025 Hepatitis C screening Hepatitis C Screening [facility] Comment on above: Postponed from 1972 (Patient Refus ed) Start: 03-17-2025 End: 03-17-2025 Patient encounter procedure [facility] Start: 02-22-2025 COVID-19 Vaccine () COVID-19 Vaccine () [facility] Start: 02-22-2025 Influenza vaccination Influenza Vaccine (#1) [facility] Start: 09-22-2024 End: 09-22-2024 Patient encounter procedure 09/22/2024 2:15 PM EDT Office Visit [address] [address] Colton Krishnamurthy MD [address] [place] [address] [facility] Start: 09-22-2024 End: 09-22-2025 Large Joint Injection/Arthrocentesis Large Joint Injection/Arthrocentesis Procedures Routine Bilateral primary osteoarthritis of knee Expected: 09/22/2024 (Approximate), Expires: 09/22/2025 [facility] Work Phone: Comment on above: Expected: 09/22/2024 (Approximate), Expi res: 09/22/2025 Start: 09-15-2024 Depression Monitoring Depression Monitoring [facility] Start: 09-10-2024 End: 09-09-2025 Comprehensive metabolic 1998 panel - Serum or Plasma Comprehensive metabolic panel Lab Routine Hyperglycemia Expected: 09/10/2024 (Approximate), Expires: 09/09/2025 [facility] Work Phone: Comment on above: Expected: 09/10/2024 (Approximate), Expi res: 09/09/2025 Start: 09-10-2024 End: 09-10-2025 Hemoglobin A1c measurement Hemoglobin A1c Lab Routine Hyperglycemia Expected: 09/10/2024 (Approximate), Expires: 09/10/2025 [facility] Comment on above: Expected: 09/10/2024 (Approximate), Expi res: 09/10/2025 Start: 09-10-2024 End: 09-09-2025 Lipid 1996 panel - Serum or Plasma Lipid panel Lab Routine Pure hypercholesterolemia Expected: 09/10/2024 (Approximate), Expires: 09/09/2025 [facility] Comment on above: Expected: 09/10/2024 (Approximate), Expi res: 09/09/2025 Start: 09-10-2024 End: 09-09-2025 PSA screening PSA Screening Lab Routine Prostate cancer (HCC) Expected: 09/10/2024 (Approximate), Expires: 09/09/2025 [facility] Comment on above: Expected: 09/10/2024 (Approximate), Expi res: 09/09/2025 Start: 09-10-2024 End: 09-10-2024 Patient encounter procedure 09/10/2024 9:30 AM EDT Office Visit [address] [place] [address] [place] [address] Colton Krishnamurthy MD [address] [facility] [place] [address] [facility] Start: 09-07-2024 End: 09-07-2024 Patient encounter procedure [facility] Start: 09-04-2024 Electrocardiographic procedure [facility] Start: 09-03-2024 Electrocardiographic procedure [facility] Start: 09-02-2024 Patient referral [facility] Work Phone: Start: 09-02-2024 Patient discharge [facility] Start: 09-01-2024 [facility] Start: 09-01-2024 Cardiac monitoring [facility] Start: 09-01-2024 Cardiac rehabilitation - phase 1 [facility] Start: 09-01-2024 Cardiac rehabilitation - phase 2 [facility] Start: 09-01-2024 Patient discharge [facility] Start: 09-01-2024 Systemic arterial pressure monitoring [facility] Start: 09-01-2024 Vascular disease risk assessment [facility] Start: 09-01-2024 Vital signs measurements [facility] Start: 09-01-2024 End: 09-01-2024 [facility] Start: 09-01-2024 End: 09-01-2024 Notification of physician [facility] Start: 09-01-2024 Patient education [facility] Start: 09-01-2024 Provision of activity privileges [facility] Start: 09-01-2024 Pulse taking [facility] Start: 09-01-2024 End: 09-01-2024 Taking patient vital signs [facility] Start: 09-01-2024 Wound care [facility] Start: 09-01-2024 End: 09-01-2024 Admission to same day surgery center 09/01/2024 9:45 AM EDT - 09/01/2024 10:30 AM EDT Surgery [facility] Endoscopy [address] [place] [address] Sky Maria MD [address] [place] [address] COLONOSCOPY [93812 (CPT )] [facility] Comment on above: COLONOSCOPY [77187 (CPT )] Start: 09-01-2024 End: 09-01-2024 Colonoscopy flx dx w/collj spec when pfrmd COLONOSCOPY Encounter for screening for malignant neoplasm of colon 09/01/2024 9:45 AM EDT [facility] Gastroenterology Start: 09-01-2024 Subsequent hospital visit by physician 09/01/2024 9:45 AM EDT Hospital Encounter [facility] Endoscopy [address] [place] [address] Sky Maria MD [address] [place] [address] [facility]oscopy Start: 09-01-2024 Catheterization of vein [facility] Start: 09-01-2024 Medication not administered [facility] Start: 09-01-2024 Preoperative care [facility] Start: 09-01-2024 [facility] Start: 08-31-2024 Following clinical pathway protocol [facility] Start: 08-31-2024 Assessment of risk of venous thromboembolism [facility] Start: 08-31-2024 Incentive spirometry [facility] Start: 08-31-2024 Insertion of catheter into peripheral vein [facility] Start: 08-31-2024 Measuring intake and output [facility] Start: 08-31-2024 Oxygen therapy [facility] Start: 08-31-2024 Providing care according to standard [facility] Start: 08-31-2024 Provision of activity privileges [facility] Start: 08-31-2024 Referral to science technicians [facility] Start: 08-31-2024 Referral to occupational therapist [facility] Start: 08-31-2024 Referral to service [facility] Start: 08-31-2024 Tobacco use cessation education [facility] Start: 08-31-2024 [facility] Start: 08-31-2024 Electrocardiographic procedure [facility] Start: 08-31-2024 Thyroid stimulating hormone measurement [facility] Start: 08-31-2024 Admission procedure [facility] Start: 08-31-2024 Verification routine [facility] Start: 08-31-2024 Hospital admission, emergency, from emergency room, medical nature [facility] Start: 08-31-2024 End: 08-31-2024 [facility] Start: 06-24-2024 Medicare Advantage Annual Wellness Visit Medicare Advantage Annual Wellness Visit [facility] Start: 06-09-2024 Screening for malignant neoplasm of colon Colon cancer screen [facility] Start: 05-07-2024 End: 05-07-2024 Patient encounter procedure [facility] Start: 03-19-2024 End: 03-19-2024 Patient encounter procedure 03/19/2024 8:00 AM EDT Office Visit [facility] [address] [facility] [place] [address] Colton Krishnamurthy MD [address] [facility] [place] [address] [place] [address] [facility] Start: 03-06-2024 Depression Monitoring Depression Monitoring [facility] Start: 03-06-2024 Depression Screening Depression Screening [facility] Start: 03-06-2024 Depresssion Monitoring Depresssion Monitoring [facility] Start: 03-06-2024 Hepatitis C screening Hepatitis C Screening [facility] Comment on above: Postponed from 1972 (Patient Refus ed) Start: 02-23-2024 Influenza vaccination Influenza Vaccine (#1) [facility] Start: 02-06-2024 End: 02-06-2024 Patient encounter procedure 02/06/2024 9:15 AM EDT Office Visit [facility] [address] [place] [address] Irma Johnson MD [address] [facility] [address] [place], [place] [id number] [facility] Start: 01-29-2024 End: 01-29-2024 Admission to same day surgery center 01/29/2024 7:30 AM EDT - 01/29/2024 8:30 AM EDT Surgery [facility] OR [address] [place] [address] Irma Johnson MD [address] [facility] [address] [place] [id number] NASAL SEPTAL RECONSTRUCTION WITH BILATERAL INFERIOR TURBINATE REDUCTION [97931 (CPT )] [facility] Comment on above: NASAL SEPTAL RECONSTRUCTION WITH BILATER AL INFERIOR TURBINATE REDUCTION [97753 (CPT )] Start: 01-29-2024 End: 01-29-2024 Septoplasty/submucous resecj w/wo cartilage grf SEPTOPLASTY OR SUBMUCOUS RESECTION Deviated nasal septum Nasal congestion Hypertrophy of nasal turbinates 01/29/2024 7:30 AM EDT [facility] Operating Room Start: 01-29-2024 End: 01-29-2024 Submucous rescj inferior turbinate prtl/compl SUBMUCOUS RESECTION INFERIOR TURBINATE Deviated nasal septum Nasal congestion Hypertrophy of nasal turbinates 01/29/2024 7:30 AM EDT [facility] Operating Room Start: 01-29-2024 Subsequent hospital visit by physician 01/29/2024 7:30 AM EDT Hospital Encounter [facility] MAIN OR [address] [place] [address] Irma Johnson MD [address] [facility] [address] [place] [address] [facility] MAIN OR Start: 01-21-2024 End: 01-21-2024 Admission to establishment 01/21/2024 9:30 AM EDT Pre-Admission Testing [facility] Pre-Admit Testing [address] [place] [id number] [facility] Pre-Admit Testing Start: 01-09-2024 COVID-19 Vaccine (5 - Booster for Moderna series) COVID-19 Vaccine (5 - Booster for Moderna series) [facility] Comment on above: Postponed from 06/08/2022 (Patient Refus ed) Start: 01-09-2024 Depression Screening Depression Screening [facility] Start: 01-02-2024 End: 01-01-2025 Sleep study with pap titration Sleep study with pap titration Sleep Center Routine HUEY (obstructive sleep apnea) Intolerance of continuous positive airway pressure (CPAP) ventilation Expected: 01/02/2024 (Approximate), Expires: 01/01/2025 [facility] [employer] Work Phone: Comment on above: Expected: 01/02/2024 (Approximate), Expi res: 01/01/2025 Start: 01-02-2024 End: 01-02-2024 Patient encounter procedure 01/02/2024 9:20 AM EDT Office Visit [facility] [address] [place] [address] [address] [place] [address] Chris Li, GLOBE MOUNTER - ROOF DESIGNER [address] [facility] [address] [place] [address] [facility] Start: 11-13-2023 End: 11-13-2023 Patient encounter procedure 11/13/2023 9:20 AM EDT Office Visit [facility] [address] [facility] [address] [place] [address] Chris Li, GLOBE MOUNTER - ROOF DESIGNER [address] [facility] [address] [place] [address] [facility] Start: 09-30-2023 Medicare Advantage Annual Wellness Visit (AWV) Medicare Advantage Annual Wellness Visit (AWV) [facility] Start: 09-04-2023 End: 09-03-2024 Comprehensive metabolic 1998 panel - Serum or Plasma Comprehensive metabolic panel Lab Routine Screening for diabetes mellitus Expected: 09/04/2023 (Approximate), Expires: 09/03/2024 [facility] Comment on above: Expected: 09/04/2023 (Approximate), Expi res: 09/03/2024 Start: 09-04-2023 End: 09-03-2024 Lipid 1996 panel - Serum or Plasma Lipid panel Lab Routine Pure hypercholesterolemia Expected: 09/04/2023 (Approximate), Expires: 09/03/2024 [facility] Work Phone: Comment on above: Expected: 09/04/2023 (Approximate), Expi res: 09/03/2024 Start: 09-04-2023 End: 09-03-2024 PSA Total (Screening) PSA Total (Screening) Lab Routine Prostate cancer (HCC) Expected: 09/04/2023 (Approximate), Expires: 09/03/2024 [facility] Comment on above: Expected: 09/04/2023 (Approximate), Expi res: 09/03/2024 Start: 09-04-2023 End: 09-04-2023 Patient encounter procedure [facility] Start: 08-31-2023 Diabetes mellitus screening Diabetes Screening [facility] Start: 08-29-2023 End: 08-29-2023 Patient encounter procedure 08/29/2023 12:50 PM EST Office Visit [facility] [address] [facility] [address] [place] [address] Chris Li, GLOBE MOUNTER - ROOF DESIGNER [address] [facility] [address] [place] [address] [facility] Start: 08-11-2023 COVID-19 Vaccine () COVID-19 Vaccine () [facility] Start: 08-01-2023 End: 08-01-2023 Clinical Support 08/01/2023 8:30 PM EST Clinical Support [facility] [address] [place] [id number] Chris Li, GLOBE MOUNTER - ROOF DESIGNER [address] [facility] [address] [place] [address] [facility] Start: 07-30-2023 End: 07-30-2024 Sleep study with pap titration Sleep study with pap titration Sleep Center Routine HUEY (obstructive sleep apnea) Expected: 07/30/2023 (Approximate), Expires: 07/30/2024 [facility] Work Phone: Comment on above: Expected: 07/30/2023 (Approximate), Expi res: 07/30/2024 Start: 07-09-2023 End: 07-09-2024 Home sleep test Home sleep test Sleep Center Routine HUEY (obstructive sleep apnea) Expected: 07/09/2023 (Approximate), Expires: 07/09/2024 [facility] Work Phone: Comment on above: Expected: 07/09/2023 (Approximate), Expi res: 07/09/2024 Start: 06-24-2023 Medicare Advantage Annual Wellness Visit Medicare [facility] Annual Wellness Visit [facility] Start: 03-20-2023 End: 03-20-2023 Patient encounter procedure 03/20/2023 9:00 AM EDT Office Visit [facility] [address] [facility] [place] [address] Chris Antoine, GLOBE MOUNTER - LOAN INTERVIEWER [employer] [address] [place] [address] [facility] Start: 03-07-2023 End: 03-07-2023 Patient encounter procedure [facility] Start: 02-22-2023 COVID-19 Vaccine () COVID-19 Vaccine () [facility] Start: 02-22-2023 Influenza vaccination Influenza Vaccine (#1) [facility] Start: 01-08-2023 End: 01-09-2024 CBC W Auto Differential panel - Blood CBC auto differential Lab Routine Daytime hypersomnia Hot flashes Expected: 01/08/2023 (Approximate), Expires: 01/09/2024 [facility] [employer] Work Phone: Comment on above: Expected: 01/08/2023 (Approximate), Expi res: 01/09/2024 Start: 08-30-2022 End: 08-30-2023 Comprehensive metabolic 1998 panel - Serum or Plasma Comprehensive metabolic panel Lab Routine Hyperglycemia Expected: 08/30/2022 (Approximate), Expires: 08/30/2023 [facility] [employer] Comment on above: Expected: 08/30/2022 (Approximate), Expi res: 08/30/2023 Start: 08-30-2022 End: 08-30-2023 Hemoglobin A1c/Hemoglobin.total in Blood Hemoglobin A1c Lab Routine Hyperglycemia Expected: 08/30/2022 (Approximate), Expires: 08/30/2023 [facility] [employer] Comment on above: Expected: 08/30/2022 (Approximate), Expi res: 08/30/2023 Start: 08-30-2022 End: 08-30-2023 Lipid 1996 panel - Serum or Plasma Lipid panel Lab Routine Pure hypercholesterolemia Expected: 08/30/2022 (Approximate), Expires: 08/30/2023 [facility] [employer] Work Phone: Comment on above: Expected: 08/30/2022 (Approximate), Expi res: 08/30/2023 Start: 08-30-2022 End: 08-31-2023 PSA Diagnostic PSA Diagnostic Lab Routine Prostate cancer (CMS/HCC) (HCC) Expected: 08/30/2022 (Approximate), Expires: 08/31/2023 [facility] Comment on above: Expected: 08/30/2022 (Approximate), Expi res: 08/31/2023 Start: 08-30-2022 End: 08-30-2022 Patient encounter procedure 08/30/2022 Office Visit Family Medicine Colton Krishnamurthy MD [address] [place] [address], [place] [address] [facility] Start: 06-08-2022 COVID-19 Vaccine (5 - Booster for Moderna series) COVID-19 Vaccine (5 - Booster for Moderna series) [facility] Start: 03-02-2022 Creatinine measurement Creatinine monitoring [facility] Start: 03-02-2022 Potassium monitoring Potassium monitoring [facility] Start: 10-05-2021 End: 10-05-2021 Patient encounter procedure 10/05/2021 Office Visit Urology Kristine Cotton, JESENIA - [employer] [address] [address] [facility] [place] Start: 08-28-2021 End: 08-28-2021 Office Visit [facility] Start: 08-26-2021 Annual Wellness Visit (AWV) Annual Wellness Visit (AWV) [facility] Start: 08-25-2021 Creatinine measurement Creatinine monitoring [facility] Work Phone: Start: 08-25-2021 Potassium monitoring Potassium monitoring [facility] Work Phone: Start: 08-25-2021 Prostate specific antigen measurement PSA counseling [facility] Start: 08-24-2021 Depression Screen Depression Screen [facility] Start: 08-24-2021 Hepatitis C screening Hepatitis C screen [facility] Comment on above: Postponed from 1955 (Patient Refus ed) Start: 05-15-2021 Subsequent hospital visit by physician 05/15/2021 Hospital Encounter General Surgery Zuhair Harris MD [address] [place] [phone] [facility] General Surgery Start: 04-29-2021 COVID-19 Vaccine (3 - Booster for Moderna series) COVID-19 Vaccine (3 - Booster for Moderna series) [facility] Start: 04-19-2021 End: 04-19-2021 Patient encounter procedure 04/19/2021 Office Visit Urology Kristine Cotton, JESENIA - [employer] [address] [place] [address] [phone] [facility] [place] Start: 03-02-2021 End: 03-02-2021 Office Visit 03/02/2021 Office Visit Family Medicine Colton Krishnamurthy MD [address] [place] [address], [place] [address] [phone] [facility] Start: 02-22-2021 Influenza vaccination Flu vaccine (#1) [facility] Start: 02-17-2021 End: 02-17-2021 Patient encounter procedure 02/17/2021 Office Visit Urology Zuhair Harris MD [address] [place] [phone] [facility] [place] Start: 11-24-2020 COVID-19 Vaccine (3 - Moderna risk 4-dose series) COVID-19 Vaccine (3 - Moderna risk 4-dose series) [facility] Start: 2014 RSV Immunization aged 60 or older (1 - 1-dose 60+ series) RSV Immunization aged 60 or older (1 - 1-dose 60+ series) [facility] Start: 1994 Diabetes screen [facility] Start: 1989 Diabetes screen Diabetes screen [facility] Start: 1972 Hepatitis C screening Hepatitis C Screening [facility] Start: 1970 COVID-19 Vaccine (1 of 2) COVID-19 Vaccine (1 of 2) [facility] Work Phone: Start: 1955 Hepatitis B Vaccines (1 of 3 - 3-dose series) Hepatitis B Vaccines (1 of 3 - 3-dose series) [facility] Start: 1955 Medicare Advantage Annual Wellness Visit (AWV) Medicare Advantage Annual Wellness Visit (AWV) [facility] Colonoscopy flx dx w /collj spec when pfrmd COLONOSCOPY Encounter for screening for malignant neoplasm of colon [facility] Gastroenterology EKG 12 Lead EKG 12 Lead ECG Routine 05/08/2021 1:37 PM EST [facility] Work Phone: Hemoglobin A1c/Hemoglobin.total in Blood [facility] Lipid 1996 panel - S pat or Plasma [facility] End: 02-02-2021 MRI PELVIS W WO CONTRAST MRI PELVIS W WO CONTRAST Imaging Routine Elevated prostate specific antigen (PSA) Family history of malignant neoplasm of prostate 1 Occurrences starting 02/02/2021 until 02/02/2021 [facility] Work Phone: Comment on above: 1 Occurrences starting 02/02/2021 until 02/02/2021 Patient Education Cardiac Cathet erization Dc [facility] Work Phone: Patient referral [facility] Work Phone: Troponin T.cardiac [Mass/volume] in Serum or Plasma by High sensitivity method [facility] X-ray ribs bilateral minimum 4 view X-ray ribs bilateral minimum 4 view Imaging Routine Prostate cancer (HCC) 04/12/2021 1:26 PM EDT [facility] Work Phone: End: 04-12-2021 XR RIBS BILATERAL MINIMUM 4 VW XR RIBS BILATERAL MINIMUM 4 VW Imaging Routine Prostate cancer (HCC) 1 Occurrences starting 04/12/2021 until 04/12/2021 [facility] Work Phone: Comment on above: 1 Occurrences starting 04/12/2021 until 04/12/2021 Immunizations Immunization Date Immunization Notes Care Provider Keith cunningham 06-10-2024 influenza, high dose seasonal, preservative-free Chrisjess Antoine [employer] Work Phone: [facility] 06-10-2024 influenza virus vacc ine, unspecified formulation Colton Krishnamurthy MD Work Phone: [facility] 03-19-2024 Seasonal trivalent influenza vaccine, adjuvanted, preservative free Colton Krishnamurthy MD Work Phone: [facility] 06-05-2023 RSV, recombinant, protein subunit RSVpreF, adjuvant reconstituted, 0.5 mL, PF Chris Guillermo [employer] Work Phone: [facility] 04-10-2023 COVID-19, mRNA, LNP- S, PF, 50 mcg/0.5 mL Chrismorris Li [employer] Work Phone: [facility] 03-07-2023 influenza, high dose seasonal, preservative-free Colton Krishnamurthy MD Work Phone: [facility] 03-07-2023 influenza virus vacc ine, unspecified formulation Chris Guillermo [employer] Work Phone: [facility] 04-13-2022 influenza, seasonal, injectable Chris Bridenthal [employer] Work Phone: [facility] 04-13-2022 Moderna SARS-CoV-2 Vaccination Chris Bridenthal [employer] Work Phone: [facility] 04-13-2022 influenza virus vacc ine, unspecified formulation Chris Bridenthal [employer] Work Phone: [facility] 05-13-2021 Influenza, Seasonal, Quadrivalent, Adjuvanted Chris Bridenthal [employer] Work Phone: [facility] 10-27-2020 COVID-19, Moderna, P F, 100mcg/0.5mL Zuhair Harris MD Work Phone: [facility] Work Phone: 09-29-2020 COVID-19, Moderna, P F, 100mcg/0.5mL Zuhair Harris MD Work Phone: [facility] 08-25-2020 pneumococcal polysaccharide vaccine, 23 valent [facility]: 05-24-2020 influenza, high dose seasonal, preservative-free Colton Yessy [facility] Work Phone: 06-01-2019 influenza, high dose seasonal, preservative-free Colton Yessy [facility] Work Phone: 06-01-2019 pneumococcal conjuga te vaccine, 13 valent [facility] 08-18-2018 zoster vaccine recombinant [facility] Work Phone: 04-29-2018 influenza virus vacc ine, unspecified formulation [facility] Work Phone: 04-29-2018 Influenza, Quadv, 6 mo and older, IM (Fluzone, Flulaval) [facility] Work Phone: 04-29-2018 zoster vaccine recombinant [facility] Work Phone: 04-11-2017 Influenza Vaccine, unspecified formulation [facility] Work Phone: 04-11-2017 influenza virus vacc ine, unspecified formulation [facility] 04-11-2017 Td, unspecified formulation [facility] Work Phone: 04-11-2017 tetanus and diphther ia toxoids, adsorbed, preservative free, for adult use (5 Lf of tetanus toxoid and 2 Lf of diphtheria toxoid) [facility] Work Phone: 04-11-2017 tetanus and diphther ia toxoids, not adsorbed, for adult use Chris Janene [employer] Work Phone: [facility] 08-16-2016 tetanus toxoid, redu kirstie diphtheria toxoid, and acellular pertussis vaccine, adsorbed [facility] Work Phone: 12-28-2014 zoster vaccine, live [facility]ton [facility]ess[facility] Work Phone: 06-24-2014 zoster vaccine, live Colton FREGOSO Work Phone: Payers Date Payer Category Payer Self-pay 2023 Medicare HMO [employer] MEDICARE ADV ANTAGE [id number] 2021 Medicare [id number] 2019 Medicare [id number] Private Health Insurance [facility] [id number] Self-pay SELF PAY INSURANCE [id number] Unknown [id number] Unknown [id number] Unknown [id number] Unknown [id number] Unknown [id number] Unknown [id number] Unknown [id number] Unknown [id number] Unknown [id number] Unknown [id number] Unknown [id number] Social History Date Type Detail Facility Start: 08-25-2020 End: 01-14-2024 Tobacco smoking status [facility] Former smoker [facility] Start: 06-30-1971 End: 06-30-2006 History of tobacco use Current smoker [facility] Work Phone: Start: 06-30-1971 End: 06-30-2006 History of tobacco use Cigarette Smoker [facility] Work Phone: Start: 08-25-2020 End: 09-22-2024 Cigarettes smoked current (pack per day) - Reported [facility] Work Phone: Start: 08-25-2020 End: 01-14-2024 Tobacco use and exposure Never used [facility] Work Phone: Start: 08-25-2020 End: 03-17-2025 Alcohol intake Current drinker of alcohol (finding) [facility] Work Phone: Start: 08-21-2019 History SDOH Alcohol Frequency 4 [facility] Work Phone: Start: 08-21-2019 End: 08-29-2022 History SDOH Alcohol Std Drinks 1 [facility] Work Phone: Start: 08-21-2019 History SDOH Physica l Activity DPW 0 [facility] Work Phone: Start: 08-21-2019 End: 11-09-2020 History SDOH Financial 5 [facility] Work Phone: Start: 08-21-2019 History SDOH Transport Med 2 [facility] Work Phone: Start: 1955 Sex Assigned At Not on file S [facility] Work Phone: Start: 06-25-2022 End: 01-28-2023 Exposure to SARS-CoV-2 (event) Not sure [facility] Work Phone: Start: 05-08-2021 History SDOH Alcohol Comment occ drink [facility] Work Phone: Start: 08-30-2022 End: 01-08-2023 Alcohol intake Ex-drinker (finding) [facility] Start: 08-29-2022 End: 09-22-2024 Alcohol Use Disorder Identification Test - Consumption [AUDIT-C] [facility] How often to you hav e a drink containing alcohol? 2-4 times a month [facility] How many standard dr inks containing alcohol do you have on a typical day? 1 or 2 [facility] How often do you hav e 6 or more drinks on 1 occasion? Never [facility] Start: 04-20-2022 Alcohol Comment occ [facility] Adolescent depressio n screening assessment 4 [facility] How often to you hav e a drink containing alcohol? Monthly or less [facility] (I/We) worried wheth er (my/our) food would run out before (I/we) got money to buy more. Never true [facility] In the past 12 month s, was there a time when you were not able to pay the mortgage or rent on time? No [facility] Are you now , , , , never or living with a partner? [facility] Do you feel stress - tense, restless, nervous, or anxious, or unable to sleep at night because your mind is troubled all the time - these days [OSQ] Not at all [facility] Start: 01-22-2022 End: 09-02-2024 Sex Male (finding) [facility] Start: 08-29-2022 History SDOH Alcohol Frequency 3 [facility] Start: 1955 Sex Assigned At [facility] Do you belong to any clubs or organizations such as methodist groups, unions, fraternal or athletic groups, or school groups? Yes [facility] Medical Equipment Procedure Code Equipment Code Equipment Origin al Text Equipment Identifier Dates Drug-eluting coronary artery stent, [id number] lymer-coated [id number] FDA Start: 09-01-2024 Goals Date Patient Goal Desired Activity /State Comment on above: Formatting of this n ote might be different from the original. Self- Management Plan: Obesity/Weight Loss Patient Stated Goal: He wants to Loose Weight Barriers to success: Back pain Plan for overcoming my barriers: yes. Encouraged and recommended by provider. Confidence: 12/31 Self-Management Plan: Will strive to achieve goal by 01/2020 Date goal set: 08/16/16 Patient given educational materials below via AVS. Provider Goal: Healthy diet and exercise. Patient received counseling about current lifestyle goal. Advised approximately 150 minutes of cardio, i.e treadmill, exercise in a week. Advised strive for 5 a total 5 servings of fruits and vegetables in a day. Advised a diet lower in carbohydrates and simple sugars. They need to watch consumption of bread, rice, pasta, potatoes, corn, soda, sweetened tea, lemonade, and all other sugar drinks. Patient given after visit summary which includes educational information on Exercise. Discussed use, benefit, and side effects of prescribed medications and barriers to medication compliance addressed, if applicable. All patient questions answered and patient voiced understanding. Patient was given a copy of this, and was advised to call if any questions. Functional Status Date Assessment Result Facility 03-17-2025 Patient Health Quest ionnaire 2 item (PHQ-2) [Reported] [facility] 09-02-2024 Functional status [facility] Work Phone: Mental Status Date Assessment Result Facility 09-02-2024 Cognitive function Voice/Name [facility] Work Phone: 08-31-2024 Cognitive function Level Of Cons ciousness Awake;Alert;Appropriate;Follow s Commands [facility] Work Phone: Clinical Notes 05-08-2021 to 03-17-2025 Myrna Dill - 03/17/2025 11:00 AM EDTReJESENIA Hennessy CNP - 03/17/2025 11:00 AM EDTTelephone Encounter - Rosita Alicea - 02/24/2025 7:37 AM Tasha Quevedo MA - 09/22/2024 2:15 PM EDT Note Date & Type Note Facility 03-17-2025 History of Present illness Narrative Patient was identified by name and Date of . Health Maintenance Due Topic Depression Monitoring-completed COVID-19 Vaccine-n/a had at [facility] Influenza Vaccine-declined had at [facility] Images from the original note were not included. [facility] [address] [facility] [phone] Nabil Martinez is a 69 y.o. male who presents for Medication Check Assessment/Plan 1. Chronic midline low back pain without sciatica (M54.50, G89.29) - chronic, worsening - Patient reports significant pain and disability due to chronic back pain - Referral to pain management clinic in [place] to be initiated - Discussed potential non-opioid pain management options, patient declined trial of Cymbalta or amitriptyline due to concerns about side effects 2. 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 Primary hypertension (I10) - chronic, stable - Blood pressure noted as good during visit - Continue current antihypertensive medication - 4. Reactive Depression F32.9: - Patient reports feelings of depression related to chronic pain - Discussed potential for antidepressant medication, patient declined at this time - Will reassess at future visits - Suicidal Ideation: - Patient expresses thoughts about but denies active suicidal ideation or intent - Safety plan discussed, including recommendation to temporarily remove firearms from home - Patient states he will not harm himself due to sikh beliefs - Will continue to monitor at future visits - Marijuana Use: - Patient reports occasional use for pain management - Advised this may interfere with future pain management treatment plans - Patient states willingness to discontinue if required for pain management - Follow-up: - Scheduled to see Dr. Krishnamurthy in August - Will follow up after pain management consultation to reassess pain control and overall health status Nabil was seen today for medication check. 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 Subjective History of Present Illness NABIL MARTINEZ, a 69-year-old male, presents seeking a referral for pain management due to chronic back pain. The patient reports a history of falling off a billboard in 1981, which led to a ruptured disc. He underwent back surgery in 1989, where it was discovered that the ruptured disc had turned into scar tissue. The patient states that the surgery helped for a long time, but he continues to experience significant back pain, especially when standing for prolonged periods. The patient reports that his back pain keeps him inactive, contributing to weight gain and feelings of depression. He mentions difficulty walking for more than 15 minutes and describes himself as handicapped due to the pain. The patient also reports numbness in his feet due to neuropathy, which has caused him to fall multiple times. Mr. Martinez states that he previously attended pain management 12-13 years ago but discontinued due to concerns about costs and ethical issues. He expresses frustration with the current healthcare system and the difficulties in obtaining pain relief. The patient reports using marijuana occasionally for pain relief but feels it is not sufficient. The patient also mentions a history of multiple stomach surgeries, which have left him with gastrointestinal issues, including multiple daily bowel movements. He reports having a heart stent procedure recently and states he was advised to attend cardiac rehab but declined due to his back pain. Mr. Martinez expresses feelings of hopelessness and mentions thoughts about , though he denies any intention to harm himself. He states that his Restorationist upbringing prevents him from considering suicide. I obtained verbal consent from the patient and/or patient's guardian to use ambient listening technology during this encounter before the ambient technology was engaged. Review of Systems Constitutional: Positive for fatigue. Negative for activity change, appetite change, chills, diaphoresis and unexpected weight change. HENT: Negative. Respiratory: Negative. Cardiovascular: Negative. Gastrointestinal: Positive for diarrhea. Negative for abdominal pain, blood in stool, constipation, nausea and vomiting. Genitourinary: Negative for difficulty urinating. Musculoskeletal: Positive for arthralgias and back pain. Psychiatric/Behavioral: Positive for dysphoric mood and sleep disturbance. Negative for suicidal ideas. The patient is not nervous/anxious. Objective BP 128/84 Pulse 91 Temp 37 C (98.6 F) (Infrared) Resp 20 Wt 276 lb (125 kg) SpO2 94% BMI 40.76 kg/m Physical Exam Constitutional: General: He is not in acute distress. Appearance: Normal appearance. He is obese. He is not ill-appearing. HENT: Head: Normocephalic and atraumatic. Cardiovascular: Rate and Rhythm: Normal rate and regular rhythm. Pulses: Normal pulses. Heart sounds: Normal heart sounds. Pulmonary: Effort: Pulmonary effort is normal. Breath sounds: Normal breath sounds. Neurological: Mental Status: He is alert and oriented to person, place, and time. Psychiatric: Attention and Perception: Attention normal. Mood and Affect: Mood is depressed. Speech: Speech normal. Behavior: Behavior normal. Behavior is cooperative. Thought Content: Thought content normal. Cognition and Memory: Cognition normal. Judgment: Judgment normal. Results documented in this encounter [facility] 03-17-2025 Note Patient was identifi ed by name and Date of . Health Maintenance Due Topic Depression Monitoring-completed COVID-19 Vaccine-n/a had at [facility] Influenza Vaccine-declined had at [facility] 02-24-2025 Telephone encounter Note Prescription Request: LISINOPRIL-HCTZ 20-12.5 MG TAB Last medication check: 03/19/24 Last physical exam: 09/10/24 Next scheduled appointment: 03/17/25 Last date of refill on this medication 06/10/24 ( qty 180 refill 1) [facility] 02-24-2025 Miscellaneous Notes Prescription Request: LISINOPRIL-HCTZ 20-12.5 MG TAB Last medication check: 03/19/24 Last physical exam: 09/10/24 Next scheduled appointment: 03/17/25 Last date of refill on this medication 06/10/24 ( qty 180 refill 1) documented in this encounter [facility] 09-22-2024 Evaluation + Plan note Associated Problem(s): Bilateral primary osteoarthritis of knee Injection procedure: Location bilateral knees Consent: Verbal Consent Obtained-Discussed risks including hypo/hyperpigmentation, fat atrophy, steroid flare, bleeding and infection and potential consequences of over use of steroids. Prep: Betadine. Anesthesia: 2% lidocaine. Medication: 1 ml depomedrol 40 mg. Needle: 25 gauge 1.5 in. needle. Complications: No Complications, Hemostasis achieved. [facility] 09-22-2024 Note Injection procedure: Location bilateral knees Consent: Verbal Consent Obtained-Discussed risks including hypo/hyperpigmentation, fat atrophy, steroid flare, bleeding and infection and potential consequences of over use of steroids. Prep: Betadine. Anesthesia: 2% lidocaine. Medication: 1 ml depomedrol 40 mg. Needle: 25 gauge 1.5 in. needle. Complications: No Complications, Hemostasis achieved. [facility] 09-22-2024 Miscellaneous Notes Associated Problem(s): Bilateral primary osteoarthritis of knee Injection procedure: Location bilateral knees Consent: Verbal Consent Obtained-Discussed risks including hypo/hyperpigmentation, fat atrophy, steroid flare, bleeding and infection and potential consequences of over use of steroids. Prep: Betadine. Anesthesia: 2% lidocaine. Medication: 1 ml depomedrol 40 mg. Needle: 25 gauge 1.5 in. needle. Complications: No Complications, Hemostasis achieved. documented in this encounter [facility] 09-22-2024 History of Present illness Narrative Patient verified by last name and date of . Images from the original note were not included. 09/22/2024 Mitul Martinez (: 1955) is a 69 y.o. male , Established patient, here for evaluation of the following chief complaint(s): Knee Pain (B/l asking for injections) ASSESSMENT/PLAN: 1. Bilateral primary osteoarthritis of knee Assessment & Plan: Injection procedure: Location bilateral knees Consent: Verbal Consent Obtained-Discussed risks including hypo/hyperpigmentation, fat atrophy, steroid flare, bleeding and infection and potential consequences of over use of steroids. Prep: Betadine. Anesthesia: 2% lidocaine. Medication: 1 ml depomedrol 40 mg. Needle: 25 gauge 1.5 in. needle. Complications: No Complications, Hemostasis achieved. Orders: - Large Joint Injection/Arthrocentesis - methylPREDNISolone acetate (DEPO-Medrol) injection 40 mg; 40 mg, Intra-artICUlar, Once, On 09/22/24 at 1445, For 1 dose - lidocaine (Xylocaine) 2 % injection 2 mL; 2 mL, Injection, Once, On 09/22/24 at 1445, For 1 dose - Large Joint Injection/Arthrocentesis - methylPREDNISolone acetate (DEPO-Medrol) injection 40 mg; 40 mg, Intra-artICUlar, Once, On 09/22/24 at 1500, For 1 dose - lidocaine (Xylocaine) 2 % injection 2 mL; 2 mL, Injection, Once, On Sat09/22/24 at 1500, For 1 dose Follow up if symptoms worsen or fail to improve. SUBJECTIVE/OBJECTIVE: JOSE ANGEL Jones comes in today for follow-up on his knees he has arthritis and he would like to have injections in both of his knees today we discussed his at his last office visit. Review of Systems Vitals: 09/22/24 1425 BP: 124/82 Pulse: 73 SpO2: 95% Weight: 280 lb (127 kg) Height: 5' 9 (1.753 m) Physical Exam Bilateral knee pain, no edema normal range of motion and no effusion. Negative Jori's negative Peewee's bilateral An electronic signature was used to authenticate this note. Colton Krishnamurthy MD 09/22/2024 2:50 PM documented in this encounter [facility] 09-10-2024 Evaluation + Plan note Associated Problem(s): Pure hypercholesterolemia Uncontrolled, continue atorvastatin 40 mg daily [facility] 09-10-2024 Miscellaneous Notes Associated Problem(s): Pure hypercholesterolemia Uncontrolled, continue atorvastatin 40 mg daily Associated Problem(s): Hyperglycemia stable, will check fasting blood sugar and an A1c Associated Problem(s): Primary osteoarthritis involving multiple joints Stable, will have patient reschedule for bilateral joint injections of the knees Associated Problem(s): Prostate cancer (HCC) Stable, repeat PSA today Associated Problem(s): Hypertension Controlled, continue lisinopril hydrochlorothiazide 20-12.5 mg 2 a day and metoprolol 25 mg daily Associated Problem(s): 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 Continue atorvastatin 40 mg daily and Brilinta 90 mg twice a day documented in this encounter [facility] 09-10-2024 Evaluation + Plan note Associated Problem(s): Hyperglycemia stable, will check fasting blood sugar and an A1c [facility] 09-10-2024 Evaluation + Plan note Associated Problem(s): Primary osteoarthritis involving multiple joints Stable, will have patient reschedule for bilateral joint injections of the knees [facility] 09-10-2024 Evaluation + Plan note Associated Problem(s): Prostate cancer (HCC) Stable, repeat PSA today T [facility] 09-10-2024 Evaluation + Plan note Associated Problem(s): Hypertension Controlled, continue lisinopril hydrochlorothiazide 20-12.5 mg 2 a day and metoprolol 25 mg daily [facility] 09-10-2024 Evaluation + Plan note Associated Problem(s): 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 Continue atorvastatin 40 mg daily and Brilinta 90 mg twice a day [facility] 09-10-2024 History of Present illness Narrative Patient was identified by name and Date of . Health Maintenance Due Topic Diabetes Screening-TODAY Medicare Advantage Annual Wellness Visit-TODAY Depression Monitoring-NEEDS COMPLETED Images from the original note were not included. [facility] [id number] [address] Dept: [phone] Dept Chief Complaint: Mitul Martinez is an 69 y.o. male here for an annual wellness visit. 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 Continue atorvastatin 40 mg daily and Brilinta 90 mg twice a day Relevant Medications metoprolol succinate XL (Toprol-XL) 25 MG 24 hr tablet Brilinta 90 MG tablet Hyperglycemia stable, will check fasting blood sugar and an A1c Relevant Orders Comprehensive metabolic panel Hemoglobin A1c Hypertension Controlled, continue lisinopril hydrochlorothiazide 20-12.5 mg 2 a day and metoprolol 25 mg daily Primary osteoarthritis involving multiple joints Stable, will have patient reschedule for bilateral joint injections of the knees Prostate cancer (HCC) Stable, repeat PSA today Relevant Orders PSA Screening Pure hypercholesterolemia Uncontrolled, continue atorvastatin 40 mg daily Relevant Orders Lipid panel Other Visit Diagnoses Routine general medical examination at health care facility - Primary I have reviewed and reconciled the medication list with the patient today. Current Outpatient Medications Medication Sig Dispense Refill atorvastatin (Lipitor) 40 MG tablet Brilinta 90 MG tablet Take 90 mg by mouth 2 times daily. cholecalciferol (Vitamin D-3) 50 MCG (1999) capsule Take by mouth. diphenhydrAMINE-acetaminophen (Tylenol PM) 25-500 MG per tablet Take 1 tablet by mouth Nightly as needed for sleep. lisinopril-hydroCHLOROthiazide 20-12.5 MG tablet Take 2 tablets by mouth daily. 180 tablet 1 metoprolol succinate XL (Toprol-XL) 25 MG 24 hr tablet Take 25 mg by mouth daily. triamcinolone (Kenalog) 0.5 % cream Apply topically 2 times daily. No current facility-administered medications for this visit. Also reviewed during this visit: The following health maintenance schedule was reviewed with the patient and provided in printed form in the after visit summary: Health Maintenance Topic Date Due Depression Monitoring 09/15/2024 Hepatitis C Screening 03/18/2025 (Originally 1973) Diabetes Screening 08/30/2025 DTaP/Tdap/Td Vaccines (4 - Td or Tdap) 04/11/2027 Lipid Panel 10/02/2028 Medicare Advantage Annual Wellness Visit Completed RSV Immunization for Adults Completed Influenza Vaccine Completed Pneumococcal Vaccine: 50+ Years Completed Zoster Vaccines Completed COVID-19 Vaccine Completed RSV Immunization under 20 Months Aged Out HIB Vaccines Aged Out Hepatitis B Vaccines Aged Out IPV Vaccines Aged Out Hepatitis A Vaccines Aged Out Meningococcal Vaccine Aged Out Rotavirus Vaccines Aged Out HPV Vaccines Aged Out Colorectal Cancer Screening Discontinued List of current healthcare providers: Patient Care Team: Colton Krishnamurthy MD as PCP - General Orders Placed This Encounter Procedures Comprehensive metabolic panel Standing Status: Future Number of Occurrences: 1 Standing Expiration Date: 09/09/2025 Lipid panel Standing Status: Future Number of Occurrences: 1 Standing Expiration Date: 09/09/2025 PSA Screening Standing Status: Future Number of Occurrences: 1 Standing Expiration Date: 09/09/2025 Hemoglobin A1c Standing Status: Future Number of Occurrences: 1 Standing Expiration Date: 09/10/2025 Review of Systems Constitutional: Negative for activity change, appetite change, chills, fever and unexpected weight change. HENT: Negative for ear pain and sore throat. Respiratory: Negative for shortness of breath. Cardiovascular: Negative for chest pain and palpitations. Gastrointestinal: Negative for abdominal pain, blood in stool, constipation and diarrhea. Genitourinary: Negative for dysuria, frequency, hematuria and urgency. Musculoskeletal: Negative for arthralgias and back pain. Skin: Negative. Neurological: Negative for weakness and numbness. Psychiatric/Behavioral: Negative for dysphoric mood. The patient is not nervous/anxious. Physical Exam Vitals and nursing note reviewed. Constitutional: General: He is not in acute distress. Appearance: Normal appearance. He is obese. HENT: Right Ear: Tympanic membrane, ear canal and external ear normal. Left Ear: Tympanic membrane, ear canal and external ear normal. Mouth/Throat: Mouth: Mucous membranes are moist. Pharynx: Oropharynx is clear. Eyes: Extraocular Movements: Extraocular movements intact. Conjunctiva/sclera: Conjunctivae normal. Pupils: Pupils are equal, round, and reactive to light. Neck: Thyroid: No thyromegaly. Vascular: No carotid bruit. Cardiovascular: Rate and Rhythm: Normal rate and regular rhythm. Heart sounds: Normal heart sounds. No murmur heard. Pulmonary: Effort: Pulmonary effort is normal. Breath sounds: Normal breath sounds. Abdominal: General: Bowel sounds are normal. Palpations: Abdomen is soft. Tenderness: There is no abdominal tenderness. Musculoskeletal: General: Normal range of motion. Cervical back: Neck supple. Lymphadenopathy: Cervical: No cervical adenopathy. Skin: General: Skin is warm and dry. Neurological: General: No focal deficit present. Mental Status: He is alert and oriented to person, place, and time. Psychiatric: Mood and Affect: Mood normal. Objective : BP 126/77 Pulse 58 Resp 20 Wt 279 lb (127 kg) SpO2 98% BMI 41.20 kg/m No results found. Subjective : Nabil comes in today for his annual Medicare well visit, recently he was noticing some shortness of breath and some chest tightness when he was swimming and he went to the emergency room and a did lab work and found out that he was needing to have a cardiology consult and a stent placed. He is now awaiting for cardiac rehab. He also has a history of HUEY he says he does not tolerate the CPAP equipment so he does not wear it but he says since he has had his stent placed he feels like he is sleeping much better. He also has a history of hypertension and that seems to be well-controlled at this time. He has arthritis and he is wondering about getting injections in both knees he will have to schedule for that and he has a history of hyperglycemia so we will check an A1c today. He has a history of prostate cancer he never did have prostate surgery but he had radiation and his PSAs have been normal he does need that checked today also. Health Risk Assessment: General: General In general, how would you say your health is?: (!) Poor In the past 7 days, have you experienced any of the following: New or Increased Pain, New or Increased Fatigue, Loneliness, Social Isolation, Stress or Anger?: No Do you get the social and emotional suppport you need?: Yes Interventions: Health Habits/Nutrition: Health Habits / Nutrition On average, how many days per week do you engage in moderate to strenous exercise (like a brisk walk)?: 3 days On average, how man minutes do you engage in exercise at this level?: 30 min Have you lost any weight without trying in the past 3 months? : No Have you seen the dentist within the past year?: Yes Hearing/ Vision: Hearing / Vision Do you or your family notice any trouble with your hearing that hasn't been managed with hearing aids?: No Do you have difficulty driving, watching TV, or doing any of your daily activities because of your eyesight?: No Have you had an eye exam within the past year?: Yes No results found. Safety: Safety Do you have a working smoke detector?: Yes Do you have any tripping hazards - loose or unsecured carpets or rugs?: No Do you have any tripping hazards - clutter in doorways, halls, or stairs?: No Do you have either shower bars, grab bars, non-slip mats or non-slip surfaces in your shower or bathtub? : Yes Do all your stairways have a railing or banister? : Yes Do you fasten your seatbelt when you are in a car?: (!) No Interventions: Home safety tips provided ADL: ADL In the past 7 days, did you need help from others to perform any of the following everyday activities: Eating, dressing, grooming,bathing, toileting, or walking / balance? : No In the past 7 days, did you need help from others to take care of any of the following: laundry, housekeeping, banking / finances,shopping, telephone use, food preparation, transportation, or taking medications? : No Living Will: Living Will Do you have a living will?: Yes Cognitive: Cognitive Screening: Mini-Cog Clock Drawing Test (CDT): 2 Words Recalled: 3 Total Score: 5 Total Score Interpretation: Normal Mini-Cog Fall Risk: Fall Risk One or more falls in the last year:: No Advised to use a cane or walker to get around safely:: No Feels unsteady when walking:: No Steadies self on furniture while walking at home:: No Worried about falling:: No Depression Screening: Interventions: Tobacco Use: Social History Tobacco Use Smoking Status Former Current packs/day: 0.00 Average packs/day: 2.0 packs/day for 35.0 years (70.0 ttl pk-yrs) Types: Cigarettes Start date: 06/30/1971 Quit date: 06/30/2006 Years since quittin.2 Smokeless Tobacco Never Alcohol Use: Social Drivers of Health: SDOH risk assessment performed and documented today by members of the health care team. A total time of 5-10 minutes was spent obtaining information from the patient and discussing options to address the patient's social risk factors and unmet needs. Social Drivers of Health with Concerns Concerns Present Tobacco Use: Medium Risk (09/10/2024) Social Connections: Socially Isolated (03/18/2024) documented in this encounter [facility] 09-10-2024 Instructions Colton Krishnamurthy MD - 09/10/2024 9:30 AM EDT Personalized Preventative Plan for Mitul Martinez - 09/10/2024 Medicare offers a range of preventative health benefits. Some of the tests and screenings are paid in full while others may be subject to a deductible, co-insurance, and / or copay. Some of these benefits include a comprehensive review of your medical history including lifestyle, illnesses that may run in your family, and various assessments and screenings as appropriate. After reviewing your medical record and screening and assessments performed today, your provider may have ordered immunizations, labs, imaging, and / or referrals for you. A list of these orders (if applicable) as well as your Preventative Care list are included within your After Visit Summary for your review. Other Preventative Recommendations: A preventive eye exam by an screw eye assembler is recommended every 1-2 years to screen for glaucoma, cataracts, macular degeneration, and other eye disorders. A preventive dental visit is recommended every 6 months. Try to get at least 150 minutes of exercise per week or 10,000 steps per day on a pedometer. You need 1200-1500mg of calcium and [id number] international units of vitamin D per day. It is possible to meet your calcium requirement with diet alone, but a vitamin D supplement is usually necessary to meet this goal. When exposed to the sun, use a sunscreen that protects against both UVA and UVB radiation with an SPF of 30 or greater. Reapply every 2-3 hours or after sweating, drying off with a towel, or swimming. Always wear a seat belt when traveling in a car. Always wear a helmet when riding a bicycle or a motorcycle documented in this encounter [facility] 09-02-2024 Progress note Note Date/Time September 02, 2024 2:44pm [facility] Medical Records Department [address] [place] [address] Progress Note - Hospitalist 09/01/24 1354 MR#: [id number] Acct: [id number] Name: MITUL MARTINEZ Rep #:[id number] : 1955 69 From: Myara Rodriguez MD PCP: Dr. Colton Krishnamurthy MD Status:ADM IN Location: [place] [address] Reason for Visit Reason for Visit: Diagnoses Morbid (severe) obesity due to excess calories (08/31/24) Pure hypercholesterolemia, unspecified (08/31/24) Essential (primary) hypertension (08/31/24) Unstable angina (08/31/24) Non-ST elevation (NSTEMI) myocardial infarction (08/31/24) Body mass index [BMI] 40.0-44.9, adult (08/31/24) Family history of ischemic heart disease and other diseases of the circulatory system (08/31/24) Personal history of other diseases of the circulatory system (08/31/24) Personal history of nicotine dependence (08/31/24) Objective Data Objective Data Vital Signs: Vital Signs Temp Pulse Resp BP Pulse Ox O2 Del Method 97.8 F 74 18 128/82 H 99 Room Air 09/01/24 13:06 09/01/24 13:06 09/01/24 13:06 09/01/24 13:06 09/01/24 13:06 09/01/24 13:06 Oxygen Delivery Method Room Air Weight: 126.9 kg Body Mass Index (BMI) 40.1 Lab / Micro Data 09/01/24 05:36 09/01/24 05:36 Labs: Laboratory Results - last 24 hr 08/31/24 18:55: WBC 9.7, RBC 5.70, Hgb 17.2 H, Hct 49.7, MCV 87.2, MCH 30.2, MCHC 34.6, RDW Std Deviation 43.2, RDW Coeff of Aida 13.6, Plt Count 263, MPV 11.2, Immature Gran % (Auto) 0.400, Neut % (Auto) 72.6 H, Lymph % (Auto) 17.8 L, [place] % (Auto) 6.7, Eos % (Auto) 1.7, Baso % (Auto) 0.8, Absolute Neuts (auto) 7.0, Absolute Lymphs (auto) 1.72, Nucleated RBC % 0 08/31/24 18:58: PT 13.5, INR 1.0, APTT 27.7, D-Dimer Quant (PE/DVT) 3.21 H*, Sodium 137, Potassium 3.8, Chloride 100, Carbon Dioxide 21.0, Anion Gap 17 H, BUN 13, Creatinine 0.98, Estim Creat Clear Calc 93.89, Est GFR (MDRD) Non-Af 83, BUN/Creatinine Ratio 13.5, Glucose 90, Calcium 9.8, Troponin T High Sens 54 H*, NT pro BNP II 205 08/31/24 21:05: Troponin T Hi Sens 2 Hr 58 H* 08/31/24 22:56: Troponin T Hi Sens 4Hr 65 H*, Triglycerides 150, Cholesterol 160, LDL Cholesterol, Calc 90, VLDL Cholesterol 30, HDL Cholesterol 40, Cholesterol/HDL Ratio 3.98, TSH 3.470 08/31/24 23:20: Hemoglobin A1c 5.7 09/01/24 05:36: WBC 6.4, RBC 5.63, Hgb 16.9 H, Hct 49.8, MCV 88.5, MCH 30.0, MCHC 33.9, RDW Std Deviation 44.3 H, RDW Coeff of Aida 13.6, Plt Count 210, MPV 10.5, Sodium 137, Potassium 3.8, Chloride 102, Carbon Dioxide 22.9, Anion Gap 13, BUN 14, Creatinine 1.08, Estim Creat Clear Calc 35.65 L, Est GFR (MDRD) Non-Af 74, BUN/Creatinine Ratio 12.8, Glucose 117 H, Calcium 9.2, Phosphorus 2.5 L, Magnesium 2.3 H, Total Bilirubin 1.06, AST 35, ALT 25, Alkaline Phosphatase 91, Total Protein 7.2, Albumin 4.3, Globulin 2.9, Albumin/Globulin Ratio 1.5 Radiography Diagnostic Testing: Radiology Impression Chest X-Ray 08/31/24 19:15 IMPRESSION: Findings of fluid overload/CHF including trace left pleural effusion. Reading Location: [facility] Chest CTA 08/31/24 20:47 IMPRESSION: No evidence of pulmonary embolism or acute findings in the thorax. Mild upper lobe emphysema. One or more dose reduction techniques were used (e.g., Automated exposure control, adjustment of the mA and/or kV according to patient size, use of iterative reconstruction technique). [facility] Echocardi[facility] 09/01/24 05:55 Interpretation Summary The estimated ejection fraction is 55 %. No evidence for diastolic dysfunction. Ordering Physician: Mian Hutchison Performed By: Perez Espinosa RCS Rhythm Strip Rhythm Strip: Sinus Rhythm Rate: 78 Assessment & Plan Assessment/Plan (1) Non-ST elevation TN (NSTEMI): PLAN: Plan # NSTEMI type I -Patient came to the ED with symptoms concerning for cardiac etiology, he was admitted and troponin 54 up trended to 58 and he was given full dose Lovenox and hospitalist contacted for admission -Cardiology consulted and noted the concerning story with increased troponins and EKG with ST segment changes in 3 through V6 and heart cath was recommended as well as aspirin and statin -Left heart cath 09/01/2024 revealed EF of 60% and stenosis of the pLCx, patient underwent successful STEPHEN and was transferred back to PCU in stable condition -Brilinta added to his regimen # Coronary artery disease -Patient now status post stenting to pLCx -Echocardiogram with EF of 55% and no evidence of diastolic dysfunction, no comment on wall motion abnormalities present either -Continue aspirin, statin, beta-jami, Brilinta -Stop full dose anticoagulation #Hypertension -Holding lisinopril?hydrochlorothiazide given patient had contrast with heart cath and CTA, plan will be to resume lisinopril on 3/13 if kidney function stable -Metoprolol started #Morbid obesity -BMI documented as 40.1 kg/m? at time of admission -Complicates treatment, prognosis, outcomes -Recommend weight loss and lifestyle changes #DVT ppx: Lovenox subcu Mayra Rodriguez MD Charges/Coding Visit Charges Inpatient E&M: 88410 Subs Hosp L2 09/01/24 1400 <Electronically signed by Mayra Rodriguez MD> Cosigner Signature (if applicable): CC: ~ Signed ADDENDUM by Dr. Mayra Rodriguez MD on 09/02/24 at 1444 Addendum ADDENDUM: PHYSICAL EXAM from 09/01/24: General: Alert, oriented, no apparent distress HEENT: Atraumatic, normocephalic Eyes: Anicteric, normal conjunctiva, extraocular movements grossly intact Neck: Supple Respiratory: Clear to auscultation bilaterally, normal respiratory effort Cardiovascular: Regular rate and rhythm GI: Soft, nontender, nondistended Extremities: No edema Musculoskeletal: Moving all extremities Neuro: No overt focal neurological deficits Skin: No rashes appreciated Psych: Cooperative 09/02/24 1444<Electronically signed by Mayra Rodriguez MD> Cosigner Signature (if applicable): cc: ~* Signed [facility] Work Phone: 1(880) 826-515203-12-2025 Consult note Author Rosemarie Bill [facility] Note Date/Time September 02, 2024 2:3 3pm [facility] Medical Records Department [address] [place] [address] Counseling Note - Pharmacy 09/02/24 1432 MR#: [id number] Acct: [id number] Name: MITUL MARTINEZ Rep #:[id number] : 1955 69 From: Rosemarie Bill PCP: Dr. Colton Krishnamurthy MD Status:ADM IN Y Location: [place] [address] Pharmacy [facility] Pharmacy Service has performed discharge medication reconciliation and counseling for this patient. 1. ASPIRIN 81MG PO BREAKFAST 2. ATORVASTATIN 40MG PO QHS 3. TICAGRELOR 90MG PO BID 4. METOPROLOL SUCCINATE 25MG PO DAILY 5. STOP MOBIC The patient's discharge medication list was reviewed for discrepancies and discrepancies were resolved. The patient was counseled on the following discharge medications and changes in medications for homegoing were reviewed. The Reason for Use, instructions for use, and potential side effects were reviewed for all new medications. The patient's questions regarding all of their medications were answered. The patient was able to verbally demonstrate an understanding of their dischargemedications. Medications at Discharge Home Medications cholecalciferol (vitamin D3) 25 mcg (1,000 unit) capsule (Vitamin D3) 1,000 unitPO DAILY 08/24/17 lisinopril 20 mg-hydrochlorothiazide 12.5 mg tablet 2 tab PO DAILY 08/31/24 aspirin 81 mg tablet,delayed release 81 mg PO BREAKFAST #30 tabs 09/02/24 atorvastatin 40 mg tablet 40 mg PO QHS 30 days #30 tabs 09/02/24 metoprolol succinate 25 mg tablet,extended release 24 hr 25 mg PO DAILY #30 tabs09/02/24 ticagrelor 90 mg tablet (Brilinta) 90 mg PO BID 30 days #60 tabs 09/02/24 09/02/24 1433 <Electronically signed by Rosemarie Bill> Date _ Rosemarie Cruzigner Signature (if applicable): Date CC: ~ Signed [facility] Work Phone: 1(687) 159-359303-12-2025 Discharge summary Author Mayra Rodriguez [facility] Note Date/Time September 02, 2024 1:1 6pm [facility] Medical Records Department [address] [place] [address] Discharge Summary 09/02/24 1314 MR#: [id number] Acct: [id number] Name: MITUL MARTINEZ Rep #:[id number] : 1955 69 From: Mayra Rodriguez MD PCP: Dr. Colton Krishnamurthy MD Status:ADM IN Location: [facility] [id number] Providers Date of Admission: 08/31/24 Date of Discharge: 09/02/24 Primary Care Physician: Dr. Colton Krishnamurthy MD Consultations 08/31/24 23:32 Consult: Cardiology Routine Consulting Provider: Graham Carr Reason for Consult: NSTEMI EMERGENT Consult: No MD Notified: Yes Date Notified: 08/31/24 Time Notified: 23:08 Method of Notification: ED Physician Initiated Method of Consult:: In-Person Reason For Visit: NSTEMI Diagnosis Discharge Diagnosis (1) Accelerating angina: Status: Acute Code(s): I20.0 - Unstable angina (2) Hyperlipidemia: Status: Acute Code(s): E78.5 - Hyperlipidemia, unspecified Qualifiers: Hyperlipidemia type: pure hypercholesterolemia Qualified Code(s): E78.00 - Pure hypercholesterolemia, unspecified (3) History of hypertension: Status: Acute Code(s): Z86.79 - Personal history of other diseases of the circulatory system Plan # NSTEMI type I # Coronary artery disease #Hypertension #Morbid obesity Medications at Discharge Home Medications cholecalciferol (vitamin D3) 25 mcg (1,000 unit) capsule (Vitamin D3) 1,000 unitPO DAILY 08/24/17 hydrochlorothiazide 25 mg tablet 25 mg PO DAILY #30 tabs 08/24/17 lisinopril 20 mg-hydrochlorothiazide 12.5 mg tablet 2 tab PO DAILY 08/31/24 aspirin 81 mg tablet,delayed release 81 mg PO BREAKFAST #30 tabs 09/02/24 atorvastatin 40 mg tablet 40 mg PO QHS 30 days #30 tabs 09/02/24 metoprolol succinate 25 mg tablet,extended release 24 hr 25 mg PO DAILY #30 tabs09/02/24 ticagrelor 90 mg tablet (Brilinta) 90 mg PO BID 30 days #60 tabs 09/02/24 Hospital Course Procedures Cardiac catheterization and Transthoracic echo Summary of Care Provided Minutes Spent on Discharge: 32 Hospital Course: Per HPI: MITUL MARTINEZ, is a 69 M with a past medical history of essential hypertension; on lisinopril-hydrochlorothiazide, morbid obesity; with BMI of 40.2 this admission, former history of tobacco abuse, positive family history ofpremature CAD in his father who had an TN at age 60, history of olecranon bursitis and OA; with meloxicam who presents to [facility] ER complaining of chest pain. Mr. Martinez reports his symptoms began approximatelyone week prior to admission with intermittent chest tightness with patient typically able to swim ~100 yards every Saturday, Saturday and Saturday - but sincelast week he can only swim 4 laps before he had to stop due to chest tightness. He also admits to dyspnea on exertion the improved after ~2 minutes of rest. Then this morning he had a recurrence of his symptoms ~9:30 AM, so he spoke to his sister who is a nurse and she encouraged him to come in to the ER for further evaluation and treatment. He states he was scheduled for a colonoscopy tomorrow in [place], [place] - but he denies recent GI bleeding. He denies similarprevious episodes and his last stress test was years ago. There was no report of associated fever, chills, nausea, vomiting, diaphoresis, abdominal pain, nausea, vomiting, diarrhea, constipation, headache, recent travel or recent medication changes. In the ER he was noted to have an elevated d-dimer of 3.21 present on admission followed by a CTA of the chest negative for PE but was positive for mild upper lobe emphysema complicated by elevated troponin T of 54 ng/L followed by a second increasing troponin T of 58 ng/L consistent with suspected NSTEMI and he was then admitted to the PCU for ongoing care for a staythat is expected to extend beyond 2 midnights. INTERVAL HISTORY: Cardiology evaluated and recommended cardiac cath. Patient had cardiac catheterization 09/01/2024 and had successful STEPHEN to pLCX. Patient was placed on aspirin, Brilinta, atorvastatin, beta-jami and did well postcatheterization. Echocardiogram without any significant abnormalities. On day of discharge patient doing well with no new or acute complaints, cleared fordischarge by cardiology. Discharge instructions as follows: DISCHARGE INSTRUCTIONS PLEASE READ *Please take this with you to your next doctors appointment* -You will be discharged on several new medications. You will be discharged on metoprolol succinate 25 mg daily, aspirin, Brilinta 90 mg twice daily, and atorvastatin -You will resume your home blood pressure medications and was advised to not resume meloxicam on discharge -Do only light and easy activities for 2 to 3 days after your stent placement, ask for help with chores and errands while you recover and have someone drive you to your appointments. -Unless your job involves lifting you may return to normal activities within 2 days -Please take your medications as prescribed, do not skip doses -Check your incisions every day for signs of infection which would include redness, swelling, leaking. It is normal to have a small bruise or bump where the catheter was placed but a bruise that is getting larger is not normal. Please tell your healthcare team about this. Please proceed to the emergency department if you have uncontrollable bleeding from the site. -It is important to eat a diet that is low in fat, salt, and cholesterol -You will be set up with cardiac rehab upon discharge, it is important that you follow-up -Okay to shower from the day after your heart catheterization but keep your incision site clean and dry. -Would recommend lab work (fasting lipid panel and liver function) in 6 weeks, this can be coordinated through your primary care physician office or the cardiology office, please call on discharge to inquire about scheduling blood work. -Please follow-up with the [facility] in 7 to 10 days upon discharge. Please call their office to schedule hospital follow-up appointment upon discharge. -Please call your primary care provider's office upon discharge to schedule a hospital follow up within 1 week. -For any concerning signs or symptoms please call 911 or proceed to the nearest emergency department Physical Exam Narrative General: Alert, oriented, no apparent distress HEENT: Atraumatic, normocephalic Eyes: Anicteric, normal conjunctiva, extraocular movements grossly intact Neck: Supple Respiratory: Clear to auscultation bilaterally, normal respiratory effort Cardiovascular: Regular rate and rhythm GI: Soft, nontender, nondistended Extremities: No edema Musculoskeletal: Moving all extremities Neuro: No overt focal neurological deficits Skin: No rashes appreciated Psych: Cooperative Weight / BMI Weight Weight: 129 kg Body Mass Index (BMI) 40.8 ABG / Lab / Microbiology Data 09/02/24 05:14 09/02/24 05:14 Laboratory: Laboratory Results - last 24 hr 09/02/24 05:14: WBC 8.0, RBC 5.37, Hgb 16.1, Hct 47.3, MCV 88.1, MCH 30.0, MCHC 34.0, RDW Std Deviation 43.5, RDW Coeff of Aida 13.5, Plt Count 195, MPV 10.7, Sodium 139, Potassium 4.0, Chloride 102, Carbon Dioxide 22.7, Anion Gap 14, BUN 14, Creatinine 0.92, Estim Creat Clear Calc 100.82, Est GFR (MDRD) Non-Af 90, BUN/Creatinine Ratio 15.7, Glucose 105 H, Calcium 9.2, Phosphorus 2.3 L, Magnesium 2.3 H, Total Bilirubin 1.05, AST 36, ALT 24, Alkaline Phosphatase 86, Total Protein 6.9, Albumin 4.1, Globulin 2.7, Albumin/Globulin Ratio 1.5 D/C Instructions Discharge Diet: - (DASH diet) DC O2, CPAP, BIPAP Needs Home O2 Discharge instructions: No Meaningful Use Info Meaningful Use Meaningful Use Diagnoses (Choose all that apply): AMI AMI/Post PCI/Angioplasty Aspirin given w/in 24hrs of arrival?: Yes ASA at discharge?: Yes Antiplatelet Therapy at Discharge:: Yes Statins at discharge?: Yes Collin/ARB at discharge?: Yes Beta Jami at discharge?: Yes Done w/ Acute TN measure.: Yes Documented LVEF (%): 55 Ischemic Stroke Statin Dosing Therapy Reference: STATIN DOSE THERAPY REFERENCE: * Patients > 75 years receive moderate or high dose statin therapy. * Patients 75 years or YOUNGER should receive HIGH intensity statin dose unless contraindicated. You will be required to document reason for non-treatment if statin daily dose does not meet guidelines. HIGH DOSE STATIN THERAPY DAILY Atorvastatin > than or = to 40 mg Rosuvastatin > than or = to 20 mg Amlodipine + Atorvastatin > than or = to 2.5/40 mg Ezetimibe + Simvastatin 10/80 mg Simvastatin 80mg Discharge Plan Admission Admit Date/Time: 08/31/24 23:07 Primary Reason for Your Visit: Chest pain Attending Provider: Mayra Rodriguez Primary Care Provider: Colton Krishnamurthy Consulting Providers: Graham Carr; Mian Hutchison Instructions Patient Instructions: Cardiac Catheterization Dc Additional Instructions / Restrictions: DISCHARGE INSTRUCTIONS PLEASE READ *Please take this with you to your next doctors appointment* -You will be discharged on several new medications. You will be discharged on metoprolol succinate 25 mg daily, aspirin, Brilinta 90 mg twice daily, and atorvastatin -You will resume your home blood pressure medications and was advised to not resume meloxicam on discharge -Do only light and easy activities for 2 to 3 days after your stent placement, ask for help with chores and errands while you recover and have someone drive you to your appointments. -Unless your job involves lifting you may return to normal activities within 2 days -Please take your medications as prescribed, do not skip doses -Check your incisions every day for signs of infection which would include redness, swelling, leaking. It is normal to have a small bruise or bump where the catheter was placed but a bruise that is getting larger is not normal. Please tell your healthcare team about this. Please proceed to the emergency department if you have uncontrollable bleeding from the site. -It is important to eat a diet that is low in fat, salt, and cholesterol -You will be set up with cardiac rehab upon discharge, it is important that you follow-up -Okay to shower from the day after your heart catheterization but keep your incision site clean and dry. -Would recommend lab work (fasting lipid panel and liver function) in 6 weeks, this can be coordinated through your primary care physician office or the cardiology office, please call on discharge to inquire about scheduling blood work. -Please follow-up with the [facility] in 7 to 10 days upon discharge. Please call their office to schedule hospital follow-up appointment upon discharge. -Please call your primary care provider's office upon discharge to schedule a hospital follow up within 1 week. -For any concerning signs or symptoms please call 911 or proceed to the nearest emergency department Discharge Orders/Prescriptions Prescriptions: New aspirin 81 mg Tablet,Delayed Release (Dr/Ec) 81 mg PO BREAKFAST Qty: 30 0RF atorvastatin 40 mg Tablet 40 mg PO QHS 30 Days Qty: 30 0RF metoprolol succinate 25 mg tablet extended release 24 hr 25 mg PO DAILY Qty: 30 0RF Brilinta 90 mg Tablet 90 mg PO BID 30 Days Qty: 60 0RF Continued cholecalciferol (vitamin D3) [Vitamin D3] 1,000 UNIT capsule 1,000 unit PO DAILY hydrochlorothiazide 25 MG tablet 25 mg PO DAILY Qty: 30 0RF lisinopril-hydrochlorothiazide 20-12.5 mg tablet 2 tab PO DAILY Discontinued meloxicam 15 MG tablet 15 mg PO DAILY Referrals / Follow Up: Colton Krishnamurthy MD [Primary Care Provider] - Within 1 Week Graham Carr MD [Med Staff - Active Staff] - In 1 Week (follow-up in the [facility] office in 7 to 10 days with one of the advanced practice providers. Please call the office upon discharge to schedule this appointment) Disposition Disposition (needs filled in before D/C Order can be placed): Home, Self Care Charges/Coding Visit Charges Inpatient E&M: 68278 Disch Hosp >30min 09/02/24 1316 <Electronically signed by Mayra Rodriguez MD> Cosigner Signature (if applicable): CC: Dr. Colton Krishnamurthy MD; Dr. Mayra Rodriguez MD~ Signed [facility] Work Phone: 1(844) 954-804603-12-2025 Discharge summary Author Mayra Rodriguez [facility] Note Date/Time September 02, 2024 1:1 4pm [facility] Medical Records Department [address] [place] [id number] Instructions for Home/Discharge Instructions 09/02/24 1308 MR#: [id number] Acct: [id number] Name: MITUL MARTINEZ Rep #:[id number] : 1955 69 From: Mayra Rodriguez MD PCP: Dr. Colton Krishnamurthy MD Status:ADM IN Discharge Instructions Diet Discharge Diet: - (DASH diet) DC O2, CPAP, BIPAP needs Home O2 Discharge instructions: No Dressing / Incision Discharge Activity: - (See discharge instructions) Follow Up Care Test Results: Test results from this visit will be discussed in further detail at your follow- up appointment, if applicable. Discharge Plan Admission Admit Date/Time: 08/31/24 23:07 Primary Reason for Your Visit: Chest pain Attending Provider: Mayra Rodriguez Primary Care Provider: Colton Krishnamurthy Consulting Providers: Graham Carr; Mian Hutchison Instructions Patient Instructions: Cardiac Catheterization Dc Additional Instructions / Restrictions: DISCHARGE INSTRUCTIONS PLEASE READ *Please take this with you to your next doctors appointment* -You will be discharged on several new medications. You will be discharged on metoprolol succinate 25 mg daily, aspirin, Brilinta 90 mg twice daily, and atorvastatin -You will resume your home blood pressure medications and was advised to not resume meloxicam on discharge -Do only light and easy activities for 2 to 3 days after your stent placement, ask for help with chores and errands while you recover and have someone drive you to your appointments. -Unless your job involves lifting you may return to normal activities within 2 days -Please take your medications as prescribed, do not skip doses -Check your incisions every day for signs of infection which would include redness, swelling, leaking. It is normal to have a small bruise or bump where the catheter was placed but a bruise that is getting larger is not normal. Please tell your healthcare team about this. Please proceed to the emergency department if you have uncontrollable bleeding from the site. -It is important to eat a diet that is low in fat, salt, and cholesterol -You will be set up with cardiac rehab upon discharge, it is important that you follow-up -Okay to shower from the day after your heart catheterization but keep your incision site clean and dry. -Would recommend lab work (fasting lipid panel and liver function) in 6 weeks, this can be coordinated through your primary care physician office or the cardiology office, please call on discharge to inquire about scheduling blood work. -Please follow-up with the [facility] in 7 to 10 days upon discharge. Please call their office to schedule hospital follow-up appointment upon discharge. -Please call your primary care provider's office upon discharge to schedule a hospital follow up within 1 week. -For any concerning signs or symptoms please call 911 or proceed to the nearest emergency department Discharge Orders/Prescriptions Prescriptions: New aspirin 81 mg Tablet,Delayed Release (Dr/Ec) 81 mg PO BREAKFAST Qty: 30 0RF atorvastatin 40 mg Tablet 40 mg PO QHS 30 Days Qty: 30 0RF metoprolol succinate 25 mg tablet extended release 24 hr 25 mg PO DAILY Qty: 30 0RF Brilinta 90 mg Tablet 90 mg PO BID 30 Days Qty: 60 0RF Continued cholecalciferol (vitamin D3) [Vitamin D3] 1,000 UNIT capsule 1,000 unit PO DAILY hydrochlorothiazide 25 MG tablet 25 mg PO DAILY Qty: 30 0RF lisinopril-hydrochlorothiazide 20-12.5 mg tablet 2 tab PO DAILY Discontinued meloxicam 15 MG tablet 15 mg PO DAILY Referrals / Follow Up: Colton Krishnamurthy MD [Primary Care Provider] - Within 1 Week Graham Carr MD [Med Staff - Active Staff] - In 1 Week (follow-up in the [facility] office in 7 to 10 days with one of the advanced practice providers. Please call the office upon discharge to schedule this appointment) Disposition Disposition (needs filled in before D/C Order can be placed): Home, Self Care 09/02/24 1314<Electronically signed by Mayra Rodriguez MD>Mayra Rodriguez MD CC: Dr. Colton Krishnamurthy MD; Dr. Mian Hutchison DO; Dr. Graham Carr MD ~ Signed [facility] Work Phone: 1(292) 130-481203-12-2025 Progress note [facility] Medical Records Department [address] [place] [address] Progress Note - Hospitalist 09/01/24 1354 MR#: [id number] Acct: [id number] Name: MITUL MARTINEZ Rep #:[id number] : 1955 69 From: Mayra Rodriguez MD PCP: Dr. Colton Krishnamurthy MD Status:ADM IN Location: [place] [address] Reason for Visit Reason for Visit: Diagnoses Morbid (severe) obesity due to excess calories (08/31/24) Pure hypercholesterolemia, unspecified (08/31/24) Essential (primary) hypertension (08/31/24) Unstable angina (08/31/24) Non-ST elevation (NSTEMI) myocardial infarction (08/31/24) Body mass index [BMI] 40.0-44.9, adult (08/31/24) Family history of ischemic heart disease and other diseases of the circulatory system (08/31/24) Personal history of other diseases of the circulatory system (08/31/24) Personal history of nicotine dependence (08/31/24) Objective Data Objective Data Vital Signs: Vital Signs Temp Pulse Resp BP Pulse Ox O2 Del Method 97.8 F 74 18 128/82 H 99 Room Air 09/01/24 13:06 09/01/24 13:06 09/01/24 13:06 09/01/24 13:06 09/01/24 13:06 09/01/24 13:06 Oxygen Delivery Method Room Air Weight: 126.9 kg Body Mass Index (BMI) 40.1 Lab / Micro Data 09/01/24 05:36 09/01/24 05:36 Labs: Laboratory Results - last 24 hr 08/31/24 18:55: WBC 9.7, RBC 5.70, Hgb 17.2 H, Hct 49.7, MCV 87.2, MCH 30.2, MCHC 34.6, RDW Std Deviation 43.2, RDW Coeff of Aida 13.6, Plt Count 263, MPV 11.2, Immature Gran % (Auto) 0.400, Neut % (Auto) 72.6 H, Lymph % (Auto) 17.8 L, [place] % (Auto) 6.7, Eos % (Auto) 1.7, Baso % (Auto) 0.8, AbsoluteNeuts (auto) 7.0, Absolute Lymphs (auto) 1.72, Nucleated RBC % 0 08/31/24 18:58: PT 13.5, INR 1.0, APTT 27.7, D-Dimer Quant (PE/DVT) 3.21 H*, Sodium 137, Potassium 3.8, Chloride 100, Carbon Dioxide 21.0, Anion Gap 17 H, BUN 13, Creatinine 0.98, Estim Creat Clear Calc 93.89, Est GFR (MDRD) Non-Af 83, BUN/Creatinine Ratio 13.5, Glucose 90, Calcium 9.8, Troponin T High Sens 54 H*, NT pro BNP II 205 08/31/24 21:05: Troponin T Hi Sens 2 Hr 58 H* 08/31/24 22:56: Troponin T Hi Sens 4Hr 65 H*, Triglycerides 150, Cholesterol 160, LDL Cholesterol, Calc 90, VLDL Cholesterol 30, HDL Cholesterol 40, Cholesterol/HDL Ratio 3.98, TSH 3.470 08/31/24 23:20: Hemoglobin A1c 5.7 09/01/24 05:36: WBC 6.4, RBC 5.63, Hgb 16.9 H, Hct 49.8, MCV 88.5, MCH 30.0, MCHC 33.9, RDW Std Deviation 44.3 H, RDW Coeff of Aida 13.6, Plt Count 210, MPV 10.5, Sodium 137, Potassium 3.8, Chloride 102, Carbon Dioxide 22.9, Anion Gap 13, BUN 14, Creatinine 1.08, Estim Creat Clear Calc 35.65 L, Est GFR (MDRD) Non- Af 74, BUN/Creatinine Ratio 12.8, Glucose 117 H, Calcium 9.2, Phosphorus 2.5 L, Magnesium 2.3 H, Total Bilirubin 1.06, AST 35, ALT 25, Alkaline Phosphatase 91, Total Protein 7.2, Albumin 4.3, Globulin 2.9, Albumin/Globulin Ratio 1.5 Radiography Diagnostic Testing: Radiology Impression Chest X-Ray 08/31/24 19:15 IMPRESSION: Findings of fluid overload/CHF including trace left pleural effusion. Reading Location: [facility] Chest CTA 08/31/24 20:47 IMPRESSION: No evidence of pulmonary embolism or acute findings in the thorax. Mild upper lobe emphysema. One or more dose reduction techniques were used (e.g., Automated exposure control, adjustment of the mA and/or kV according to patient size, use of iterative reconstruction technique). Reading Location: [facility] Echocardiogram 09/01/24 05:55 Interpretation Summary The estimated ejection fraction is 55 %. No evidence for diastolic dysfunction. Ordering Physician: Mian Hutchison Performed By: Perez Espinosa RCS Rhythm Strip Rhythm Strip: Sinus Rhythm Rate: 78 Assessment & Plan Assessment/Plan (1) Non-ST elevation TN (NSTEMI): PLAN: Plan # NSTEMI type I -Patient came to the ED with symptoms concerning for cardiac etiology, he was admitted and [id number] up trended to 58 and he was given full dose Lovenox and hospitalist contacted for admission -Cardiology consulted and noted the concerning story with increased troponins and EKG with ST segment changes in 3 through V6 and heart cath was recommended as well as aspirin and statin -Left heart cath 09/01/2024 revealed EF of 60% and stenosis of the pLCx, patient underwent successful STEPHEN and was transferred back to [facility] in stable condition -Brilinta added to his regimen # Coronary artery disease -Patient now status post stenting to pLCx -Echocardiogram with EF of 55% and no evidence of diastolic dysfunction, no comment on wall motion abnormalities present either -Continue aspirin, statin, beta-jami, Brilinta -Stop full dose anticoagulation #Hypertension -Holding lisinopril?hydrochlorothiazide given patient had contrast with heart cath and CTA, plan will be to resume lisinopril on 09/03 if kidney function stable -Metoprolol started #Morbid obesity -BMI documented as 40.1 kg/m? at time of admission -Complicates treatment, prognosis, outcomes -Recommend weight loss and lifestyle changes #DVT ppx: Lovenox subcu Mayra Rodriguez MD Charges/Coding Visit Charges Inpatient E&M: 46136 Subs Hosp L2 09/01/24 1400 Cosigner Signature (if applicable): CC: ~ Signed ADDENDUM by Dr. Mayra Rodriguez MD on 09/02/24 at 1444 Addendum ADDENDUM: PHYSICAL EXAM from 09/01/24: General: Alert, oriented, no apparent distress HEENT: Atraumatic, normocephalic Eyes: Anicteric, normal conjunctiva, extraocular movements grossly intact Neck: Supple Respiratory: Clear to auscultation bilaterally, normal respiratory effort Cardiovascular: Regular rate and rhythm GI: Soft, nontender, nondistended Extremities: No edema Musculoskeletal: Moving all extremities Neuro: No overt focal neurological deficits Skin: No rashes appreciated Psych: Cooperative 09/02/24 1444 Cosigner Signature (if applicable): cc: ~* Signed [facility]03-12-2025 Consult note [facility] Medical Records Department [address] [place] [id number] Counseling Note - Pharmacy 09/02/24 1432 MR#: [id number] Acct: [id number] Name: MITUL MARTINEZ Rep #:[id number] : 1955 69 From: Rosemarie Bill PCP: Dr. Colton Krishnamurthy MD Status:ADM IN Y Location: [place] [address] Pharmacy [facility] Pharmacy Service has performed discharge medication reconciliation and counseling for this patient. 1. ASPIRIN 81MG PO BREAKFAST 2. ATORVASTATIN 40MG PO QHS 3. TICAGRELOR 90MG PO BID 4. METOPROLOL SUCCINATE 25MG PO DAILY 5. STOP MOBIC The patient's discharge medication list was reviewed for discrepancies and discrepancies were resolved. The patient was counseled on the following discharge medications and changes in medications for homegoing were reviewed. The Reason for Use, instructions for use, and potential side effects were reviewed for all new medications. The patient's questions regarding all of their medications were answered. The patient was able to verbally demonstrate an understanding of their dischargemedications. Medications at Discharge Home Medications cholecalciferol (vitamin D3) 25 mcg (1,000 unit) capsule (Vitamin D3) 1,000 unitPO DAILY 08/24/17 lisinopril 20 mg-hydrochlorothiazide 12.5 mg tablet 2 tab PO DAILY 08/31/24 aspirin 81 mg tablet,delayed release 81 mg PO BREAKFAST #30 tabs 09/02/24 atorvastatin 40 mg tablet 40 mg PO QHS 30 days #30 tabs 09/02/24 metoprolol succinate 25 mg tablet,extended release 24 hr 25 mg PO DAILY #30 tabs09/02/24 ticagrelor 90 mg tablet (Brilinta) 90 mg PO BID 30 days #60 tabs 09/02/24 09/02/24 1433 Date _ Rosemarie Murray Signature (if applicable): Date CC: ~ Signed [facility]03-12-2025 Discharge summary [facility] Medical Records Department [address] [place] [address] Discharge Summary 09/02/24 1314 MR#: [id number] Acct: [id number] Name: MITUL MARTINEZ Rep #:[id number] : 1955 69 From: Mayra Rodriguez MD PCP: Dr. Colton Krishnamurthy MD Status:ADM IN Location: [place] [id number] Providers Date of Admission: 08/31/24 Date of Discharge: 09/02/24 Primary Care Physician: Dr. Colton Krishnamurthy MD Consultations 08/31/24 23:32 Consult: Cardiology Routine Consulting Provider: Graham Carr Reason for Consult: NSTEMI EMERGENT Consult: No MD Notified: Yes Date Notified: 08/31/24 Time Notified: 23:08 Method of Notification: ED Physician Initiated Method of Consult:: In-Person Reason For Visit: NSTEMI Diagnosis Discharge Diagnosis (1) Accelerating angina: Status: Acute Code(s): I20.0 - Unstable angina (2) Hyperlipidemia: Status: Acute Code(s): E78.5 - Hyperlipidemia, unspecified Qualifiers: Hyperlipidemia type: pure hypercholesterolemia Qualified Code(s): E78.00 - Pure hypercholesterolemia, unspecified (3) History of hypertension: Status: Acute Code(s): Z86.79 - Personal history of other diseases of the circulatory system Plan # NSTEMI type I # Coronary artery disease #Hypertension #Morbid obesity Medications at Discharge Home Medications cholecalciferol (vitamin D3) 25 mcg (1,000 unit) capsule (Vitamin D3) 1,000 unitPO DAILY 08/24/17 hydrochlorothiazide 25 mg tablet 25 mg PO DAILY #30 tabs 08/24/17 lisinopril 20 mg-hydrochlorothiazide 12.5 mg tablet 2 tab PO DAILY 08/31/24 aspirin 81 mg tablet,delayed release 81 mg PO BREAKFAST #30 tabs 09/02/24 atorvastatin 40 mg tablet 40 mg PO QHS 30 days #30 tabs 09/02/24 metoprolol succinate 25 mg tablet,extended release 24 hr 25 mg PO DAILY #30 tabs09/02/24 ticagrelor 90 mg tablet (Brilinta) 90 mg PO BID 30 days #60 tabs 09/02/24 Hospital Course Procedures Cardiac catheterization and Transthoracic echo Summary of Care Provided Minutes Spent on Discharge: 32 Hospital Course: Per HPI: MITUL MARTINEZ, is a 69 M with a past medical history of essential hypertension; on lisinopril-hydrochlorothiazide, morbid obesity; with BMI of 40.2 this admission, former history of tobacco abuse, positive family history ofpremature CAD in his father who had an TN at age 60, history of olecranon bursitis and OA; with meloxicam who presents to [facility] ER complaining of chest pain. Mr. Martinez reports his symptoms began approximatelyone week prior to admission with intermittent chest tightness with patient typically able to swim ~100 yards every Saturday, Saturday and Saturday - but sincelast week he can only swim 4 laps before he had to stop due to chest tightness. He also admits to dyspnea on exertion the improved after ~2 minutes of rest. Then this morning he had a recurrence of his symptoms ~9:30 AM, so he spoke to his sister who is a nurse and she encouraged him to come in to the ER for further evaluation and treatment. He states he was scheduled for a co lonoscopy tomorrow in [place], [place] - but he denies recent GI bleeding. He denies similarprevious episodes and his last stress test was years ago. There was no report of associated fever, chills, nausea, vomiting, diaphoresis, abdominal pain, nausea, vomiting, diarrhea, constipation, headache, recent travel or recent medication changes. In the ER he was noted to have an elevated d-dimer of 3.21 present on admission followed by a CTA of the chest negative for PE but was positive for mild upper lobe emphysema complicated by elevated troponin T of 54 ng/L followed by a second increasing troponinT of 58 ng/L consistent with suspected NSTEMI and he was then admitted to the PCU for ongoing care for a staythat is expected to extend beyond 2 midnights. INTERVAL HISTORY: Cardiology evaluated and recommended cardiac cath. Patient had cardiac catheterization 09/01/2024 and had successful STEPHEN to pLCX. Patient was placed on aspirin, Brilinta, atorvastatin, beta-jami and did well postcatheterization. Echocardiogram without any significant abnormalities. On day of discharge patient doing well with no new or acute complaints, cleared fordischarge by cardiology. Discharge instructions as follows: DISCHARGE INSTRUCTIONS PLEASE READ *Please take this with you to your next doctors appointment* -You will be discharged on several new medications. You will be discharged on metoprolol succinate 25 mg daily, aspirin, Brilinta 90 mg twice daily, and atorvastatin -You will resume your home blood pressure medications and was advised to not resume meloxicam on discharge -Do only light and easy activities for 2 to 3 days after your stent placement, ask for help with chores and errands while you recover and have someone drive you to your appointments. -Unless your job involves lifting you may return to normal activities within 2 days -Please take your medications as prescribed, do not skip doses -Check your incisions every day for signs of infection which would include redness, swelling, leaking. It is normal to have a small bruise or bump where the catheter was placed but a bruise that is getting larger is not normal. Please tell your healthcare team about this. Please proceed to the emergency department if you have uncontrollable bleeding from the site. -It is important to eat a diet that is low in fat, salt, and cholesterol -You will be set up with cardiac rehab upon discharge, it is important that you follow-up -Okay to shower from the day after your heart catheterization but keep your incision site clean anddry. -Would recommend lab work (fasting lipid panel and liver function) in 6 weeks, this can be coordinated through your primary care physician office or the cardiology office, please call on discharge toinquire about scheduling blood work. -Please follow-up with the [facility] in 7 to 10 days upon discharge. Please call their office to schedule hospital follow-up appointment upon discharge. -Please call your primary care provider's office upon discharge to schedule a hospital follow up within 1 week. -For any concerning signs or symptoms please call 911 or proceed to the nearest emergency department Physical Exam Narrative General: Alert, oriented, no apparent distress HEENT: Atraumatic, normocephalic Eyes: Anicteric, normal conjunctiva, extraocular movements grossly intact Neck: Supple Respiratory: Clear to auscultation bilaterally, normal respiratory effort Cardiovascular: Regular rate and rhythm GI: Soft, nontender, nondistended Extremities: No edema Musculoskeletal: Moving all extremities Neuro: No overt focal neurological deficits Skin: No rashes appreciated Psych: Cooperative Weight / BMI Weight Weight: 129 kg Body Mass Index (BMI) 40.8 ABG / Lab / Microbiology Data 09/02/24 05:14 09/02/24 05:14 Laboratory: Laboratory Results - last 24 hr 09/02/24 05:14: WBC 8.0, RBC 5.37, Hgb 16.1, Hct 47.3, MCV 88.1, MCH 30.0, MCHC 34.0, RDW Std Deviation 43.5, RDW Coeff of Aida 13.5, Plt Count 195, MPV 10.7, Sodium 139, Potassium 4.0, Chloride 102, Carbon Dioxide 22.7, Anion Gap 14, BUN 14, Creatinine 0.92, Estim Creat Clear Calc 100.82, Est GFR (MDRD) Non-Af 90, BUN/Creatinine Ratio 15.7, Glucose 105 H, Calcium 9.2, Phosphorus 2.3 L, Magnesium 2.3 H, Total Bilirubin 1.05, AST 36, ALT 24, Alkaline Phosphatase 86, Total Protein 6.9, Albumin 4.1, Globulin 2.7, Albumin/Globulin Ratio 1.5 D/C Instructions Discharge Diet: - (DASH diet) DC O2, CPAP, BIPAP Needs Home O2 Discharge instructions: No Meaningful Use Info Meaningful Use Meaningful Use Diagnoses (Choose all that apply): AMI AMI/Post PCI/Angioplasty Aspirin given w/in 24hrs of arrival?: Yes ASA at discharge?: Yes Antiplatelet Therapy at Discharge:: Yes Statins at discharge?: Yes Collin/ARB at discharge?: Yes Beta Jami at discharge?: Yes Done w/ Acute TN measure.: Yes Documented LVEF (%): 55 Ischemic Stroke Statin Dosing Therapy Reference: STATIN DOSE THERAPY REFERENCE: * Patients > 75 years receive moderate or high dose statin therapy. * Patients 75 years or YOUNGER should receive HIGH intensity statin dose unless contraindicated. You will be required to document reason for non-treatment if statin daily dose does not meet guidelines. HIGH DOSE STATIN THERAPY DAILY Atorvastatin > than or = to 40 mg Rosuvastatin > than or = to 20 mg Amlodipine + Atorvastatin > than or = to 2.5/40 mg Ezetimibe + Simvastatin 10/80 mg Simvastatin 80mg Discharge Plan Admission Admit Date/Time: 08/31/24 23:07 Primary Reason for Your Visit: Chest pain Attending Provider: Mayra Rodriguez Primary Care Provider: Colton Krishnamurthy Consulting Providers: Graham Carr; Mian Hutchison Instructions Patient Instructions: Cardiac Catheterization Dc Additional Instructions / Restrictions: DISCHARGE INSTRUCTIONS PLEASE READ *Please take this with you to your next doctors appointment* -You will be discharged on several new medications. You will be discharged on metoprolol succinate 25 mg daily, aspirin, Brilinta 90 mg twice daily, and atorvastatin -You will resume your home blood pressure medications and was advised to not resume meloxicam on discharge -Do only light and easy activities for 2 to 3 days after your stent placement, ask for help with chores and errands while you recover and have someone drive you to your appointments. -Unless your job involves lifting you may return to normal activities within 2 days -Please take your medications as prescribed, do not skip doses -Check your incisions every day for signs of infection which would include redness, swelling, leaking. It is normal to have a small bruise or bump where the catheter was placed but a bruise that is getting larger is not normal. Please tell your healthcare team about this. Please proceed to the emergency department if you have uncontrollable bleeding from the site. -It is important to eat a diet that is low in fat, salt, and cholesterol -You will be set up with cardiac rehab upon discharge, it is important that you follow-up -Okay to shower from the day after your heart catheterization but keep your incision site clean anddry. -Would recommend lab work (fasting lipid panel and liver function) in 6 weeks, this can be coordinated through your primary care physician office or the cardiology office, please call on discharge toinquire about scheduling blood work. -Please follow-up with the [facility] in 7 to 10 days upon discharge. Please call their office to schedule hospital follow-up appointment upon discharge. -Please call your primary care provider's office upon discharge to schedule a hospital follow up within 1 week. -For any concerning signs or symptoms please call 911 or proceed to the nearest emergency department Discharge Orders/Prescriptions Prescriptions: New aspirin 81 mg Tablet,Delayed Release (Dr/Ec) 81 mg PO BREAKFAST Qty: 30 0RF atorvastatin 40 mg Tablet 40 mg PO QHS 30 Days Qty: 30 0RF metoprolol succinate 25 mg tablet extended release 24 hr 25 mg PO DAILY Qty: 30 0RF Brilinta 90 mg Tablet 90 mg PO BID 30 Days Qty: 60 0RF Continued cholecalciferol (vitamin D3) [Vitamin D3] 1,000 UNIT capsule 1,000 unit PO DAILY hydrochlorothiazide 25 MG tablet 25 mg PO DAILY Qty: 30 0RF lisinopril-hydrochlorothiazide 20-12.5 mg tablet 2 tab PO DAILY Discontinued meloxicam 15 MG tablet 15 mg PO DAILY Referrals / Follow Up: Colton Krishnamurthy MD [Primary Care Provider] - Within 1 Week Graham Carr MD [Med Staff - Active Staff] - In 1 Week (follow-up in the [facility] office in 7 to 10 days with one of the advanced practice providers. Please call the office upon discharge to schedule this appointment) Disposition Disposition (needs filled in before D/C Order can be placed): Home, Self Care Charges/Coding Visit Charges Inpatient E&M: 40007 Disch Hosp >30min 09/02/24 1316 Cosigner Signature (if applicable): CC: Dr. Colton Krishnamurthy MD; Dr. Mayra Rodriguez MD~ Signed [facility]03-12-2025 Discharge summary [facility] Medical Records Department [address] [place] [address] Instructions for Home/Discharge Instructions 09/02/24 1308 MR#: [id number] Acct: [id number] Name: MITUL MARTINEZ Rep #:[id number] : 1955 69 From: Mayra Rodriguez MD PCP: Dr. Colton Krishnamurthy MD Status:ADM IN Discharge Instructions Diet Discharge Diet: - (DASH diet) DC O2, CPAP, BIPAP needs Home O2 Discharge instructions: No Dressing / Incision Discharge Activity: - (See discharge instructions) Follow Up Care Test Results: Test results from this visit will be discussed in further detail at your follow- up appointment, if applicable. Discharge Plan Admission Admit Date/Time: 08/31/24 23:07 Primary Reason for Your Visit: Chest pain Attending Provider: Mayra Rodriguez Primary Care Provider: Colton Krishnamurthy Consulting Providers: Graham Carr; Mian Hutchison Instructions Patient Instructions: Cardiac Catheterization Dc Additional Instructions / Restrictions: DISCHARGE INSTRUCTIONS PLEASE READ *Please take this with you to your next doctors appointment* -You will be discharged on several new medications. You will be discharged on metoprolol succinate 25 mg daily, aspirin, Brilinta 90 mg twice daily, and atorvastatin -You will resume your home blood pressure medications and was advised to not resume meloxicam on discharge -Do only light and easy activities for 2 to 3 days after your stent placement, ask for help with chores and errands while you recover and have someone drive you to your appointments. -Unless your job involves lifting you may return to normal activities within 2 days -Please take your medications as prescribed, do not skip doses -Check your incisions every day for signs of infection which would include redness, swelling, leaking. It is normal to have a small bruise or bump where the catheter was placed but a bruise that is getting larger is not normal. Please tell your healthcare team about this. Please proceed to the emergency department if you have uncontrollable bleeding from the site. -It is important to eat a diet that is low in fat, salt, and cholesterol -You will be set up with cardiac rehab upon discharge, it is important that you follow-up -Okay to shower from the day after your heart catheterization but keep your incision site clean anddry. -Would recommend lab work (fasting lipid panel and liver function) in 6 weeks, this can be coordinated through your primary care physician office or the cardiology office, please call on discharge toinquire about scheduling blood work. -Please follow-up with the [facility] in 7 to 10 days upon discharge. Please call their office to schedule hospital follow-up appointment upon discharge. -Please call your primary care provider's office upon discharge to schedule a hospital follow up within 1 week. -For any concerning signs or symptoms please call 911 or proceed to the nearest emergency department Discharge Orders/Prescriptions Prescriptions: New aspirin 81 mg Tablet,Delayed Release (Dr/Ec) 81 mg PO BREAKFAST Qty: 30 0RF atorvastatin 40 mg Tablet 40 mg PO QHS 30 Days Qty: 30 0RF metoprolol succinate 25 mg tablet extended release 24 hr 25 mg PO DAILY Qty: 30 0RF Brilinta 90 mg Tablet 90 mg PO BID 30 Days Qty: 60 0RF Continued cholecalciferol (vitamin D3) [Vitamin D3] 1,000 UNIT capsule 1,000 unit PO DAILY hydrochlorothiazide 25 MG tablet 25 mg PO DAILY Qty: 30 0RF lisinopril-hydrochlorothiazide 20-12.5 mg tablet 2 tab PO DAILY Discontinued meloxicam 15 MG tablet 15 mg PO DAILY Referrals / Follow Up: Colton Krishnamurthy MD [Primary Care Provider] - Within 1 Week Graham Carr MD [Med Staff - Active Staff] - In 1 Week (follow-up in the [facility] office in 7 to 10 days with one of the advanced practice providers. Please call the office upon discharge to schedule this appointment) Disposition Disposition (needs filled in before D/C Order can be placed): Home, Self Care 09/02/24 1314Pjuan Rodriguez MD CC: Dr. Colton Krishnamurthy MD; Dr. Mian Hutchison DO; Dr. Graham Carr MD ~ Signed [facility]03-12-2025 [facility] Medical Records Department [address] [place] [address] Discharge Summary 09/02/24 1314 MR#: [id number] Acct: [id number] Name: MITUL MARTINEZ Rep #: [id number] : 1955 69 From: Mayra Rodriguez MD PCP: Dr. Colton Krishnamurthy MD Status:ADM IN Location: [place] [id number] Providers Date of Admission: 08/31/24 Date of Discharge: 09/02/24 Primary Care Physician: Dr. Colton Krishnamurthy MD Consultations 08/31/24 23:32 Consult: Cardiology Routine Consulting Provider: Graham Carr Reason for Consult: NSTEMI EMERGENT Consult: No MD Notified: Yes Date Notified: 08/31/24 Time Notified: 23:08 Method of Notification: ED Physician Initiated Method of Consult:: In-Person Reason For Visit: NSTEMI Diagnosis Discharge Diagnosis (1) Accelerating angina: Status: Acute Code(s): I20.0 - Unstable angina (2) Hyperlipidemia: Status: Acute Code(s): E78.5 - Hyperlipidemia, unspecified Qualifiers: Hyperlipidemia type: pure hypercholesterolemia Qualified Code(s): E78.00 - Pure hypercholesterolemia, unspecified (3) History of hypertension: Status: Acute Code(s): Z86.79 - Personal history of other diseases of the circulatory system Plan # NSTEMI type I # Coronary artery disease #Hypertension #Morbid obesity Medications at Discharge Home Medications cholecalciferol (vitamin D3) 25 mcg (1,000 unit) capsule (Vitamin D3) 1,000 unit PO DAILY 08/24/17 hydrochlorothiazide 25 mg tablet 25 mg PO DAILY #30 tabs 08/24/17 lisinopril 20 mg-hydrochlorothiazide 12.5 mg tablet 2 tab PO DAILY 08/31/24 aspirin 81 mg tablet,delayed release 81 mg PO BREAKFAST #30 tabs 09/02/24 atorvastatin 40 mg tablet 40 mg PO QHS 30 days #30 tabs 09/02/24 metoprolol succinate 25 mg tablet,extended release 24 hr 25 mg PO DAILY #30 tabs 09/02/24 ticagrelor 90 mg tablet (Brilinta) 90 mg PO BID 30 days #60 tabs 09/02/24 Hospital Course Procedures Cardiac catheterization and Transthoracic echo Summary of Care Provided Minutes Spent on Discharge: 32 Hospital Course: Per HPI: MITUL MARTINEZ, is a 69 M with a past medical history of essential hypertension; on lisinopril-hydrochlorothiazide, morbid obesity; with BMI of 40.2 this admission, former history of tobacco abuse, positive family history of premature CAD in his father who had an TN at age 60, history of olecranon bursitis and OA; with meloxicam who presents to [facility] ER complaining of chest pain. Mr. Martinez reports his symptoms began approximately one week prior to admission with intermittent chest tightness with patient typically able to swim 100 yards every Saturday, Saturday and Saturday - but since last week he can only swim 4 laps before he had to stop due to chest tightness. He also admits to dyspnea on exertion the improved after 2 minutes of rest. Then this morning he had a recurrence of his symptoms 9:30 AM, so he spoke to his sister who is a nurse and she encouraged him to come in to the ER for further evaluation and treatment. He states he was scheduled for a colonoscopy tomorrow in [place], [place] - but he denies recent GI bleeding. He denies similar previous episodes and his last stress test was years ago. There was no report of associated fever, chills, nausea, vomiting, diaphoresis, abdominal pain, nausea, vomiting, diarrhea, constipation, headache, recent travel or recent medication changes. In the ER he was noted to have an elevated d-dimer of 3.21 present on admission followed by a CTA of the chest negative for PE but was positive for mild upper lobe emphysema complicated by elevated troponin T of 54 ng/L followed by a second increasing troponin T of 58 ng/L consistent with suspected NSTEMI and he was then admitted to the PCU for ongoing care for a stay that is expected to extend beyond 2 midnights. INTERVAL HISTORY: Cardiology evaluated and recommended cardiac cath. Patient had cardiac catheterization 09/01/2024 and had successful STEPHEN to pLCX. Patient was placed on aspirin, Brilinta, atorvastatin, beta-jami and did well postcatheterization. Echocardiogram without any significant abnormalities. On day of discharge patient doing well with no new or acute complaints, cleared for discharge by cardiology. Discharge instructions as follows: DISCHARGE INSTRUCTIONS PLEASE READ *Please take this with you to your next doctors appointment* -You will be discharged on several new medications. You will be discharged on metoprolol succinate 25 mg daily, aspirin, Brilinta 90 mg twice daily, and atorvastatin -You will resume your home blood pressure medications and was advised to not resume meloxicam on discharge -Do only light and easy activities for 2 to 3 days after your stent placement, ask for help with chores and errands while you recover and have someone drive you to your appointments. -Unless (more content not included)...[facility]03-12-2025 Progress note Author Graham Carr [facility] Note Date/Time September 02, 2024 7:0 8am [facility] Medical Records Department [address] [place] [address] Progress Note - Cardiology 09/02/24700 MR#: [id number] Acct: [id number] Name: MITUL MARTINEZ Rep #:[id number] : 1955 69 From: Graham Carr MD PCP: Dr. Colton Krishnamurthy MD Status:ADM IN Location: [place] [address] Subjective Subjective Patient resting comfortably in bed in no apparent distress. Patient underwent successful stenting of the large dominant circumflex yesterday. Has had no recurrence of his anginal symptoms. Telemetry shows sinus bradycardia in the 50 bpm range. Patient denies any issues with his right wrist access point. Objective Data Vital Signs: Vital Signs Temp Pulse Resp BP Pulse Ox O2 Del Method 97.6 F L 79 18 117/68 95 Room Air 09/02/24 02:50 09/02/24 02:50 09/02/24 02:50 09/02/24 02:50 09/02/24 02:50 09/02/24 02:50 Oxygen Delivery Method Room Air Weight: 284 lb 6.341 oz Body Mass Index (BMI) 40.8 Intake & Output: Intake and Output for Last 24 Hours 08/31/24 09/01/24 09/02/24 23:59 23:59 23:59 Intake Total 1615 / 1615 Balance 1615 / 1615 Lab / Micro Data Attestation: I reviewed the patient's lab results. 09/02/24 05:14 09/02/24 05:14 Labs: Laboratory Results - last 24 hr 09/02/24 05:14: WBC 8.0, RBC 5.37, Hgb 16.1, Hct 47.3, MCV 88.1, MCH 30.0, MCHC 34.0, RDW Std Deviation 43.5, RDW Coeff of Aida 13.5, Plt Count 195, MPV 10.7, Sodium 139, Potassium 4.0, Chloride 102, Carbon Dioxide 22.7, Anion Gap 14, BUN 14, Creatinine 0.92, Estim Creat Clear Calc 100.82, Est GFR (MDRD) Non-Af 90, BUN/Creatinine Ratio 15.7, Glucose 105 H, Calcium 9.2, Phosphorus 2.3 L, Magnesium 2.3 H, Total Bilirubin 1.05, AST 36, ALT 24, Alkaline Phosphatase 86, Total Protein 6.9, Albumin 4.1, Globulin 2.7, Albumin/Globulin Ratio 1.5 Rhythm Strip Rhythm Strip: Sinus Rhythm Rate: 60 Cardiology Labs/Tests 09/02/24 05:14: WBC 8.0, RBC 5.37, Hgb 16.1, Hct 47.3, MCV 88.1, MCH 30.0, MCHC 34.0, Plt Count 195, MPV 10.7, Sodium 139, Potassium 4.0, Chloride 102, Carbon Dioxide 22.7, Anion Gap 14, BUN 14, Creatinine 0.92, Est GFR (MDRD) Non-Af 90, BUN/Creatinine Ratio 15.7, Glucose 105 H, Calcium 9.2, Phosphorus 2.3 L, Magnesium 2.3 H, Total Bilirubin 1.05 Rhythm: EKG: ECHO: Stress Test: Cardiac Cath: PCI: CT Surgery: Holter monitor: EPS: PPM: CXR: Chest CT Scan: Radiography Diagnostic Testing: Radiology Impression Echocardiogram 09/01/24 05:55 Interpretation Summary The estimated ejection fraction is 55 %. No evidence for diastolic dysfunction. Ordering Physician: Mian Hutchison Performed By: Perez Espinosa [facility] Physical Exam Const alert and oriented x3 HEENT normocephalic Eyes PERRL Neck no JVD Chest inspection of chest normal Resp normal respiratory effort Cardio regular rate and regular rhythm Cardio Narrative: Right radial access site clean and dry. Normal capillary refill in the right hand no sensory deficits. Extremity no pedal edema Neuro Neuro Narrative: Alert and oriented x 3 Psych mental status grossly normal Assessment & Plan Assessment/Plan (1) Accelerating angina: PLAN: Patient underwent diagnostic left heart catheterization which revealed critical disease in the proximal huge dominant circumflex which was stented. The patient denies any recurrent symptoms. Access site is healing well. The patient will be continued on dual antiplatelet therapy uninterrupted for a year. I went over with this in detail with him about stent thrombosis risk. The patient does have moderate disease in the ostium of the LAD and mild diseasein the large nondominant right coronary artery. (2) Hyperlipidemia: QUALIFIERS: Hyperlipidemia type: pure hypercholesterolemia Qualified Code(s): E78.00 - Pure hypercholesterolemia, unspecified PLAN: Patient has been started on atorvastatin 40 mg daily. He has been intolerant of fenofibrate in the past. Should the patient develop myalgias I would recommend switching him to rosuvastatin 20 mg daily but this will be addressed in the ambulatory setting. (3) History of hypertension: PLAN: Patient should be continued on his lisinopril hydrochlorothiazide at home medical therapy. He is also on metoprolol 25 mg daily which we will switch to 25 mg succinate every morning on discharge. His nighttime heart rate was getting into the 40s. PLAN: Plan 1. Will plan to discharge today. 2. Will switch metoprolol to tartrate 25 twice daily to metoprolol succinate 25every morning due to nocturnal bradycardia. 3. Continue atorvastatin 40 mg nightly. Will recheck fasting lipids and liver functions in 6 weeks. Should the patient develop myalgias would switch to rosuvastatin 20 mg nightly. 4. Patient should follow-up in the [facility] office in 7 to 10 days with one of the INDERJIT's. Patient will follow-up with Dr. Carr in 6 to 8 weeks. Charges/Coding Visit Charges Inpatient E&M: 69351 Subs Hosp L2 09/02/24 0708 <Electronically signed by Graham Carr MD> Cosigner Signature (if applicable): CC: ~ Signed [facility] Work Phone: 1(466) 615-479003-12-2025 Progress note [facility] Medical Records Department [address] [place] [address] Progress Note - Cardiology 09/02/24 07 MR#: [id number] Acct: [id number] Name: MITUL MARTINEZ Rep #:[id number] : 1955 69 From: Graham Carr MD PCP: Dr. Colton Krishnamurthy MD Status:ADM IN Location: [place] [address] Subjective Subjective Patient resting comfortably in bed in no apparent distress. Patient underwent successful stenting of the large dominant circumflex yesterday. Has had no recurrence of his anginal symptoms. Telemetry shows sinus bradycardia in the 50 bpm range. Patient denies any issues with his right wrist access point. Objective Data Vital Signs: Vital Signs Temp Pulse Resp BP Pulse Ox O2 Del Method 97.6 F L 79 18 117/68 95 Room Air 09/02/24 02:50 09/02/24 02:50 09/02/24 02:50 09/02/24 02:50 09/02/24 02:50 09/02/24 02:50 Oxygen Delivery Method Room Air Weight: 284 lb 6.341 oz Body Mass Index (BMI) 40.8 Intake & Output: Intake and Output for Last 24 Hours 08/31/24 09/01/24 09/02/24 23:59 23:59 23:59 Intake Total 1615 / 1615 Balance 1615 / 1615 Lab / Micro Data Attestation: I reviewed the patient's lab results. 09/02/24 05:14 09/02/24 05:14 Labs: Laboratory Results - last 24 hr 09/02/24 05:14: WBC 8.0, RBC 5.37, Hgb 16.1, Hct 47.3, MCV 88.1, MCH 30.0, MCHC 34.0, RDW Std Deviation 43.5, RDW Coeff of Aida 13.5, Plt Count 195, MPV 10.7, Sodium 139, Potassium 4.0, Chloride 102, Carbon Dioxide 22.7, Anion Gap 14, BUN 14, Creatinine 0.92, Estim Creat Clear Calc 100.82, Est GFR (MDRD) Non-Af 90, BUN/Creatinine Ratio 15.7, Glucose 105 H, Calcium 9.2, Phosphorus 2.3 L, Magnesium 2.3 H, Total Bilirubin 1.05, AST 36, ALT 24, Alkaline Phosphatase 86, Total Protein 6.9, Albumin 4.1, Globulin 2.7, Albumin/Globulin Ratio 1.5 Rhythm Strip Rhythm Strip: Sinus Rhythm Rate: 60 Cardiology Labs/Tests 09/02/24 05:14: WBC 8.0, RBC 5.37, Hgb 16.1, Hct 47.3, MCV 88.1, MCH 30.0, MCHC 34.0, Plt Count 195, MPV 10.7, Sodium 139, Potassium 4.0, Chloride 102, Carbon Dioxide 22.7, Anion Gap 14, BUN 14, Creatinine 0.92, Est GFR (MDRD) Non-Af 90, BUN/Creatinine Ratio 15.7, Glucose 105 H, Calcium 9.2, Phosphorus 2.3 L, Magnesium 2.3 H, Total Bilirubin 1.05 Rhythm: EKG: ECHO: Stress Test: Cardiac Cath: PCI: CT Surgery: Holter monitor: EPS: PPM: CXR: Chest CT Scan: Radiography Diagnostic Testing: Radiology Impression Echocardiogram 09/01/24 05:55 Interpretation Summary The estimated ejection fraction is 55 %. No evidence for diastolic dysfunction. Ordering Physician: Mian Hutchison Performed By: Perez Espinosa RCS Physical Exam Const alert and oriented x3 HEENT normocephalic Eyes PERRL Neck no JVD Chest inspection of chest normal Resp normal respiratory effort Cardio regular rate and regular rhythm Cardio Narrative: Right radial access site clean and dry. Normal capillary refill in the right hand no sensory deficits. Extremity no pedal edema Neuro Neuro Narrative: Alert and oriented x 3 Psych mental status grossly normal Assessment & Plan Assessment/Plan (1) Accelerating angina: PLAN: Patient underwent diagnostic left heart catheterization which revealed critical disease in the proximal huge dominant circumflex which was stented. The patient denies any recurrent symptoms. Access site is healing well. The patient will be continued on dual antiplatelet therapy uninterrupted for a year. I went over with this in detail with him about stent thrombosis risk. The patient does have moderate disease in the ostium of the LAD and mild diseasein the large nondominant right coronary artery. (2) Hyperlipidemia: QUALIFIERS: Hyperlipidemia type: pure hypercholesterolemia Qualified Code(s): E78.00 - Pure hypercholesterolemia, unspecified PLAN: Patient has been started on atorvastatin 40 mg daily. He has been intolerant of fenofibrate in the past. Should the patient develop myalgias I would recommend switching him to rosuvastatin 20 mg daily butthis will be addressed in the ambulatory setting. (3) History of hypertension: PLAN: Patient should be continued on his lisinopril hydrochlorothiazide at home medical therapy. Heis also on metoprolol 25 mg daily which we will switch to 25 mg succinate every morning on discharge. His nighttime heart rate was getting into the 40s. PLAN: Plan 1. Will plan to discharge today. 2. Will switch metoprolol to tartrate 25 twice daily to metoprolol succinate 25every morning due tonocturnal bradycardia. 3. Continue atorvastatin 40 mg nightly. Will recheck fasting lipids and liver functions in 6 weeks.Should the patient develop myalgias would switch to rosuvastatin 20 mg nightly. 4. Patient should follow-up in the [facility] office in 7 to 10 days with one of the INDERJIT's. Patient will follow-up with Dr. Carr in 6 to 8 weeks. Charges/Coding Visit Charges Inpatient E&M: 35683 Subs Hosp L2 09/02/24 0708 Cosigner Signature (if applicable): CC: ~ Signed [facility]03-11-2025 Study report [facility] Cardiac Rehab [address] [place] [address] CR: Phase I Education Summary MR#: [id number] Acct: [id number] Name: MITUL MARTINEZ Rep #:[id number] : 1955 69 From: Rosita augustin PCP: Dr. Colton Krishnamurthy MD DOS: 08/22 General Education Discussed with Patient CAD and cardiac anatomy and function:: Patient communicates acknowledgment Explanation of diagnoses and procedures:: Patient communicates acknowledgment Sign/Symptoms of TN:: Patient communicates acknowledgment Antiplatelet therapy: Patient communicates acknowledgment Proper use of NTG-SL: Patient communicates acknowledgment Emergency procedures and activation of EMS: Patient communicates acknowledgment Compliance of all prescribed medications: Patient communicates acknowledgment Smoking Risk Factors Patient Nicotine/Smoking Risk Factors Are:: Non-smoker Recommendations Recommendations Include:: Previous smoker; encourage continued cessation Response Code Nicotine/Smoking Response Code:: Patient communicates acknowledgment Dyslipidemia Recommendations Recommendations Include:: Lipid profile provided Response Code Dyslipidemia Response Code:: Patient communicates acknowledgment Overweight/Obesity Risk Factors Patient Overweight/Obesity Risk Factors Are:: Obesity - > or = 30 Recommendations Recommendations Include:: Weight loss of 5-10%, Reduced calorie diet and Exercise 5-7 times/week Response Code Overweight/Obesity:: Patient communicates acknowledgment Hypertension Recommendations Recommendations Include:: Maintain BP <130/85 Response Code Hypertension:: Patient communicates acknowledgment Heart Disease Risk Factors Patient Heart Disease Risk Factors Are:: Family history of heart disease < 65 years old Recommendations Recommendations Include:: Educated family members of their risk Response Code Heart Disease Response Code:: Patient communicates acknowledgment Diabetes Risk Factors Patient Diabetes Risk Factors Are:: No documented hx of diabetes Metabolic Syndrome Recommendations Recommendations Include:: Does not meet criteria Sedentary Recommendations Recommendations Include:: Benefits of regular exercise and Monitored Outpatient Cardiac Rehab Response Code Sedentary Response Code:: Patient communicates acknowledgment Stress Recommendations Recommendations Include:: Identification of stressors, and assessment of coping skills and Stress management techniques Response Code Stress Response Code:: Patient communicates acknowledgment 09/01/24 1224 Date Rosita Ng Outcome assessment reviewed. Exercise plan approved as documented. Treatment plan and goals support patient needs/abilities. Continue with current plan. I certify the patient demonstrates improvement and remains willing and capable of participation. the patient continues to benefit from cardiac rehab services/training. The patient may continue at current intensity, endurance andmodality and progress per protocol. Cosigner Signature: Date CC: ~ Signed [facility]03-11-2025 Consult note Author Graham Carr [facility] Note Date/Time September 01, 2024 8:0 4am [facility] Medical Records Department [address] [place] [address] Consultation - Cardiology 09/01/24 0750 MR#: [id number] Acct: [id number] Name: MITUL MARTINEZ Rep #:[id number] : 1955 69 From: Graham Carr MD PCP: Dr. Colton Krishnamurthy MD Status:ADM IN Location: [place] [address] Assessment & Plan Assessment/Plan (1) Accelerating angina: PLAN: Patient's symptoms are classic for accelerating angina. He started havingdyspnea on exertion with some chest tightness a week ago Saturday this is progressed to come more frequent and last longer as of Saturday yesterday. The patient does have significant risk factors including a family history and hypertension as well as remote smoking. EKG shows what appears to be some dynamic changes in the ST segments in the 3 through V6. His troponins were 54-58-65. This is above normal in the high-sensitivity troponin T assay. However it is very low levels. The patient's symptoms, he has dynamic EKG changes, and the troponins are consistent with an accelerating angina picture. I recommend the patient undergoleft heart catheterization. The procedure risk/benefit and alternatives were explained to the patient in detail he voiced understanding and agrees to proceed. (2) Hypertension: QUALIFIERS: Hypertension type: primary hypertension Qualified Code(s): I10 - Essential (primary) hypertension PLAN: Patient's blood pressures been controlled on the combination of hydrochlorothiazide and lisinopril hydrochlorothiazide. (3) Hyperlipidemia: QUALIFIERS: Hyperlipidemia type: pure hypercholesterolemia Qualified Code(s): E78.00 - Pure hypercholesterolemia, unspecified PLAN: Patient's lipid on this admission shows a total cholesterol of 160 triglycerides of 150, LDL of 90, and HDL of 40. Given the high likelihood that this is in the face of atherosclerotic disease his target LDL cholesterol shouldbe less than 70. And given his accelerating anginal symptoms I agree with the addition of atorvastatin 40 mg daily to his medical regiment. Fasting lipids and liver function should be reevaluated in 6 weeks. PLAN: Plan 1. Recommend addition of atorvastatin 40 mg daily to his medical regimen. 2. Continue aspirin we will hold enoxaparin for catheterization. Continue his other medical therapy. 3. Will schedule left heart catheterization this morning with Dr. Chavez. HPI Consult Data Date of Consult: 09/01/24 HPI Narrative Reason for Consultation: Accelerating angina HPI Narrative: MITUL MARTINEZ, is a 69 M who presents with a 10-day history of chest discomfort and dyspnea on exertion. The patient swims on Saturday and Saturday and a week ago Saturday he noticed when he started this with him as he got into his routine he was short of breath and had a pressure sensation across his chest. He stopped and rested and it went away in about 5 minutes. The same thing happened on Saturday and Saturday of last week. And then yesterday when the patient went swimming the discomfort started earlier and stopped him after 4laps when normally he was doing 20 laps. He came to the emergency room for evaluation. His initial EKG showed sinus tachycardia to [address]-T wave changes in the anterior lateral leads V3 through V6. Repeat EKG this morning shows sinus rhythm at 78 bpm with much less ST segment changes in those same leads. The troponins were 54-58-65. He had a positive D-dimer but CTA showed no evidence of PE or intrathoracic abnormalities of the vasculature. The patient's had no previous history. Patient does have a family history of coronary artery disease before age 60. Heis a remote smoker he has a history of hypertension he denies any history of hyperlipidemia or diabetes. The patient does note that his weight is increased when he got out of his swimming routine recently and was just getting back into it when the symptoms started. The patient has a significant past medical history of multiple abdominal surgeries due to diverticulitis the latest of which was in 2012. He also has a history of chronic back issues. Currently the patient is resting comfortably inthe cot recumbent position in bed denying any anginal type symptoms denies any PND orthopnea and denies any lower extremity edema. He has no signs or symptomsof claudication. Patient does have a history of prostate cancer status post radiation treatment with subsequent proctitis. He denies any history of allergies to contrast. [facility] Medical History Hypertension Home Medications ?Medication ?Instructions ?Recorded ?Last Taken ?Type cholecalciferol (vitamin D3) 25 1,000 unit PO DAILY 08/31/24 History mcg (1,000 unit) capsule (Vitamin D3) hydrochlorothiazide 25 mg tablet 25 mg PO DAILY #30 ta bs 08/24/17 08/31/24 Rx meloxicam 15 mg tablet 15 mg PO DAILY 08/24/1708/11 History Held on 08/31/24. Instructions: Held by patient lisinopril 20 2 tab PO DAILY 08/31/2408/22 History mg-hydrochlorothiazide 12.5 mg tablet Allergy/AdvReac Type Severity Reaction Status Date / Time fenofibrate Allergy Other Verified 08/31/24 18:24 diclofenac AdvReac Nausea/Vom/ Verified 08/31/24 18:24 Diarrhea Family History (Updated 09/01/24 @ 07:[address] Graham Carr MD) Father CAD (coronary artery disease) Social History Smoking Status: Former smoker ROS Constitutional Constitutional: Reports as per HPI Eyes Eyes: Reports systems reviewed and no addt'l complaints, except as documented ENT HEENT: Reports systems reviewed and no addt'l complaints, except as documented Cardiovascular Cardiovascular: Reports as per HPI Respiratory/Chest Respiratory/Chest: Reports as per HPI Gastrointestinal Gastrointestinal: Reports as per HPI Genitourinary Genitourinary: Reports as per HPI Musculoskeletal Musculoskeletal: Reports as per HPI Integumentary Integumentary: Reports systems reviewed and no addt'l complaints, except as documented Neurologic Neurologic: Reports systems reviewed and no addt'l complaints, except as documented Psychiatric Psychiatric: Reports systems reviewed and no addt'l complaints, except as documented Endocrine Endocrinology: Reports as per HPI Hematologic/Lymphatic Hematologic/Lymphatic: Reports systems reviewed and no addt'l complaints, exceptas documented Allergic/Immunologic Allergic/Immunologic: Reports as per HPI Physical Exam Narrative Well-developed well-nourished white male moderately overweight. Const alert and oriented x3 HEENT normocephalic Eyes PERRL Neck no JVD and no carotid bruits Chest inspection of chest normal Resp normal respiratory effort and clear to auscultation bilaterally Cardio regular rate, regular rhythm, S1 normal heart sound, S2 normal heart sound, no murmurs, no rub and no gallops Peripheral Pulses: pulses 2+ throughout GI soft to palpation GI Narrative: Extensive midline scar from the umbilicus down to the pubic ramus. Extremity no pedal edema Neuro Neuro Narrative: Alert and oriented x 3 Psych mental status grossly normal Risk Stratification Risk Stratification Applicable: Yes Age >/= 65: Yes >/= 3 CAD Risk Factors (HTN, HLD, DM, family hx of CAD, or current smoker): Yes Aspirin Use in the Past 7 Days: No Severe Angina (>/= episodes in 24 hours): Yes EKG ST Changes >/= 0.5mm: Yes Positive Cardiac Marker: Yes HA Risk Stratification Score: 5 HA % Risk: 25% Risk Charges/Coding Visit Charges Inpatient E&M: 57012 Init Hosp L3 Objective Data Vital Signs: Vital Signs Temp Pulse Resp BP Pulse Ox O2 Del Method 97.7 F L 84 18 120/84 H 99 Room Air 09/01/24 04:24 09/01/24 05:59 09/01/24 04:24 09/01/24 05:57 09/01/24 04:24 09/01/24 04:24 Oxygen Delivery Method Room Air Weight: 87 lb 4.849 oz Body Mass Index (BMI) 12.5 Lab / Micro Data 09/01/24 05:36 09/01/24 05:36 Labs: Laboratory Results - last 24 hr 08/31/24 18:55: WBC 9.7, RBC 5.70, Hgb 17.2 H, Hct 49.7, MCV 87.2, MCH 30.2, MCHC 34.6, RDW Std Deviation 43.2, RDW Coeff of Aida 13.6, Plt Count 263, MPV 11.2, Immature Gran % (Auto) 0.400, Neut % (Auto) 72.6 H, Lymph % (Auto) 17.8 L,[place] % (Auto) 6.7, Eos % (Auto) 1.7, Baso % (Auto) 0.8, Absolute Neuts (auto) 7.0, Absolute Lymphs (auto) 1.72, Nucleated RBC % 0 08/31/24 18:58: PT 13.5, INR 1.0, APTT 27.7, D-Dimer Quant (PE/DVT) 3.21 H*, Sodium 137, Potassium 3.8, Chloride 100, Carbon Dioxide 21.0, Anion Gap 17 H, BUN 13, Creatinine 0.98, Estim Creat Clear Calc 93.89, Est GFR (MDRD) Non-Af 83,BUN/Creatinine Ratio 13.5, Glucose 90, Calcium 9.8, Troponin T High Sens 54 H*, NT pro BNP II 205 08/31/24 21:05: Troponin T Hi Sens 2 Hr 58 H* 08/31/24 22:56: Troponin T Hi Sens 4Hr 65 H*, Triglycerides 150, Cholesterol 160, LDL Cholesterol, Calc 90, VLDL Cholesterol 30, HDL Cholesterol 40, Cholesterol/HDL Ratio 3.98, TSH 3.470 08/31/24 23:20: Hemoglobin A1c 5.7 09/01/24 05:36: WBC 6.4, RBC 5.63, Hgb 16.9 H, Hct 49.8, MCV 88.5, MCH 30.0, MCHC 33.9, RDW Std Deviation 44.3 H, RDW Coeff of Aida 13.6, Plt Count 210, MPV 10.5, Sodium 137, Potassium 3.8, Chloride 102, Carbon Dioxide 22.9, Anion Gap 13, BUN 14, Creatinine 1.08, Estim Creat Clear Calc 35.65 L, Est GFR (MDRD) Non-Af 74, BUN/Creatinine Ratio 12.8, Glucose 117 H, Calcium 9.2, Phosphorus 2.5 L, Magnesium 2.3 H, Total Bilirubin 1.06, AST 35, ALT 25, Alkaline Phosphatase 91, Total Protein 7.2, Albumin 4.3, Globulin 2.9, Albumin/Globulin Ratio 1.5 Rhythm Strip Rhythm Strip: Sinus Rhythm Rate: 78 Cardiology Labs/Tests 08/31/24 18:55: WBC 9.7, RBC 5.70, Hgb 17.2 H, Hct 49.7, MCV 87.2, MCH 30.2, MCHC 34.6, Plt Count 263, MPV 11.2, Immature Gran % (Auto) 0.400, Neut % (Auto) 72.6 H, Lymph % (Auto) 17.8 L, [place] % (Auto) 6.7, Eos % (Auto) 1.7, Baso % (Auto) 0.8, Absolute Neuts (auto) 7.0, Nucleated RBC % 0 08/31/24 18:58: PT 13.5, INR 1.0, APTT 27.7, D-Dimer Quant (PE/DVT) 3.21 H*, Sodium 137, Potassium 3.8, Chloride 100, Carbon Dioxide 21.0, Anion Gap 17 H, BUN 13, Creatinine 0.98, Est GFR (MDRD) Non-Af 83, BUN/Creatinine Ratio 13.5, Glucose 90, Calcium 9.8 08/31/24 22:56: Triglycerides 150, Cholesterol 160, VLDL Cholesterol 30, HDL Cholesterol 40, Cholesterol/HDL Ratio 3.98 08/31/24 23:20: Hemoglobin A1c 5.7 09/01/24 05:36: WBC 6.4, RBC 5.63, Hgb 16.9 H, Hct 49.8, MCV 88.5, MCH 30.0, MCHC 33.9, Plt Count 210, MPV 10.5, Sodium 137, Potassium 3.8, Chloride 102, Carbon Dioxide 22.9, Anion Gap 13, BUN 14, Creatinine 1.08, Est GFR (MDRD) Non-Af 74, BUN/Creatinine Ratio 12.8, Glucose 117 H, Calcium 9.2, Phosphorus 2.5 L, Magnesium 2.3 H, Total Bilirubin 1.06 Rhythm: EKG: ECHO: Stress Test: Cardiac Cath: PCI: CT Surgery: Holter monitor: EPS: PPM: CXR: Chest CT Scan: Radiography Diagnostic Testing: Radiology Impression Chest X-Ray 08/31/24 19:15 IMPRESSION: Findings of fluid overload/CHF including trace left pleural effusion. Reading Location: [facility] Chest CTA 08/31/24 20:47 IMPRESSION: No evidence of pulmonary embolism or acute findings in the thorax. Mild upper lobe emphysema. One or more dose reduction techniques were used (e.g., Automated exposure control, adjustment of the mA and/or kV according to patient size, use of iterative reconstruction technique). Reading Location: [place] 09/01/24 0804 <Electronically signed by Graham Carr MD> Cosigner Signature (if applicable): CC: Dr. Colton Krishnamurthy MD~ Signed [facility] Work Phone: 1(184) 225-527203-11-2025 History and physical note Author Mian Jones [facility] Note Date/Time September 01, 2024 6:5 1am [facility] Medical Records Department [address] [place] [address] H&P Exam - Hospitalist 08/31/242236 MR#: [id number] Acct: [id number] Name: MITUL MARTINEZ Rep #:[id number] : 1955 69 From: Mian Martínez DO PCP: Dr. Colton Krishnamurthy MD Status:ADM IN Location: [place] [address] HPI - General General Date of Admission: 08/31/24 Date of Service: 08/31/24 Chief Complaint: Chest Pain. HPI Narrative MITUL MARTINEZ, is a 69 M with a past medical history of essential hypertension; on lisinopril-hydrochlorothiazide, morbid obesity; with BMI of 40.2 this admission, former history of tobacco abuse, positive family history ofpremature CAD in his father who had an TN at age 60, history of olecranon bursitis and OA; with meloxicam who presents to [facility] ER complaining of chest pain. Mr. Martinez reports his symptoms began approximatelyone week prior to admission with intermittent chest tightness with patient typically able to swim ~100 yards every Saturday, Saturday and Saturday - but sincelast week he can only swim 4 laps before he had to stop due to chest tightness. He also admits to dyspnea on exertion the improved after ~2 minutes of rest. Then this morning he had a recurrence of his symptoms ~9:30 AM, so he spoke to his sister who is a nurse and she encouraged him to come in to the ER for further evaluation and treatment. He states he was scheduled for a colonoscopy tomorrow in [place], [place] - but he denies recent GI bleeding. He denies similarprevious episodes and his last stress test was years ago. There was no report of associated fever, chills, nausea, vomiting, diaphoresis, abdominal pain, nausea, vomiting, diarrhea, constipation, headache, recent travel or recent medication changes. In the ER he was noted to have an elevated d-dimer of 3.21 present on admission followed by a CTA of the chest negative for PE but was positive for mild upper lobe emphysema complicated by elevated troponin T of 54 ng/L followed by a second increasing troponin T of 58 ng/L consistent with suspected NSTEMI and he was then admitted to the PCU for ongoing care for a staythat is expected to extend beyond 2 midnights. [facility] Medical History Hypertension Home Medications ?Medication ?Instructions ?Recorded ?Last Taken ?Type cholecalciferol (vitamin D3) 25 1,000 unit PO DAILY 08/31/24 History mcg (1,000 unit) capsule (Vitamin D3) hydrochlorothiazide 25 mg tablet 25 mg PO DAILY #30 ta bs 08/24/17 08/31/24 Rx meloxicam 15 mg tablet 15 mg PO DAILY 08/24/1708/11 History Held on 08/31/24. Instructions: Held by patient lisinopril 20 2 tab PO DAILY 08/31/2408/22 History mg-hydrochlorothiazide 12.5 mg tablet Allergy/AdvReac Type Severity Reaction Status Date / Time fenofibrate Allergy Other Verified 08/31/24 18:24 diclofenac AdvReac Nausea/Vom/ Verified 08/31/24 18:24 Diarrhea Social History Smoking Status: Former smoker ROS ROS Narrative Review of Systems: Constitutional: Patient denies fever or chills. Eyes: Patient denies changes in vision or discharge from eyes. ENT: Patient denies runny nose, sore throat or ear pain. Resp: Patient admits to dyspnea on exertion but denies cough. CV: Patient admits to chest tightness and pain as per HPI. He denies lower extremity edema palpitations or heart racing. GI: Patient denies abdominal pain, nausea, vomiting, diarrhea or constipation. : Patient denies dysuria or hematuria. MSK: Patient denies arthralgias or myalgias. Skin: Patient denies rash, abscess, wounds or jaundice. Psych: Patient denies symptoms of uncontrolled depression or anxiety. Neuro: Patient denies headache, paresthesias or focal neurologic weakness. Allergy: Patient denies lip swelling, tongue swelling or urticaria. Hematology: Patient denies easy bleeding or easy bruisability. Endocrinology: Patient denies polyuria, polydipsia or polyphagia. 14 point ROS otherwise negative save for positives noted above in HPI. Vital Signs Vital Signs Vital Signs: 08/31/24 18:25 08/31/24 19:21 08/31/24 20:00 Temperature 97.8 F Temperature Source Temporal Pulse Rate 104 H 102 H 100 Respiratory Rate 20 H 17 21 H Blood Pressure 139/102 H 153/100 H 131/93 H Blood Pressure Mean 114 117 105 Pulse Ox 95 95 95 Oxygen Delivery Method Room Air Room Air Room Air 08/31/24 21:00 08/31/24 22:00 08/31/24 22:29 Temperature 97.8 F Temperature Source Pulse Rate 92 92 92 Respiratory Rate 19 H 17 17 Blood Pressure 128/84 H 128/84 H Blood Pressure Mean 98 98 Pulse Ox 94 94 94 Oxygen Delivery Method Room Air Room Air Weight Weight: 280 lb 3.2 oz Body Mass Index (BMI) 40.1 Physical Exam Const alert, oriented x3 and no apparent distress Constitutional Narrative: Morbidly obese. General Appearance: cooperative HEENT normocephalic, head/scalp atraumatic, hearing grossly normal bilaterally and moist oral mucous membranes Eyes PERRL, EOMs intact bilaterally and conjunctivae normal Neck no lymphadenopathy, supple and no JVD Resp normal respiratory effort, no retractions, no use of accessory muscles and clearto auscultation bilaterally Cardio regular rate and regular rhythm GI normal to inspection, nondistended, normoactive bowel sounds, soft to palpation,non-tender and non-distended GI Narrative: Morbidly obese. Extremity normal to inspection, full ROM and no clubbing, cyanosis or edema Skin Skin Narrative: Patient has no evidence of rash, abscess, wounds or jaundice. Neuro oriented x3, CN's II-XII intact bilaterally, moves all extremities and no focal motor deficits Sensorium / Orientation: awake, alert, oriented to person, oriented to place andoriented to time Speech: speech normal Psych affect normal Results Medical Records Data Attestation: I reviewed the patient's medical records Lab / Micro Data Attestation: I reviewed the patient's lab results. 09/01/24 05:36 09/01/24 05:36 Labs: Laboratory Results - last 24 hr 08/31/24 18:55: WBC 9.7, RBC 5.70, Hgb 17.2 H, Hct 49.7, MCV 87.2, MCH 30.2, MCHC 34.6, RDW Std Deviation 43.2, RDW Coeff of Aida 13.6, Plt Count 263, MPV 11.2, Immature Gran % (Auto) 0.400, Neut % (Auto) 72.6 H, Lymph % (Auto) 17.8 L,[place] % (Auto) 6.7, Eos % (Auto) 1.7, Baso % (Auto) 0.8, Absolute Neuts (auto) 7.0, Absolute Lymphs (auto) 1.72, Nucleated RBC % 0 08/31/24 18:58: PT 13.5, INR 1.0, APTT 27.7, D-Dimer Quant (PE/DVT) 3.21 H*, Sodium 137, Potassium 3.8, Chloride 100, Carbon Dioxide 21.0, Anion Gap 17 H, BUN 13, Creatinine 0.98, Estim Creat Clear Calc 93.89, Est GFR (MDRD) Non-Af 83,BUN/Creatinine Ratio 13.5, Glucose 90, Calcium 9.8, Troponin T High Sens 54 H*, NT pro BNP II 205 08/31/24 21:05: Troponin T Hi Sens 2 Hr 58 H* Imaging Radiology Impression Chest X-Ray 08/31/24 19:15 IMPRESSION: Findings of fluid overload/CHF including trace left pleural effusion. Reading Location: [facility] Chest CTA 08/31/24 20:47 IMPRESSION: No evidence of pulmonary embolism or acute findings in the thorax. Mild upper lobe emphysema. One or more dose reduction techniques were used (e.g., Automated exposure control, adjustment of the mA and/or kV according to patient size, use of iterative reconstruction technique). Reading Location: [facility] Assessment & Plan Assessment/Plan (1) Non-ST elevation TN (NSTEMI): (2) History of hypertension: (3) Morbid obesity with BMI of 40.0-44.9, adult: (4) Former tobacco use: (5) Family history of coronary artery disease: PLAN: Plan 1. Non-ST elevation TN; evidenced by elevated troponin T of 54 ng/L present on admission followed by second upwardly trending troponin T of 58 ng/L in the setting of recently evolving unstable angina - Admit to PCU. Continue full doseLovenox begun in ER plus enteric-coated aspirin plus add statin. Check echocardiogram to evaluate LVEF. Serialize troponin. Check Lipid Profile and hemoglobin A1c. Give acetaminophen prn for [id number] (level 1-5/10) painor fever. Give morphine IV prn for severe (level 6-10/10) pain. Finally, we will consult [facility] see this patient on rounds in the a.m. for further recommendations regarding [facility] this admission with help appreciated in advance. 2. Essential Hypertension; on lisinopril-hydrochlorothiazide complicating #1 - Maintain current regimen plus add Metoprolol 25 mg PO BID and titrate as needed. 3. Morbid Obesity; with BMI of 40.2 this admission compounding #1 & #2 - Weightloss will be recommended. Check TSH. This complicates his case and may hamper recovery. 4. Former history of Tobacco Abuse adding to the medical complexity of #1 - #3 - Noted. 5. Positive family history of premature CAD in his father who had an TN at age 60 - Noted. 6. History of olecranon bursitis - Noted. 7. OA; on meloxicam - Hold meloxicam in favor of prn acetaminophen. 8. DVT prophylaxis - Patient on full-dose Lovenox for #1. Total time: Approximately (but not less than) 75 minutes. Charges/Coding Visit Charges Inpatient E&M: 80866 Init Hosp L3 09/01/24 0651 <Electronically signed by Mian Hutchison DO> Cosigner Signature (if applicable): CC: Dr. Colton Krishnamurthy MD; Dr. Mian Hutchison DO~ Signed [facility] Work Phone: [phone] Consult note [facility] Medical Records Department [address] [place] [address] Consultation - Cardiology 09/01/24 0750 MR#: [id number] Acct: [id number] Name: MITUL MARTINEZ Rep #:[id number] : 1955 69 From: Graham Carr MD PCP: Dr. Colton Krishnamurthy MD Status:ADM IN Location: [place] [address] Assessment & Plan Assessment/Plan (1) Accelerating angina: PLAN: Patient's symptoms are classic for accelerating angina. He started havingdyspnea on exertion with some chest tightness a week ago Saturday this is progressed to come more frequent and last longeras of Saturday yesterday. The patient does have significant risk factors including a family history and hypertension as well as remote smoking. EKG shows what appears to be some dynamic changes in the ST segments in the 3 through V6. His troponins were 54-58-65. This is above normal in the high-sensitivity troponin T assay. Howeverit is very low levels. The patient's symptoms, he has dynamic EKG changes, and the troponins are consistent with an accelerating angina picture. I recommend the patient undergoleft heart catheterization. The procedure risk/benefit and alternatives were explained to the patient in detail he voiced understanding and agreesto proceed. (2) Hypertension: QUALIFIERS: Hypertension type: primary hypertension Qualified Code(s): I10 - Essential (primary) hypertension PLAN: Patient's blood pressures been controlled on the combination of hydrochlorothiazide and lisinopril hydrochlorothiazide. (3) Hyperlipidemia: QUALIFIERS: Hyperlipidemia type: pure hypercholesterolemia Qualified Code(s): E78.00 - Pure hypercholesterolemia, unspecified PLAN: Patient's lipid on this admission shows a total cholesterol of 160 triglycerides of 150, LDL of 90, and HDL of 40. Given the high likelihood that this is in the face of atherosclerotic disease his target LDL cholesterol shouldbe less than 70. And given his accelerating anginal symptoms I agree with the addition of atorvastatin 40 mg daily to his medical regiment. Fasting lipids and liver function should be reevaluated in 6 weeks. PLAN: Plan 1. Recommend addition of atorvastatin 40 mg daily to his medical regimen. 2. Continue aspirin we will hold enoxaparin for catheterization. Continue his other medical therapy. 3. Will schedule left heart catheterization this morning with Dr. Chavez. HPI Consult Data Date of Consult: 09/01/24 HPI Narrative Reason for Consultation: Accelerating angina HPI Narrative: MITUL MARTINEZ, is a 69 M who presents with a 10-day history of chest discomfort and dyspnea on exertion. The patient swims on Saturday and Saturday and a week ago Saturday he noticed when he started this with him as he got into his routine he was short of breath and had a pressure sensation across his chest. He stopped and rested and it went away in about 5 minutes. The same thing happened on Saturday and Saturday of last week. And then yesterday when the patient went swimming the discomfort started earlier and stopped him after 4laps when normally he was doing 20 laps. He came to the emergency room for evaluation. His initial EKG showed sinus tachycardia to [address]-T wave changes in the anterior lateral leads V3 through V6. Repeat EKG this morning shows sinus rhythm at 78 bpm with much less ST segment changes in those same leads. The troponins were 54-58-65. He had a positive D-dimer but CTA showed no evidence of PE or intrathoracic abnormalities of the vasculature. The patient's had no previous history. Patient does have a family history of coronary artery disease before age 60. Heis a remote smoker he has a history of hypertension he denies any history of hyperlipidemia or diabetes. The patient does note that his weight is increased when he got out of his swimming routine recently and was just getting back into it when the symptoms started. The patient has a significant past medical history of multiple abdominal surgeries due to diverticulitis the latest of which was in 2012. He also has a history of chronic back issues. Currently the patient is resting comfortably inthe cot recumbent position in bed denying any anginal type symptoms denies any PND orthopnea and denies any lower extremity edema. He has no signs or symptomsof claudication. Patient does have a history of prostate cancer status post radiation treatment with subsequent proctitis. He denies any history of allergies to contrast. [facility] Medical History Hypertension Home Medications ?Medication ?Instructions ?Recorded ?Last Taken ?Type cholecalciferol (vitamin D3) 25 1,000 unit PO DAILY 08/31/24 History mcg (1,000 unit) capsule (Vitamin D3) hydrochlorothiazide 25 mg tablet 25 mg PO DAILY #30 ta bs 08/24/17 08/31/24 Rx meloxicam 15 mg tablet 15 mg PO DAILY 08/24/1708/11 History Held on 08/31/24. Instructions: Held by patient lisinopril 20 2 tab PO DAILY 08/31/2408/22 History mg-hydrochlorothiazide 12.5 mg tablet Allergy/AdvReac Type Severity Reaction Status Date / Time fenofibrate Allergy Other Verified 08/31/24 18:24 diclofenac AdvReac Nausea/Vom/ Verified 08/31/24 18:24 Diarrhea Family History (Updated 09/01/24 @ 07:[address] Graham Carr MD) Father CAD (coronary artery disease) Social History Smoking Status: Former smoker ROS Constitutional Constitutional: Reports as per HPI Eyes Eyes: Reports systems reviewed and no addt'l complaints, except as documented ENT HEENT: Reports systems reviewed and no addt'l complaints, except as documented Cardiovascular Cardiovascular: Reports as per HPI Respiratory/Chest Respiratory/Chest: Reports as per HPI Gastrointestinal Gastrointestinal: Reports as per HPI Genitourinary Genitourinary: Reports as per HPI Musculoskeletal Musculoskeletal: Reports as per HPI Integumentary Integumentary: Reports systems reviewed and no addt'l complaints, except as documented Neurologic Neurologic: Reports systems reviewed and no addt'l complaints, except as documented Psychiatric Psychiatric: Reports systems reviewed and no addt'l complaints, except as documented Endocrine Endocrinology: Reports as per HPI Hematologic/Lymphatic Hematologic/Lymphatic: Reports systems reviewed and no addt'l complaints, exceptas documented Allergic/Immunologic Allergic/Immunologic: Reports as per HPI Physical Exam Narrative Well-developed well-nourished white male moderately overweight. Const alert and oriented x3 HEENT normocephalic Eyes PERRL Neck no JVD and no carotid bruits Chest inspection of chest normal Resp normal respiratory effort and clear to auscultation bilaterally Cardio regular rate, regular rhythm, S1 normal heart sound, S2 normal heart sound, no murmurs, no rub and no gallops Peripheral Pulses: pulses 2+ throughout GI soft to palpation GI Narrative: Extensive midline scar from the umbilicus down to the pubic ramus. Extremity no pedal edema Neuro Neuro Narrative: Alert and oriented x 3 Psych mental status grossly normal Risk Stratification Risk Stratification Applicable: Yes Age >/= 65: Yes >/= 3 CAD Risk Factors (HTN, HLD, DM, family hx of CAD, or current smoker): Yes Aspirin Use in the Past 7 Days: No Severe Angina (>/= episodes in 24 hours): Yes EKG ST Changes >/= 0.5mm: Yes Positive Cardiac Marker: Yes HA Risk Stratification Score: 5 HA % Risk: 25% Risk Charges/Coding Visit Charges Inpatient E&M: 17295 Init Hosp L3 Objective Data Vital Signs: Vital Signs Temp Pulse Resp BP Pulse Ox O2 Del Method 97.7 F L 84 18 120/84 H 99 Room Air 09/01/24 04:24 09/01/24 05:59 09/01/24 04:24 09/01/24 05:57 09/01/24 04:24 09/01/24 04:24 Oxygen Delivery Method Room Air Weight: 87 lb 4.849 oz Body Mass Index (BMI) 12.5 Lab / Micro Data 09/01/24 05:36 09/01/24 05:36 Labs: Laboratory Results - last 24 hr 08/31/24 18:55: WBC 9.7, RBC 5.70, Hgb 17.2 H, Hct 49.7, MCV 87.2, MCH 30.2, MCHC 34.6, RDW Std Deviation 43.2, RDW Coeff of Aida 13.6, Plt Count 263, MPV 11.2, Immature Gran % (Auto) 0.400, Neut % (Auto) 72.6 H, Lymph % (Auto) 17.8 L,[place] % (Auto) 6.7, Eos % (Auto) 1.7, Baso % (Auto) 0.8, Absolute Neuts (auto) 7.0, Absolute Lymphs (auto) 1.72, Nucleated RBC % 0 08/31/24 18:58: PT 13.5, INR 1.0, APTT 27.7, D-Dimer Quant (PE/DVT) 3.21 H*, Sodium 137, Potassium 3.8, Chloride 100, Carbon Dioxide 21.0, Anion Gap 17 H, BUN 13, Creatinine 0.98, Estim Creat Clear Calc 93.89, Est GFR (MDRD) Non-Af 83,BUN/Creatinine Ratio 13.5, Glucose 90, Calcium 9.8, Troponin T High Sens 54 H*, NT pro BNP II 205 08/31/24 21:05: Troponin T Hi Sens 2 Hr 58 H* 08/31/24 22:56: Troponin T Hi Sens 4Hr 65 H*, Triglycerides 150, Cholesterol 160, LDL Cholesterol, Calc 90, VLDL Cholesterol 30, HDL Cholesterol 40, Cholesterol/HDL Ratio 3.98, TSH 3.470 08/31/24 23:20: Hemoglobin A1c 5.7 09/01/24 05:36: WBC 6.4, RBC 5.63, Hgb 16.9 H, Hct 49.8, MCV 88.5, MCH 30.0, MCHC 33.9, RDW Std Deviation 44.3 H, RDW Coeff of Aida 13.6, Plt Count 210, MPV 10.5, Sodium 137, Potassium 3.8, Chloride 102, Carbon Dioxide 22.9, Anion Gap 13, BUN 14, Creatinine 1.08, Estim Creat Clear Calc 35.65 L, Est GFR (MDRD) Non- Af 74, BUN/Creatinine Ratio 12.8, Glucose 117 H, Calcium 9.2, Phosphorus 2.5 L, Magnesium 2.3 H, Total Bilirubin 1.06, AST 35, ALT 25, Alkaline Phosphatase 91, Total Protein 7.2, Albumin 4.3, Globulin 2.9, Albumin/Globulin Ratio 1.5 Rhythm Strip Rhythm Strip: Sinus Rhythm Rate: 78 Cardiology Labs/Tests 08/31/24 18:55: WBC 9.7, RBC 5.70, Hgb 17.2 H, Hct 49.7, MCV 87.2, MCH 30.2, MCHC 34.6, Plt Count 263, MPV 11.2, Immature Gran % (Auto) 0.400, Neut % (Auto) 72.6 H, Lymph % (Auto) 17.8 L, [place] % (Auto) 6.7, Eos % (Auto) 1.7, Baso % (Auto) 0.8, Absolute Neuts (auto) 7.0, Nucleated RBC % 0 08/31/24 18:58: PT 13.5, INR 1.0, APTT 27.7, D-Dimer Quant (PE/DVT) 3.21 H*, Sodium 137, Potassium 3.8, Chloride 100, Carbon Dioxide 21.0, Anion Gap 17 H, BUN 13, Creatinine 0.98, Est GFR (MDRD) Non-Af 83, BUN/Creatinine Ratio 13.5, Glucose 90, Calcium 9.8 08/31/24 22:56: Triglycerides 150, Cholesterol 160, VLDL Cholesterol 30, HDL Cholesterol 40, Cholesterol/HDL Ratio 3.98 08/31/24 23:20: Hemoglobin A1c 5.7 09/01/24 05:36: WBC 6.4, RBC 5.63, Hgb 16.9 H, Hct 49.8, MCV 88.5, MCH 30.0, MCHC 33.9, Plt Count 210, MPV 10.5, Sodium 137, Potassium 3.8, Chloride 102, Carbon Dioxide 22.9, Anion Gap 13, BUN 14, Creatinine 1.08, Est GFR (MDRD) Non- Af 74, BUN/Creatinine Ratio 12.8, Glucose 117 H, Calcium 9.2, Phosphorus 2.5 L, Magnesium 2.3 H, Total Bilirubin 1.06 Rhythm: EKG: ECHO: Stress Test: Cardiac Cath: PCI: CT Surgery: Holter monitor: EPS: PPM: CXR: Chest CT Scan: Radiography Diagnostic Testing: Radiology Impression Chest X-Ray 08/31/24 19:15 IMPRESSION: Findings of fluid overload/CHF including trace left pleural effusion. Reading Location: [facility] Chest CTA 08/31/24 20:47 IMPRESSION: No evidence of pulmonary embolism or acute findings in the thorax. Mild upper lobe emphysema. One or more dose reduction techniques were used (e.g., Automated exposure control, adjustment of the mA and/or kV according to patient size, use of iterative reconstruction technique). Reading Location: [facility] 09/01/24 0804 Cosigner Signature (if applicable): CC: Dr. Colton Krishnamurthy MD~ Signed [facility]03-11-2025 History and physical note [facility] Medical Records Department [address] [place] [id number] H&P Exam - Hospitalist 08/31/24 2237 MR#: [id number] Acct: [id number] Name: MITUL MARTINEZ Rep #:[id number] : 1955 69 From: Mian Martínez DO PCP: Dr. Colton Krishnamurthy MD Status:ADM IN Location: [place] [address] HPI - General General Date of Admission: 08/31/24 Date of Service: 08/31/24 Chief Complaint: Chest Pain. HPI Narrative MITUL MARTINEZ, is a 69 M with a past medical history of essential hypertension; on lisinopril-hydrochlorothiazide, morbid obesity; with BMI of 40.2 this admission, former history of tobacco abuse, positive family history ofpremature CAD in his father who had an TN at age 60, history of olecranon b ursitis and OA; with meloxicam who presents to [facility] ER complaining of chest pain. Mr. Martinez reports his symptoms began approximatelyone week prior to admission with intermittent chest tightness with patient typically able to swim ~100 yards every Saturday, Saturday and Saturday- but sincelast week he can only swim 4 laps before he had to stop due to chest tightness. He also admits to dyspnea on exertion the improved after ~2 minutes of rest. Then this morning he had a recurrence of his symptoms ~9:30 AM, so he spoke to his sister who is a nurse and she encouraged him to come in to the ER for further evaluation and treatment. He states [place] but he denies recent GI bleeding. He denies similarprevious episodes and his last stress test was years ago. There was no report of associated fever, chills, nausea, vomiting, diaphoresis, abdominal pain, nausea, vomiting, diarrhea, constipation, headache, recent travel or recent medication changes. In the ER he was noted to have an elevated d-dimer of 3.21 present on admission followed by a CTA of the chest negative for PE but was positive for mild upper lobe emphysema complicated by elevated troponin T of 54 ng/L followed by a second increasing troponin T of 58 ng/L consistent with suspected NSTEMI and he was then admitted to the PCU for ongoing care for a staythat is expected to extend beyond 2 midnights. [facility] Medical History Hypertension Home Medications ?Medication ?Instructions ?Recorded ?Last Taken ?Type cholecalciferol (vitamin D3) 25 1,000 unit PO DAILY 08/31/24 History mcg (1,000 unit) capsule (Vitamin D3) hydrochlorothiazide 25 mg tablet 25 mg PO DAILY #30 ta bs 08/24/17 08/31/24 Rx meloxicam 15 mg tablet 15 mg PO DAILY 08/24/1708/11 History Held on 08/31/24. Instructions: Held by patient lisinopril 20 2 tab PO DAILY 08/31/2408/22 History mg-hydrochlorothiazide 12.5 mg tablet Allergy/AdvReac Type Severity Reaction Status Date / Time fenofibrate Allergy Other Verified 08/31/24 18:24 diclofenac AdvReac Nausea/Vom/ Verified 08/31/24 18:24 Diarrhea Social History Smoking Status: Former smoker ROS ROS Narrative Review of Systems: Constitutional: Patient denies fever or chills. Eyes: Patient denies changes in vision or discharge from eyes. ENT: Patient denies runny nose, sore throat or ear pain. Resp: Patient admits to dyspnea on exertion but denies cough. CV: Patient admits to chest tightness and pain as per HPI. He denies lower extremity edema palpitations or heart racing. GI: Patient denies abdominal pain, nausea, vomiting, diarrhea or constipation. : Patient denies dysuria or hematuria. MSK: Patient denies arthralgias or myalgias. Skin: Patient denies rash, abscess, wounds or jaundice. Psych: Patient denies symptoms of uncontrolled depression or anxiety. Neuro: Patient denies headache, paresthesias or focal neurologic weakness. Allergy: Patient denies lip swelling, tongue swelling or urticaria. Hematology: Patient denies easy bleeding or easy bruisability. Endocrinology: Patient denies polyuria, polydipsia or polyphagia. 14 point ROS otherwise negative save for positives noted above in HPI. Vital Signs Vital Signs Vital Signs: 08/31/24 18:25 08/31/24 19:21 08/31/24 20:00 Temperature 97.8 F Temperature Source Temporal Pulse Rate 104 H 102 H 100 Respiratory Rate 20 H 17 21 H Blood Pressure 139/102 H 153/100 H 131/93 H Blood Pressure Mean 114 117 105 Pulse Ox 95 95 95 Oxygen Delivery Method Room Air Room Air Room Air 08/31/24 21:00 08/31/24 22:00 08/31/24 22:29 Temperature 97.8 F Temperature Source Pulse Rate 92 92 92 Respiratory Rate 19 H 17 17 Blood Pressure 128/84 H 128/84 H Blood Pressure Mean 98 98 Pulse Ox 94 94 94 Oxygen Delivery Method Room Air Room Air Weight Weight: 280 lb 3.2 oz Body Mass Index (BMI) 40.1 Physical Exam Const alert, oriented x3 and no apparent distress Constitutional Narrative: Morbidly obese. General Appearance: cooperative HEENT normocephalic, head/scalp atraumatic, hearing grossly normal bilaterally and moist oral mucous membranes Eyes PERRL, EOMs intact bilaterally and conjunctivae normal Neck no lymphadenopathy, supple and no JVD Resp normal respiratory effort, no retractions, no use of accessory muscles and clearto auscultation bilaterally Cardio regular rate and regular rhythm GI normal to inspection, nondistended, normoactive bowel sounds, soft to palpation,non-tender and non-distended GI Narrative: Morbidly obese. Extremity normal to inspection, full ROM and no clubbing, cyanosis or edema Skin Skin Narrative: Patient has no evidence of rash, abscess, wounds or jaundice. Neuro oriented x3, CN's II-XII intact bilaterally, moves all extremities and no focal motor deficits Sensorium / Orientation: awake, alert, oriented to person, oriented to place andoriented to time Speech: speech normal Psych affect normal Results Medical Records Data Attestation: I reviewed the patient's medical records Lab / Micro Data Attestation: I reviewed the patient's lab results. 09/01/24 05:36 09/01/24 05:36 Labs: Laboratory Results - last 24 hr 08/31/24 18:55: WBC 9.7, RBC 5.70, Hgb 17.2 H, Hct 49.7, MCV 87.2, MCH 30.2, MCHC 34.6, RDW Std Deviation 43.2, RDW Coeff of Aida 13.6, Plt Count 263, MPV 11.2, Immature Gran % (Auto) 0.400, Neut % (Auto) 72.6 H, Lymph % (Auto) 17.8 L,[place] % (Auto) 6.7, Eos % (Auto) 1.7, Baso % (Auto) 0.8, Absolute Neuts (auto) 7.0, Absolute Lymphs (auto) 1.72, Nucleated RBC % 0 08/31/24 18:58: PT 13.5, INR 1.0, APTT 27.7, D-Dimer Quant (PE/DVT) 3.21 H*, Sodium 137, Potassium 3.8, Chloride 100, Carbon Dioxide 21.0, Anion Gap 17 H, BUN 13, Creatinine 0.98, Estim Creat Clear Calc 93.89, Est GFR (MDRD) Non-Af 83,BUN/Creatinine Ratio 13.5, Glucose 90, Calcium 9.8, Troponin T High Sens 54 H*, NT pro BNP II 205 08/31/24 21:05: Troponin T Hi Sens 2 Hr 58 H* Imaging Radiology Impression Chest X-Ray 08/31/24 19:15 IMPRESSION: Findings of fluid overload/CHF including trace left pleural effusion. Reading Location: [facility] Chest CTA 08/31/24 20:47 IMPRESSION: No evidence of pulmonary embolism or acute findings in the thorax. Mild upper lobe emphysema. One or more dose reduction techniques were used (e.g., Automated exposure control, adjustment of the mA and/or kV according to patient size, use of iterative reconstruction technique). [facility] Assessment & Plan Assessment/Plan (1) Non-ST elevation TN (NSTEMI): (2) History of hypertension: (3) Morbid obesity with BMI of 40.0-44.9, adult: (4) Former tobacco use: (5) Family history of coronary artery disease: PLAN: Plan 1. Non-ST elevation TN; evidenced by elevated troponin T of 54 ng/L present on admission followed by second upwardly trending troponin T of 58 ng/L in the setting of recently evolving unstable angina- Admit to PCU. Continue full doseLovenox begun in ER plus enteric-coated aspirin plus add statin. Check echocardiogram to evaluate LVEF. Serialize troponin. Check Lipid Profile and hemoglobin A1c. Give acetaminophen prn for [id number] (level 1-5/10) painor fever. Give morphine IV prn for severe (level 6-10/10) pain. Finally, we will consult [facility] see this patient on rounds inthe a.m. for further recommendations regarding [facility] this admission with help appreciated in advance. 2. Essential Hypertension; on lisinopril-hydrochlorothiazide complicating #1 - Maintain current regimen plus add Metoprolol 25 mg PO BID and titrate as needed. 3. Morbid Obesity; with BMI of 40.2 this admission compounding #1 & #2 - Weightloss will be recommended. Check TSH. This complicates his case and may hamper recovery. 4. Former history of Tobacco Abuse adding to the medical complexity of #1 - #3 - Noted. 5. Positive family history of premature CAD in his father who had an TN at age 60 - Noted. 6. History of olecranon bursitis - Noted. 7. OA; on meloxicam - Hold meloxicam in favor of prn acetaminophen. 8. DVT prophylaxis - Patient on full-dose Lovenox for #1. Total time: Approximately (but not less than) 75 minutes. Charges/Coding Visit Charges Inpatient E&M: 57859 Init Hosp 09/01/24 0651 Cosigner Signature (if applicable): CC: Dr. Colton Krishnamurthy MD; Dr. Mian Hutchison, DO~ Signed [facility]03-11-2025 Telephone encounter Note* Telephone Encounter - Colton Krishnamurthy MD - 09/01/2024 5:36 AM EDT Agree, [id number] Miscellaneous Notes* Telephone Encounter - Colton Krishnamurthy MD - 09/01/2024 5:36 AM EDT Agree, thank you * Telephone Encounter - JESENIA Saleh CNP - 08/31/2024 3:44 PM EDT Agree with recommendations provided. Should be seen in the ER if symptoms persist to be safe. * Telephone Encounter - Alondra Crowley RN - 08/31/2024 1:09 PM EDT S: Patient spoke to [facility] nurse regarding chest burning and shortness of breath with exercise B: Onset of symptoms/concerns a week ago A: Patient states that this week while he was exercising in the pool his lungs were on fire and his chest hurt. When he got home he checked his blood pressure and found that it was elevated at 176/111. This happened the next time that patient went to exercise. Patient then stopped taking his meloxicam because he thought it was raising his blood pressure. His blood pressure went down to 142/94. Patient states that he feels this was when working in the backyard also. Patient states he has no symptoms when he is not exercising. Patient mentioned that his friends told him that he should go to the ED because he could have a blockage. Patient at first was concerned and wanting to go to the ED and was going to cancel his colonoscopy but after talking to me changed his mind and stated that wanted to get his colonoscopy over with first. I offered to look for an appointment today in the office but patient states that Dr. Krishnamurthy isn't going to be able to do anything in the office. Explained topatient that Dr. Krishnamurthy would order treatment based on his findings. Patient declined office visit stating that he wanted to get his colonoscopy over with first which is scheduled for tomorrow. R: Advised patient that he should be seen in the office today but he declined an appointment. Patient verbalized understanding of recommendations. Advised that I would send message to Dr. Krishnamurthy. Reason for Disposition Patient wants to be seen Protocols used: Breathing [id number] documented in this [facility]03-11-2025 Discharge summary Author Demian Burger [facility] Note Date/Time August 31, 2024 11: 50pm [facility] Medical Records Department [address] [place] [address] Emergency Department Summary 08/31/24 MR#: [id number] Acct: [id number] Name: MITUL MARTINEZ Rep #:[id number] : 1955 69 From: Demian Haas PCP: Dr. Colton Krishnamurthy MD Status:ADM IN Location: [address] History of Present Illness Chief Complaint: Chest Pain Informant: patient Narrative Narrative: Presenting exertional chest tightness dyspnea for the past week. Patient typically swims 100 yards every Saturday. Since last week only able to swim 4 laps before he stops due to symptoms. Symptoms go away after 2 minutes. He had symptoms again this morning 9:30 AM. No symptoms since then. No numbness down the arms neck or back. Denies recent travel, surgeries, or immobilizations. No history of PE or DVT. History of hypertension on medications. No tobacco history. Denies diabetes or hyperlipidemia. Father had TN at age of 60. She has had a stress test years ago. No history of heart caths. Spoke with his sister who is a nurse and this assists told to go to the ED. He states he was scheduled for routine colonoscopy tomorrow in [place]. Has not had any rectal bleeding. Prior Similar Symptoms: No CVD Risk Factors: Positive for Hypertension; Negative for Diabetes, Hypercholesterolemia, Family History 1' </=55 or Smoking PE Risk Factors: Negative for Recent Travel/Surgery, Recent Immobilization or Prior DVT or PE [facility] Medical History Hypertension Home Medications ?Medication ?Instructions ?Recorded ?Last Taken ?Type cholecalciferol (vitamin D3) 25 1,000 unit PO DAILY 08/31/24 History mcg (1,000 unit) capsule (Vitamin D3) hydrochlorothiazide 25 mg tablet 25 mg PO DAILY #30 ta bs 08/24/17 08/31/24 Rx meloxicam 15 mg tablet 15 mg PO DAILY 08/24/1708/11 History Held on 08/31/24. Instructions: Held by patient lisinopril 20 2 tab PO DAILY 08/31/2408/22 History mg-hydrochlorothiazide 12.5 mg tablet Allergy/AdvReac Type Severity Reaction Status Date / Time fenofibrate Allergy Other Verified 08/31/24 18:24 diclofenac AdvReac Nausea/Vom/ Verified 08/31/24 18:24 Diarrhea Social History Smoking Status: Former smoker ROS ROS ED Constitutional Constitutional ED: Denies chills, fever(s) or sweats ENT ENT ED: Denies sore throat Cardiovascular Cardiovascular: Reports chest pain; Denies leg edema, palpitations or racing heartbeat Respiratory/Chest Respiratory/Chest: Reports dyspnea and dyspnea on exertion; Denies cough Gastrointestinal Gastrointestinal: Denies abdominal pain, diarrhea, nausea or vomiting Genitourinary Genitourinary ED: Denies dysuria, hematuria or urinary frequency Musculoskeletal Musculoskeletal: Denies back pain, extremity pain or neck pain Integumentary Denies rash or wounds Neurologic Neurologic: Denies headache(s), paresthesias or weakness EXAM Physical Exam Const Vital Signs: 08/31/24 18:25 08/31/24 19:21 08/31/24 20:00 Temperature 97.8 F Temperature Source Temporal Pulse Rate 104 H 102 H 100 Respiratory Rate 20 H 17 21 H Blood Pressure 139/102 H 153/100 H 131/93 H Blood Pressure Mean 114 117 105 Pulse Ox 95 95 95 Oxygen Delivery Method Room Air Room Air Room Air 08/31/24 21:00 08/31/24 22:00 08/31/24 22:29 Temperature 97.8 F Temperature Source Pulse Rate 92 92 92 Respiratory Rate 19 H 17 17 Blood Pressure 128/84 H 128/84 H Blood Pressure Mean 98 98 Pulse Ox 94 94 94 Oxygen Delivery Method Room Air Room Air Positive well nourished and well developed General Appearance ED: well developed and NAD HEENT Reports moist mucous membranes normocephalic and atraumatic Eyes General Eye ED: Yes normal appearance of both eyes Neck full ROM Chest Wall Chest: Negative for tenderness Resp normal respiratory effort and normal air movement Effort and Inspection: symmetric chest movement; Negative for respiratory distress Cardio regular rate, regular rhythm and no murmurs Peripheral Pulses: pulses 2+ throughout GI normal to inspection, nondistended, normoactive bowel sounds and non-tender Palpation: Negative for guarding or rebound tenderness present Extremity normal to inspection General Extremety ED: Negative for edema or tenderness General Extremity: Negative for edema Neuro oriented x3 and no sensory deficits noted Sensorium / Orientation: awake and alert Skin no rashes or lesions noted and no wounds Heart Score History: Highly Suspicious ECG: Significant ST-Depression Age: >/= 65 years Risk Factors: 1 or 2 Risk Factors Troponin: >1 - <3 Normal Limit Score: 8 MDM MDM MDM Narrative Medical decision making narrative: Interventions / MDM: Differential diagnosis: Angina, NSTEMI Diagnosis considered but do not suspect: PE however CTA negative. My EKG interpretation: Sinus rate of 110, ST depression lateral leads nonspecific elevation in aVR. New changes compared to August 2017. Imaging independently reviewed and interpreted by myself: 1 view chest x-ray: Vascular congestion CTA chest: No PE. External documents reviewed: N/A Test considered but not ordered:N/A ED course: Patient EKG ST depression with nonspecific ovation aVR. Currently symptom-free. Symptoms are concerning for angina. Currently symptom-free. Aspirin ordered. Cardiac workup initiated. Low risk Wells criteria for PE withtachycardia D-dimer obtained. 2030: Chest x-ray and concerns for vascular congestion. Added BNP. 2100: Initial troponin 54 BNP 205. D-dimer elevated at 3.2. remains chest pain- free. Will obtain CT chest to rule out PE. 2210: CTA chest negative. Troponin 2 hours up to 54. Remains chest pain-free. I spoke with cardiology Dr. Carr, will give therapeutic Lovenox, he would likeechocardiogram performed first in the morning. He will see the patient in the morning. Discussed with hospitalist Dr. Boyd for admission to PCU. Re-evaluation: stable Disposition discussed with patient/family/significant other: Patient Case discussed with consulting clinician: Cardiology, hospitalist This note was generated with [employer] dictation software. It may contain incorrectwords, spelling, and punctuation that were not noted in checking the note beforesigning. Lab Data Attestation: I reviewed the patient's lab results. Labs: Laboratory Results - last 24 hr 08/31/24 08/31/24 08/31/24 18:55 18:58 21:05 WBC 9.7 RBC 5.70 Hgb 17.2 H Hct 49.7 MCV 87.2 MCH 30.2 MCHC 34.6 RDW Std Deviation 43.2 RDW Coeff of Aida 13.6 Plt Count 263 MPV 11.2 Immature Gran % (Auto) 0.400 Neut % (Auto) 72.6 H Lymph % (Auto) 17.8 L [place] % (Auto) 6.7 Eos % (Auto) 1.7 Baso % (Auto) 0.8 Absolute Neuts (auto) 7.0 Absolute Lymphs (auto) 1.72 Nucleated RBC % 0 PT 13.5 INR 1.0 APTT 27.7 D-Dimer Quant (PE/DVT) 3.21 H* Sodium 137 Potassium 3.8 Chloride 100 Carbon Dioxide 21.0 Anion Gap 17 H BUN 13 Creatinine 0.98 Estim Creat Clear Calc 93.89 Est GFR (MDRD) Non-Af 83 BUN/Creatinine Ratio 13.5 Glucose 90 Calcium 9.8 Troponin T High Sens 54 H* Troponin T Hi Sens 2 Hr 58 H* Troponin T Hi Sens 4Hr NT pro BNP II 205 08/31/24 22:56 WBC RBC Hgb Hct MCV MCH MCHC RDW Std Deviation RDW Coeff of Aida Plt Count MPV Immature Gran % (Auto) Neut % (Auto) Lymph % (Auto) [place] % (Auto) Eos % (Auto) Baso % (Auto) Absolute Neuts (auto) Absolute Lymphs (auto) Nucleated RBC % PT INR APTT D-Dimer Quant (PE/DVT) Sodium Potassium Chloride Carbon Dioxide Anion Gap BUN Creatinine Estim Creat Clear Calc Est GFR (MDRD) Non-Af BUN/Creatinine Ratio Glucose Calcium Troponin T High Sens Troponin T Hi Sens 2 Hr Troponin T Hi Sens 4Hr 65 H* NT pro BNP II Radiography Diagnostic Testing: Clinical Impression(s) from Imaging Studies Chest X-Ray 08/31/24 19:15 IMPRESSION: Findings of fluid overload/CHF including trace left pleural effusion. Reading Location: [facility] Chest CTA 08/31/24 20:47 IMPRESSION: No evidence of pulmonary embolism or acute findings in the thorax. Mild upper lobe emphysema. One or more dose reduction techniques were used (e.g., Automated exposure control, adjustment of the mA and/or kV according to patient size, use of iterative reconstruction technique). [facility] Critical [facility] Time Critical Care Time: Yes Critical care time (excluding procedures): 30-74 minutes, Discussing w/Patient &/or Family/Tool Engine Lathe Set Up Operator, Discussing w/Consultants, Arranging Admission or Transfer, Performing Direct Patient Care at Bedside and - (40 minutes) Discharge Plan Dx/Rx/DC Orders Clinical Impression: Angina of effort, Non-ST elevation TN (NSTEMI), History of hypertension Disposition Disposition: Acute Care Hospital [facility] Discharge Date/Time: 08/31/24 23:23 What to do if you have Problems For any increased pain, shortness of breath, bleeding, nausea or vomiting, chestpain, or any unexpected problems, contact your Primary Care Provider. Call [facility] ([phone]) or report to the closest Emergency Room. Call 911 if necessary. 08/31/24 2350 <Electronically signed by Demian Haas> Cosigner Signature (if applicable): CC: Dr. Colton Krishnamurthy MD ~ Signed [facility] Work Phone: 1(233) 445-253503-11-2025 Evaluation note* Diagnosis Onset Date Resolution Status Admit Date Accelerating angina acute August 31, 2024 11:07pm Angina of effort acute August 312024 11:07pm Family history of coronary artery disease acute August 31, 2024 11:07pm Former tobacco use acute August 31, 2024 11:07pm History of hypertension acute M 2024 11:07pm Hyperlipidemia acute August 11:07pm Morbid obesity with BMI of 40.0-44.9, adult acute August 31 11:07pm Hypertension chronic August 31, 2024 11:07pm Non-ST elevation TN (NSTEMI) August 31, 2024 c hronic August 31, 2024 11:07pm [facility] Work Phone: 1(477) 595-124103-11-2025 Evaluation note* Diagnosis Onset Date Resolution Status Admit Date Family history of coronary artery disease acute August 31, 2024 11:07pm Former tobacco use acute August 31, 2024 11:07pm History of hypertension acute M 2024 11:07pm Hyperlipidemia acute August 11:07pm Morbid obesity with BMI of 40.0-44.9, adult acute August 31 11:07pm Hypertension chronic August 31, 2024 11:07pm Accelerating angina resolved August 31, 2024 11:07pm Angina of effort resolved August 312024 11:07pm Non-ST elevation TN (NSTEMI) August 31, 2024 r esolved August 31, 2024 11:07pm CAD (coronary artery disease) acute September 11, 2024 12:49pm Hypertension chronic September 11, 2024 12:49pm Stented coronary artery September 01, 2024 chroni c September 11, 2024 12:49pm CAD (coronary artery disease) acute November 11, 2024 8:41am Hyperlipidemia acute November 11, 2024 8:41am [facility] Work Phone: 1(335) 193-748703-10-2025 Discharge summary [facility] Medical Records Department [address] [place] [address] Emergency Department Summary 08/31/24 MR#: [id number] Acct: [id number] Name: MITUL MARTINEZ Rep #:[id number] : 1955 69 From: Demian Haas PCP: Dr. Colton Krishnamurthy MD Status:ADM IN Location: [address] History of Present Illness Chief Complaint: Chest Pain Informant: patient Narrative Narrative: Presenting exertional chest tightness dyspnea for the past week. Patient typically swims 100 yards every Saturday. Since last week only able to swim 4 laps before he stops due to symptoms. Symptoms go away after 2 minutes. He had symptoms again this morning 9:30 AM. No symptoms sincethen. No numbness down the arms neck or back. Denies recent travel, surgeries, or immobilizations. No history of PE or DVT. History of hypertension on medications. No tobacco history. Denies diabetesor hyperlipidemia. Father had TN at age of 60. She has had a stress test years ago. No history of heart caths. Spoke with his sister who is a nurse and this assists told to go to the ED. He states hewas scheduled for routine colonoscopy tomorrow in [place]. Has not had any rectal bleeding. Prior Similar Symptoms: No CVD Risk Factors: Positive for Hypertension; Negative for Diabetes, Hypercholesterolemia, Family History 1' PE Risk Factors: Negative for Recent Travel/Surgery, Recent Immobilization or Prior DVT or [facility] Medical History Hypertension Home Medications ?Medication ?Instructions ?Recorded ?Last Taken ?Type cholecalciferol (vitamin D3) 25 1,000 unit PO DAILY 08/31/24 History mcg (1,000 unit) capsule (Vitamin D3) hydrochlorothiazide 25 mg tablet 25 mg PO DAILY #30 ta bs 08/24/17 08/31/24 Rx meloxicam 15 mg tablet 15 mg PO DAILY 08/24/1708/11 History Held on 08/31/24. Instructions: Held by patient lisinopril 20 2 tab PO DAILY 08/31/2408/22 History mg-hydrochlorothiazide 12.5 mg tablet Allergy/AdvReac Type Severity Reaction Status Date / Time fenofibrate Allergy Other Verified 08/31/24 18:24 diclofenac AdvReac Nausea/Vom/ Verified 08/31/24 18:24 Diarrhea Social History Smoking Status: Former smoker ROS ROS ED Constitutional Constitutional ED: Denies chills, fever(s) or sweats ENT ENT ED: Denies sore throat Cardiovascular Cardiovascular: Reports chest pain; Denies leg edema, palpitations or racing heartbeat Respiratory/Chest Respiratory/Chest: Reports dyspnea and dyspnea on exertion; Denies cough Gastrointestinal Gastrointestinal: Denies abdominal pain, diarrhea, nausea or vomiting Genitourinary Genitourinary ED: Denies dysuria, hematuria or urinary frequency Musculoskeletal Musculoskeletal: Denies back pain, extremity pain or neck pain Integumentary Denies rash or wounds Neurologic Neurologic: Denies headache(s), paresthesias or weakness EXAM Physical Exam Const Vital Signs: 08/31/24 18:25 08/31/24 19:21 08/31/24 20:00 Temperature 97.8 F Temperature Source Temporal Pulse Rate 104 H 102 H 100 Respiratory Rate 20 H 17 21 H Blood Pressure 139/102 H 153/100 H 131/93 H Blood Pressure Mean 114 117 105 Pulse Ox 95 95 95 Oxygen Delivery Method Room Air Room Air Room Air 08/31/24 21:00 08/31/24 22:00 03/10/25 22:29 Temperature 97.8 F Temperature Source Pulse Rate 92 92 92 Respiratory Rate 19 H 17 17 Blood Pressure 128/84 H 128/84 H Blood Pressure Mean 98 98 Pulse Ox 94 94 94 Oxygen Delivery Method Room Air Room Air Positive well nourished and well developed General Appearance ED: well developed and NAD HEENT Reports moist mucous membranes normocephalic and atraumatic Eyes General Eye ED: Yes normal appearance of both eyes Neck full ROM Chest Wall Chest: Negative for tenderness Resp normal respiratory effort and normal air movement Effort and Inspection: symmetric chest movement; Negative for respiratory distress Cardio regular rate, regular rhythm and no murmurs Peripheral Pulses: pulses 2+ throughout GI normal to inspection, nondistended, normoactive bowel sounds and non-tender Palpation: Negative for guarding or rebound tenderness present Extremity normal to inspection General Extremety ED: Negative for edema or tenderness General Extremity: Negative for edema Neuro oriented x3 and no sensory deficits noted Sensorium / Orientation: awake and alert Skin no rashes or lesions noted and no wounds Heart Score History: Highly Suspicious ECG: Significant ST-Depression Age: >/= 65 years Risk Factors: 1 or 2 Risk Factors Troponin: >1 - <3 Normal Limit Score: 8 MDM MDM MDM Narrative Medical decision making narrative: Interventions / MDM: Differential diagnosis: Angina, NSTEMI Diagnosis considered but do not suspect: PE however CTA negative. My EKG interpretation: Sinus rate of 110, ST depression lateral leads nonspecific elevation in aVR.New changes compared to August 2017. Imaging independently reviewed and interpreted by myself: 1 view chest x-ray: Vascular congestion CTA chest: No PE. External documents reviewed: N/A Test considered but not ordered:N/A ED course: Patient EKG ST depression with nonspecific ovation aVR. Currently symptom-free. Symptomsare concerning for angina. Currently symptom-free. Aspirin ordered. Cardiac workup initiated. Low risk Wells criteria for PE withtachycardia D-dimer obtained. 2030: Chest x-ray and concerns for vascular congestion. Added BNP. 2100: Initial troponin 54 BNP 205. D-dimer elevated at 3.2. remains chest pain- free. Will obtain CTchest to rule out PE. 2210: CTA chest negative. Troponin 2 hours up to 54. Remains chest pain-free. I spoke with cardiology Dr. Carr, will give therapeutic Lovenox, he would likeechocardiogram performed first in the morning. He will see the patient in the morning. Discussed with hospitalist Dr. Boyd for admission to PCU. Re-evaluation: stable Disposition discussed with patient/family/significant other: Patient Case discussed with consulting clinician: Cardiology, hospitalist This note was generated with [employer] dictation software. It may contain incorrectwords, spelling, and punctuation that were not noted in checking the note beforesigning. Lab Data Attestation: I reviewed the patient's lab results. Labs: Laboratory Results - last 24 hr 08/31/24 08/31/24 08/31/24 18:55 18:58 21:05 WBC 9.7 RBC 5.70 Hgb 17.2 H Hct 49.7 MCV 87.2 MCH 30.2 MCHC 34.6 RDW Std Deviation 43.2 RDW Coeff of Aida 13.6 Plt Count 263 MPV 11.2 Immature Gran % (Auto) 0.400 Neut % (Auto) 72.6 H Lymph % (Auto) 17.8 L [place] % (Auto) 6.7 Eos % (Auto) 1.7 Baso % (Auto) 0.8 Absolute Neuts (auto) 7.0 Absolute Lymphs (auto) 1.72 Nucleated RBC % 0 PT 13.5 INR 1.0 APTT 27.7 D-Dimer Quant (PE/DVT) 3.21 H* Sodium 137 Potassium 3.8 Chloride 100 Carbon Dioxide 21.0 Anion Gap 17 H BUN 13 Creatinine 0.98 Estim Creat Clear Calc 93.89 Est GFR (MDRD) Non-Af 83 BUN/Creatinine Ratio 13.5 Glucose 90 Calcium 9.8 Troponin T High Sens 54 H* Troponin T Hi Sens 2 Hr 58 H* Troponin T Hi Sens 4Hr NT pro BNP II 205 08/31/24 22:56 WBC RBC Hgb Hct MCV MCH MCHC RDW Std Deviation RDW Coeff of Aida Plt Count MPV Immature Gran % (Auto) Neut % (Auto) Lymph % (Auto) [place] % (Auto) Eos % (Auto) Baso % (Auto) Absolute Neuts (auto) Absolute Lymphs (auto) Nucleated RBC % PT INR APTT D-Dimer Quant (PE/DVT) Sodium Potassium Chloride Carbon Dioxide Anion Gap BUN Creatinine Estim Creat Clear Calc Est GFR (MDRD) Non-Af BUN/Creatinine Ratio Glucose Calcium Troponin T High Sens Troponin T Hi Sens 2 Hr Troponin T Hi Sens 4Hr 65 H* NT pro BNP II Radiography Diagnostic Testing: Clinical Impression(s) from Imaging Studies Chest X-Ray 08/31/24 19:15 IMPRESSION: Findings of fluid overload/CHF including trace left pleural effusion. Reading Location: [facility] Chest CTA 08/31/24 20:47 IMPRESSION: No evidence of pulmonary embolism or acute findings in the thorax. Mild upper lobe emphysema. One or more dose reduction techniques were used (e.g., Automated exposure control, adjustment of the mA and/or kV according to patient size, use of iterative reconstruction technique). Reading Location: [facility] Critical Care Time Critical Care Time: Yes Critical care time (excluding procedures): 30-74 minutes, Discussing w/Patient &/or Family/CareGiver, Discussing w/Consultants, Arranging Admission or Transfer, Performing Direct Patient Care atBedside and - (40 minutes) Discharge Plan Dx/Rx/DC Orders Clinical Impression: Angina of effort, Non-ST elevation TN (NSTEMI), History of hypertension Disposition Disposition: Acute Care Hospital [facility] Discharge Date/Time: 08/31/24 23:23 What to do if you have Problems For any increased pain, shortness of breath, bleeding, nausea or vomiting, chestpain, or any unexpected problems, contact your Primary Care Provider. Call [facility] ([phone]) or report tothe closest Emergency Room. Call 911 if necessary. 08/31/24 2350 Cosigner Signature (if applicable): CC: Dr. Colton Krishnamurthy MD ~ Signed [facility]03-10-2025 Radiology Diagnostic study note [facility] Imaging Services [address] [place], [place] [id number] CTA Chest W/WO Contrast MR#: [id number] Acct: [id number] Name: MITUL MARTINEZ Rep #: [id number] : 1955 M 69 From: Kira Barnhart MD PCP: Dr. Colton Krishnamurthy MD Status: REG ER Study:CTA Chest W/WO Contrast Date of Exam: 08/31/24 Exam# [id number] Ordering Dr: Demian Burger DO PROCEDURE: CTA CHEST W/WO CONTRAST REASON FOR EXAM: CHEST PAIN, DYSPNEA TECHNIQUE: CTA imaging of the chest with intravenous contrast. 3D reconstructions. CONTRAST: COMPARISON: None. FINDINGS: Hardware: None. Lymph nodes: No mediastinal hilar or axillary lymphadenopathy. Heart: Normal heart size. No pericardial effusion. Moderate coronary artery calcifications. RV/LV Diameter Ratio: N/A Thoracic Aorta: No thoracic aortic aneurysm or dissection. Pulmonary Vessels: No evidence of acute pulmonary emboli through the major subsegmental branches. Most Proximal Level of Embolus (if embolus present): N/A Lungs and Airways: Central airways are patent without endobronchial lesions. Mild upper lobe centrilobular emphysema. Patchy opacities in the lung base, compatible with atelectasis. No suspicious pulmonary nodules. No pneumothorax. No pleural effusion. Pleura: No pleural effusion. No pneumothorax. Upper Abdomen: Visualized portions of the upper abdominal viscera are unremarkable. Bones: Bone windows are unremarkable. CT/CTA Chest W/WO Contrast IMPRESSION: No evidence of pulmonary embolism or acute findings in the thorax. Mild upper lobe emphysema. One or more dose reduction techniques were used (e.g., Automated exposure control, adjustment of the mA and/or kV according to patient size, use of iterative reconstruction technique). [facility] CC: Dr. Colton Krishnamurthy MD; Dr. Demian Burger DO ~ Cloth Drier: Signed [facility]03-10-2025 Radiology Diagnostic study note [facility] Imaging Services [address] [place] [address] Chest 1 View (Portable) MR#: [id number] Acct: [id number] Name: MITUL MARTINEZ Rep #: [id number] : 1955 M 69 From: Albertina Asencio MD PCP: Dr. Colton Krishnamurthy MD Status: REG ER Study:Chest 1 View (Portable) Date of Exam: 08/31/24 Exam# [id number] Ordering Dr: Demian Burger DO PROCEDURE: CHEST 1 VIEW (PORTABLE) REASON FOR EXAM: 69 y/o M,CHEST PAIN, [place]. TECHNIQUE: Frontal view of the chest. COMPARISON: Chest radiograph 05/18/21. FINDINGS: Partially visualized reverse right shoulder arthroplasty. Heart size is mildly enlarged with pulmonary venous congestion. Trace left pleural effusion. No focal consolidation or pneumothorax. Degenerative changes are identified within the thoracic spine. RAD/Chest 1 View (Portable) IMPRESSION: Findings of fluid overload/CHF including trace left pleural effusion. Reading Location: [facility] CC: Dr. Colton Krishnamurthy MD; Dr. Demian Burger DO ~ Cloth Drier: Signed [facility]03-10-2025 Telephone encounter Note* Telephone Encounter - JESENIA Saleh CNP - 08/31/2024 3:44 PM EDT Agree with recommendations provided. Should be seen in the ER if symptoms persist to be safe. [id number] Telephone encounter Note* Telephone Encounter - Alondra Crowley RN - 08/31/2024 1:09 PM EDT S: Patient spoke to [facility] nurse regarding chest burning and shortness of breath with exercise B: Onset of symptoms/concerns a week ago A: Patient states that this week while he was exercising in the pool his lungs were on fire and his chest hurt. When he got home he checked his blood pressure and found that it was elevated at 176/111. This happened the next time that patient went to exercise. Patient then stopped taking his meloxicam because he thought it was raising his blood pressure. His blood pressure went down to 142/94. Patient states that he feels this was when working in the backyard also. Patient states he has no symptoms when he is not exercising. Patient mentioned that his friends told him that he should go to the ED because he could have a blockage. Patient at first was concerned and wanting to go to the ED and was going to cancel his colonoscopy but after talking to me changed his mind and stated that wanted to get his colonoscopy over with first. I offered to look for an appointment today in the office but patient states that Dr. Krishnamurthy isn't going to be able to do anything in the office. Explained topatient that Dr. Krishnamurthy would order treatment based on his findings. Patient declined office visit stating that he wanted to get his colonoscopy over with first which is scheduled for tomorrow. R: Advised patient that he should be seen in the office today but he declined an appointment. Patient verbalized understanding of recommendations. Advised that I would send message to Dr. Krishnamurthy. Reason for Disposition Patient wants to be seen Protocols used: Breathing Rhpucorugn-ORDHK-DW [facility] [id number] Telephone encounter Note* Telephone Encounter - Brittani Lance - 08/18/2024 12:59 PM EST Our office spoke with the patient to remind them of their colonoscopy appointment . The patient is scheduled with Dr. Maria on 09/01/2024 with arrival time of 8:45 at [facility] Verified thatthe patient has the prep information and all questions were answered. [facility] [id number] Miscellaneous Notes* Telephone Encounter - Brittani Lance - 08/18/2024 12:59 PM EST Our office spoke with the patient to remind them of their colonoscopy appointment . The patient is scheduled with Dr. Maria on 09/01/2024 with arrival time of 8:45 at [facility] Verified thatthe patient has the prep information and all questions were answered. documented in this encounterSMetroHealth [facility] [id number] Evaluation + Plan note* Assessment & Plan Note - Colton Krishnamurthy MD - 06/10/2024 3:04 PM EST Associated Problem(s): Subacute cough Tessalon Perles 200 mg 3 times a day. Increase fluids and Mucinex [facility] [id number] Miscellaneous Notes* Assessment & Plan Note - Colton Krishnamurthy MD - 06/10/2024 3:04 PM ESTAssociated Problem(s): Subacute cough Tessalon Perles 200 mg 3 times a day. Increase fluids and Mucinex documented in this [facility]12-18-2024 History of Present illness Narrative* Lora Quevedo MA - 06/10/2024 1:15 PM EST Patient verified by last name and date of . * Colton Krishnamurthy MD - 06/10/2024 1:15 PM EST Images from the original note were not included. 06/10/2024 Mitul Martinez (: 1955) is a 69 y.o. male , Established patient, here for evaluation ofthe following chief complaint(s): Cough (For about 3 weeks) ASSESSMENT/PLAN: 1. Subacute cough Assessment & Plan: Tessalon Perles 200 mg 3 times a day. Increase fluids and Mucinex Follow up in about 6 months (around 12/09/2024). SUBJECTIVE/OBJECTIVE: JOSE ANGEL Jones comes in today complaining of a cough that he says he believes is a little bit of a least3 weeks. She is occasionally cough up some phlegm that is kind of yellowish he may have a little yellow sinus drainage no fevers or chills no wheezing or shortness of breath. Review of Systems Constitutional: Negative for chills and fever. HENT: Positive for rhinorrhea. Negative for congestion, ear pain and sinus pressure. Respiratory: Positive for cough. Negative for shortness of breath. Cardiovascular: Negative for chest pain and palpitations. Vitals: 06/10/24 1306 BP: (!) 161/95 Pulse: 93 Temp: 37.2 C (99 F) SpO2: 95% Weight: 285 lb 3.2 oz (129 kg) Height: 5' 9 (1.753 m) Physical Exam Vitals and nursing note reviewed. Constitutional: General: He is not in acute distress. Appearance: Normal appearance. HENT: Head: Normocephalic. Right Ear: Tympanic membrane, ear canal and external ear normal. Left Ear: Tympanic membrane, ear canal and external ear normal. Mouth/Throat: Mouth: Mucous membranes are moist. Pharynx: Oropharynx is clear. Eyes: Extraocular Movements: Extraocular movements intact. Pupils: Pupils are equal, round, and reactive to light. Cardiovascular: Rate and Rhythm: Normal rate and regular rhythm. Heart sounds: Normal heart sounds. Pulmonary: Effort: Pulmonary effort is normal. Breath sounds: Normal breath sounds. Musculoskeletal: Cervical back: Neck supple. Neurological: Mental Status: He is alert. An electronic signature was used to authenticate this note. Colton Krishnamurthy MD 06/10/2024 3:04 PM documented in this [facility]12-18-2024 Miscellaneous Notes* Telephone Encounter - Amarilis Peña RN - 06/10/2024 8:27 AM EST S: Patient spoke with [facility] nurse regarding cough B: Onset of symptoms/concern ongoing A: Patient states he has a cough that started 3 weeks ago and has been lingering on. Patient statesone of the side effects of lisiniopril is a dry cough so he is not sure. Patient states he does bring so stuff up with the cough but it is small and it is not discolored. Has had an unusual earache it is not there right now. Denies any chest pain, shortness of breath, fever or wheezing. Negative COV ID screen. R: Appointment scheduled for today at 1:15pm with Dr. Krishnamurthy. Insurance verified. Patient given care advice per protocol. Patient understands care advice. No further needs at this time. Patient instructed to call back with new or worsening symptoms. Reason for Disposition Cough has been present for > 3 weeks Protocols used: Cough - Acute Skmffdpuwm-RLBZQ-MT documented in this [facility]12-18-2024 Telephone encounter Note* Telephone Encounter - Amarilis Peña RN - 06/10/2024 8:27 AM EST S: Patient spoke with [facility] nurse regarding cough B: Onset of symptoms/concern ongoing A: Patient states he has a cough that started 3 weeks ago and has been lingering on. Patient statesone of the side effects of lisiniopril is a dry cough so he is not sure. Patient states he does bring so stuff up with the cough but it is small and it is not discolored. Has had an unusual earache it is not there right now. Denies any chest pain, shortness of breath, fever or wheezing. Negative COV ID screen. R: Appointment scheduled for today at 1:15pm with Dr. Krishnamurthy. Insurance verified. Patient given care advice per protocol. Patient understands care advice. No further needs at this time. Patient instructed to call back with new or worsening symptoms. Reason for Disposition Cough has been present for > 3 weeks Protocols used: Cough - Acute Bbmsymuwlp-LAMGR-FJ [facility] [id number] Telephone encounter Note* Telephone Encounter - Crissyestefani Jones - 05/19/2024 2:37 PM EST Received a fax from [employer]---requesting a 90 day rx for Meloxicam 15 mg take 1 tablet by mouthever. Prescription Request: Last medication check: 03-19-24 Last physical exam: 09-04-23 Next scheduled appointment: 09-10-24 Last date of refill on this medication 02-03-24 [facility] [id number] Miscellaneous Notes* Telephone Encounter - Crissy Jones - 05/19/2024 2:37 PM EST Received a fax from [employer]---requesting a 90 day rx for Meloxicam 15 mg take 1 tablet by mouthevery day. Prescription Request: Last medication check: 03-19-24 Last physical exam: 09-04-23 Next scheduled appointment: 09-10-24 Last date of refill on this medication 02-03-24 documented in this [facility]11-14-2024 History of Present illness Narrative* Irma Johnson MD - 05/07/2024 9:30 AM EST Assessment and Recommendations: Mitul Martinez is a 69 y.o. male here for 3-month follow-up from septoplasty inferior turban reduction -Patient is healed well and is happy with his result he can follow-up with us as needed all of his questions were answered he expressed understanding [facility] Note HPI: Mitul Martinez is a 69 y.o. yo male who presents to clinic today for 3-month follow-up from septoplasty inferior turban reduction overall he notes significant improvement in his symptoms is very happy with there is result sleeping better no concerns at this time PMH: Past Medical History: Diagnosis Date Anxiety Cancer (CMS/HCC) (HCC) prostate Carotid artery stenosis Deviated septum Diverticula of colon Elevated PSA Hemorrhoid HLD (hyperlipidemia) Hypertension Neuropathy Osteoarthritis Plantar fasciitis Sleep apnea Allergies: Allergies Allergen Reactions Diclofenac Rectal discharge Fenofibrate Nerve pain Rosuvastatin Other Muscle Aches Medications: Current Outpatient Medications: cholecalciferol (Vitamin D-3) 50 MCG (1999) capsule, Take by mouth., Disp: , Rfl: diphenhydrAMINE-acetaminophen (Tylenol PM) 25-500 MG per tablet, Take 1 tablet by mouth Nightly as needed for sleep., Disp: , Rfl: lisinopril-hydroCHLOROthiazide 20-12.5 MG tablet, Take 2 tablets by mouth daily., Disp: 180 tablet,Rfl: 1 Melatonin 5 MG capsule, Take by mouth as needed., Disp: , Rfl: meloxicam (Mobic) 15 MG tablet, take 1 tablet by mouth once daily, Disp: 90 tablet, Rfl: 1 triamcinolone (Kenalog) 0.5 % cream, Apply topically 2 times daily., Disp: , Rfl: PSH: Past Surgical History: Procedure Laterality Date COLECTOMY december 11 2012, colostomy 5 days later COLONOSCOPY 06/08/2014 COLOSTOMY 03/19/2013 reversal CYST REMOVAL pilonidial EYE SURGERY Left 01/26/2021 cataract HERNIA REPAIR umbical 2010 HERNIA REPAIR mesh 2014 NASAL SEPTUM SURGERY 01/2024 OTHER SURGICAL HISTORY 05/15/2021 transrectal US, transperineal implantation of biodegradeable perirectal gel PROSTATE SURGERY radiation 2020 SHOULDER ARTHROPLASTY (HISTORICAL) Right 11/14/2020 SPINE SURGERY laminectomy 1990 TOTAL SHOULDER ARTHROPLASTY Right 06/19/2018 x2 TOTAL SHOULDER ARTHROPLASTY Left 12/04/2018 FH: Family History Problem Relation Name Age of Onset Prostate cancer Father SH: Social History Socioeconomic History Marital status: Spouse name: Not on file Number of children: Not on file Years of education: Not on file Highest education level: Not on file Occupational History Not on file Tobacco Use Smoking status: Former Current packs/day: 0.00 Average packs/day: 2.0 packs/day for 35.0 years (70.0 ttl pk-yrs) Types: Cigarettes Start date: 06/30/1971 Quit date: 06/30/2006 Years since quittin.8 Smokeless tobacco: Never Vaping Use Vaping status: Never Used Substance and Sexual Activity Alcohol use: Yes Comment: occ Drug use: Yes Types: Marijuana Sexual activity: Not Currently Other Topics Concern Not on file Social History Narrative Not on file Social Drivers of Health Financial Resource Strain: Low Risk (09/04/2023) Overall Financial Resource Strain (CARDIA) Difficulty of Paying Living Expenses: Not hard at all Food Insecurity: No Food Insecurity (09/04/2023) Hunger Vital Sign Worried About Running Out of Food in the Last Year: Never true Ran Out of Food in the Last Year: Never true Transportation Needs: No Transportation Needs (09/04/2023) PRAPARE - Transportation Lack of Transportation (Medical): No Lack of Transportation (Non-Medical): No Physical Activity: Sufficiently Active (09/04/2023) Exercise Vital Sign Days of Exercise per Week: 7 days Minutes of Exercise per Session: 40 min Stress: No Stress Concern Present (03/18/2024) [place] [employer] - Occupational Stress Questionnaire Feeling of Stress : Not at all Social Connections: Socially Isolated (03/18/2024) Social Connection and Isolation Panel [NHANES] Frequency of Communication with Friends and Family: More than three times a week Frequency of Social Gatherings with Friends and Family: Once a week Attends Sabianism Services: Never Active Member of Clubs or Organizations: No Attends Club or Organization Meetings: Never Marital Status: Intimate Partner Violence: Not At Risk (03/18/2024) Humiliation, Afraid, Rape, and Kick questionnaire Fear of Current or Ex-Partner: No Emotionally Abused: No Physically Abused: No Sexually Abused: No Housing Stability: Low Risk (09/04/2023) Housing Stability Vital Sign Unable to Pay for Housing in the Last Year: No Number of Places Lived in the Last Year: 1 Unstable Housing in the Last Year: No Physical Exam: Constitutional: General: Patient is not in acute distress. Appearance: Patient is well-developed. Eyes: Conjunctiva/sclera: Conjunctivae normal. Pupils: Pupils are equal, round, and reactive to light. HENT: Jaw: No trismus. Nose: Septum midline inferior turbinates well reduced Mouth: Mucous membranes are not pale, not dry and not cyanotic. No oral lesions. Pharynx: Uvula midline. No oropharyngeal exudate or uvula swelling. Tonsils: No tonsillar exudate. No abnormal masses or lesions Thyroid: No significant thyromegaly. Trachea: Trachea and phonation normal. No tracheal deviation. Pulmonary: Effort: Pulmonary effort is normal. No respiratory distress. Breath sounds: No stridor. Musculoskeletal: Head: Normocephalic and atraumatic. Neck: Full passive range of motion without pain, neck supple. Skin: General: Skin is warm and dry. Findings: No erythema or rash. Neurological: Cranial Nerves: No cranial nerve deficit. Sensory: No sensory deficit. Coordination: Coordination normal. Extremities: No significant peripheral edema or varicosities Psychiatric: Mood and Affect: Mood and affect normal. Cognition and Memory: Cognition and memory normal. documented in this [facility]10-21-2024 NoteNotified Bill that referral was placed, gave him phone number to call and schedule.[facility]10-21-2024 NoteRef[facility]. Can discuss with specialist prep options at appointment.[facility]09-26-2024 Evaluation + Plan note* Assessment & Plan Note - Colton Krishnamurthy MD - 03/19/2024 8:20 AM EDTAssociated Problem(s): Pure hypercholesterolemia Controlled, continue very strict low-fat low-cholesterol diet [facility] [id number] Evaluation + Plan note* Assessment & Plan Note - Colton Krishnamurthy MD - 03/19/2024 8:20 AM EDTAssociated Problem(s): Benign non- nodular prostatic hyperplasia with lower urinary tract symptoms Stable, currently on no medications. [facility] [id number] Miscellaneous Notes* Assessment & Plan Note - Colton Krishnamurthy MD - 03/19/2024 8:20 AM EDTAssociated Problem(s): Pure hypercholesterolemia Controlled, continue very strict low-fat low-cholesterol diet * Assessment & Plan Note - Colton Krishnamurthy MD - 03/19/2024 8:20 AM EDT Associated Problem(s): Benign non-nodular prostatic hyperplasia with lower urinary tract symptoms Stable, currently on no medications. * Assessment & Plan Note - Colton Krishnamurthy MD - 03/19/2024 8:19 AM EDT Associated Problem(s): Hypertension Blood pressure was initially elevated, recheck was still elevated although significantly improved, follow-up in 1 week for blood pressure check continue lisinopril hydrochlorothiazide 20-12.5 * Assessment & Plan Note - Colton Krishnamurthy MD - 03/19/2024 8:19 AM EDT Associated Problem(s): HUEY on CPAP currently is not using his CPAP since he had deviated septal surgery he is doing much better. documented in this [facility]09-26-2024 Evaluation + Plan note* Assessment & Plan Note - Colton Krishnamurthy MD - 03/19/2024 8:19 AM EDT Associated Problem(s): Hypertension Blood pressure was initially elevated, recheck was still elevated although significantly improved, follow-up in 1 week for blood pressure check continue lisinopril hydrochlorothiazide 20-12.5 [facility] [id number] Evaluation + Plan note* Assessment & Plan Note - Colton Krishnamurthy MD - 03/19/2024 8:19 AM EDTAssociated Problem(s): HUEY on CPAP currently is not using his CPAP since he had deviated septal surgery he is doing much better. [facility] [id number] History of Present illness Narrative* Lora Quevedo MA - 03/19/2024 8:00 AM EDT Patient verified by last name and date of . * Colton Krishnamurthy MD - 03/19/2024 8:00 AM EDT Images from the original note were not included. 03/19/2024 Mitul Martinez (: 1955) is a 68 y.o. male , Established patient, here for evaluation ofthe following chief complaint(s): Hypertension, Hyperlipidemia, Depression, Medication Check (6 month ), and Health Maintenance (Flu vaccine- agree/6th covid vaccine- not done/Hep c screening- refuse) ASSESSMENT/PLAN: 1. Primary hypertension Assessment & Plan: Blood pressure was initially elevated, recheck was still elevated although significantly improved, follow-up in 1 week for blood pressure check continue lisinopril hydrochlorothiazide 20-12.5 2. Benign non-nodular prostatic hyperplasia with lower urinary tract symptoms Assessment & Plan: Stable, currently on no medications. 3. Pure hypercholesterolemia Assessment & Plan: Controlled, continue very strict low-fat low-cholesterol diet 4. HUEY on CPAP Assessment & Plan: currently is not using his CPAP since he had deviated septal surgery he is doing much better. Follow up in about 6 months (around 09/16/2024). SUBJECTIVE/OBJECTIVE: JOSE ANGEL MalloyNabil comes in today for 6-month follow-up on his multiple health issues which includes hypertension and his blood pressure is up slightly today we will recheck that prior to discharge. He has a history of BPH and prostate cancer and he also has high cholesterol and he has obstructivesleep apnea but he has recently had a deviated septum repair and he says he is doing fairly well without CPAP at this time. There is no longer using Flonase she is just using a saline nasal spray. He has no other complaints, see ROS. Review of Systems Constitutional: Negative for activity change, appetite change, chills, fever and unexpected weight change. HENT: Negative for ear pain and sore throat. Respiratory: Negative for shortness of breath. Cardiovascular: Negative for chest pain and palpitations. Gastrointestinal: Negative for abdominal pain, blood in stool, constipation and diarrhea. Genitourinary: Negative for dysuria, frequency, hematuria and urgency. Musculoskeletal: Negative for arthralgias and back pain. Skin: Negative. Neurological: Negative for weakness and numbness. Psychiatric/Behavioral: Negative for dysphoric mood. The patient is not nervous/anxious. Vitals: 03/19/24 0749 03/19/24 0809 BP: (!) 157/104 (!) 145/89 Pulse: 64 75 SpO2: 95% Weight: 271 lb (123 kg) Height: 5' 9 (1.753 m) Physical Exam Vitals and nursing note reviewed. Constitutional: General: He is not in acute distress. Appearance: Normal appearance. He is obese. HENT: Right Ear: Tympanic membrane, ear canal and external ear normal. Left Ear: Tympanic membrane, ear canal and external ear normal. Mouth/Throat: Mouth: Mucous membranes are moist. Pharynx: Oropharynx is clear. Eyes: Extraocular Movements: Extraocular movements intact. Conjunctiva/sclera: Conjunctivae normal. Pupils: Pupils are equal, round, and reactive to light. Neck: Thyroid: No thyromegaly. Vascular: No carotid bruit. Cardiovascular: Rate and Rhythm: Normal rate and regular rhythm. Heart sounds: Normal heart sounds. No murmur heard. Pulmonary: Effort: Pulmonary effort is normal. Breath sounds: Normal breath sounds. Abdominal: General: Bowel sounds are normal. Palpations: Abdomen is soft. Tenderness: There is no abdominal tenderness. Musculoskeletal: General: Normal range of motion. Cervical back: Neck supple. Lymphadenopathy: Cervical: No cervical adenopathy. Skin: General: Skin is warm and dry. Neurological: General: No focal deficit present. Mental Status: He is alert and oriented to person, place, and time. Psychiatric: Mood and Affect: Mood normal. An electronic signature was used to authenticate this note. Colton Krishnamurthy MD 03/19/2024 8:23 AM * Maki Carlson MA - 03/19/2024 8:00 AM EDT Patient was verified by name and . After obtaining consent, and per orders of Dr. Krishnamurthy, injection of Fluad given in left deltoid by Maki Carlson. Patient instructed to report any adverse reaction immediately. documented in this [facility]08-15-2024 History of Present illness Narrative* Irma Johnson MD - 02/06/2024 9:15 AM EDT Assessment and Recommendations: Mitul Martinez is a 68 y.o. male here for 1 week follow-up from septoplasty inferior turban reduction -Patient is healed well and pleased with his result he noted improvement in breathing can follow-upwith us in 3 months for recheck [facility] Note HPI: Mitul Martinez is a 68 y.o. yo male who presents to clinic today for 1 week follow-up from septoplasty inferior turban reduction overall patient doing well no concerns at this time. PMH: Past Medical History: Diagnosis Date Anxiety Cancer (CMS/HCC) (HCC) prostate Carotid artery stenosis Deviated septum Diverticula of colon Elevated PSA Hemorrhoid HLD (hyperlipidemia) Hypertension Neuropathy Osteoarthritis Plantar fasciitis Sleep apnea Allergies: Allergies Allergen Reactions Diclofenac Rectal discharge Fenofibrate Nerve pain Rosuvastatin Other Muscle Aches Medications: Current Outpatient Medications: cefdinir (Omnicef) 300 MG capsule, Take 1 capsule (300 mg) by mouth 2 times daily for 10 days., Disp: 20 capsule, Rfl: 0 cholecalciferol (Vitamin D-3) 50 MCG (2000 UT) capsule, Take by mouth., Disp: , Rfl: diphenhydrAMINE-acetaminophen (Tylenol PM) 25-500 MG per tablet, Take 1 tablet by mouth Nightly as needed for sleep., Disp: , Rfl: gabapentin (Neurontin) 300 MG capsule, Take 300 mg by mouth 3 times daily., Disp: , Rfl: lisinopril-hydroCHLOROthiazide 20-12.5 MG tablet, Take 2 tablets by mouth daily., Disp: 180 tablet,Rfl: 1 loperamide (Imodium) 2 MG capsule, Take 2 mg by mouth as needed for diarrhea., Disp: , Rfl: Melatonin 5 MG capsule, Take by mouth as needed., Disp: , Rfl: meloxicam (Mobic) 15 MG tablet, take 1 tablet by mouth once daily, Disp: 90 tablet, Rfl: 1 oxymetazoline (Afrin) 0.05 % nasal spray, Administer into each nostril. Do not use for more than 3 days., Disp: , Rfl: sildenafil (Viagra) 100 MG tablet, Take 1 tablet (100 mg) by mouth Daily as needed for erectile dysfunction., Disp: 4 tablet, Rfl: 0 triamcinolone (Kenalog) 0.5 % cream, Apply topically 2 times daily., Disp: , Rfl: fluticasone (Flonase) 50 MCG/ACT nasal spray, Administer 2 sprays into each nostril daily. Shake gently. Before first use, prime pump. After use, clean tip and replace cap., Disp: 16 g, Rfl: 5 PSH: Past Surgical History: Procedure Laterality Date COLECTOMY december 11 2012, colostomy 5 days later COLONOSCOPY 06/08/2014 COLOSTOMY 03/19/2013 reversal CYST REMOVAL pilonidial EYE SURGERY Left 01/26/2021 cataract HERNIA REPAIR umbical 2010 HERNIA REPAIR mesh 2013 OTHER SURGICAL HISTORY 05/15/2021 transrectal US, transperineal implantation of biodegradeable perirectal gel PROSTATE SURGERY radiation 2020 SHOULDER ARTHROPLASTY (HISTORICAL) Right 11/14/2020 SPINE SURGERY laminectomy 1990 TOTAL SHOULDER ARTHROPLASTY Right 06/19/2018 x2 TOTAL SHOULDER ARTHROPLASTY Left 12/04/2018 FH: Family History Problem Relation Name Age of Onset Prostate cancer Father SH: Social History Socioeconomic History Marital status: Spouse name: Not on file Number of children: Not on file Years of education: Not on file Highest education level: Not on file Occupational History Not on file Tobacco Use Smoking status: Former Current packs/day: 0.00 Average packs/day: 2.0 packs/day for 35.0 years (70.0 ttl pk-yrs) Types: Cigarettes Start date: 06/30/1971 Quit date: 06/30/2006 Years since quittin.6 Smokeless tobacco: Never Vaping Use Vaping status: Never Used Substance and Sexual Activity Alcohol use: Yes Comment: occ Drug use: Yes Types: Marijuana Sexual activity: Not Currently Other Topics Concern Not on file Social History Narrative Not on file Social Determinants of Health Financial Resource Strain: Low Risk (09/04/2023) Overall Financial Resource Strain (CARDIA) Difficulty of Paying Living Expenses: Not hard at all Food Insecurity: No Food Insecurity (09/04/2023) Hunger Vital Sign Worried About Running Out of Food in the Last Year: Never true Ran Out of Food in the Last Year: Never true Transportation Needs: No Transportation Needs (09/04/2023) PRAPARE - Transportation Lack of Transportation (Medical): No Lack of Transportation (Non-Medical): No Physical Activity: Sufficiently Active (09/04/2023) Exercise Vital Sign Days of Exercise per Week: 7 days Minutes of Exercise per Session: 40 min Stress: Not on file Social Connections: Not on file Intimate Partner Violence: Not on file Housing Stability: Low Risk (09/04/2023) Housing Stability Vital Sign Unable to Pay for Housing in the Last Year: No Number of Places Lived in the Last Year: 1 Unstable Housing in the Last Year: No Physical Exam: Constitutional: General: Patient is not in acute distress. Appearance: Patient is well-developed. Eyes: Conjunctiva/sclera: Conjunctivae normal. Pupils: Pupils are equal, round, and reactive to light. HENT: Jaw: No trismus. Nose: Nasal splints removed without any issue septum midline inferior turbinates well reduced Mouth: Mucous membranes are not pale, not dry and not cyanotic. No oral lesions. Pharynx: Uvula midline. No oropharyngeal exudate or uvula swelling. Tonsils: No tonsillar exudate. No abnormal masses or lesions Thyroid: No significant thyromegaly. Trachea: Trachea and phonation normal. No tracheal deviation. Pulmonary: Effort: Pulmonary effort is normal. No respiratory distress. Breath sounds: No stridor. Musculoskeletal: Head: Normocephalic and atraumatic. Neck: Full passive range of motion without pain, neck supple. Skin: General: Skin is warm and dry. Findings: No erythema or rash. Neurological: Cranial Nerves: No cranial nerve deficit. Sensory: No sensory deficit. Coordination: Coordination normal. Extremities: No significant peripheral edema or varicosities Psychiatric: Mood and Affect: Mood and affect normal. Cognition and Memory: Cognition and memory normal. documented in this [facility]SM[facility] [id number] Telephone encounter Note* Telephone Encounter - JESENIA Fermin CNP - 02/03/2024 11:20 AM EDT Reviewed chart. Refill appropriate. RX sent. [facility] [id number] Miscellaneous Notes* Telephone Encounter - JESENIA Fermin CNP - 02/03/2024 11:20 AM EDT Reviewed chart. Refill appropriate. RX sent. * Telephone Encounter - Myrna Dill - 02/03/2024 10:53 AM EDT Prescription Request: Last medication check: 10/17/23 Last physical exam: 09/04/23 Next scheduled appointment: 03/19/24 Last date of refill on this medication 05/21/2023 documented in this encounterSMetro[facility] [id number] Telephone encounter Note* Telephone Encounter - Myrna Dill - 02/03/2024 10:53 AM EDT Prescription Request: Last medication check: 10/17/23 Last physical exam: 09/04/23 Next scheduled appointment: 03/19/24 Last date of refill on this medication 05/21/2023 [facility] [id number] Miscellaneous Notes* Perioperative Nursing Note - Giovanny Montalvo RN - 01/29/2024 9:14 AM EDT Discharge information given to the patient. Patient and family verbalized understanding of information. All questions were answered before discharge. Patient ambulated, denies dizziness or nausea. Tolerating PO fluids and crackers. Vital signs are stable. Patient has changed and is being discharged home in a wheelchair with valuables.No nasal bleeding noted. Gtt pad applied * Op Note - Irma Johnson MD - 01/29/2024 7:30 AM EDT Date: 01/29/2024 Location: [facility] OR Name: Nabil Martinez, : 1955, Diagnosis Pre-op Diagnosis * Deviated nasal septum [J34.2] * Nasal congestion [R09.81] * Hypertrophy of nasal turbinates [J34.3] Post-op Diagnosis * Deviated nasal septum [J34.2] * Nasal congestion [R09.81] * Hypertrophy of nasal turbinates [J34.3] Procedures NASAL SEPTAL RECONSTRUCTION WITH BILATERAL INFERIOR TURBINATE REDUCTION 68319 - OR SEPTOPLASTY/SUBMUCOUS RESECJ W/WO CARTILAGE GRF SUBMUCOUS RESECTION INFERIOR TURBINATE 90256 - OR SUBMUCOUS RESCJ INFERIOR TURBINATE PRTL/COMPL Surgeons * Irma Johnson - Primary Procedure Summary Anesthesia: General ASA: II Estimated Blood Loss: Minimal Drains: * None in log * Staff: Phys Therapist: Enoch George RN Scrub Person: Katheryn Buckner Findings: left septal deviation corrected, inferior turbinates reduced Complications: None; patient tolerated the procedure well. Specimens Collected: Order Name Source Comment Collection Info Order Time POTASSIUM WITH MG REFLEX For patients on dialysis to draw potassium day of surgery 01/29/2024 5:57 AM PROTHROMBIN TIME If patient on coumadin within 4 days prior. 01/29/2024 5:57 AM Wound Class: Class II: Clean-Contaminated Blood Products: None Prophylactic Antibiotics: Pre-operative antibiotics were not given because antibiotics are not indicated for this procedure. Operative Indications: Mitul Martinez is a 68 y.o. yo M/F who presented to clinic with symptoms of nasal obstruction and was noted to have a severely deviated septum. Failed conservative management and after discussion of options elected for surgery. Procedure in Detail: The patient was taken back to the operating room and placed in the supine position. Anesthesia provided a general anesthetic and the patient was orotracheally intubated without difficulty. Appropriate timeout was performed by me and then patient was turned 90 degress to the ENT team. A speculum was inserted into the nasal cavity and the septum was injected bilaterally with 1% lidocaine with epinephrine. The patient was prepped and draped and then a Killians incision was made on the left side. The was carried down to the septal cartilage. A colette elevator was used to elevate a m ucoperichondrial flap to the bony-cartilaginous junction. The colette was used to incise the cartilage, and subsequently a mucoperiosteal flap was elevated posteriorly on the opposite side. Bony spurswere identified inferiorly and removed with an osteotome and Takahasi. The mucoperichondrial flap and mucoperiosteal flaps were then placed back against the bone and the nasal cavity was examined with a speculum. The septum was significantly straighter and there was much more room compared to before the surgery. The incision was closed with 5-0 chromic sutures. Attention was then turned to the turbinates. The turbinates were injected with 1% lidocaine with 1:100,000 epinephrine. A stab incision was then made and then the microdebrider with the shaver blade was used to remove the turbinate tissue until adequate space was made in the nasal cavity. The Boiseelevator was then used to out-fracture the turbinates bilaterally. Nasal rhinoscopy was then performed and the patient was noted to have patent nasal passages all theway to the choana bilaterally. Sands splints covered in bactroban ointment were then placed along the septum bilaterally and secured using a 2-0 Prolene stitch. * Brief Op Note - Irma Johnson MD - 01/29/2024 7:30 AM EDT Date: 01/29/2024 Location: [facility] OR Name: Nabil Martinez, : 1955, Diagnosis Pre-op Diagnosis * Deviated nasal septum [J34.2] * Nasal congestion [R09.81] * Hypertrophy of nasal turbinates [J34.3] Post-op Diagnosis * Deviated nasal septum [J34.2] * Nasal congestion [R09.81] * Hypertrophy of nasal turbinates [J34.3] Procedures NASAL SEPTAL RECONSTRUCTION WITH BILATERAL INFERIOR TURBINATE REDUCTION 03954 - OR SEPTOPLASTY/SUBMUCOUS RESECJ W/WO CARTILAGE GRF SUBMUCOUS RESECTION INFERIOR TURBINATE 07564 - OR SUBMUCOUS RESCJ INFERIOR TURBINATE PRTL/COMPL Surgeons * Irma Johnson - Primary Procedure Summary Anesthesia: General ASA: II Estimated Blood Loss: Minimal Drains: * None in log * Staff: Phys Therapist: Enoch George RN Scrub Person: Katheryn Buckner Findings: left septal deviation corrected, inferior turbinates reduced Complications: None; patient tolerated the procedure well. Specimens Collected: Order Name Source Comment Collection Info Order Time POTASSIUM WITH MG REFLEX For patients on dialysis to draw potassium day of surgery 01/29/2024 5:57 AM PROTHROMBIN TIME If patient on coumadin within 4 days prior. 01/29/2024 5:57 AM Wound Class: Class II: Clean-Contaminated Blood Products: None Prophylactic Antibiotics: Pre-operative antibiotics were not given because antibiotics are not indicated for this procedure. documented in this [facility]08-07-2024 Note* Perioperative Nursing Note - Giovanny Montalvo RN - 01/29/2024 9:14 AM EDT Discharge information given to the patient. Patient and family verbalized understanding of information. All questions were answered before discharge. Patient ambulated, denies dizziness or nausea. Tolerating PO fluids and crackers. Vital signs are stable. Patient has changed and is being discharged home in a wheelchair with valuables.No nasal bleeding noted. Gtt pad applied [facility] [id number] Note* Perioperative Nursing Note - Giovanny Montalvo RN - 01/29/2024 9:14 AM EDT Discharge information given to the patient. Patient and family verbalized understanding of information. All questions were answered before discharge. Patient ambulated, denies dizziness or nausea. Tolerating PO fluids and crackers. Vital signs are stable. Patient has changed and is being discharged home in a wheelchair with valuables.No nasal bleeding noted. Gtt pad applied [facility] [id number] Hospital Discharge instructions* Discharge Instructions* Irma Johnson MD - 01/29/2024 8:14 AM EDT Post-Septoplasty Discharge Instructions Rest all day after surgery. DO NOT touch or rub your nose. Avoid blowing your nose (it is normal tofeel stuffed up for several weeks). You will see Dr. Johnson ~1-2 weeks after surgery for removalof the splints. You may apply ice packs to your nose and eye area to help with pain and swelling, but make sure to keep your nose dry. Cover the ice pack with a clean, dry cloth or small towel. Sleeping propped up on 2 pillows will also help reduce swelling. You will get a prescription for pain medicines. Get it filled when you go home so you have it when you need it. Take pain medicines, such as acetaminophen (Tylenol) or a prescription painkiller, the way you have been told to take them. Take your medicine when pain first starts. DO NOT let pain get very bad before taking it. You should not drive, operate machinery, drink alcohol, or make any major decisions for at least 24hours after surgery. Your anesthesia may make you groggy and it will be hard to think clearly. The effects should wear off in about 24 hours. Limit activities that could make you fall or put more pressure on your face. Some of these are bending over, holding your breath, and tightening muscles during bowel movements. Avoid heavy lifting and hard physical activity for 1 to 2 weeks. You should be able to go back to work or school 1 week after surgery. DO NOT take baths or showers for 24 hours. Your nurse will show you how to clean your nose area with Q-tips and hydrogen peroxide or another cleaning solution if needed. You may go outside a few days after surgery, but DO NOT stay in the sun for more than 15 minutes. Follow up with your provider as you have been told. You may need to have stitches removed. Your provider will want to check your healing. Swelling: Every operation, no matter how minor, is accompanied by swelling of the surrounding tissues. The amount of swelling varies from one person to person, but it seems more in the face because the looseness of the tissues makes the features appear distorted. It is usually greater when both the inside (septum) and outside of the nose have been operated on that when surgery is done on the inside (septum) only. Some degree of swelling then follows any surgical procedure. The swelling is due to the new tissue fluids brought into the area by the body to promote healing. The increased blood supply to the region is responsible for the pink color of the skin and discoloration associated with surgery. When these healing fluidsare no longer required, the tissues release them and they are absorbed through the bloodstream. As this occurs, the nasal congestion will gradually improve. You must be willing to accept temporary swelling and discoloration which occur following such operations. Most people feel it is a negligible inconvenience to pay for the physical and psychological improvement they experience. The swelling will gradually increase, reaching its peak on the third day. This is not serious and is not an indication that something is going wrong with your operation. Minor swelling may persist for several weeks. The main thing to remember is: such swelling eventually subsides. You can help the swelling subside in several ways: Avoid bending over or lifting heavy things for one week. Besides aggravating swelling, this may raise the blood pressure and start bleeding. Avoid hitting or bumping your nose for at least one week following surgery. It is not sadler to case picker small children who may inadvertently bump your nose. Sleep with the head of the bed elevated until all the dressings have been removed from the nose. To accomplish this, place two (2) or three (3) pillows under the head of the mattress and one (1) or two (2) on top of it. Try not to roll over on your nose. We recommend you use ice compresses consisting of moistened cold wash cloths (not an ice bag) applied in an inverted v across the top of the nose and covering each eye as much as possible during the first three (3) days after surgery. Avoid sunning the face for prolonged periods for one (1) month; ordinary exposure is not harmful. Do not tweeze the eyebrows for one (1) week. When bathing, avoid getting the nasal dressing wet; if it becomes loose let us know. You may gently blow or sniff your nose the third day after the operation. Do not push on the nose when blowing. Blow gently through both sides at the same time. Avoid constantly rubbing the nostrils and base of the nose with Kleenex or a handkerchief. Not only will this aggravate the swelling, but it could cause infection, bleeding, or the accumulation of excessive scar tissue inside the nose. Use a moustache dressing instead if the discharge is excessive. Report any excessive bleeding that persists after using a nasal spray (Afrin or Moy-Synephrine) and sitting up for 15 minutes. Discoloration: Following surgery it is not unusual to have varying amounts of discoloration about the eyes. Like swelling, the discoloration may become pronounced one (1) to two (2) days after surgery. It usually does not last for more than a week, all the while decreasing in intensity. The measures that help the swelling to subside will also help the discoloration. You can camouflage the discoloration, to some extent, by using makeup. Hemorrhage: You can expect more mucous drainage for several days after surgery and it may be bloodtinged and should cause you no concern unless the drainage becomes bright red and flows heavily. If hemorrhage does occur, go to bed, use a nasal spray such as Afrin or Moy- Synephrine, and elevatethe head. Then apply ice compresses about the nose and report it by telephone. Avoid: bending over, lifting heavy objects or hitting your nose. Pain: There is usually only mild to moderate pain following nasal and sinus surgery but the individual may experience a bruised sensation as a result of the post-operative swelling. As is usually the case with such things, this seems worse at night and when one becomes nervous. Try the application of cold compresses. If this is not effective, you may take one of the pain relievers prescribed for you. Post-operative Instructions for Intranasal (Septoplasty, Turbinectomy)/Sinus Surgeries (FSS) During the healing process, you may experience occasional sinus headaches. These may occur up to several weeks after surgery. They will gradually disappear as the healing process continues. Nasal Blockage and Nose Sprays: Nasal blockage is to be expected after nasal surgery and will gradually subside over a period of time. The patient must reconcile him/herself to this. Nose sprays such as Afrin or Moy-Synephrine may be used for several days if recommended by your physician. Cleaning the Nose: Don t blow the nose at all for three (3) days; after that, blow through both sides at once - do not compress one side. You may clean the outside of the nose and the upper lip with cotton-tipped applicators (Q-tips) moistened with hydrogen peroxide as soon as you return home, but don t rub too vigorously. Dried blood in the nostrils may be gently cleaned and removed with a Q-tip. Vaseline or an antibiotic ointment may be applied to the inside of the nostrils and the outside incision if your physician specifies this. The Vaseline helps soften crusts and usually make the inside of the nose feel better. This may be continued for several weeks. Resume Activities: You may sleep without the head of the bed elevated after two (2) weeks. You may resume physical activity in two (2) weeks. No swimming, gym, tennis, jogging or other strenuous athletic activity for four (4) weeks. No diving, skiing or contact sports for two (2) months. Try to avoid sneezing. If you must; let it come out like a cough - through the mouth. If it becomesa real problem, we will prescribe medicine to alleviate the condition. As long as the shape of the nose has not been altered, glasses may be worn as normal. Contact lenses may be inserted the day after surgery. Dryness of the Lips: If the lips become dry from breathing through the mouth, coat them with Vaseline or Chapstick. Temperature: Generally, the body temperature does not rise much above 100 following surgery, and this rise is due to the fact that the patient becomes mildly dehydrated because he/she does not drink enough fluids. Patients will often think they have fever because they feel warm, but, in reality do not. [id number] Post-operative Instructions for Intranasal (Septoplasty, Turbinectomy)/Sinus Surgeries (FSS) To be sure you should measure your temperature. Report any persistent temperature above 101 however. Medications: Following surgery, you should take the medications your physician prescribed. You should resume any medications you were taking for medical reasons prior to surgery. Do not take aspirin oraspirin products, ibuprofen, or arthritis medications for two (2) weeks after surgery. Weakness: It is not unusual after a person has an anesthetic or any type of operation for them to feel weak, have a rapid pulse, break out in cold sweats , or get dizzy. This gradually clears up in a few days without medication. Bathing and Hair Care: Tub bathing or showering can be resumed as soon as the patient feels strong enough to do so. It is probably best to have assistance standing by on the first couple of occasions. Your First Post-operative Visit: If your operation was performed in our Surgery Center, this appointment will be scheduled before leaving the Surgery Center. If your surgery was at the hospital, please call the office for your first post-operative visit (usually in one week or less). Returning to School or Work: The average patient is able to return to school or work the day the bandages are removed, that is, seven (7) days following surgery. Some individuals may return to desk jobs in three (3) to four (4) days. When you should return to school or work depends on the amount of physical activity and public contact you will be involved in, in addition to the amount of swelling and discoloration you develop. Injury to the Nose: Many individuals sustain accidental hits on the nose during the early post-operative period. One need not be too concerned unless the blow is hard or if hemorrhage or considerable swelling ensues. Report the incident the next day by telephone. If you do sustain an injury to the nose, a minor revision procedure may be necessary. Call Dr. Johnson's Office at [phone] if you have questions documented in this [facility]08-07-2024 Note* Op Note - Irma Johnson MD - 01/29/2024 7:30 AM EDT Date: 01/29/2024 Location: [facility] OR Name: Nabil Martinez, : 1955, Diagnosis Pre-op Diagnosis * Deviated nasal septum [J34.2] * Nasal congestion [R09.81] * Hypertrophy of nasal turbinates [J34.3] Post-op Diagnosis * Deviated nasal septum [J34.2] * Nasal congestion [R09.81] * Hypertrophy of nasal turbinates [J34.3] Procedures NASAL SEPTAL RECONSTRUCTION WITH BILATERAL INFERIOR TURBINATE REDUCTION 97504 - OR SEPTOPLASTY/SUBMUCOUS RESECJ W/WO CARTILAGE GRF SUBMUCOUS RESECTION INFERIOR TURBINATE 15297 - OR SUBMUCOUS RESCJ INFERIOR TURBINATE PRTL/COMPL Surgeons * Irma Johnson - Primary Procedure Summary Anesthesia: General ASA: II Estimated Blood Loss: Minimal Drains: * None in log * Staff: Phys Therapist: Enoch George RN Scrub Person: Katheryn Buckner Findings: left septal deviation corrected, inferior turbinates reduced Complications: None; patient tolerated the procedure well. Specimens Collected: Order Name Source Comment Collection Info Order Time POTASSIUM WITH MG REFLEX For patients on dialysis to draw potassium day of surgery 01/29/2024 5:57 AM PROTHROMBIN TIME If patient on coumadin within 4 days prior. 01/29/2024 5:57 AM Wound Class: Class II: Clean-Contaminated Blood Products: None Prophylactic Antibiotics: Pre-operative antibiotics were not given because antibiotics are not indicated for this procedure. Operative Indications: Mitul Martinez is a 68 y.o. yo M/F who presented to clinic with symptoms of nasal obstruction and was noted to have a severely deviated septum. Failed conservative management and after discussion of options elected for surgery. Procedure in Detail: The patient was taken back to the operating room and placed in the supine position. Anesthesia provided a general anesthetic and the patient was orotracheally intubated without difficulty. Appropriate timeout was performed by me and then patient was turned 90 degress to the ENT team. A speculum was inserted into the nasal cavity and the septum was injected bilaterally with 1% lidocaine with epinephrine. The patient was prepped and draped and then a Killians incision was made on the left side. The was carried down to the septal cartilage. A colette elevator was used to elevate a m ucoperichondrial flap to the bony-cartilaginous junction. The colette was used to incise the cartilage, and subsequently a mucoperiosteal flap was elevated posteriorly on the opposite side. Bony spurswere identified inferiorly and removed with an osteotome and Takahasi. The mucoperichondrial flap and mucoperiosteal flaps were then placed back against the bone and the nasal cavity was examined with a speculum. The septum was significantly straighter and there was much more room compared to before the surgery. The incision was closed with 5-0 chromic sutures. Attention was then turned to the turbinates. The turbinates were injected with 1% lidocaine with 1:100,000 epinephrine. A stab incision was then made and then the microdebrider with the shaver blade was used to remove the turbinate tissue until adequate space was made in the nasal cavity. The Boiseelevator was then used to out-fracture the turbinates bilaterally. Nasal rhinoscopy was then performed and the patient was noted to have patent nasal passages all theway to the choana bilaterally. Sands splints covered in bactroban ointment were then placed along the septum bilaterally and secured using a 2-0 Prolene stitch. [id number] Note* Brief Op Note - Irma Johnson MD - 01/29/2024 7:30 AM EDT Date: 01/29/2024 Location: [facility] OR Name: Nabil Martinez, : 1955, Diagnosis Pre-op Diagnosis * Deviated nasal septum [J34.2] * Nasal congestion [R09.81] * Hypertrophy of nasal turbinates [J34.3] Post-op Diagnosis * Deviated nasal septum [J34.2] * Nasal congestion [R09.81] * Hypertrophy of nasal turbinates [J34.3] Procedures NASAL SEPTAL RECONSTRUCTION WITH BILATERAL INFERIOR TURBINATE REDUCTION 96953 - OR SEPTOPLASTY/SUBMUCOUS RESECJ W/WO CARTILAGE GRF SUBMUCOUS RESECTION INFERIOR TURBINATE 05326 - OR SUBMUCOUS RESCJ INFERIOR TURBINATE PRTL/COMPL Surgeons * Irma Johnson - Primary Procedure Summary Anesthesia: General ASA: II Estimated Blood Loss: Minimal Drains: * None in log * Staff: Phys Therapist: Enoch George RN Scrub Person: Katheryn Buckner Findings: left septal deviation corrected, inferior turbinates reduced Complications: None; patient tolerated the procedure well. Specimens Collected: Order Name Source Comment Collection Info Order Time POTASSIUM WITH MG REFLEX For patients on dialysis to draw potassium day of surgery 01/29/2024 5:57 AM PROTHROMBIN TIME If patient on coumadin within 4 days prior. 01/29/2024 5:57 AM Wound Class: Class II: Clean-Contaminated Blood Products: None Prophylactic Antibiotics: Pre-operative antibiotics were not given because antibiotics are not indicated for this procedure. [id number] Note* Op Note - Irma Johnson MD - 01/29/2024 7:30 AM EDT Date: 01/29/2024 Location: [facility] OR Name: Nabil Martinez, : 1955, Diagnosis Pre-op Diagnosis * Deviated nasal septum [J34.2] * Nasal congestion [R09.81] * Hypertrophy of nasal turbinates [J34.3] Post-op Diagnosis * Deviated nasal septum [J34.2] * Nasal congestion [R09.81] * Hypertrophy of nasal turbinates [J34.3] Procedures NASAL SEPTAL RECONSTRUCTION WITH BILATERAL INFERIOR TURBINATE REDUCTION 15392 - OR SEPTOPLASTY/SUBMUCOUS RESECJ W/WO CARTILAGE GRF SUBMUCOUS RESECTION INFERIOR TURBINATE 69990 - OR SUBMUCOUS RESCJ INFERIOR TURBINATE PRTL/COMPL Surgeons * Irma Johnson - Primary Procedure Summary Anesthesia: General ASA: II Estimated Blood Loss: Minimal Drains: * None in log * Staff: Phys Therapist: Enoch George RN Scrub Person: Katheryn Buckner Findings: left septal deviation corrected, inferior turbinates reduced Complications: None; patient tolerated the procedure well. Specimens Collected: Order Name Source Comment Collection Info Order Time POTASSIUM WITH MG REFLEX For patients on dialysis to draw potassium day of surgery 01/29/2024 5:57 AM PROTHROMBIN TIME If patient on coumadin within 4 days prior. 01/29/2024 5:57 AM Wound Class: Class II: Clean-Contaminated Blood Products: None Prophylactic Antibiotics: Pre-operative antibiotics were not given because antibiotics are not indicated for this procedure. Operative Indications: Mitul Martinez is a 68 y.o. yo M/F who presented to clinic with symptoms of nasal obstruction and was noted to have a severely deviated septum. Failed conservative management and after discussion of options elected for surgery. Procedure in Detail: The patient was taken back to the operating room and placed in the supine position. Anesthesia provided a general anesthetic and the patient was orotracheally intubated without difficulty. Appropriate timeout was performed by me and then patient was turned 90 degress to the ENT team. A speculum was inserted into the nasal cavity and the septum was injected bilaterally with 1% lidocaine with epinephrine. The patient was prepped and draped and then a Killians incision was made on the left side. The was carried down to the septal cartilage. A colette elevator was used to elevate a m ucoperichondrial flap to the bony-cartilaginous junction. The colette was used to incise the cartilage, and subsequently a mucoperiosteal flap was elevated posteriorly on the opposite side. Bony spurswere identified inferiorly and removed with an osteotome and Takahasi. The mucoperichondrial flap and mucoperiosteal flaps were then placed back against the bone and the nasal cavity was examined with a speculum. The septum was significantly straighter and there was much more room compared to before the surgery. The incision was closed with 5-0 chromic sutures. Attention was then turned to the turbinates. The turbinates were injected with 1% lidocaine with 1:100,000 epinephrine. A stab incision was then made and then the microdebrider with the shaver blade was used to remove the turbinate tissue until adequate space was made in the nasal cavity. The Boiseelevator was then used to out-fracture the turbinates bilaterally. Nasal rhinoscopy was then performed and the patient was noted to have patent nasal passages all theway to the choana bilaterally. Sands splints covered in bactroban ointment were then placed along the septum bilaterally and secured using a 2-0 Prolene stitch. [facility] [id number] Note* Brief Op Note - Irma Johnson MD - 01/29/2024 7:30 AM EDT Date: 01/29/2024 Location: [facility] OR Name: Nabil Martinez, : 1955, Diagnosis Pre-op Diagnosis * Deviated nasal septum [J34.2] * Nasal congestion [R09.81] * Hypertrophy of nasal turbinates [J34.3] Post-op Diagnosis * Deviated nasal septum [J34.2] * Nasal congestion [R09.81] * Hypertrophy of nasal turbinates [J34.3] Procedures NASAL SEPTAL RECONSTRUCTION WITH BILATERAL INFERIOR TURBINATE REDUCTION 90924 - OR SEPTOPLASTY/SUBMUCOUS RESECJ W/WO CARTILAGE GRF SUBMUCOUS RESECTION INFERIOR TURBINATE 80339 - OR SUBMUCOUS RESCJ INFERIOR TURBINATE PRTL/COMPL Surgeons * Irma Johnson - Primary Procedure Summary Anesthesia: General ASA: II Estimated Blood Loss: Minimal Drains: * None in log * Staff: Phys Therapist: Enoch George RN Scrub Person: Katheryn Buckner Findings: left septal deviation corrected, inferior turbinates reduced Complications: None; patient tolerated the procedure well. Specimens Collected: Order Name Source Comment Collection Info Order Time POTASSIUM WITH MG REFLEX For patients on dialysis to draw potassium day of surgery 01/29/2024 5:57 AM PROTHROMBIN TIME If patient on coumadin within 4 days prior. 01/29/2024 5:57 AM Wound Class: Class II: Clean-Contaminated Blood Products: None Prophylactic Antibiotics: Pre-operative antibiotics were not given because antibiotics are not indicated for this procedure. [facility] [id number] Attending History and physical note* Irma Johnson MD - 01/29/2024 7:21 AM EDT H&P reviewed. The patient was examined and there are no changes to the H&P. Source Note - Charu Hercules APRN - [employer] - 01/21/2024 9:30 AM EDT Images from the original note were not included. Comprehensive Pre Surgical History and Physical ? Name: Mitul Martinez : 1955 (Age-68 y.o.) Date of Service: Pt seen/examined on 01/21/2024 Procedure Information Date/Time: 01/29/24 0730 Procedures: NASAL SEPTAL RECONSTRUCTION WITH BILATERAL INFERIOR TURBINATE REDUCTION (Bilateral: Nose) - 60 MINS SUBMUCOUS RESECTION INFERIOR TURBINATE (Bilateral: Nose) Location: [facility] OR Operating Room Surgeons: Irma Johnson MD Chief Complaint: Deviated nasal septum [J34.2] Nasal congestion [R09.81] Hypertrophy of nasal turbinates [J34.3] ASSESSMENT/PLAN: Patient is considered intermediate risk for this intermediate level 1 risk procedure/surgery () with no reducible risk factors. Based on the above evaluation, the benefits of the planned procedure likely exceed the risks. The patient is medically optimized to proceed with the planned procedure without any further cardiopulmonary testing. 1) Deviated nasal septum [J34.2] Nasal congestion [R09.81] Hypertrophy of nasal turbinates [J34.3] - Managed per surgery - Orders per PAT Protocol: EKG, BMP, CBC - METS >4 2) Former smoker - 2 pack(s) a day for about 35 years -Total pack year history: 70 years - EKG - Yes - CBC/H&H pending - Yes 3) HTN -complaint with antihypertensives - yes -managed with lisinopril-hydrochlorothiazide -Elevated today in PAT; pt checks BP at home daily and gets readings of 117/80. -pt admits to feeling anxious while at doctor's offices. -encouraged lifestyle modifications BP Readings from Last 3 Encounters: 01/21/24 (!) 148/95 01/14/24 (!) 147/96 01/02/24 (!) 149/81 4) Cancer - history of prostate cancer in 2020, s/p radiation and hormone therapy. -last OV with urology in 2021. 5) Carotid Artery Stenosis - listed in patient's medical history; pt denies diagnosis. - no carotid bruits appreciated on exam. 6) HUEY - Compliant with home device - no - Also, encouraged pt use machine at HS as directed, most specifically the night before surgery. - Consider higher level of care (continuous pulse ox) with this patient due to HUEY and increased risks. 7) Recent tooth infection -managed with penicillin for one week. Last dose was taken yesterday on 01/20/2024. - denies fevers or chills. 8) Depression/Anxiety - has pre-operative anxiety - not currently on any medications. - Patient may benefit from antianxiety medication DOS Visit Type: Pre-Admission Testing Visit Labs Ordered: YES - PER PAT PROTOCOL Sleep Referral Ordered: NO - ALREADY DIAGNOSED WITH HUEY AND PATIENT IS NOT COMPLIANT WITH CPAP Total time spent (which include face to face and non face to face encounters) : 45 minutes Toxic drug monitoring/narrow therapeutic index drug monitoring : # Drug name : lisinopril-hydrochlorothiazide # Route administered : PO # Method of monitoring : BMP PAT Protocol referenced includes: 1. Anesthesia Lab Protocol Orders 2. Perioperative Cardiovascular Risk Assessment 3. Anesthesia Assessment 4. Pain Assessment and Acute Pain Service Consult (if appropriate) 5. Medical Clearance/Consult from Internal Medicine (IMS) 6. Shower/Wash Order (for designated surgeries) 7. HUEY Screen and Sleep Clinic Referral (if appropriate) History Of Present Illness: 68 y.o. male who we are asked to see/evaluate by Dr. Johnson for pre-operative evaluation prior to ? Case: [id number] Date/Time: 01/29/24 0730 Procedures: NASAL SEPTAL RECONSTRUCTION WITH BILATERAL INFERIOR TURBINATE REDUCTION (Bilateral: Nose) [02996 CPT(R)] - 60 MINS SUBMUCOUS RESECTION INFERIOR TURBINATE (Bilateral: Nose) [19138 CPT(R)] Anesthesia type: General Diagnosis: Deviated nasal septum [J34.2] Nasal congestion [R09.81] Hypertrophy of nasal turbinates [J34.3] Location: [facility] OR Operating Room Surgeons: Irma Johnson MD From last office visit with Dr. Johnson on 01/14/2024: Mitul Martinez is a 68 y.o. yo male who presents to clinic today for evaluation of nasal obstruction. Patient dates been ongoing for as long as he can remember he has difficulty breathing through the left side of his nose denies any inciting event has been on different nasal sprays including Flonase and Afrin Afrin does help but he tries to avoid using this and he states he does not use this on an every day basis. He was recently diagnosed with sleep apnea has been tried on a full mask CPAP which she cannot tolerate due to high pressures. He subsequently is not using his CPAP device and is here for further evaluation. Assessment and Recommendations: Mitul Martinez is a 68 y.o. male here for nasal obstruction secondary to deviated nasal septum inferior turban hypertrophy and intolerance of CPAP -I discussed with the patient the findings given the large septal deviation lack of response to maximal medical therapy I did offer the patient elective septoplasty inferior turban reduction explained the this could likely help with his nasal congestion and also help with CPAP compliance and he expressed understanding he would like to proceed with this we will schedule a date and after discussingthe risks and benefits he elected to proceed. Patient denies exertional chest pain/shortness of breath. Denies dizziness, syncope, lightheadedness. Denies fever, chills, weakness or fatigue. Patient denies any recent illness or wounds. Patient wasrecently treated with antibiotics for an infected tooth last week. Patient denies abdominal pain, nausea, vomiting, diarrhea, or constipation. Patient denies hx of CAD, CHF, TN, TIA/CVA, diabetes, COPD, asthma, DVT/PE. Past Medical History: Past Medical History: No date: Anxiety No date: Cancer (CMS/HCC) (HCC) Comment: prostate No date: Carotid artery stenosis No date: Deviated septum No date: Diverticula of colon No date: Elevated PSA No date: Hemorrhoid No date: HLD (hyperlipidemia) No date: Hypertension No date: Neuropathy No date: Osteoarthritis No date: Plantar fasciitis No date: Sleep apnea Past Surgical History: Past Surgical History: No date: COLECTOMY Comment: december 11 2012, colostomy 5 days later 06/08/2014: COLONOSCOPY No date: COLOSTOMY Comment: 03/19/2013 reversal No date: CYST REMOVAL Comment: pilonidial 01/26/2021: EYE SURGERY; Left Comment: cataract No date: HERNIA REPAIR Comment: umbical 2009 No date: HERNIA REPAIR Comment: mesh 201305/15/2021: OTHER SURGICAL HISTORY Comment: transrectal US, transperineal implantation of biodegradeable perirectal gel No date: PROSTATE SURGERY Comment: radiation 202011/14/2020: SHOULDER ARTHROPLASTY (HISTORICAL); Right No date: SPINE SURGERY Comment: laminectomy 1990 06/19/2018: TOTAL SHOULDER ARTHROPLASTY; Right Comment: x2 12/04/2018: TOTAL SHOULDER ARTHROPLASTY; Left Medications Prior to Admission: Current Outpatient Medications on File Prior to Visit Medication Sig Dispense Refill cholecalciferol (Vitamin D-3) 50 MCG (2000 UT) capsule Take by mouth. diphenhydrAMINE-acetaminophen (Tylenol PM) 25-500 MG per tablet Take 1 tablet by mouth Nightly as needed for sleep. lisinopril-hydroCHLOROthiazide 20-12.5 MG tablet Take 2 tablets by mouth daily. 180 tablet 1 Melatonin 5 MG capsule Take by mouth as needed. meloxicam (Mobic) 15 MG tablet take 1 tablet by mouth once daily 90 tablet 1 fluticasone (Flonase) 50 MCG/ACT nasal spray Administer 2 sprays into each nostril daily. Shake gently. Before first use, prime pump. After use, clean tip and replace cap. 16 g 5 gabapentin (Neurontin) 300 MG capsule Take 300 mg by mouth 3 times daily. loperamide (Imodium) 2 MG capsule Take 2 mg by mouth as needed for diarrhea. oxymetazoline (Afrin) 0.05 % nasal spray Administer into each nostril. Do not use for more than 3 days. sildenafil (Viagra) 100 MG tablet Take 1 tablet (100 mg) by mouth Daily as needed for erectile dysfunction. 4 tablet 0 triamcinolone (Kenalog) 0.5 % cream Apply topically 2 times daily. [DISCONTINUED] penicillin v potassium (Veetid) 500 MG tablet [DISCONTINUED] predniSONE (Deltasone) 20 MG tablet Take 3 tabs (60mg) daily for 5 days, then take 2tabs (40mg) daily for 3 days, then take 1 tab (20mg) daily for 2 days. 23 tablet 0 No current facility-administered medications on file prior to visit. CHRONIC NARCOTIC USE: No Do you have a history of chronic opioid use? N/A Allergies: Diclofenac, Fenofibrate, and Rosuvastatin If patient has opioid allergy, is it okay to take Acetaminophen: Yes Social History: TOBACCO: reports that he quit smoking about 17 years ago. His smoking use included cigarettes. He started smoking about 52 years ago. He has a 70 pack- year smoking history. He has never used smokeless tobacco. ETOH: reports current alcohol use. Social History Substance and Sexual Activity Drug Use Yes Types: Marijuana Family History: Family History Problem Relation Name Age of Onset Prostate cancer Father REVIEW OF SYSTEMS: Review of Systems Constitutional: Negative for chills, fatigue and fever. HENT: Negative for trouble swallowing. Respiratory: Negative for cough and shortness of breath. Cardiovascular: Negative for chest pain and palpitations. Gastrointestinal: Negative for nausea and vomiting. Genitourinary: Negative for dysuria, frequency and urgency. Skin: Negative for rash and wound. Neurological: Negative for dizziness, light-headedness and headaches. Psychiatric/Behavioral: The patient is nervous/anxious. Physical Exam: Physical Exam Constitutional: Appearance: Normal appearance. HENT: Head: Normocephalic. Nose: Nose normal. Eyes: Extraocular Movements: Extraocular movements intact. Pupils: Pupils are equal, round, and reactive to light. Neck: Vascular: No carotid bruit. Cardiovascular: Rate and Rhythm: Regular rhythm. Heart sounds: Normal heart sounds. Pulmonary: Effort: Pulmonary effort is normal. Breath sounds: Normal breath sounds. Musculoskeletal: Cervical back: Normal range of motion. Neurological: Mental Status: He is alert and oriented to person, place, and time. Psychiatric: Mood and Affect: Mood normal. Vitals: Vitals Value Taken Time BP 148/95 01/21/24 0945 Temp 36.4 C (97.6 F) 01/21/24 0945 Pulse 75 01/21/24 0945 Resp 20 01/21/24 0945 SpO2 97 % 01/21/24 0945 Labs: Collected in [facility] Arjun's Simple Cardiac Risk Index: ARJUN'S SIMPLE CARDIAC RISK SCORE: 0 Interpretation: 0 Points Class I 0.5% 1 Point Class II 1.3% 2 Points Class III 3.6% 3+ Points Class IV 9.1% [facility] Pain Score: Postop Pain Management Plan (Pain consult ordered?): Pain consult not indicated at this time ? EKG: Completed in PAT Encounter Date: 01/21/24 ECG 12 lead Result Value Heart Rate 73 QRSD Interval 90 QT Interval 381 QTC Interval 420 P [place] 50 QRS [place] -11 T Wave [place] 24 OR Interval 150 Impression Sinus rhythm Atrial premature complex ECHO and EF:None on file METS: >4 Electronically signed by: Charutenisha Hercules APRN - [facility] Date: 01/21/2024 at 10:50 AM [place] [id number] History and physical note* Irma Johnson MD - 01/29/2024 7:21 AM EDT H&P reviewed. The patient was examined and there are no changes to the H&P. Source Note - Charu Hercules APRN - [employer] - 01/21/2024 9:30 AM EDT Images from the original note were not included. Comprehensive Pre Surgical History and Physical ? Name: Mitul Martinez : 1955 (Age-68 y.o.) Date of Service: Pt seen/examined on 01/21/2024 Procedure Information Date/Time: 01/29/24729 Procedures: NASAL SEPTAL RECONSTRUCTION WITH BILATERAL INFERIOR TURBINATE REDUCTION (Bilateral: Nose) - 60 MINS SUBMUCOUS RESECTION INFERIOR TURBINATE (Bilateral: Nose) Location: [place] [address] [facility] Operating Room Surgeons: Irma Johnson MD Chief Complaint: Deviated nasal septum [J34.2] Nasal congestion [R09.81] Hypertrophy of nasal turbinates [J34.3] ASSESSMENT/PLAN: Patient is considered intermediate risk for this intermediate level 1 risk procedure/surgery () with no reducible risk factors. Based on the above evaluation, the benefits of the planned procedure likely exceed the risks. The patient is medically optimized to proceed with the planned procedure without any further cardiopulmonary testing. 1) Deviated nasal septum [J34.2] Nasal congestion [R09.81] Hypertrophy of nasal turbinates [J34.3] - Managed per surgery - Orders per PAT Protocol: EKG, BMP, CBC - METS >4 2) Former smoker - 2 pack(s) a day for about 35 years -Total pack year history: 70 years - EKG - Yes - CBC/H&H pending - Yes 3) HTN -complaint with antihypertensives - yes -managed with lisinopril-hydrochlorothiazide -Elevated today in PAT; pt checks BP at home daily and gets readings of 117/80. -pt admits to feeling anxious while at doctor's offices. -encouraged lifestyle modifications BP Readings from Last 3 Encounters: 01/21/24 (!) 148/95 01/14/24 (!) 147/96 01/02/24 (!) 149/81 4) Cancer - history of prostate cancer in 2020, s/p radiation and hormone therapy. -last OV with urology in 2021. 5) Carotid Artery Stenosis - listed in patient's medical history; pt denies diagnosis. - no carotid bruits appreciated on exam. 6) HUEY - Compliant with home device - no - Also, encouraged pt use machine at HS as directed, most specifically the night before surgery. - Consider higher level of care (continuous pulse ox) with this patient due to HUEY and increased risks. 7) Recent tooth infection -managed with penicillin for one week. Last dose was taken yesterday on 01/20/2024. - denies fevers or chills. 8) Depression/Anxiety - has pre-operative anxiety - not currently on any medications. - Patient may benefit from antianxiety medication DOS Visit Type: Pre-Admission Testing Visit Labs Ordered: YES - PER PAT PROTOCOL Sleep Referral Ordered: NO - ALREADY DIAGNOSED WITH HUEY AND PATIENT IS NOT COMPLIANT WITH CPAP Total time spent (which include face to face and non face to face encounters) : 45 minutes Toxic drug monitoring/narrow therapeutic index drug monitoring : # Drug name : lisinopril-hydrochlorothiazide # Route administered : PO # Method of monitoring : BMP PAT Protocol referenced includes: 1. Anesthesia Lab Protocol Orders 2. Perioperative Cardiovascular Risk Assessment 3. Anesthesia Assessment 4. Pain Assessment and Acute Pain Service Consult (if appropriate) 5. Medical Clearance/Consult from Internal Medicine (IMS) 6. Shower/Wash Order (for designated surgeries) 7. HUEY Screen and Sleep Clinic Referral (if appropriate) History Of Present Illness: 68 y.o. male who we are asked to see/evaluate by Dr. Johnson for pre-operative evaluation prior to ? Case: [id number] Date/Time: 01/29/24729 Procedures: NASAL SEPTAL RECONSTRUCTION WITH BILATERAL INFERIOR TURBINATE REDUCTION (Bilateral: Nose) [54264 CPT(R)] - 60 MINS SUBMUCOUS RESECTION INFERIOR TURBINATE (Bilateral: Nose) [61088 CPT(R)] Anesthesia type: General Diagnosis: Deviated nasal septum [J34.2] Nasal congestion [R09.81] Hypertrophy of nasal turbinates [J34.3] Location: [facility] OR Operating Room Surgeons: Irma Johnson MD From last office visit with Dr. Johnson on 01/14/2024: Mitul Martinez is a 68 y.o. yo male who presents to clinic today for evaluation of nasal obstruction. Patient dates been ongoing for as long as he can remember he has difficulty breathing through the left side of his nose denies any inciting event has been on different nasal sprays including Flonase and Afrin Afrin does help but he tries to avoid using this and he states he does not use this on an every day basis. He was recently diagnosed with sleep apnea has been tried on a full mask CPAP which she cannot tolerate due to high pressures. He subsequently is not using his CPAP device and is here for further evaluation. Assessment and Recommendations: Mitul Martinez is a 68 y.o. male here for nasal obstruction secondary to deviated nasal septum inferior turban hypertrophy and intolerance of CPAP -I discussed with the patient the findings given the large septal deviation lack of response to maximal medical therapy I did offer the patient elective septoplasty inferior turban reduction explained the this could likely help with his nasal congestion and also help with CPAP compliance and he expressed understanding he would like to proceed with this we will schedule a date and after discussingthe risks and benefits he elected to proceed. Patient denies exertional chest pain/shortness of breath. Denies dizziness, syncope, lightheadedness. Denies fever, chills, weakness or fatigue. Patient denies any recent illness or wounds. Patient wasrecently treated with antibiotics for an infected tooth last week. Patient denies abdominal pain, nausea, vomiting, diarrhea, or constipation. Patient denies hx of CAD, CHF, TN, TIA/CVA, diabetes, COPD, asthma, DVT/PE. Past Medical History: Past Medical History: No date: Anxiety No date: Cancer (CMS/HCC) (HCC) Comment: prostate No date: Carotid artery stenosis No date: Deviated septum No date: Diverticula of colon No date: Elevated PSA No date: Hemorrhoid No date: HLD (hyperlipidemia) No date: Hypertension No date: Neuropathy No date: Osteoarthritis No date: Plantar fasciitis No date: Sleep apnea Past Surgical History: Past Surgical History: No date: COLECTOMY Comment: december 11 2012, colostomy 5 days later 06/08/2014: COLONOSCOPY No date: COLOSTOMY Comment: 03/19/2013 reversal No date: CYST REMOVAL Comment: pilonidial 01/26/2021: EYE SURGERY; Left Comment: cataract No date: HERNIA REPAIR Comment: umbical 2010 No date: HERNIA REPAIR Comment: mesh 201305/15/2021: OTHER SURGICAL HISTORY Comment: transrectal US, transperineal implantation of biodegradeable perirectal gel No date: PROSTATE SURGERY Comment: radiation 202011/14/2020: SHOULDER ARTHROPLASTY (HISTORICAL); Right No date: SPINE SURGERY Comment: laminectomy 198906/19/2018: TOTAL SHOULDER ARTHROPLASTY; Right Comment: x2 12/04/2018: TOTAL SHOULDER ARTHROPLASTY; Left Medications Prior to Admission: Current Outpatient Medications on File Prior to Visit Medication Sig Dispense Refill cholecalciferol (Vitamin D-3) 50 MCG (1999) capsule Take by mouth. diphenhydrAMINE-acetaminophen (Tylenol PM) 25-500 MG per tablet Take 1 tablet by mouth Nightly as needed for sleep. lisinopril-hydroCHLOROthiazide 20-12.5 MG tablet Take 2 tablets by mouth daily. 180 tablet 1 Melatonin 5 MG capsule Take by mouth as needed. meloxicam (Mobic) 15 MG tablet take 1 tablet by mouth once daily 90 tablet 1 fluticasone (Flonase) 50 MCG/ACT nasal spray Administer 2 sprays into each nostril daily. Shake gently. Before first use, prime pump. After use, clean tip and replace cap. 16 g 5 gabapentin (Neurontin) 300 MG capsule Take 300 mg by mouth 3 times daily. loperamide (Imodium) 2 MG capsule Take 2 mg by mouth as needed for diarrhea. oxymetazoline (Afrin) 0.05 % nasal spray Administer into each nostril. Do not use for more than 3 days. sildenafil (Viagra) 100 MG tablet Take 1 tablet (100 mg) by mouth Daily as needed for erectile dysfunction. 4 tablet 0 triamcinolone (Kenalog) 0.5 % cream Apply topically 2 times daily. [DISCONTINUED] penicillin v potassium (Veetid) 500 MG tablet [DISCONTINUED] predniSONE (Deltasone) 20 MG tablet Take 3 tabs (60mg) daily for 5 days, then take 2tabs (40mg) daily for 3 days, then take 1 tab (20mg) daily for 2 days. 23 tablet 0 No current facility-administered medications on file prior to visit. CHRONIC NARCOTIC USE: No Do you have a history of chronic opioid use? N/A Allergies: Diclofenac, Fenofibrate, and Rosuvastatin If patient has opioid allergy, is it okay to take Acetaminophen: Yes Social History: TOBACCO: reports that he quit smoking about 17 years ago. His smoking use included cigarettes. He started smoking about 52 years ago. He has a 70 pack- year smoking history. He has never used smokeless tobacco. ETOH: reports current alcohol use. Social History Substance and Sexual Activity Drug Use Yes Types: Marijuana Family History: Family History Problem Relation Name Age of Onset Prostate cancer Father REVIEW OF SYSTEMS: Review of Systems Constitutional: Negative for chills, fatigue and fever. HENT: Negative for trouble swallowing. Respiratory: Negative for cough and shortness of breath. Cardiovascular: Negative for chest pain and palpitations. Gastrointestinal: Negative for nausea and vomiting. Genitourinary: Negative for dysuria, frequency and urgency. Skin: Negative for rash and wound. Neurological: Negative for dizziness, light-headedness and headaches. Psychiatric/Behavioral: The patient is nervous/anxious. Physical Exam: Physical Exam Constitutional: Appearance: Normal appearance. HENT: Head: Normocephalic. Nose: Nose normal. Eyes: Extraocular Movements: Extraocular movements intact. Pupils: Pupils are equal, round, and reactive to light. Neck: Vascular: No carotid bruit. Cardiovascular: Rate and Rhythm: Regular rhythm. Heart sounds: Normal heart sounds. Pulmonary: Effort: Pulmonary effort is normal. Breath sounds: Normal breath sounds. Musculoskeletal: Cervical back: Normal range of motion. Neurological: Mental Status: He is alert and oriented to person, place, and time. Psychiatric: Mood and Affect: Mood normal. Vitals: Vitals Value Taken Time BP 148/95 01/21/24 0945 Temp 36.4 C (97.6 F) 01/21/24 0945 Pulse 75 01/21/24 0945 Resp 20 01/21/24 0945 SpO2 97 % 01/21/24 0945 Labs: Collected in PAT Arjun's Simple Cardiac Risk Index: ARJUN'S SIMPLE CARDIAC RISK SCORE: 0 Interpretation: 0 Points Class I 0.5% 1 Point Class II 1.3% 2 Points Class III 3.6% 3+ Points Class IV 9.1% PAT Pain Score: Postop Pain Management Plan (Pain consult ordered?): Pain consult not indicated at this time ? EKG: Completed in PAT Encounter Date: 01/21/24 ECG 12 lead Result Value Heart Rate 73 QRSD Interval 90 QT Interval 381 QTC Interval 420 P [place] 50 QRS [place] -11 T Wave [place] 24 OR Interval 150 Impression Sinus rhythm Atrial premature complex ECHO and EF:None on file METS: >4 Electronically signed by: Charu Hercules APRN - [employer]VIEW[employer] Date: 01/21/2024 at 10:50 AM documented in this [facility]07-23-2024 History of Present illness Narrative* Irma Johnson MD - 01/14/2024 9:00 AM EDT Assessment and Recommendations: Mitul Martinez is a 68 y.o. male here for nasal obstruction secondary to deviated nasal septum inferior turban hypertrophy and intolerance of CPAP -I discussed with the patient the findings given the large septal deviation lack of response to maximal medical therapy I did offer the patient elective septoplasty inferior turban reduction explained the this could likely help with his nasal congestion and also help with CPAP compliance and he expressed understanding he would like to proceed with this we will schedule a date and after discussingthe risks and benefits he elected to proceed Risks and benefits of nasal surgery were discussed, including infection, bleeding, risk of anesthesia, risk of foreign body placement and reactions, injury to surrounding structures including nerves and blood vessels. Specific to this surgery we discussed including not getting significant improvement in nasal obstruction with surgery, epiphora, septal perforation with impaired breathing, and anesthesia of the face/dentition. We discussed risks of a possible lateral nasal wall implant including possible foreign body reaction requiring removal of implant, extrusion of implant, external appearance changes. We also discussed potentially aborting the procedure if it cannot be done safely or blood loss is significant. Patient verbalized understanding and elected to proceed. Otolaryngology Head and Neck Surgery Clinic Note HPI: Mitul Martinez is a 68 y.o. yo male who presents to clinic today for evaluation of nasal obstruction. Patient dates been ongoing for as long as he can remember he has difficulty breathing through the left side of his nose denies any inciting event has been on different nasal sprays including Flonase and Afrin Afrin does help but he tries to avoid using this and he states he does not use this on an every day basis. He was recently diagnosed with sleep apnea has been tried on a full mask CPAP which she cannot tolerate due to high pressures. He subsequently is not using his CPAP device and ishere for further evaluation. PMH: Past Medical History: Diagnosis Date Anxiety Cancer (CMS/HCC) (HCC) Carotid artery stenosis Diverticula of colon Elevated PSA Hemorrhoid HLD (hyperlipidemia) Hypertension Neuropathy Osteoarthritis Plantar fasciitis Allergies: Allergies Allergen Reactions Diclofenac Rectal discharge Fenofibrate Nerve pain Rosuvastatin Other Muscle Aches Medications: Current Outpatient Medications: cholecalciferol (Vitamin D-3) 50 MCG (1999) capsule, Take by mouth., Disp: , Rfl: diphenhydrAMINE-acetaminophen (Tylenol PM) 25-500 MG per tablet, Take 1 tablet by mouth Nightly as needed for sleep., Disp: , Rfl: gabapentin (Neurontin) 300 MG capsule, Take 300 mg by mouth 3 times daily., Disp: , Rfl: lisinopril-hydroCHLOROthiazide 20-12.5 MG tablet, Take 2 tablets by mouth daily., Disp: 180 tablet,Rfl: 1 loperamide (Imodium) 2 MG capsule, Take 2 mg by mouth as needed for diarrhea., Disp: , Rfl: Melatonin 5 MG capsule, Take by mouth., Disp: , Rfl: meloxicam (Mobic) 15 MG tablet, take 1 tablet by mouth once daily, Disp: 90 tablet, Rfl: 1 oxymetazoline (Afrin) 0.05 % nasal spray, Administer into each nostril. Do not use for more than 3 days., Disp: , Rfl: penicillin v potassium (Veetid) 500 MG tablet, , Disp: , Rfl: predniSONE (Deltasone) 20 MG tablet, Take 3 tabs (60mg) daily for 5 days, then take 2 tabs (40mg) daily for 3 days, then take 1 tab (20mg) daily for 2 days., Disp: 23 tablet, Rfl: 0 sildenafil (Viagra) 100 MG tablet, Take 1 tablet (100 mg) by mouth Daily as needed for erectile dysfunction., Disp: 4 tablet, Rfl: 0 triamcinolone (Kenalog) 0.5 % cream, Apply topically 2 times daily., Disp: , Rfl: fluticasone (Flonase) 50 MCG/ACT nasal spray, Administer 2 sprays into each nostril daily. Shake gently. Before first use, prime pump. After use, clean tip and replace cap., Disp: 16 g, Rfl: 5 PSH: Past Surgical History: Procedure Laterality Date ABDOMINAL SURGERY BACK SURGERY COLECTOMY COLONOSCOPY 06/08/2014 CYST REMOVAL pilonidial EYE SURGERY Left 01/26/2021 cataract HERNIA REPAIR OTHER SURGICAL HISTORY 05/15/2021 transrectal US, transperineal implantation of biodegradeable perirectal gel PROSTATE SURGERY SHOULDER ARTHROPLASTY (HISTORICAL) Right 11/14/2020 SPINE SURGERY TOTAL SHOULDER ARTHROPLASTY Right 06/19/2018 x2 TOTAL SHOULDER ARTHROPLASTY Left 12/04/2018 FH: Family History Problem Relation Name Age of Onset Prostate cancer Father SH: Social History Socioeconomic History Marital status: Spouse name: Not on file Number of children: Not on file Years of education: Not on file Highest education level: Not on file Occupational History Not on file Tobacco Use Smoking status: Former Current packs/day: 0.00 Average packs/day: 2.0 packs/day for 35.0 years (70.0 ttl pk-yrs) Types: Cigarettes Start date: 06/30/1971 Quit date: 06/30/2006 Years since quittin.5 Smokeless tobacco: Never Vaping Use Vaping status: Never Used Substance and Sexual Activity Alcohol use: Yes Comment: occ Drug use: Yes Types: Marijuana Sexual activity: Not Currently Other Topics Concern Not on file Social History Narrative Not on file Social Determinants of Health Financial Resource Strain: Low Risk (09/04/2023) Overall Financial Resource Strain (CARDIA) Difficulty of Paying Living Expenses: Not hard at all Food Insecurity: No Food Insecurity (09/04/2023) Hunger Vital Sign Worried About Running Out of Food in the Last Year: Never true Ran Out of Food in the Last Year: Never true Transportation Needs: No Transportation Needs (09/04/2023) PRAPARE - Transportation Lack of Transportation (Medical): No Lack of Transportation (Non-Medical): No Physical Activity: Sufficiently Active (09/04/2023) Exercise Vital Sign Days of Exercise per Week: 7 days Minutes of Exercise per Session: 40 min Stress: Not on file Social Connections: Not on file Intimate Partner Violence: Not on file Housing Stability: Low Risk (09/04/2023) Housing Stability Vital Sign Unable to Pay for Housing in the Last Year: No Number of Places Lived in the Last Year: 1 Unstable Housing in the Last Year: No Physical Exam: Constitutional: General: Patient is not in acute distress. Appearance: Patient is well-developed. Eyes: Conjunctiva/sclera: Conjunctivae normal. Pupils: Pupils are equal, round, and reactive to light. HENT: Jaw: No trismus. Nose: No nasal deformity, mucosal edema or rhinorrhea. Mouth: Mucous membranes are not pale, not dry and not cyanotic. No oral lesions. Pharynx: Uvula midline. No oropharyngeal exudate or uvula swelling. Tonsils: No tonsillar exudate. No abnormal masses or lesions Thyroid: No significant thyromegaly. Trachea: Trachea and phonation normal. No tracheal deviation. Pulmonary: Effort: Pulmonary effort is normal. No respiratory distress. Breath sounds: No stridor. Musculoskeletal: Head: Normocephalic and atraumatic. Neck: Full passive range of motion without pain, neck supple. Skin: General: Skin is warm and dry. Findings: No erythema or rash. Neurological: Cranial Nerves: No cranial nerve deficit. Sensory: No sensory deficit. Coordination: Coordination normal. Extremities: No significant peripheral edema or varicosities Psychiatric: Mood and Affect: Mood and affect normal. Cognition and Memory: Cognition and memory normal. Nasal endoscopy form revealing no masses or lesions large left-sided septal deviation inferior turban hypertrophy documented in this [facility]07-11-2024 History of Present illness Narrative* Chris Li, GLOBE MOUNTER - ROOF DESIGNER - 01/02/2024 9:20 AM EDT Images from the original note were not included. [facility] [place] VISIT-SLEEP Date of last visit: 07/30/23 Plan at that time: Reviewed downloads with patient. Has started wearing it most consistently within the last couple ofweeks. Since there is some pressure intolerance, we discussed resetting machine to a fixed pressureat lower than recommended on sleep study, to see if he can adjust to therapy a little better and slowly raise pressures to recommended as tolerated. Will follow reports closely. If still having trouble tolerating, then likely will have to move to bipap. Encouraged continued use of PAP therapy given hx of HTN Referral placed to weight management last office visit, patient needs to respond back to them in order to get appointment made. Will always encourage weight loss to help HUEY. Would also need weight loss for inspire therapy. Follow up in 6 weeks with compliance report Interval History: Continues to dislike how CPAP feels. His lungs don't hurt in the mornings, however, after making pressure changes. He takes a mix of OTC medications (tylenol, benadryl, nyquil) in order to be able settle and get to sleep after he puts mask on. Hates how tight his mask has to be and it leaves macias on his face. Nasal congestion is a big factor in wearing the mask and has to breathe with his mouth open. Uses afrin nasal sprays as opposed to Flonase, because it works better. He wears the machine for at least 4-5 hours, because it does benefit in how he feels in the morning and the next day, but is very frustrated with it and the whole concept of PAP therapy. Really not sure if he wants surgical procedure for Inspire implant. Therapy: Autopap 11 cmH20 DME: [employer] Mask: F20 Compliance Report Reviewed: Sleep Metrics: [place] Sleepiness Scale: 5 (2 last visit) Past Treatments: Lexapro Afrin (very helpful) Flonase Melatonin Tylenol PM Benadryl Sleep Studies: HST 07/16/23: Weight 286 lbs, ESS 4. AHI 65, min spo2 73% Titration 08/01/23: Weight 286 lbs. Recommended autopap 15-20 for potential REM related events, did best on pressure 15 and 16 cmH20. Past Medical History Past Medical History: Diagnosis Date Anxiety Cancer (CMS/HCC) (HCC) Carotid artery stenosis Diverticula of colon Elevated PSA Hemorrhoid HLD (hyperlipidemia) Hypertension Neuropathy Osteoarthritis Plantar fasciitis Past Surgical History Past Surgical History: Procedure Laterality Date ABDOMINAL SURGERY BACK SURGERY COLECTOMY COLONOSCOPY 06/08/2014 CYST REMOVAL pilonidial EYE SURGERY Left 01/26/2021 cataract HERNIA REPAIR OTHER SURGICAL HISTORY 05/15/2021 transrectal US, transperineal implantation of biodegradeable perirectal gel PROSTATE SURGERY SHOULDER ARTHROPLASTY (HISTORICAL) Right 11/14/2020 SPINE SURGERY TOTAL SHOULDER ARTHROPLASTY Right 06/19/2018 x2 TOTAL SHOULDER ARTHROPLASTY Left 12/04/2018 Allergies Allergies Allergen Reactions Diclofenac Rectal discharge Fenofibrate Nerve pain Rosuvastatin Other Muscle Aches Medications Current Outpatient Medications Medication Instructions cholecalciferol (Vitamin D-3) 50 MCG (1999) capsule Oral diphenhydrAMINE-acetaminophen (Tylenol PM) 25-500 MG per tablet 1 tablet, Oral, Nightly PRN fluticasone (Flonase) 50 MCG/ACT nasal spray 2 sprays, Each Nostril, Daily, Shake gently. Before first use, prime pump. After use, clean tip and replace cap. gabapentin (NEURONTIN) 300 mg, Oral, 3 times daily lisinopril-hydroCHLOROthiazide 20-12.5 MG tablet 2 tablets, Oral, Daily loperamide (IMODIUM) 2 mg, Oral, PRN Melatonin 5 MG capsule Oral meloxicam (MOBIC) 15 mg, Oral, Daily oxymetazoline (Afrin) 0.05 % nasal spray Each Nostril, Do not use for more than 3 days. predniSONE (Deltasone) 20 MG tablet Take 3 tabs (60mg) daily for 5 days, then take 2 tabs (40mg) daily for 3 days, then take 1 tab (20mg) daily for 2 days. sildenafil (VIAGRA) 100 mg, Oral, Daily PRN triamcinolone (Kenalog) 0.5 % cream Topical, 2 times daily Social History Social History Tobacco Use Smoking status: Former Current packs/day: 0.00 Average packs/day: 2.0 packs/day for 35.0 years (70.0 ttl pk-yrs) Types: Cigarettes Start date: 06/30/1971 Quit date: 06/30/2006 Years since quittin.5 Smokeless tobacco: Never Substance Use Topics Alcohol use: Yes Comment: occ Family History Family History Problem Relation Name Age of Onset Prostate cancer Father Review of Systems Review of Systems Constitutional: Negative for fatigue. Musculoskeletal: Positive for arthralgias. Psychiatric/Behavioral: Positive for sleep disturbance. Physical Exam Vitals: 01/02/24 0920 BP: (!) 149/81 BP Location: Left arm Patient Position: Sitting BP Cuff Size: Large adult Pulse: 81 Resp: 16 SpO2: 99% Weight: 267 lb 9.6 oz (121 kg) Height: 5' 10 (1.778 m) General appearance: Well appearing. No acute distress. AAOX3, obese Head: Normocephalic, without obvious abnormality, atraumatic Eyes: Normal sclera and conjunctiva Skin: Skin color normal. No rashes or lesions Psych: Euthymic Mood, full affect Neuro: Normal gait Labs/additional studies: Component Latest Ref Rng 09/04/2023 SODIUM 135 - 146 mmol/L 140 POTASSIUM 3.5 - 5.3 mmol/L 4.3 CHLORIDE 98 - 110 mmol/L 102 Carbon Dioxide (CO2) 20 - 32 mmol/L 26 GLUCOSE 65 - 99 mg/dL 112 (H) Urea Nitrogen (BUN) 7 - 25 mg/dL 18 Creatinine 0.70 - 1.35 mg/dL 0.91 CALCIUM 8.6 - 10.3 mg/dL 9.4 ALBUMIN - [facility] 3.6 - 5.1 g/dL 4.6 BILIRUBIN, TOTAL - [facility] 0.2 - 1.2 mg/dL 0.6 ALKALINE PHOSPHATASE - [facility] 35 - 144 U/L 111 AST - [facility] 10 - 35 U/L 23 eGFR > OR = 60 mL/min/1.73m2 91 PROTEIN, TOTAL - [facility] 6.1 - 8.1 g/dL 6.9 ALT - [facility] 9 - 46 U/L 25 BUN/CREATININE RATIO 6 - 22 (calc) SEE NOTE: GLOBULIN - [facility] 1.9 - 3.7 g/dL (calc) 2.3 ALBUMIN/GLOBULIN RATIO - [facility] 1.0 - 2.5 (calc) 2.0 Impression: 1. HUEY (obstructive sleep apnea) 2. Intolerance of continuous positive airway pressure (CPAP) ventilation 3. Nasal congestion 68 y/o M with prostate cancer, HTN, OA, BMI > 40. Presented with maintenance insomnia, snoring, and some daytime sleepiness/fatigue. Found to have severe HUEY on HST and using PAP therapy. He does feel benefit in energy when he is able to wear it, but having a lot of difficulty adjusting to and tolerating it. Recommendations: Reviewed downloads with patient. He meets compliance, but AHI has gone up since changing to fixed pressure and he doesn't think he can tolerate increase in pressure at this time. Long discussion on bipap titration study, and differences between CPAP and bipap and how it may make a difference in hiscomfort and tolerance. Initially, a little dismissive of the suggestion but eventually agreed to it. Offered sedative hypnotic for the night of the sleep test, but he would rather take tylenol + benadryl. Counseled patient on consequences of untreated sleep apnea, including increased risk of heart attacks, heart failure, cardiac rhythm abnormalities, stroke, hypertension, metabolic syndromes (impairedglucose intolerance and insulin resistance), motor vehicle accidents, changes in mental function and mood, and higher risk of premature . Encouraged continued use of PAP therapy given hx of HTN Brief discussion on inspire if bipap intolerance or failure. He is unsure of this prospect. Will refer to ENT as he is chronically dependent on afrin for his nasal congestion. Nasal congestion causes a significant hindrance to keeping CPAP mask on overnight Will follow up with him 1-2 weeks after titration study done On this date, 01/02/2024 I have spent total time of 67 minutes face to face with the patient and/or family discussing the diagnosis and importance of compliance with the treatment plan as well as documenting on the day of the visit. In addition, that total time includes the following: -Reviewing previous notes, -Reviewing labs, -Reviewing compliance report, treatment options, discussing diagnosis and its implications, -Obtaining and/or reviewing separately obtained history, -Documenting clinical information in the patients electronic record, and -Performing a medically appropriate exam and/or evaluation documented in this encounterSumma [id number] Instructions* Patient Instructions* JESENIA Hanley - 01/02/2024 9:20 AM EDT You can call [phone] to schedule your sleep study directly. Noman, Chris LUCIANO To learn more about preparing for a sleep study, please go to the following website: [email or web address] You can also watch a video about what happens during a sleep study at: [email or web address] The following are the locations of our sleep labs: [facility] at the [facility] [address], [address] [place] [address] [facility] adjacent to [facility] [address], [address] [place] [address] [facility] [address], [address] [place] [address] [facility] [address] [place] [address] documented in this [facility]05-22-2024 History of Present illness Narrative* JESENIA Hanley - 11/13/2023 9:20 AM EDT Images from the original note were not included. [facility] UP OFFICE VISIT-SLEEP Date of last visit: 07/30/23 Plan at that time: Ordering titration study Discussed with the patient the diagnosis, causes, pathophysiology, and conditions associated with obstructive sleep apnea (HUEY). Counseled patient on consequences of untreated sleep apnea, including increased risk of heart attacks, heart failure, cardiac rhythm abnormalities, stroke, hypertension, m etabolic syndromes (impaired glucose intolerance and insulin resistance), motor vehicle accidents, changes in mental function and mood, and higher risk of premature . Discussed treatment modalities for severe HUEY including PAP therapy as first line treatment. Patient questioned possibility of oral appliance, but discussed not the best option for his severity. Needs to try PAP therapy and lose weight in order to be a candidate for [facility] therapy at a later time.He is hesistant to try PAP therapy, but will. Discussed relationship between weight and HUEY. Advised weight loss. Placed referral to medical weight management services. Encouraged him to continue swimming. Advised avoidance of ETOH before bed which can worsen HUEY. Will see if PAP therapy helps sleep fragmentation Office to call patient with titration results and where DME order sent, and will follow up 31-90 days after receiving PAP machine. Interval History: New PAP follow up. Has been using more consistently for the last 2 weeks. Does feel better when he does wear it and finds that he has more energy during the day (swims longer distances). Sometimes, though, he feels like his lungs hurt in the morning and feels a little too much pressure and he notices this if the pressure climbs above 11. Might be able to wear it longer and more if pressure didn't go so high. No dry mouth, nasal congestion or irritation. Sleep-Wake Schedule Bedtime: 9:30-10 P.M. Final wake time: 6-6:30 A.M. he does wake up refreshed. Sleep Latency: 5-10 minutes Awakenings after sleep onset: not much Naps: occasionally, 30-60 minutes Estimated total sleep time: 6-8 hours Therapy: Autopap 8-16 cmH20 DME: [employer] Mask: F20 Compliance Report Reviewed: Sleep Metrics: [place] Sleepiness Scale: 2 (5 last visit) Past Treatments: Lexapro Afrin (very helpful) Flonase Melatonin Tylenol PM Sleep Studies: HST 07/16/23: Weight 286 lbs, ESS 4. AHI 65, min spo2 73% Titration 08/01/23: Weight 286 lbs. Recommended autopap 15-20 for potential REM related events, did best on pressure 15 and 16 cmH20. Past Medical History Past Medical History: Diagnosis Date Anxiety Cancer (CMS/HCC) (HCC) Carotid artery stenosis Diverticula of colon Elevated PSA Hemorrhoid HLD (hyperlipidemia) Hypertension Neuropathy Osteoarthritis Plantar fasciitis Past Surgical History Past Surgical History: Procedure Laterality Date ABDOMINAL SURGERY BACK SURGERY COLECTOMY COLONOSCOPY 06/08/2014 CYST REMOVAL pilonidial EYE SURGERY Left 01/26/2021 cataract HERNIA REPAIR OTHER SURGICAL HISTORY 05/15/2021 transrectal US, transperineal implantation of biodegradeable perirectal gel PROSTATE SURGERY SHOULDER ARTHROPLASTY (HISTORICAL) Right 11/14/2020 SPINE SURGERY TOTAL SHOULDER ARTHROPLASTY Right 06/19/2018 x2 TOTAL SHOULDER ARTHROPLASTY Left 12/04/2018 Allergies Allergies Allergen Reactions Diclofenac Rectal discharge Fenofibrate Nerve pain Rosuvastatin Other Muscle Aches Medications Current Outpatient Medications Medication Instructions cholecalciferol (Vitamin D-3) 50 MCG (1999 UT) capsule Oral diphenhydrAMINE-acetaminophen (Tylenol PM) 25-500 MG per tablet 1 tablet, Oral, Nightly PRN fluticasone (Flonase) 50 MCG/ACT nasal spray 2 sprays, Each Nostril, Daily, Shake gently. Before first use, prime pump. After use, clean tip and replace cap. gabapentin (NEURONTIN) 300 mg, Oral, 3 times daily lisinopril-hydroCHLOROthiazide 20-12.5 MG tablet 2 tablets, Oral, Daily loperamide (IMODIUM) 2 mg, Oral, PRN Melatonin 5 MG capsule Oral meloxicam (MOBIC) 15 mg, Oral, Daily oxymetazoline (Afrin) 0.05 % nasal spray Each Nostril, Do not use for more than 3 days. predniSONE (Deltasone) 20 MG tablet Take 3 tabs (60mg) daily for 5 days, then take 2 tabs (40mg) daily for 3 days, then take 1 tab (20mg) daily for 2 days. sildenafil (VIAGRA) 100 mg, Oral, Daily PRN triamcinolone (Kenalog) 0.5 % cream Topical, 2 times daily Social History Social History Tobacco Use Smoking status: Former Packs/day: 2.00 Years: 35.00 Additional pack years: 0.00 Total pack years: 70.00 Types: Cigarettes Quit date: 06/30/2006 Years since quittin.3 Smokeless tobacco: Never Substance Use Topics Alcohol use: Yes Comment: occ Family History Family History Problem Relation Name Age of Onset Prostate cancer Father Review of Systems Review of Systems Constitutional: Negative for fatigue. Musculoskeletal: Positive for arthralgias. Psychiatric/Behavioral: Negative for sleep disturbance. Physical Exam Vitals: 11/13/23 0919 BP: 136/89 BP Location: Left arm Patient Position: Sitting BP Cuff Size: Large adult Pulse: 70 Resp: 18 SpO2: 97% Weight: 272 lb 6.4 oz (124 kg) Height: 5' 10 (1.778 m) General appearance: Well appearing. No acute distress. AAOX3, obese Head: Normocephalic, without obvious abnormality, atraumatic Eyes: Normal sclera and conjunctiva Skin: Skin color normal. No rashes or lesions Psych: Euthymic Mood, full affect Neuro: No focal deficits Labs/additional studies: Component Latest Ref Rng 09/04/2023 SODIUM 135 - 146 mmol/L 140 POTASSIUM 3.5 - 5.3 mmol/L 4.3 CHLORIDE 98 - 110 mmol/L 102 Carbon Dioxide (CO2) 20 - 32 mmol/L 26 GLUCOSE 65 - 99 mg/dL 112 (H) Urea Nitrogen (BUN) 7 - 25 mg/dL 18 Creatinine 0.70 - 1.35 mg/dL 0.91 CALCIUM 8.6 - 10.3 mg/dL 9.4 ALBUMIN - [facility] 3.6 - 5.1 g/dL 4.6 BILIRUBIN, TOTAL - [facility] 0.2 - 1.2 mg/dL 0.6 ALKALINE PHOSPHATASE - [facility] 35 - 144 U/L 111 AST - [facility] 10 - 35 U/L 23 eGFR > OR = 60 mL/min/1.73m2 91 PROTEIN, TOTAL - [facility] 6.1 - 8.1 g/dL 6.9 ALT - [facility] 9 - 46 U/L 25 BUN/CREATININE RATIO 6 - 22 (calc) SEE NOTE: GLOBULIN - [facility] 1.9 - 3.7 g/dL (calc) 2.3 ALBUMIN/GLOBULIN RATIO - [facility] 1.0 - 2.5 (calc) 2.0 Impression: 1. HUEY (obstructive sleep apnea) 2. Primary hypertension 3. Obesity, morbid (HCC) 68 y/o M with prostate cancer, HTN, OA, BMI > 40. Presented with maintenance insomnia, snoring, and some daytime sleepiness/fatigue. Found to have severe HUEY on HST and using PAP therapy. He does feel benefit in energy when he is able to wear it and tolerate it. Recommendations: Reviewed downloads with patient. Has started wearing it most consistently within the last couple ofweeks. Since there is some pressure intolerance, we discussed resetting machine to a fixed pressureat lower than recommended on sleep study, to see if he can adjust to therapy a little better and slowly raise pressures to recommended as tolerated. Will follow reports closely. If still having trouble tolerating, then likely will have to move to bipap. Encouraged continued use of PAP therapy given hx of HTN Referral placed to weight management last office visit, patient needs to respond back to them in order to get appointment made. Will always encourage weight loss to help HUEY. Would also need weight loss for inspire therapy. Follow up in 6 weeks with compliance report documented in this [facility]04-25-2024 Evaluation + Plan note* Assessment & Plan Note - Colton Krishnamurthy MD - 10/17/2023 2:30 PM EDT Associated Problem(s): Persistent cough for 3 weeks or longer Recommend that he contact his supplier and tell them that he is going to stop using it for a week to see if that improves the cough, if it improves but does not completely resolve after a week he is to stay off of it for another week if it is completely gone he is to restart the CPAP and if it reoccurs then we know his from the CPAP and something different has to be done. [id number] Evaluation + Plan note* Assessment & Plan Note - Colton Krishnamurthy MD - 10/17/2023 2:30 PM EDTAssociated Problem(s): HUEY on CPAP Recommend that he contact his supplier and tell them that he is going to stop using it for a week to see if that improves the cough, if it improves but does not completely resolve after a week he is to stay off of it for another week if it is completely gone he is to restart the CPAP and if it reoccurs then we know his from the CPAP and something different has to be done. [place] [id number] Miscellaneous Notes* Assessment & Plan Note - Colton Krishnamurthy MD - 10/17/2023 2:30 PM EDTAssociated Problem(s): Persistent cough for 3 weeks or longer Recommend that he contact his supplier and tell them that he is going to stop using it for a week to see if that improves the cough, if it improves but does not completely resolve after a week he is to stay off of it for another week if it is completely gone he is to restart the CPAP and if it reoccurs then we know his from the CPAP and something different has to be done. * Assessment & Plan Note - Colton Krishnamurthy MD - 10/17/2023 2:30 PM EDT Associated Problem(s): HUEY on CPAP Recommend that he contact his supplier and tell them that he is going to stop using it for a week to see if that improves the cough, if it improves but does not completely resolve after a week he is to stay off of it for another week if it is completely gone he is to restart the CPAP and if it reoccurs then we know his from the CPAP and something different has to be done. documented in this [facility]04-25-2024 History of Present illness Narrative* Maki Carlson MA - 10/17/2023 1:30 PM EDT Patient was verified by name and . * Colton Krishnamurthy MD - 10/17/2023 1:30 PM EDT Images from the original note were not included. 10/17/2023 Mitul Martinez (: 1955) is a 68 y.o. male , Established patient, here for evaluation ofthe following chief complaint(s): Cough ASSESSMENT/PLAN: 1. HUEY on CPAP Assessment & Plan: Recommend that he contact his supplier and tell them that he is going to stop using it for a week to see if that improves the cough, if it improves but does not completely resolve after a week he is to stay off of it for another week if it is completely gone he is to restart the CPAP and if it reoccurs then we know his from the CPAP and something different has to be done. 2. Persistent cough for 3 weeks or longer Assessment & Plan: Recommend that he contact his supplier and tell them that he is going to stop using it for a week to see if that improves the cough, if it improves but does not completely resolve after a week he is to stay off of it for another week if it is completely gone he is to restart the CPAP and if it reoccurs then we know his from the CPAP and something different has to be done. Follow up if symptoms worsen or fail to improve. SUBJECTIVE/OBJECTIVE: JOSE ANGEL Jones comes in today complaining that after he started using his CPAP machine about a month agohe developed a cough and he is not sure if it was from a cold or from the machine. He has been in contact with his supplier and they did adjust his humidity and his pressures and he said that seem tomake a little bit of a difference and he does feel like the machine is helping him sleep better until he gets irritated throat and begins coughing. He denies any significant drainage no congestion or productivity to the cough. No fevers or chills. Review of Systems Constitutional: Negative for chills and fever. HENT: Negative for congestion, ear pain, rhinorrhea and sinus pressure. Respiratory: Negative for cough and shortness of breath. Cardiovascular: Negative for chest pain and palpitations. Vitals: 10/17/23 1324 10/17/23 1353 BP: (!) 142/89 126/86 Pulse: 80 SpO2: 97% Weight: 267 lb (121 kg) Height: 5' 10 (1.778 m) Physical Exam Vitals and nursing note reviewed. Constitutional: General: He is not in acute distress. Appearance: Normal appearance. HENT: Head: Normocephalic. Right Ear: Tympanic membrane, ear canal and external ear normal. Left Ear: Tympanic membrane, ear canal and external ear normal. Nose: Nose normal. No congestion or rhinorrhea. Mouth/Throat: Mouth: Mucous membranes are moist. Pharynx: Oropharynx is clear. Comments: No postnasal drainage Eyes: Extraocular Movements: Extraocular movements intact. Pupils: Pupils are equal, round, and reactive to light. Cardiovascular: Rate and Rhythm: Normal rate and regular rhythm. Heart sounds: Normal heart sounds. Pulmonary: Effort: Pulmonary effort is normal. Breath sounds: Normal breath sounds. Musculoskeletal: Cervical back: Neck supple. Neurological: Mental Status: He is alert. An electronic signature was used to authenticate this note. Colton Krishnamurthy MD 10/17/2023 2:31 PM documented in this [facility]03-13-2024 Evaluation + Plan note* Assessment & Plan Note - Colton Krishnamurthy MD - 09/04/2023 12:52 PM EDT Associated Problem(s): Pure hypercholesterolemia Controlled, continue low-fat low-cholesterol diet [id number] Evaluation + Plan note* Assessment & Plan Note - Colton Krishnamurthy MD - 09/04/2023 12:52 PM EDTAssociated Problem(s): Mild episode of recurrent major depressive disorder (HCC) Uncontrolled, refuses medications Will referred to behavioral health for counseling. [facility] [id number] Evaluation + Plan note* Assessment & Plan Note - Colton Krishnamurthy MD - 09/04/2023 12:52 PM EDTAssociated Problem(s): Obesity, morbid (HCC) Encourage weight loss with diet and exercise [facility] [id number] Miscellaneous Notes* Assessment & Plan Note - Colton Krishnamurthy MD - 09/04/2023 12:52 PM EDTAssociated Problem(s): Pure hypercholesterolemia Controlled, continue low-fat low-cholesterol diet * Assessment & Plan Note - Colton Krishnamurthy MD - 09/04/2023 12:52 PM EDT Associated Problem(s): Mild episode of recurrent major depressive disorder (HCC) Uncontrolled, refuses medications Will referred to behavioral health for counseling. * Assessment & Plan Note - Colton Krishnamurthy MD - 09/04/2023 12:52 PM EDT Associated Problem(s): Obesity, morbid (HCC) Encourage weight loss with diet and exercise * Assessment & Plan Note - Colton Krishnamurthy MD - 09/04/2023 12:51 PM EDT Associated Problem(s): Prostate cancer (HCC) Remission, * Assessment & Plan Note - Colton Krishnamurthy MD - 09/04/2023 12:50 PM EDT Associated Problem(s): Hypertension Blood pressure was initially elevated, recheck was normal continue lisinopril hydrochlorothiazide 40-25 * Assessment & Plan Note - Colton Krishnamurthy MD - 09/04/2023 12:50 PM EDT Associated Problem(s): Daytime hypersomnia Stable, he has not started his CPAP documented in this [facility]03-13-2024 Evaluation + Plan note* Assessment & Plan Note - Colton Krishnamurthy MD - 09/04/2023 12:51 PM EDT Associated Problem(s): Prostate cancer (HCC) Remission, [facility] [id number] Evaluation + Plan note* Assessment & Plan Note - Colton Krishnamurthy MD - 09/04/2023 12:50 PM EDTAssociated Problem(s): Hypertension Blood pressure was initially elevated, recheck was normal continue lisinopril hydrochlorothiazide 40-25 [facility] [id number] Evaluation + Plan note* Assessment & Plan Note - Colton Krishnamurthy MD - 09/04/2023 12:50 PM EDTAssociated Problem(s): Daytime hypersomnia Stable, he has not started his CPAP [facility] [id number] History of Present illness Narrative* Lora Quevedo MA - 09/04/2023 8:00 AM EDT Patient verified by last name and date of . * Colton Krishnamurthy MD - 09/04/2023 8:00 AM EDT Images from the original note were not included. [facility] [address] [place] [id number] Visit Type: Medicare Annual Wellness PCP: Colton Krishnamurthy MD Reason for Visit: Medicare Annual Wellness Visit Subsequent, Blood Work, question (Having problem walking any distance and back pain worried about overall health stopped pain management due to cost of drug screening so has been off all pain medication/Has issues happen that has put the pt on edge ), Referral (To therapy for his mental health), Apnea (Is working on losing weight swimming about 40min per day and now having shoulder pain saw shoulder specialist and will get results this afternoon ), and Orders (Pt asking for combo med lisinopril- hydrochlorothiazide ) Assessment and Plan Problem List Items Addressed This Visit Nervous Daytime hypersomnia Stable, he has not started his CPAP Circulatory Hypertension Blood pressure was initially elevated, recheck was normal continue lisinopril hydrochlorothiazide 40-25 Genitourinary Prostate cancer (HCC) Remission, Relevant Orders PSA Total (Screening) Endocrine/Metabolic Obesity, morbid (HCC) Encourage weight loss with diet and exercise Other Mild episode of recurrent major depressive disorder (HCC) Uncontrolled, refuses medications Will referred to behavioral health for counseling. Relevant Orders [facility] Pure hypercholesterolemia Controlled, continue low-fat low-cholesterol diet Relevant Orders Lipid panel Other Visit Diagnoses Encounter for annual wellness exam in Medicare patient - Primary Screening for diabetes mellitus Relevant Orders Comprehensive metabolic panel I have reviewed and reconciled the medication list with the patient today. Current Outpatient Medications Medication Sig Dispense Refill cholecalciferol (Vitamin D-3) 50 MCG (1999 UT) capsule Take by mouth. diphenhydrAMINE-acetaminophen (Tylenol PM) 25-500 MG per tablet Take 1 tablet by mouth Nightly as needed for sleep. fluticasone (Flonase) 50 MCG/ACT nasal spray Administer 2 sprays into each nostril daily. Shake gently. Before first use, prime pump. After use, clean tip and replace cap. 16 g 5 Melatonin 5 MG capsule Take by mouth. meloxicam (Mobic) 15 MG tablet take 1 tablet by mouth once daily 90 tablet 1 oxymetazoline (Afrin) 0.05 % nasal spray Administer into each nostril. Do not use for more than 3 days. triamcinolone (Kenalog) 0.5 % cream Apply topically 2 times daily. lisinopril-hydroCHLOROthiazide 20-12.5 MG tablet Take 2 tablets by mouth daily. 180 tablet 1 loperamide (Imodium) 2 MG capsule Take 2 mg by mouth as needed for diarrhea. sildenafil (Viagra) 100 MG tablet Take 1 tablet (100 mg) by mouth Daily as needed for erectile dysfunction. 4 tablet 0 No current facility-administered medications for this visit. Medications Discontinued During This Encounter Medication Reason Leuprolide Acetate (LUPRON IJ) Therapy completed zolpidem (Ambien) 5 MG tablet Therapy completed lisinopril 40 MG tablet hydroCHLOROthiazide (HYDRODiuril) 25 MG tablet The following health maintenance schedule was reviewed with the patient and provided in printed form in the after visit summary: Health Maintenance Topic Date Due Medicare Advantage Annual Wellness Visit 06/24/2023 Diabetes Screening 08/31/2023 Hepatitis C Screening 03/06/2024 (Originally 1973) Depresssion Monitoring 03/06/2024 DTaP/Tdap/Td Vaccines (4 - Td or Tdap) 04/11/2027 Lipid Panel 08/31/2027 RSV Immunization aged 60 or older Completed Influenza Vaccine Completed Pneumococcal Vaccine: 65+ Years Completed Zoster Vaccines Completed COVID-19 Vaccine Completed RSV Immunization under 20 Months Aged Out HIB Vaccines Aged Out Hepatitis B Vaccines Aged Out IPV Vaccines Aged Out Hepatitis A Vaccines Aged Out Meningococcal Vaccine Aged Out Rotavirus Vaccines Aged Out HPV Vaccines Aged Out Colorectal Cancer Screening Discontinued Orders Placed This Encounter Procedures Lipid panel Standing Status: Future Number of Occurrences: 1 Standing Expiration Date: 09/03/2024 Comprehensive metabolic panel Standing Status: Future Number of Occurrences: 1 Standing Expiration Date: 09/03/2024 PSA Total (Screening) Standing Status: Future Number of Occurrences: 1 Standing Expiration Date: 09/03/2024 [facility] Standing Status: Future Standing Expiration Date: 03/06/2024 Referral Priority: Routine Referral Type: Consultation Referral Reason: Specialty Services Required Requested Specialty: Behavioral Health Number of Visits Requested: 1 Follow up in about 6 months (around 03/06/2024). Subjective HPI Bill comes in today for his annual Medicare well visit, he has multiple cultures but all boils develop to he would like to get into some counseling somewhere to try to deal with some of his depression and anxiety and health issues. List of current healthcare providers: Patient Care Team: Colton Krishnamurthy MD as PCP - General Over the past 2 weeks, how often have you been bothered by any of the following problems? Trouble falling or staying asleep, or sleeping too much: Not at all Feeling tired or having little energy: Several days Poor appetite or overeating: Not at all Feeling bad about yourself - or that you are a failure or have let yourself or your family down: Not at all Trouble concentrating on things, such as reading the newspaper or watching television: Not at all Moving or speaking so slowly that other people could have noticed? Or the opposite - being so fidgety or restless that you have been moving around a lot more than usual.: Not at all Thoughts that you would be better off or hurting yourself in some way: Not at all Patient Health Questionnaire-9 Score: 3 Health Risk Assessment: General: General In general, how would you say your health is?: (!) Poor In the past 7 days, have you experienced any of the following: New or Increased Pain, New or Increased Fatigue, Loneliness, Social Isolation, Stress or Anger?: (!) Yes Select all that apply: (!) Stress Do you get the social and emotional suppport you need?: (!) No Interventions: referal for counceling Health Habits/Nutrition: Health Habits / Nutrition On average, how many days per week do you engage in moderate to strenous exercise (like a brisk walk)?: 7 days On average, how man minutes do you engage in exercise at this level?: 40 min Have you lost any weight without trying in the past 3 months? : No Have you seen the dentist within the past year?: Yes Hearing/ Vision: Hearing / Vision Do you or your family notice any trouble with your hearing that hasn't been managed with hearing aids?: No Do you have difficulty driving, watching TV, or doing any of your daily activities because of your eyesight?: No Have you had an eye exam within the past year?: Appointment is scheduled No results found. Safety: Safety Do you have a working smoke detector?: Yes Do you have any tripping hazards - loose or unsecured carpets or rugs?: No Do you have any tripping hazards - clutter in doorways, halls, or stairs?: No Do you have either shower bars, grab bars, non-slip mats or non-slip surfaces in your shower or bathtub? : (!) No Do all your stairways have a railing or banister? : Yes Do you fasten your seatbelt when you are in a car?: Yes Interventions: ADL: ADL In the past 7 days, did you need help from others to perform any of the following everyday activities: Eating, dressing, grooming,bathing, toileting, or walking / balance? : No In the past 7 days, did you need help from others to take care of any of the following: laundry, housekeeping, banking / finances,shopping, telephone use, food preparation, transportation, or taking medications? : No Living Will: Living Will Do you have a living will?: Yes Cognitive: Cognitive Screening: Mini-Cog Clock Drawing Test (CDT): 2 Words Recalled: 3 Total Score: 5 Total Score Interpretation: Normal Mini-Cog Fall Risk: Fall Risk One or more falls in the last year:: Yes Advised to use a cane or walker to get around safely:: No Feels unsteady when walking:: Yes Steadies self on furniture while walking at home:: No Worried about falling:: Yes Interventions: Depression Screening: Over the past 2 weeks, how often have you been bothered by any of the following problems? Little interest or pleasure in doing things: Several days Feeling down, depressed, or hopeless: Several days Patient Health Questionnaire-2 Score: 2 Over the past 2 weeks, how often have you been bothered by any of the following problems? Trouble falling or staying asleep, or sleeping too much: Not at all Feeling tired or having little energy: Several days Poor appetite or overeating: Not at all Feeling bad about yourself - or that you are a failure or have let yourself or your family down: Not at all Trouble concentrating on things, such as reading the newspaper or watching television: Not at all Moving or speaking so slowly that other people could have noticed? Or the opposite - being so fidgety or restless that you have been moving around a lot more than usual.: Not at all Thoughts that you would be better off or hurting yourself in some way: Not at all Patient Health Questionnaire-9 Score: 3 If you checked off any problems on this questionnaire so far, How difficult have these problems made it for you to do your work, take care of things at home, or get along with other people?: Not difficult at all Interventions: Tobacco Use: Social History Tobacco Use Smoking Status Former Packs/day: 2.00 Years: 35.00 Additional pack years: 0.00 Total pack years: 70.00 Types: Cigarettes Quit date: 06/30/2006 Years since quittin.1 Smokeless Tobacco Never Alcohol Use: Audit Alcohol Screening Q1: How often do you have a drink containing alcohol?: Monthly or less Q2: How many drinks containing alcohol do you have on a typical day when you are drinking?: 1 or 2 Q3: How often do you have six or more drinks on one occasion?: Never Audit-C Score: 1 Skip to questions 9-10?: 1 Q10: Has a relative, friend, doctor, or another health professional expressed concern about your drinking or suggested you cut down?: No Review of Systems Constitutional: Negative for activity change, appetite change, chills, fever and unexpected weight change. HENT: Negative for ear pain and sore throat. Respiratory: Negative for shortness of breath. Cardiovascular: Negative for chest pain and palpitations. Gastrointestinal: Negative for abdominal pain, blood in stool, constipation and diarrhea. Genitourinary: Negative for dysuria, frequency, hematuria and urgency. Musculoskeletal: Negative for arthralgias and back pain. Skin: Negative. Neurological: Negative for weakness and numbness. Psychiatric/Behavioral: Negative for dysphoric mood. The patient is not nervous/anxious. Immunization History Administered Date(s) Administered COVID-19, mRNA, LNP-S, PF, 50 mcg/0.5 mL 04/10/2023 Influenza, High Dose Seasonal, Preservative Free 06/01/2019, 05/24/2020, 03/07/2023 Influenza, Seasonal, Quadrivalent, Adjuvanted 05/13/2021 Influenza, Unspecified 04/11/2017, 04/29/2018 Influenza, seasonal, injectable 04/13/2022 Moderna SARS-CoV-2 Vaccination 09/29/2020, 10/27/2020, 05/13/2021, 04/13/2022 Pneumococcal Conjugate PCV 13 06/01/2019 Pneumococcal Polysaccharide PPSV23 08/25/2020 RSV, recombinant, protein subunit RSVpreF, adjuvant reconstituted, 0.5 mL, PF 06/05/2023 Td (adult) 04/11/2017 Td (adult), 5 Lf tetanus toxoid, preservative free, adsorbed 04/11/2017 Tdap 08/16/2016 Zoster, Recombinant 04/29/2018, 08/18/2018 Zoster, live 06/24/2014, 12/28/2014 Allergies Allergen Reactions Diclofenac Rectal discharge Fenofibrate Nerve pain Outpatient Medications Prior to Visit Medication Sig Dispense Refill cholecalciferol (Vitamin D-3) 50 MCG (1999 UT) capsule Take by mouth. diphenhydrAMINE-acetaminophen (Tylenol PM) 25-500 MG per tablet Take 1 tablet by mouth Nightly as needed for sleep. fluticasone (Flonase) 50 MCG/ACT nasal spray Administer 2 sprays into each nostril daily. Shake gently. Before first use, prime pump. After use, clean tip and replace cap. 16 g 5 Melatonin 5 MG capsule Take by mouth. meloxicam (Mobic) 15 MG tablet take 1 tablet by mouth once daily 90 tablet 1 oxymetazoline (Afrin) 0.05 % nasal spray Administer into each nostril. Do not use for more than 3 days. triamcinolone (Kenalog) 0.5 % cream Apply topically 2 times daily. hydroCHLOROthiazide (HYDRODiuril) 25 MG tablet take 1 tablet by mouth once daily 90 tablet 1 lisinopril 40 MG tablet Take 1 tablet (40 mg) by mouth daily. 90 tablet 1 loperamide (Imodium) 2 MG capsule Take 2 mg by mouth as needed for diarrhea. Leuprolide Acetate (LUPRON IJ) Inject as directed. zolpidem (Ambien) 5 MG tablet Take one tablet PO at bedtime on the night of your sleep study (Patient not taking: Reported on 09/04/2023) 1 tablet 0 No facility-administered medications prior to visit. Past Medical History: Diagnosis Date Anxiety Cancer (CMS/HCC) (HCC) Carotid artery stenosis Diverticula of colon Elevated PSA Hemorrhoid HLD (hyperlipidemia) Hypertension Neuropathy Osteoarthritis Plantar fasciitis Social History Socioeconomic History Marital status: Tobacco Use Smoking status: Former Packs/day: 2.00 Years: 35.00 Additional pack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 Last medication check: 03/07/23 Last physical exam: 08/30/22 Next scheduled appointment: 09/04/23 Last date of refill on this medication: 08/30/22 documented in this [facility]11-28-2023 Telephone encounter Note* Telephone Encounter - Maki Carlson MA - 05/21/2023 4:07 PM EST Prescription Request: Last medication check: 03/07/23 Last physical exam: 08/30/22 Next scheduled appointment: 09/04/23 Last date of refill on this medication: 08/30/22 [id number] Telephone encounter Note* Telephone Encounter - Rain Puga MA - 02/26/2023 9:28 AM EDT Prescription Request: Last medication check: 03/08/22 Last physical exam: 08/30/22 Next scheduled appointment: 03/07/23 Last date of refill on this medication 08/30/22 90 days 1 refill [id number] Miscellaneous Notes* Telephone Encounter - Rain Puga MA - 02/26/2023 9:28 AM EDT Prescription Request: Last medication check: 03/08/22 Last physical exam: 08/30/22 Next scheduled appointment: 03/07/23 Last date of refill on this medication 08/30/22 90 days 1 refill documented in this [facility]08-07-2023 Evaluation + Plan note* Assessment & Plan Note - JESENIA Fermin CNP - 01/28/2023 3:31 PM EDTAssociated Problem(s): Anxiety Poorly controlled. Will start Lexapro 5 mg daily x 1 week, then increase to 10 mg dnhtn-ftwspw-kg in 4 weeks [facility] [id number] Miscellaneous Notes* Assessment & Plan Note - JESENIA Fermin CNP - 01/28/2023 3:31 PM EDTAssociated Problem(s): Anxiety Poorly controlled. Will start Lexapro 5 mg daily x 1 week, then increase to 10 mg qvwpe-jujsvu-dv in 4 weeks * Addendum Note - JESENIA Fermin CNP - 01/28/2023 10:20 AM EDT Addended by: CHRIS ANTOINE on: 01/31/2023 05:39 PM Modules accepted: Level of Service documented in this [facility]SM[facility] [id number] History of Present illness Narrative* JESENIA Fermin CNP - 01/28/2023 10:20 AM EDT Images from the original note were not included. 01/28/2023 Mitul Martinez (: 1955) is a 67 y.o. male , Established patient, here for evaluation ofthe following chief complaint(s): Discuss Medications ASSESSMENT/PLAN: 1. Anxiety Assessment & Plan: Poorly controlled. Will start Lexapro 5 mg daily x 1 week, then increase to 10 mg [id number]-jm in 4 weeks Orders: - escitalopram (Lexapro) 10 MG tablet; Take 1 tablet (10 mg) by mouth daily., Starting 01/28/2023, Until 03/29/2023, Normal Follow up in about 1 month (around 02/28/2023). SUBJECTIVE/OBJECTIVE: HPI - Mitul Martinez (: 1955) is a 67 y.o. male , Established patient, here for the evaluation of the following chief complaint(s): Discuss Medications Coming in today to discuss starting medication for anxiety. Previously on sertraline 100 mg. Patient reports he stopped taking the sertraline several months ago. Over the past few weeks has noted increased difficulty controlling his worry. Denies any suicidal or homicidal ideation or depressive symptoms Reports that he recently started swimming laps again which should help Prior to Admission medications Medication Sig Start Date End Date Taking? Authorizing Provider cholecalciferol (Vitamin D-3) 50 MCG (1999) capsule Take by mouth. Yes Historical Provider, fluticasone (Flonase) 50 MCG/ACT nasal spray Administer 2 sprays into each nostril daily. Shake gently. Before first use, prime pump. After use, clean tip and replace cap. 01/08/23 01/08/24 Yes JESENIA Mejia CNP hydroCHLOROthiazide (HYDRODiuril) 25 MG tablet Take 1 tablet (25 mg) by mouth daily. 08/30/22 Yes Colton Krishnamurthy MD lisinopril 40 MG tablet Take 1 tablet (40 mg) by mouth daily. 08/30/22 Yes Colton Krishnamurthy MD loperamide (Imodium) 2 MG capsule Take 2 mg by mouth as needed for diarrhea. Yes Historical Provider, Melatonin 5 MG capsule Take by mouth. Yes Historical Provider, meloxicam (Mobic) 15 MG tablet Take 1 tablet (15 mg) by mouth daily. 08/30/22 Yes Colton Krishnamurthy MD triamcinolone (Kenalog) 0.5 % cream Apply topically 2 times daily. 03/02/21 Yes Historical Provider, Review of Systems Constitutional: Positive for diaphoresis (Intermittent hot flashes). Negative for activity change and appetite change. HENT: Negative. Respiratory: Negative. Cardiovascular: Negative. Neurological: Negative for dizziness and headaches. Psychiatric/Behavioral: Negative for agitation, decreased concentration and dysphoric mood. The patient is nervous/anxious. Vitals: 01/28/23 1014 BP: 118/74 Pulse: 102 Resp: 24 Temp: 37.2 C (98.9 F) TempSrc: Oral SpO2: 94% Weight: 272 lb 3.2 oz (123 kg) Physical Exam Constitutional: General: He is not in acute distress. Appearance: Normal appearance. He is obese. He is not ill-appearing. Cardiovascular: Rate and Rhythm: Normal rate and regular rhythm. Pulses: Normal pulses. Heart sounds: Normal heart sounds. Pulmonary: Effort: Pulmonary effort is normal. Breath sounds: Normal breath sounds. Neurological: Mental Status: He is alert and oriented to person, place, and time. Psychiatric: Attention and Perception: Attention and perception normal. Mood and Affect: Mood is anxious. Speech: Speech normal. Behavior: Behavior normal. Behavior is cooperative. Thought Content: Thought content normal. Cognition and Memory: Cognition and memory normal. An electronic signature was used to authenticate this note. JESENIA Fermin CNP 01/28/2023 3:31 PM documented in this [facility]08-07-2023 Instructions* Patient Instructions* JESENIA Fermin CNP - 01/28/2023 10:20 AM EDT Start lexapro 1/2 tab daily x 7 days, then increase to 1 whole tablet daily (10 mg) documented in this [facility]08-07-2023 Note* Addendum Note - JESENIA Fermin CNP - 01/28/2023 10:20 AM EDTAddended by: CHRIS ANTOINE on: 01/31/2023 05:39 PM Modules accepted: Level of Service [facility] [id number] Evaluation + Plan note* Assessment & Plan Note - JESENIA Fermin CNP - 01/08/2023 5:47 PM EDTAssociated Problem(s): Daytime hypersomnia Patient reports daytime sleepiness is high risk for HUEY, will evaluate referral sent to sleep medicine [facility] [id number] Miscellaneous Notes* Assessment & Plan Note - JESENIA Fermin CNP - 01/08/2023 5:47 PM EDTAssociated Problem(s): Daytime hypersomnia Patient reports daytime sleepiness is high risk for HUEY, will evaluate referral sent to sleep medicine * Assessment & Plan Note - JESENIA Fermin CNP - 01/08/2023 5:46 PM EDTAssociated Problem(s): Obesity, morbid (HCC) Encouraged continued caloric intake 2000 jeanie low-carb low-fat, increase physical activity. Will check TSH and evaluate for HUEY * Assessment & Plan Note - JESENIA Fermin CNP - 01/08/2023 5:46 PM EDTAssociated Problem(s): Hot flashes Likely secondary to history of Lupron, will check TSH, CBC, further evaluate for HUEY * Assessment & Plan Note - JESENIA Fermin CNP - 01/08/2023 5:46 PM EDTAssociated Problem(s): Seasonal allergies Will start fluticasone nasal spray documented in this encounterSMetro[facility] [id number] Evaluation + Plan note* Assessment & Plan Note - JESENIA Fermin CNP - 01/08/2023 5:46 PM EDTAssociated Problem(s): Obesity, morbid (HCC) Encouraged continued caloric intake 2000 jeanie low-carb low-fat, increase physical activity. Will check TSH and evaluate for HUEY [facility] [id number] Evaluation + Plan note* Assessment & Plan Note - JESENIA Fermin CNP - 01/08/2023 5:46 PM EDTAssociated Problem(s): Hot flashes Likely secondary to history of Lupron, will check TSH, CBC, further evaluate for HUEY [facility] [id number] Evaluation + Plan note* Assessment & Plan Note - JESENIA Fermin CNP - 01/08/2023 5:46 PM EDTAssociated Problem(s): Seasonal allergies Will start fluticasone nasal spray [facility] [id number] History of Present illness Narrative* JESENIA Fermin CNP - 01/08/2023 8:40 AM EDT Images from the original note were not included. 01/08/2023 Mitul Martinez (: 1955) is a 67 y.o. male , Established patient, here for evaluation ofthe following chief complaint(s): Heat Intolerance (Started after his medication for prostate cancer-Lupron/Last inj. Was 21-22') andWeight Loss ASSESSMENT/PLAN: 1. Daytime hypersomnia Assessment & Plan: Patient reports daytime sleepiness is high risk for HUEY, will evaluate referral sent to sleep medicine Orders: - [facility] [place] - TSH - CBC auto differential 2. Obesity, morbid (HCC) Assessment & Plan: Encouraged continued caloric intake 2000 jeanie low-carb low-fat, increase physical activity. Will check TSH and evaluate for HUEY Orders: - [facility] [place] [facility] 3. Hot flashes Assessment & Plan: Likely secondary to history of Lupron, will check TSH, CBC, further evaluate for HUEY Orders: - TSH - CBC auto differential 4. Seasonal allergies Assessment & Plan: Will start fluticasone nasal spray Orders: - fluticasone (Flonase) 50 MCG/ACT nasal spray; Administer 2 sprays into each nostril daily. Shake gently. Before first use, prime pump. After use, clean tip and replace cap., Starting Tu01/08/2023,Until Sat01/08/2024, Normal Follow up for as directed pending test results. SUBJECTIVE/OBJECTIVE: HPI - Mitul Martinez (: 1955) is a 67 y.o. male , Established patient, here for the evaluation of the following chief complaint(s): Heat Intolerance (Started after his medication for prostate cancer-Lupron/Last inj. Was 21-22') andWeight Loss Patient reports today that he thinks his symptoms of hot flashes are probably from being on Lupron for the treatment of prostate cancer. As this is when his symptoms had started. ,Last lupron inj wasOct 2021. Did not get final and 4 th injection, last PSA- 08/2022 wnl Reports overall hot flashes are improving. But wants to make sure that there is not something else contributing to his symptoms. He would like to lose some weight, reports eating around 2000 jeanie a day, was swimming 3 times a week but has not done that for several months plans to return to swimming tomorrow -usually does 20 laps and takes him about 30 minutes. January 31 is going to [place] with his children He reports concern for possible sleep apnea. Lives alone and is unsure if he snores, reports daytime sleepiness and does not feel well rested in the morning he thinks this may be contributing to his symptoms and his inability to lose weight. Prior to Admission medications Medication Sig Start Date End Date Taking? Authorizing Provider cholecalciferol (Vitamin D-3) 50 MCG (1999) capsule Take by mouth. Historical Provider, hydroCHLOROthiazide (HYDRODiuril) 25 MG tablet Take 1 tablet (25 mg) by mouth daily. 08/30/22 Dayne Krishnamurthy MD lisinopril 40 MG tablet Take 1 tablet (40 mg) by mouth daily. 08/30/22 Colton Krishnamurthy MD loperamide (Imodium) 2 MG capsule Take 2 mg by mouth as needed for diarrhea. Historical Provider, Melatonin 5 MG capsule Take by mouth. Historical Provider, meloxicam (Mobic) 15 MG tablet Take 1 tablet (15 mg) by mouth daily. 08/30/22 Colton Krishnamurthy MD tamsulosin (Flomax) 0.4 MG 24 hr capsule take 1 capsule by mouth every morning and then 1 tablet atbedtime 10/22/22 Colton Krishnamurthy MD triamcinolone (Kenalog) 0.5 % cream Apply topically 2 times daily. 03/02/21 Historical Provider, Review of Systems Constitutional: Positive for diaphoresis. Negative for activity change, appetite change, fatigue, fever and unexpected weight change. HENT: Positive for congestion and postnasal drip. Negative for sinus pressure and sinus pain. Respiratory: Negative for cough, chest tightness and shortness of breath. Cardiovascular: Negative for chest pain and palpitations. Gastrointestinal: Positive for diarrhea (Chronic intermittent due to history of radiation). Negative for abdominal distention, abdominal pain, nausea and vomiting. Endocrine: Positive for heat intolerance. Negative for cold intolerance. Genitourinary: Negative. Musculoskeletal: Negative. Skin: Negative. Neurological: Negative for dizziness and light-headedness. Psychiatric/Behavioral: Positive for sleep disturbance (Unsure what wakes him up, but wakes up multiple times during the night). Vitals: 01/08/23 0844 BP: 139/79 Pulse: 74 Resp: 20 Temp: 36.6 C (97.8 F) TempSrc: Infrared SpO2: 97% Weight: 278 lb 4.8 oz (126 kg) Physical Exam Vitals reviewed. Constitutional: General: He is not in acute distress. Appearance: Normal appearance. He is obese. He is not ill-appearing or toxic-appearing. HENT: Head: Normocephalic and atraumatic. Right Ear: Tympanic membrane, ear canal and external ear normal. There is no impacted cerumen. Left Ear: Tympanic membrane, ear canal and external ear normal. There is no impacted cerumen. Nose: Congestion present. No rhinorrhea. Mouth/Throat: Mouth: Mucous membranes are moist. Pharynx: Oropharynx is clear. No oropharyngeal exudate or posterior oropharyngeal erythema. Eyes: Conjunctiva/sclera: Conjunctivae normal. Pupils: Pupils are equal, round, and reactive to light. Neck: Comments: Neck circumference 18.5 inches Cardiovascular: Rate and Rhythm: Normal rate and regular rhythm. Pulses: Normal pulses. Heart sounds: Normal heart sounds. No murmur heard. Pulmonary: Effort: Pulmonary effort is normal. No respiratory distress. Breath sounds: Normal breath sounds. Abdominal: General: Abdomen is flat. Bowel sounds are normal. Palpations: Abdomen is soft. There is no mass. Tenderness: There is no abdominal tenderness. There is no right CVA tenderness or left CVA tenderness. Musculoskeletal: General: Normal range of motion. Cervical back: Normal range of motion and neck supple. No rigidity or tenderness. Lymphadenopathy: Cervical: No cervical adenopathy. Skin: General: Skin is warm and dry. Neurological: General: No focal deficit present. Mental Status: He is alert and oriented to person, place, and time. Psychiatric: Mood and Affect: Mood normal. Behavior: Behavior normal. An electronic signature was used to authenticate this note. JESENIA Fermin CNP 01/08/2023 6:08 AM * Myrna Dill - 01/08/2023 8:40 AM EDT Tree Feller Operator for Intimate and Non Intimate Exam Tree Feller Operator was declined Tree Feller Operator: na documented in this [facility]03-09-2023 Evaluation + Plan note* Assessment & Plan Note - Colton Krishnamurthy MD - 08/30/2022 8:51 AM EST Associated Problem(s): Hypertension Blood pressure was initially elevated, recheck was even higher, continue lisinopril 40 mg and hydrochlorothiazide 25 mg and recheck in 1 week. [facility] [id number] Miscellaneous Notes* Assessment & Plan Note - Colton Krishnamurthy MD - 08/30/2022 8:51 AM ESTAssociated Problem(s): Hypertension Blood pressure was initially elevated, recheck was even higher, continue lisinopril 40 mg and hydrochlorothiazide 25 mg and recheck in 1 week. * Assessment & Plan Note - Colton Krishnamurthy MD - 08/30/2022 8:37 AM EST Associated Problem(s): Pure hypercholesterolemia Controlled, currently on no medications. * Assessment & Plan Note - Colton Krishnamurthy MD - 08/30/2022 8:37 AM EST Associated Problem(s): Hyperglycemia Michel, will get a repeat A1c today * Assessment & Plan Note - Colton Krishnamurthy MD - 08/30/2022 8:37 AM EST Associated Problem(s): Functional diarrhea Stable, has had no worsening symptoms * Assessment & Plan Note - Colton Krishnamurthy MD - 08/30/2022 8:36 AM EST Associated Problem(s): Prostate cancer (CMS/HCC) (HCC) Michel, his PSAs have been essentially 0 since his surgery documented [facility] this [facility]03-09-2023 Evaluation + Plan note* Assessment & Plan Note - Colton Krishnamurthy MD - 08/30/2022 8:37 AM EST Associated Problem(s): Pure hypercholesterolemia Controlled, currently on no medications. [facility] [id number] Evaluation + Plan note* Assessment & Plan Note - Colton Krishnamurthy MD - 08/30/2022 8:37 AM ESTAssociated Problem(s): Hyperglycemia Stable, will get a repeat A1c today [facility] [id number] Evaluation + Plan note* Assessment & Plan Note - Colton Krishnamurthy MD - 08/30/2022 8:37 AM ESTAssociated Problem(s): Functional diarrhea Stable, has had no worsening symptoms [facility] [id number] Evaluation + Plan note* Assessment & Plan Note - Colton Krishnamurthy MD - 08/30/2022 8:36 AM ESTAssociated Problem(s): Prostate cancer (CMS/HCC) (HCC) Stable, his PSAs have been essentially 0 since his surgery [facility] [id number] History of Present illness Narrative* Colton Krishnamurthy MD - 08/30/2022 8:00 AM EST Images from the original note were not included. [facility] [place] [id number] Visit type: Established Patient Reason for Visit: Medicare Annual Wellness Visit Subsequent (Wants to know if he can stop taking flomax?), Health Maintenance, and Blood Work Assessment and Plan Problem List Items Addressed This Visit Circulatory Hypertension Blood pressure was initially elevated, recheck was even higher, continue lisinopril 40 mg and hydrochlorothiazide 25 mg and recheck in 1 week. Digestive Functional diarrhea Stable, has had no worsening symptoms Genitourinary Prostate cancer (CMS/HCC) (HCC) Stable, his PSAs have been essentially 0 since his surgery Relevant Orders PSA Diagnostic Other Hyperglycemia Stable, will get a repeat A1c today Relevant Orders Hemoglobin A1c Comprehensive metabolic panel Pure hypercholesterolemia Controlled, currently on no medications. Relevant Orders Lipid panel Other Visit Diagnoses Medicare annual wellness visit, subsequent - Primary Follow up in about 6 months (around 03/02/2023). Subjective HPI Bill comes in today for his annual Medicare well visit, he has a few questions but no real concerns. He says he does have some incontinence when he coughs and sneezes and he is wondering if he should stop his tamsulosin. Says he is going to every other day and it seems to help. He is having no problems urinating. He is wondering about getting another PSA test he has prostate cancer and he has been on Lupron injections and if his PSA stays 0 he would like to get off of them. He does not remember when the last time he saw his urologist but he has been within the last year. He also is having back issues and some numbness and pain on the medial aspect of his left great toebut he has been in contact with his back doctor and they are ordering an MRI. I have reviewed and reconciled the medication list with the patient today. Current Outpatient Medications Medication Sig Dispense Refill cholecalciferol (Vitamin D-3) 50 MCG (1999 UT) capsule Take by mouth. loperamide (Imodium) 2 MG capsule Take 2 mg by mouth as needed for diarrhea. Melatonin 5 MG capsule Take by mouth. tamsulosin (Flomax) 0.4 MG 24 hr capsule take 1 capsule by mouth every morning and then 1 tablet atbedtime 90 capsule 3 triamcinolone (Kenalog) 0.5 % cream Apply topically 2 times daily. hydroCHLOROthiazide (HYDRODiuril) 25 MG tablet Take 1 tablet (25 mg) by mouth daily. 90 tablet 1 lisinopril 40 MG tablet Take 1 tablet (40 mg) by mouth daily. 90 tablet 1 meloxicam (Mobic) 15 MG tablet Take 1 tablet (15 mg) by mouth daily. 90 tablet 1 No current facility-administered medications for this visit. Medications Discontinued During This Encounter Medication Reason hydroCHLOROthiazide (HYDRODiuril) 25 MG tablet Reorder meloxicam (Mobic) 15 MG tablet Reorder lisinopril 40 MG tablet Reorder List of current healthcare providers: Patient Care Team: Colton Krishnamurthy MD as PCP - General The following health maintenance schedule was reviewed with the patient and provided in printed form in the after visit summary: Health Maintenance Topic Date Due Hepatitis B Vaccines (1 of 3 - 3-dose series) Never done Hepatitis C Screening Never done COVID-19 Vaccine (5 - Booster for Moderna series) 06/08/2022 Lipid Panel 08/28/2026 DTaP/Tdap/Td Vaccines (3 - Td or Tdap) 04/11/2027 Influenza Vaccine Completed Pneumococcal Vaccine: 65+ Years Completed Zoster Vaccines Completed HIB Vaccines Aged Out IPV Vaccines Aged Out Hepatitis A Vaccines Aged Out Meningococcal Vaccine Aged Out Rotavirus Vaccines Aged Out HPV Vaccines Aged Out Orders Placed This Encounter Procedures Lipid panel Standing Status: Future Number of Occurrences: 1 Standing Expiration Date: 08/30/2023 Hemoglobin A1c Standing Status: Future Number of Occurrences: 1 Standing Expiration Date: 08/30/2023 Comprehensive metabolic panel Standing Status: Future Number of Occurrences: 1 Standing Expiration Date: 08/30/2023 PSA Diagnostic Standing Status: Future Standing Expiration Date: 08/31/2023 Health Risk Assessment: General In general, how would you say your health is?: Fair In the past 7 days, have you experienced any of the following: New or Increased Pain, New or Increased Fatigue, Loneliness, Social Isolation, Stress or Anger?: (!) Yes Select all that apply: New or Increased Pain Do you get the social and emotional suppport you need?: Yes Interventions: Pain Issues: back pain Health Habits / Nutrition On average, how many days per week do you engage in moderate to strenous exercise (like a brisk walk)?: 3 days On average, how man minutes do you engage in exercise at this level?: 30 min Have you lost any weight without trying in the past 3 months? : No Have you seen the dentist within the past year?: Appointment is scheduled Interventions: Hearing / Vision Do you or your family notice any trouble with your hearing that hasn't been managed with hearing aids?: No Do you have difficulty driving, watching TV, or doing any of your daily activities because of your eyesight?: (!) Yes (had cataract surgery but still has a glare driving at night) Have you had an eye exam within the past year?: (!) No No results found. Interventions: Vision concerns: Patient encouraged to make appointment with his / her screw eye assembler Safety Do you have a working smoke detector?: Yes Do you have any tripping hazards - loose or unsecured carpets or rugs?: No Do you have any tripping hazards - clutter in doorways, halls, or stairs?: No Do you have either shower bars, grab bars, non-slip mats or non-slip surfaces in your shower or bathtub? : (!) No Do all your stairways have a railing or banister? : Yes Do you fasten your seatbelt when you are in a car?: Yes Interventions: ADL In the past 7 days, did you need help from others to perform any of the following everyday activities: Eating, dressing, grooming,bathing, toileting, or walking / balance? : No In the past 7 days, did you need help from others to take care of any of the following: laundry, housekeeping, banking / finances,shopping, telephone use, food preparation, transportation, or taking medications? : No Interventions: Living Will Do you have a living will?: Yes Interventions: Cognitive: Cognitive Screening: Mini-Cog Clock Drawing Test (CDT): 2 Words Recalled: 3 Total Score: 5 Total Score Interpretation: Normal Mini-Cog Interventions: Fall Risk: Interventions: Tripped over umbrella Depression Screening: Over the past 2 weeks, how often have you been bothered by any of the following problems? Little interest or pleasure in doing things: Not at all Feeling down, depressed, or hopeless: Not at all Patient Health Questionnaire-2 Score: 0 Interventions: Tobacco Use: Social History Tobacco Use Smoking Status Former Packs/day: 2.00 Years: 35.00 Pack years: 70.00 Types: Cigarettes Quit date: 06/30/2006 Years since quittin.1 Smokeless Tobacco Never Interventions: Alcohol Use: Audit Alcohol Screening Q1: How often do you have a drink containing alcohol?: 2-4 times a month Q2: How many drinks containing alcohol do you have on a typical day when you are drinking?: 1 or 2 Q3: How often do you have six or more drinks on one occasion?: Never Audit-C Score: 2 Skip to questions 9-10?: 1 Interventions: Drug Use: Drug Abuse Screening Test (DAST-10) Have you used drugs other than those required for medical reasons?: No Do you use more than one drug at a time?: No Interventions: Review of Systems Constitutional: Negative for activity change, appetite change, chills, fever and unexpected weight change. HENT: Negative for ear pain and sore throat. Respiratory: Negative for shortness of breath. Cardiovascular: Negative for chest pain and palpitations. Gastrointestinal: Negative for abdominal pain, blood in stool, constipation and diarrhea. Genitourinary: Negative for dysuria, frequency, hematuria and urgency. Musculoskeletal: Negative for arthralgias and back pain. Skin: Negative. Neurological: Negative for weakness and numbness. Psychiatric/Behavioral: Negative for dysphoric mood. The patient is not nervous/anxious. Immunization History Administered Date(s) Administered Influenza, High Dose Seasonal, Preservative Free 06/01/2019, 05/24/2020 Influenza, Seasonal, Quadrivalent, Adjuvanted 05/13/2021 Influenza, Unspecified 04/11/2017, 04/29/2018 Influenza, seasonal, injectable 04/13/2022 Moderna SARS-CoV-2 Vaccination 09/29/2020, 10/27/2020, 05/13/2021, 04/13/2022 Pneumococcal Conjugate PCV 13 06/01/2019 Pneumococcal Polysaccharide PPSV23 08/25/2020 Td (adult) 04/11/2017 Td (adult), 5 Lf tetanus toxoid, preservative free, adsorbed 04/11/2017 Tdap 08/16/2016 Zoster, Recombinant 04/29/2018, 08/18/2018 Zoster, live 06/24/2014, 12/28/2014 Allergies Allergen Reactions Diclofenac Rectal discharge Fenofibrate Nerve pain Outpatient Medications Prior to Visit Medication Sig Dispense Refill cholecalciferol (Vitamin D-3) 50 MCG (2000 UT) capsule Take by mouth. loperamide (Imodium) 2 MG capsule Take 2 mg by mouth as needed for diarrhea. Melatonin 5 MG capsule Take by mouth. tamsulosin (Flomax) 0.4 MG 24 hr capsule take 1 capsule by mouth every morning and then 1 tablet atbedtime 90 capsule 3 triamcinolone (Kenalog) 0.5 % cream Apply topically 2 times daily. hydroCHLOROthiazide (HYDRODiuril) 25 MG tablet Take 1 tablet by mouth in the morning. lisinopril 40 MG tablet Take 1 tablet (40 mg) by mouth daily. 90 tablet 1 meloxicam (Mobic) 15 MG tablet Take 15 mg by mouth. No facility-administered medications prior to visit. Past Medical History: Diagnosis Date Anxiety Cancer (CMS/HCC) (HCC) Carotid artery stenosis Diverticula of colon Elevated PSA Hemorrhoid HLD (hyperlipidemia) Hypertension Neuropathy Osteoarthritis Plantar fasciitis Social History Socioeconomic History Marital status: Tobacco Use Smoking status: Former Packs/day: 2.00 Years: 35.00 Pack years: 70.00 Types: Cigarettes Quit date: 06/30/2006 Years since quittin.1 Smokeless tobacco: Never Vaping Use Vaping Use: Never used Substance and Sexual Activity Alcohol use: Not Currently Comment: occ Drug use: Yes Types: Marijuana Sexual activity: Not Currently Past Surgical History: Procedure Laterality Date ABDOMINAL SURGERY BACK SURGERY COLECTOMY COLONOSCOPY 06/08/2014 CYST REMOVAL pilonidial EYE SURGERY Left 01/26/2021 cataract HERNIA REPAIR OTHER SURGICAL HISTORY 05/15/2021 transrectal US, transperineal implantation of biodegradeable perirectal gel PROSTATE SURGERY SHOULDER ARTHROPLASTY (HISTORICAL) Right 11/14/2020 SPINE SURGERY TOTAL SHOULDER ARTHROPLASTY Right 06/19/2018 x2 TOTAL SHOULDER ARTHROPLASTY Left 12/04/2018 Past Surgical History: Procedure Laterality Date ABDOMINAL SURGERY BACK SURGERY COLECTOMY COLONOSCOPY 06/08/2014 CYST REMOVAL pilonidial EYE SURGERY Left 01/26/2021 cataract HERNIA REPAIR OTHER SURGICAL HISTORY 05/15/2021 transrectal US, transperineal implantation of biodegradeable perirectal gel PROSTATE SURGERY SHOULDER ARTHROPLASTY (HISTORICAL) Right 11/14/2020 SPINE SURGERY TOTAL SHOULDER ARTHROPLASTY Right 06/19/2018 x2 TOTAL SHOULDER ARTHROPLASTY Left 12/04/2018 Family History Problem Relation Name Age of Onset Prostate cancer Father Objective BP (!) 168/97 Pulse 86 Ht 5' 10 (1.778 m) Wt 276 lb 3.2 oz (125 kg) BMI 39.63 kg/m Physical Exam Vitals and nursing note reviewed. Constitutional: General: He is not in acute distress. Appearance: Normal appearance. He is obese. HENT: Right Ear: Tympanic membrane, ear canal and external ear normal. Left Ear: Tympanic membrane, ear canal and external ear normal. Mouth/Throat: Mouth: Mucous membranes are moist. Pharynx: Oropharynx is clear. Eyes: Extraocular Movements: Extraocular movements intact. Pupils: Pupils are equal, round, and reactive to light. Neck: Vascular: No carotid bruit. Cardiovascular: Rate and Rhythm: Normal rate and regular rhythm. Heart sounds: Normal heart sounds. No murmur heard. Pulmonary: Effort: Pulmonary effort is normal. Breath sounds: Normal breath sounds. Abdominal: General: Bowel sounds are normal. Palpations: Abdomen is soft. Tenderness: There is no abdominal tenderness. Musculoskeletal: General: Normal range of motion. Cervical back: Neck supple. Lymphadenopathy: Cervical: No cervical adenopathy. Skin: General: Skin is warm and dry. Neurological: General: No focal deficit present. Mental Status: He is alert and oriented to person, place, and time. Psychiatric: Mood and Affect: Mood normal. Data Reviewed Labs: Imaging/Testing: Colton Krishnamurthy MD 08/30/2022 8:52 AM documented in this [facility]01-12-2023 History of Present illness Narrative* Kiah Martini, GLOBE MOUNTER - LOAN [employer] - 07/05/2022 10:00 AM EST Images from the original note were not included. [facility] [place] [address] [facility] [address] Dept: [phone] Dept Loc: [phone] Visit type: New patient Reason for Visit: New Patient and Diarrhea (Pt brought a record of episodes from 05/01/22 to present. Pt has Hx of prostate CA and he states since completing radiation he has had Diarrhea. Improving over the last 2 weeks.) Assessment and Plan Diagnosis Plan 1. Diarrhea 2. History of partial colectomy 3. History of prostate cancer --Avoid cheese, milk, triggering foods/drinks --High fiber diet --Imodium only as needed --Could consider colonoscopy if needed in the future, and if pt agreeable --Education on diet and lifestyle modifications --Follow up in GI office as needed Follow up if symptoms worsen or fail to improve. Subjective Mitul Martinez is a 67 year old male who presents to the office for diarrhea under the consultation of Sherron Carroll MD. He has never been seen in the office before. HPI -Hx diarrhea on average 3x per day in May. Has resolved mostly. One episode in the last 2 weeks. Endorses daily soft bowel movements. Denies melena, hematochezia. -Patient states that he believes it to be diet related as it is worse with certain foods such as cheese and milk. He is trying to avoid these and that has improved symptoms. Takes Imodium PRN and this also helps. -Patient report that he has hx of prostate CA, last radiation was 07/15. Also has hx of diverticulitis, with partial colectomy in 2012. -Patient denies nausea, change of appetite, weight loss, hematemesis, dysphagia, odynophagia, abdominal pain, constipation, diarrhea. -Last colonoscopy 2013, recommend repeat in 10 years. Patient reports that he does not ever want another colonoscopy d/t reaction to anesthesia, made him very sick. ETOH: occasionally Tobacco: no Recreational drug use: marijuana daily Anticoagulants: no Aspirin/NSAID use: no Last EGD: no Last Colonoscopy: 2014 Personal history of colon polyps: Family history of colon cancer: unknown Prior abdominal surgeries: hernia repair 2009 and 2013, colorectostomy and reversal of colectomy 2012 Review of Systems Constitutional: Negative for activity change, appetite change, chills, fever and unexpected weight change. HENT: Negative for mouth sores, sore throat, trouble swallowing and voice change. Eyes: Negative for pain. Respiratory: Negative for cough, choking and shortness of breath. Cardiovascular: Negative for chest pain. Gastrointestinal: Positive for diarrhea (improving, 1x in the last 2 weeks). Negative for abdominaldistention, abdominal pain, anal bleeding, blood in stool, constipation, nausea, rectal pain and vomiting. Endocrine: Negative for cold intolerance and heat intolerance. Genitourinary: Negative for difficulty urinating. Musculoskeletal: Negative for arthralgias and myalgias. Skin: Negative for color change, pallor and rash. Neurological: Negative for dizziness and headaches. Hematological: Does not bruise/bleed easily. Psychiatric/Behavioral: Negative for agitation, behavioral problems, confusion and sleep disturbance. Allergies Allergen Reactions Diclofenac Rectal discharge Fenofibrate Nerve pain Meloxicam Other Leg cramping- if take every day Patient does take on occasion Outpatient Medications Prior to Visit Medication Sig Dispense Refill cholecalciferol (Vitamin D-3) 50 MCG (1999 UT) capsule Take by mouth. hydroCHLOROthiazide (HYDRODiuril) 25 MG tablet Take 1 tablet by mouth in the morning. lisinopril 40 MG tablet Take 1 tablet by mouth in the morning. loperamide (Imodium) 2 MG capsule Take 2 mg by mouth as needed for diarrhea. Melatonin 5 MG capsule Take by mouth. meloxicam (Mobic) 15 MG tablet Take 15 mg by mouth. tamsulosin (Flomax) 0.4 MG 24 hr capsule Take 0.4 mg by mouth in the morning. triamcinolone (Kenalog) 0.5 % cream Apply topically 2 times daily. No facility-administered medications prior to visit. 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 Priority: Medium Functional diarrhea 03/01/2022 Priority: Medium Personal history of radiation therapy 03/01/2022 Priority: Medium Current mild episode of major depressive disorder without prior episode (HCC) 08/28/2021 Prostate cancer (CMS/HCC) ([facility]) 05/15/2021 Sweat, sweating, excessive 03/22/2021 Hyperglycemia 03/02/2021 Pure hypercholesterolemia 03/02/2021 Olecranon bursitis of left elbow 11/30/2020 Urinary retention 10/06/2019 Benign non-nodular prostatic hyperplasia with lower urinary tract symptoms 02/19/2017 Family history of malignant neoplasm of prostate 01/30/2017 Elevated prostate specific antigen (PSA) 01/30/2017 Diverticula of colon 02/07/2016 Hemorrhoid 02/07/2016 Hypertension 02/07/2016 Primary osteoarthritis involving multiple joints 02/07/2016 Anxiety 02/07/2016 Allergic contact dermatitis 05/11/2015 Social History Tobacco Use Smoking status: Former Packs/day: 2.00 Years: 35.00 Pack years: 70.00 Types: Cigarettes Quit date: 06/30/2006 Years since quittin.0 Smokeless tobacco: Never Substance Use Topics Alcohol use: Not Currently Comment: occ Family History Problem Relation Name Age of Onset Prostate cancer Father Objective BP (!) 158/88 Pulse 98 Temp 36.2 C (97.2 F) Ht 5' 10 (1.778 m) Wt 271 lb (123 kg) SpO2 100% BMI 38.88 kg/m Physical Exam Vitals reviewed. Constitutional: General: He is not in acute distress. Appearance: Normal appearance. He is not ill-appearing. HENT: Head: Normocephalic. Nose: Nose normal. Mouth/Throat: Mouth: Mucous membranes are moist. Eyes: General: No scleral icterus. Cardiovascular: Rate and Rhythm: Normal rate. Pulses: Normal pulses. Heart sounds: Normal heart sounds. Pulmonary: Effort: Pulmonary effort is normal. No respiratory distress. Abdominal: General: Bowel sounds are normal. There is no distension. Tenderness: There is no abdominal tenderness. There is no guarding. Musculoskeletal: General: No swelling. Cervical back: Normal range of motion. Skin: Coloration: Skin is not jaundiced. Neurological: General: No focal deficit present. Mental Status: He is alert and oriented to person, place, and time. Psychiatric: Mood and Affect: Mood normal. Behavior: Behavior normal. Thought Content: Thought content normal. Judgment: Judgment normal. Data Reviewed and Summarized Labs: Lab Results Component Value Date WBC 7.3 05/08/2021 HGB 15.8 05/08/2021 MCV 89.5 05/08/2021 Lab Results Component Value Date GLUCOSE 117 (H) 08/28/2021 CALCIUM 9.6 08/28/2021 NA 137 08/28/2021 K 4.0 08/28/2021 CO2 30 08/28/2021 CL 101 08/28/2021 BUN 22 (H) 08/28/2021 CREATININE 0.91 08/28/2021 Lab Results Component Value Date CALCIUM 9.6 08/28/2021 No results found for: HAV, HEPAIGM, HEPBIGM, HEPBCAB, HBEAG, HEPCAB No results found for: INR, PROTIME Lab Results Component Value Date AST 35 08/28/2021 ALKPHOS 99 08/28/2021 BILITOT 0.7 08/28/2021 ALT: 25 08/28/21 Imaging/Testing: No GI imaging or care everywhere or [facility]. Prior EGD/Colonoscopy: Kiah Martini APRN - CNP 07/05/22 11:07 AM documented in this [facility]01-12-2023 Instructions* Patient Instructions* JESENIA Shipley CNP - 07/05/2022 10:00 AM EST --Avoid triggering foods such as milk and cheese. --High fiber diet attached for review. --Imodium only as needed. --Go to the ED for alarm symptoms. This includes (but not limited to) severe abdominal pain, chest pain, shortness of breath, tachycardia (high heart rate), fever, chills, bleeding from mouth or rectum, dizziness, and/or feeling lightheaded like you may pass out. --Avoid nonsteroidal anti-inflammatory (NSAID) medications such as ibuprofen (Advil), naproxen (Aleve), etc. These can contribute to abdominal pain and ulcers. Take Tylenol (acetaminophen) instead ifneeded for pain by following the instructions on the bottle. --Follow-up in GI clinic as needed. --Please call the office with any questions or concerns at . * Attachments The following attachments cannot be sent through Care Everywhere. * High Fiber Diet (Ukrainian) documented in this [facility]12-12-[facility] History of Present illness Narrative* JESENIA Shipley CNP - 06/04/2022 11:00 AM EST Error documented in this [facility] History of Present illness Narrative* JESENIA Shipley CNP - 06/04/2022 11:00 AM EST Error documented in this [facility]12-12-2022 Instructions* Patient Instructions* JESENIA Shipley CNP - 06/04/2022 11:00 AM EST -High fiber diet * Attachments The following attachments cannot be sent through Care Everywhere. * High Fiber Diet (Ukrainian) documented in this [facility]12-12-[facility] Instructions* Patient Instructions* JESENIA Shipley CNP - 06/04/2022 11:00 AM EST * Attachments The following attachments cannot be sent through Care Everywhere. * High Fiber Diet (Ukrainian) documented in this [facility]01-26-2022 [facility] RADIATION ONCOLOGY TREATMENT SUMMARY PATIENT: Mitul Martinez DATE OF SERVICE: 07/19/2021 [facility] : 1955 AGE: 66 PRIMARY SITE: Malignant neoplasm of prostate, adenocarcinoma, iPSA 12.3, GS 4+4 = 8-high risk STAGE: T1c N0 M0 IIC HISTORY OF PRESENT ILLNESS: Mr. Martinez is a 66-year-old male with history of slowly rising PSA, to a most recent level of 12.302 on 08/25/2020. In the past, he was advised to have a prostate biopsy, but because of previous multiple abdominal surgical operations, he deferred. However, he has no prostatism and today's AUA score is 1. Eventually he had MRI and then MRI guided biopsy. The MRI showed two PI-RADS 3 and above, nodules. 02/02/2021- TREATMENT PLAN INTERVAL SINCE RADIATION: 06/07/2021 - 07/19/2021 (42 days) 06/07/21 - 07/19/21: 70.00/70.00 Gy to the Prostate+SV in 28 fractions of 2.50 Gy using the VMAT/Daily IGRT technique with 10 MV. STATUS OF PATIENT AT THE FINISH OF THE TREATMENT: He tolerated the treatment quite well with only mild outflow symptoms, that remained stable on tamsulosin. He was able to complete the expected therapy DISPOSITION: Follow-up 1 month Electronically signed by: Ariel Fall MD , T: 10:27 AM CC: Colton Krishnamurthy MD, Lonny Hansen MD [facility] Department of Radiation Oncology is an Accredited Facility of the [employer] ([employer]). This document was completed utilizing speech recognition software. Grammatical errors, random word insertions, pronoun errors, and incomplete sentences are an occasional consequence of this system due to software limitations, ambient noise, and hardware issues. Any formal questions or concerns about the content, text or information contained within the body of this dictation should be directly addressed to the provider for clarification. PATIENT: Mitul Martinez : 1955 cc: Lonny Hansen MD [address] [facility] [address] Colton Krishnamurthy MD [address] [id number] Hospital Discharge instructions* Instructions* Ema Ronquillo, RN - 05/08/2021 Follow all instructions given to you by Dr. Harris Please shower with an antibacterial soap( example DIAL OR SAFEGUARD) Please bring your [employer] Surgical Information folder on the day of surgery. Please monserrat the last dose taken (date and time ) on your Daily Medications List provided in your After Visit Summary. Please bring a photo ID and insurance information Do NOT take the following medications on the morning of surgery LISINOPRIL, HYDROCHLORITHIZIDE TAKE the following medications the morning of your surgery NO MEDICATION DAY OF SURGERY You may take your prescription pain medications. You may take Tylenol (Acetaminophen) if needed forpain. No Motrin, Ibuprofen, or Advil 24 hours prior to surgery, or longer if instructed by your surgeon. No Aleve or Naprosyn 3 days prior to surgery, or longer if instructed by your surgeon. If you are on BLOOD THINNERS or ASPIRIN, IF ON BLOOD THINNERS TELL SURGEON AND NURSE NO ASPIRIN 5 DAYS PRIOR TO SURGERY Additional instructions No alcohol for 24 hours before surgery NO food after midnight including NO tube feed. NO jello, NO broth, NO orange juice You may have clear liquids up to 2 hours before surgery including: water, pulp free juice (apple orcranberry juice but NOT orange juice), soda, Gatorade, Powerade, clear tea or black coffee, if you have coffee or tea DO NOT USE cream, milk, powdered creamers, whiteners Before arriving to the hospital , have UP TO 16 ounces or clear fluid, preferable a high-carb drinklike Gatorade or Powerade. You will receive a reminder call the day before surgery with your Same Day Surgery arrival time. If you have specific questions, please call your surgeon. [facility]: [facility] note* Diagnosis Elevated prostate specific antigen (PSA) Elevated prostate specific antigen (PSA) Family history of malignant neoplasm of prostate documented in this encounter [facility] Work Phone: Evaluation note* Diagnosis Prostate cancer (HCC) Malignant neoplasm of prostate documented in this encounter [facility] Work Phone: Evaluation note* Diagnosis Daytime hypersomnia- Primary Obesity, morbid (HCC) Morbid obesity Hot flashes Seasonal allergies Allergic rhinitis, cause unspecified documented in this encounter [facility]* Diagnosis Anxiety- Primary Anxiety state, unspecified documented in this encounter [facility] note* Diagnosis HUEY (obstructive sleep apnea)- Primary Obstructive sleep apnea (adult) (pediatric) Obesity, morbid (HCC) Morbid obesity Inadequate sleep hygiene Other specific disorder of sleep of nonorganic origin Primary hypertension Unspecified essential hypertension documented in this encounter [facility]am[facility] note* Diagnosis HUEY (obstructive sleep apnea)- Primary Obstructive sleep apnea (adult) (pediatric) Primary hypertension Unspecified essential hypertension Obesity, morbid (HCC) Morbid obesity documented in this encounter [facility] note* Diagnosis Encounter for annual wellness exam in Medicare patient- Primary Daytime hypersomnia Primary hypertension Unspecified essential hypertension Obesity, morbid (HCC) Morbid obesity Mild episode of recurrent major depressive disorder (HCC) Pure hypercholesterolemia Prostate cancer (HCC) Malignant neoplasm of prostate Screening for diabetes mellitus documented in this encounter [facility]* Diagnosis HUEY on CPAP- Primary Persistent cough for 3 weeks or longer documented in this encounter [facility]* Diagnosis HUEY (obstructive sleep apnea)- Primary Obstructive sleep apnea (adult) (pediatric) Primary hypertension Unspecified essential hypertension Obesity, morbid (HCC) Morbid obesity documented in this encounter [facility]* Diagnosis HUEY (obstructive sleep apnea)- Primary Obstructive sleep apnea (adult) (pediatric) Intolerance of continuous positive airway pressure (CPAP) ventilation Nasal congestion Other diseases of nasal cavity and sinuses documented in this encounter [facility]* Diagnosis Deviated nasal septum- Primary HUEY (obstructive sleep apnea) Obstructive sleep apnea (adult) (pediatric) Nasal congestion Other diseases of nasal cavity and sinuses Hypertrophy of both inferior nasal turbinates Deviated nasal septum Nasal congestion Other diseases of nasal cavity and sinuses Hypertrophy of nasal turbinates documented in this encounter [facility]* Diagnosis Post-op pain- Primary Other acute postoperative pain documented in this encounter [facility]* Diagnosis Postoperative follow-up- Primary Follow-up examination, following unspecified surgery documented in this encounter [facility]* Diagnosis Primary hypertension- Primary Unspecified essential hypertension Benign non-nodular prostatic hyperplasia with lower urinary tract symptoms Pure hypercholesterolemia HUEY on CPAP documented in this encounter [facility]* Diagnosis HUEY (obstructive sleep apnea) Obstructive sleep apnea (adult) (pediatric) documented in this encounter [facility]* Diagnosis HUEY (obstructive sleep apnea) Obstructive sleep apnea (adult) (pediatric) documented in this encounter [facility]* Diagnosis Chronic midline low back pain without sciatica- Primary Medicare annual wellness visit, subsequent- Primary Primary hypertension Unspecified essential hypertension Functional diarrhea Prostate cancer (HCC) Malignant neoplasm of prostate Pure hypercholesterolemia Hyperglycemia Other abnormal glucose Daytime hypersomnia- Primary Obesity, morbid (HCC) Morbid obesity Hot flashes Seasonal allergies Allergic rhinitis, cause unspecified Anxiety- Primary Anxiety state, unspecified Primary hypertension- Primary Unspecified essential hypertension Primary osteoarthritis involving multiple joints Pure hypercholesterolemia Encounter for annual wellness exam in Medicare patient- Primary Daytime hypersomnia Primary hypertension Unspecified essential hypertension Obesity, morbid (HCC) Morbid obesity Mild episode of recurrent major depressive disorder (HCC) Pure hypercholesterolemia Prostate cancer (HCC) Malignant neoplasm of prostate Screening for diabetes mellitus HUEY on CPAP- Primary Persistent cough for 3 weeks or longer Primary hypertension- Primary Unspecified essential hypertension Benign non-nodular prostatic hyperplasia with lower urinary tract symptoms Pure hypercholesterolemia HUEY on CPAP Postoperative follow-up- Primary Follow-up examination, following unspecified surgery documented in this encounter [facility]* Diagnosis Diarrhea- Primary documented in this encounter [facility]* Diagnosis Diarrhea- Primary History of partial colectomy History of prostate cancer Personal history of malignant neoplasm of prostate documented in this encounter [facility]* Diagnosis Medicare annual wellness visit, subsequent- Primary Primary hypertension Unspecified essential hypertension Functional diarrhea Prostate cancer (CMS/HCC) (HCC) Malignant neoplasm of prostate Pure hypercholesterolemia Hyperglycemia Other abnormal glucose documented in this encounter [facility]* Diagnosis Chronic midline low back pain without sciatica- Primary Medicare annual wellness visit, subsequent- Primary Primary hypertension Unspecified essential hypertension Functional diarrhea Prostate cancer (HCC) Malignant neoplasm of prostate Pure hypercholesterolemia Hyperglycemia Other abnormal glucose Daytime hypersomnia- Primary Obesity, morbid (HCC) Morbid obesity Hot flashes Seasonal allergies Allergic rhinitis, cause unspecified Anxiety- Primary Anxiety state, unspecified Primary hypertension- Primary Unspecified essential hypertension Primary osteoarthritis involving multiple joints Pure hypercholesterolemia Encounter for annual wellness exam in Medicare patient- Primary Daytime hypersomnia Primary hypertension Unspecified essential hypertension Obesity, morbid (HCC) Morbid obesity Mild episode of recurrent major depressive disorder (HCC) Pure hypercholesterolemia Prostate cancer (HCC) Malignant neoplasm of prostate Screening for diabetes mellitus HUEY on CPAP- Primary Persistent cough for 3 weeks or longer Primary hypertension- Primary Unspecified essential hypertension Benign non-nodular prostatic hyperplasia with lower urinary tract symptoms Pure hypercholesterolemia HUEY on CPAP Subacute cough- Primary [facility] Diagnosis Chronic midline low back pain without sciatica- Primary Medicare annual wellness visit, subsequent- Primary Primary hypertension Unspecified essential hypertension Functional diarrhea Prostate cancer (HCC) Malignant neoplasm of prostate Pure hypercholesterolemia Hyperglycemia Other abnormal glucose Daytime hypersomnia- Primary Obesity, morbid (HCC) Morbid obesity Hot flashes Seasonal allergies Allergic rhinitis, cause unspecified Anxiety- Primary Anxiety state, unspecified Primary hypertension- Primary Unspecified essential hypertension Primary osteoarthritis involving multiple joints Pure hypercholesterolemia Encounter for annual wellness exam in Medicare patient- Primary Daytime hypersomnia Primary hypertension Unspecified essential hypertension Obesity, morbid (HCC) Morbid obesity Mild episode of recurrent major depressive disorder (HCC) Pure hypercholesterolemia Prostate cancer (HCC) Malignant neoplasm of prostate Screening for diabetes mellitus HUEY on CPAP- Primary Persistent cough for 3 weeks or longer Primary hypertension- Primary Unspecified essential hypertension Benign non-nodular prostatic hyperplasia with lower urinary tract symptoms Pure hypercholesterolemia HUEY on CPAP Subacute cough- Primary Routine general medical examination at health care facility- Primary Routine general medical examination at a health care facility Primary hypertension Unspecified essential hypertension Primary osteoarthritis involving multiple joints Hyperglycemia Other abnormal glucose Pure hypercholesterolemia 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) Prostate cancer (HCC) Malignant neoplasm of prostate documented [facility]* Diagnosis Onset Date Resolution Status Admit Date Angina of effort acute August 312024 11:07pm Family history of coronary artery disease acute August 31, 2024 11:07pm Former tobacco use acute August 31, 2024 11:07pm History of hypertension acute 2024 11:07pm Morbid obesity with BMI of 40.0-44.9, adult acute August 31 11:07pm Non-ST elevation TN (NSTEMI) acute August 31, 2024 11:07pm [facility] Work Phone: Evaluation note* Diagnosis Chronic midline low back pain without sciatica- Primary Medicare annual wellness visit, subsequent- Primary Primary hypertension Unspecified essential hypertension Functional diarrhea Prostate cancer (HCC) Malignant neoplasm of prostate Pure hypercholesterolemia Hyperglycemia Other abnormal glucose Daytime hypersomnia- Primary Obesity, morbid (HCC) Morbid obesity Hot flashes Seasonal allergies Allergic rhinitis, cause unspecified Anxiety- Primary Anxiety state, unspecified Primary hypertension- Primary Unspecified essential hypertension Primary osteoarthritis involving multiple joints Pure hypercholesterolemia Encounter for annual wellness exam in Medicare patient- Primary Daytime hypersomnia Primary hypertension Unspecified essential hypertension Obesity, morbid (HCC) Morbid obesity Mild episode of recurrent major depressive disorder (HCC) Pure hypercholesterolemia Prostate cancer (HCC) Malignant neoplasm of prostate Screening for diabetes mellitus HUEY on CPAP- Primary Persistent cough for 3 weeks or longer Primary hypertension- Primary Unspecified essential hypertension Benign non-nodular prostatic hyperplasia with lower urinary tract symptoms Pure hypercholesterolemia HUEY on CPAP Subacute cough- Primary Routine general medical examination at health care facility- Primary Routine general medical examination at a health care facility Primary hypertension Unspecified essential hypertension Primary osteoarthritis involving multiple joints Hyperglycemia Other abnormal glucose Pure hypercholesterolemia 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) Prostate cancer (HCC) Malignant neoplasm of prostate Bilateral primary osteoarthritis of knee- Primary [facility] Diagnosis Chronic midline low back pain without sciatica- Primary Medicare annual wellness visit, subsequent- Primary Primary hypertension Unspecified essential hypertension Functional diarrhea Prostate cancer (HCC) Malignant neoplasm of prostate Pure hypercholesterolemia Hyperglycemia Other abnormal glucose Daytime hypersomnia- Primary Obesity, morbid (HCC) Morbid obesity Hot flashes Seasonal allergies Allergic rhinitis, cause unspecified Anxiety- Primary Anxiety state, unspecified Primary hypertension- Primary Unspecified essential hypertension Primary osteoarthritis involving multiple joints Pure hypercholesterolemia Encounter for annual wellness exam in Medicare patient- Primary Daytime hypersomnia Primary hypertension Unspecified essential hypertension Obesity, morbid (HCC) Morbid obesity Mild episode of recurrent major depressive disorder (HCC) Pure hypercholesterolemia Prostate cancer (HCC) Malignant neoplasm of prostate Screening for diabetes mellitus HUEY on CPAP- Primary Persistent cough for 3 weeks or longer Primary hypertension- Primary Unspecified essential hypertension Benign non-nodular prostatic hyperplasia with lower urinary tract symptoms Pure hypercholesterolemia HUEY on CPAP Routine general medical examination at health care facility- Primary Routine general medical examination at a health care facility Primary hypertension Unspecified essential hypertension Primary osteoarthritis involving multiple joints Hyperglycemia Other abnormal glucose Pure hypercholesterolemia 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) Prostate cancer (HCC) Malignant neoplasm of prostate Bilateral primary osteoarthritis of knee- Primary Chronic midline low back pain without sciatica- Primary 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 * Flu Vaccine (Ukrainian) [facility] Consultation (Routine) - Pending Review Specialty Diagnoses / Procedures Referred By Yobani salinas Referred To Contact Sleep Medicine Diagnoses Daytime hypersomnia Obesity, morbid (HCC) Procedures OR OFFICE/OUTPATIENT NEW HIGH MDM 60-74 MINUTES Chris Antoine APRN - LOAN INTERVIEWER [employer] [address] [place] [address] [place] [address] [facility] [address] [place] [address] Referral ID Status Reason Start Date Expiration Date Visits Requested Visits Authorized [id number] Pending Review Specialty Services Required 01/08/2023 01/08/2024 1 1 [facility] for referral (narrative)* Consultation - Pending Review Specialty Diagnoses / Procedures Referred By Yobani salinas Referred To Contact Bariatrics Diagnoses HUEY (obstructive sleep apnea) Primary hypertension Obesity, morbid (HCC) Procedures OR OFFICE/OUTPATIENT NEW HIGH MDM 60 MINUTES Chris Li APRN - ROOF DESIGNER [address] [facility] [address] [place] [address] [facility] [address] [place] [address] Referral ID Status Reason Start Date Expiration Date Visits Requested Visits Authorized [id number] Pending Review Specialty Services Required 07/30/2023 07/29/2024 1 1 * Hospital - Outpatient (Routine) - Authorized Specialty Diagnoses / Procedures Referred By Yobani t Referred To Contact Sleep Medicine Diagnoses HUEY (obstructive sleep apnea) Procedures Sleep study with pap titration Chris Li APRN - CNS [address] [facility] [address] [place] [address] [facility] [address] [place] [address] Referral ID Status Reason Start Date Expiration Date V isits Requested Visits Authorized [id number] Authorized 07/30/2023 07/24/2024 1 1 Jordy Neal for referral (narrative)* Consultation (Routine) - Pending Review Specialty Diagnoses / Procedures Referred By Yobani t Referred To Contact Behavioral Health Diagnoses Mild episode of recurrent major depressive disorder (HCC) Procedures OR OFFICE/OUTPATIENT NEW HIGH MDM 60 MINUTES Colton Krishnamurthy MD [address] [place] [address] [place] [address] [facility] [address] [place] [address] Referral ID Status Reason Start Date Expiration Date Visits Requested Visits Authorized [id number] Pending Review Specialty Services Required 09/04/2023 09/03/2024 1 1 Jordy Neal for referral (narrative)* Consultation (Routine) - Pending Review Specialty Diagnoses / Procedures Referred By Yobani t Referred To Contact Otolaryngology Diagnoses HUEY (obstructive sleep apnea) Nasal congestion Procedures OR OFFICE/OUTPATIENT NEW HIGH MDM 60 MINUTES Chris Li APRN - CNS [address] [facility] [address] [place] [address] Irma Johnson MD [address] [facility] [address] [place] [address] Referral ID Status Reason Start Date Expiration Date Visits Requested Visits Authorized [id number] Pending Review Specialty Services Required 01/02/2024 01/01/2025 1 1 * Hospital - Outpatient (Routine) - Pending Review Specialty Diagnoses / Procedures Referred By Yobani salinas Referred To Contact Sleep Medicine Diagnoses HUEY (obstructive sleep apnea) Intolerance of continuous positive airway pressure (CPAP) ventilation Procedures Sleep study with pap titration Chris Li APRN - CNS [address] [facility] [address] [place] [address] Referral ID Status Reason Start Date Expiration Date V isits Requested Visits Authorized [id number] Pending Review 01/02/2024 12/27/2024 1 1 [facility] for referral (narrative)No reason for referral information availableWHolzer [facility] Work Phone: Summary Purpose Family History No Family History Records Found Relationship Condition Age at Onset Recorded Date/T román father Coronary artery disease Unknown Advance Directives No Advanced Directives Records FoundDocuments on File Type Date Recorded Patient De[place]ner Expl anation ACP-Advance Directive ACP-Power of Job Cost Estimator Documents on File Type Date Recorded Patient Dehorner Expl anation ACP-Advance Directive ACP-Power of Job Cost Estimator Latest Code Status on File Code Status Date Activated Date Inactivated Comments Full Code 05/15/2021 7:24 AM 05/15/2021 2:29 PM Advance Directive Response Recorded Date/ Time Living Will No August 31, 2024 6:53pm Power of Job Cost Estimator No August 31 6:53pm Advance Directive Response Recorded Date/ Time Living Will No August 31, 2024 11:33pm Power of Job Cost Estimator No August 31 11:33pm Advance Directive Response Recorded Date/ Time Living Will No August 31, 2024 11:33pm Do you have a Healthcare Power of Job Cost Estimator? No August 31, 2024 11:33pm Reason for Referral Status Reason Specialty Diagnoses / Procedures Referre d By Contact Referred To Contact Open Radiology Diagnoses Encounter for abdominal aortic aneurysm (AAA) screening Procedures VL AAA SCREENING Colton Krishnamurthy MD [address] [facility], [place] [address] Status Reason Specialty Diagnoses / Procedures Referre d By Contact Referred To Contact Closed Radiology Diagnoses Elevated prostate specific antigen (PSA) Family history of malignant neoplasm of prostate Procedures MRI PELVIS W WO CONTRAST Zuhair Harris MD [address] [facility] [address] [place] [address] Specialty Diagnoses / Procedures Referred By Yobani salinas Referred To Contact Sleep Medicine Diagnoses HUEY (obstructive sleep apnea) Procedures Home sleep test Austen Mcneal MD [address] [facility] [address] [place] [address] Referral ID Status Reason Start Date Expiration Date V isits Requested Visits Authorized [id number] Pending Review 07/09/2023 07/03/2024 1 1 Assessments Diagnosis Encounter for screening for cardiovascular disorders Screening for other and unspecified cardiovascular conditions Encounter for abdominal aortic aneurysm (AAA) screening Chief Complaint and Reason for Visit Chief Complaint Admit Date NSTEMI August 31, 2024 11: 07pm Reason for Visit Admit Date Angina of effort August 31, 2024 11: 07pm Family history of coronary artery diseas e August 31, 2024 11:07pm Former tobacco use August 31, 2024 11: 07pm History of hypertension August 31, 2024 11:07pm Morbid obesity with BMI of 40.0-44.9, ad ult August 31, 2024 11:07pm Non-ST elevation TN (NSTEMI) August 31, 2024 11:07pm Chief Complaint Admit Date NSTEMI August 31, 2024 11: 07pm NSTEMI September 01, 2024 7:5 0am NSTEMI September 01, 2024 1:5 4pm NSTEMI September 02, 2024 7:0 1am NSTEMI September 02, 2024 1:1 4pm Reason for Visit Admit Date Accelerating angina August 31, 2024 11: 07pm Angina of effort August 31, 2024 11: 07pm Family history of coronary artery diseas e August 31, 2024 11:07pm Former tobacco use August 31, 2024 11: 07pm History of hypertension August 31, 2024 11:07pm Hyperlipidemia August 31, 2024 11: 07pm Morbid obesity with BMI of 40.0-44.9, ad ult August 31, 2024 11:07pm Hypertension August 31, 2024 11: 07pm Non-ST elevation TN (NSTEMI) August 31, 2024 11:07pm Chief Complaint Admit Date NSTEMI August 31, 2024 11: 07pm NSTEMI September 01, 2024 7:5 0am NSTEMI September 01, 2024 1:5 4pm NSTEMI September 02, 2024 7:0 1am NSTEMI September 02, 2024 1:1 4pm S/P [facility] 09/02 NSTEMI September 11, 2024 12: 49pm E ORDER October 16, 2024 10: 03am 6-8 WK FU November 11, 2024 8:41a m Reason for Visit Admit Date Family history of coronary artery diseas e August 31, 2024 11:07pm Former tobacco use August 31, 2024 11: 07pm History of hypertension August 31, 2024 11:07pm Hyperlipidemia August 31, 2024 11: 07pm Morbid obesity with BMI of 40.0-44.9, ad ult August 31, 2024 11:07pm Hypertension August 31, 2024 11: 07pm Accelerating angina August 31, 2024 11: 07pm Angina of effort August 31, 2024 11: 07pm Non-ST elevation TN (NSTEMI) August 31, 2024 11:07pm CAD (coronary artery disease) August 12:49pm Hypertension September 11, 2024 12: 49pm Stented coronary artery September 11, 2024 12:49pm CAD (coronary artery disease) November 11, 2024 8:41am Hyperlipidemia November 11, 2024 8:41a m Additional Source Comments (unrecognized sect ion and content) No Status Records FoundNo Status Records FoundNo Status Records FoundNo Status Records FoundNo Status Records FoundNo Status Records Found INFORMATION SOURCE (unrecogn ized section and content) DATE CREATED AUTHOR 04/06/2019 [facility] DATE CREATED AUTHOR AUTHOR'S ORGANIZ ATION 04/18/2021 [facility] DATE CREATED AUTHOR AUTHOR'S ORGANIZ ATION 08/18/2021 [facility] DATE CREATED AUTHOR AUTHOR'S ORGANIZ ATION 11/24/2023 [facility] DATE CREATED AUTHOR AUTHOR'S ORGANIZ ATION 12/31/2024 [facility] DATE CREATED AUTHOR AUTHOR'S ORGANIZ ATION 03/18/2025 [facility] Care Teams (unrecognized sec tion and content) Team Status: Active Member Role Status Dates Dr. Colton Krishnamurthy MD Primary Care Provider Active Team Status: Inactive Member Role Status Dates Dr. Colton Krishnamurthy MD Primary Care Provider Active Start: August 31, 2024 End: September 02, 2024 Dr. Demian Burger DO Emergency Provider Active Start : August 31, 2024 End: September 02, 2024 Dr. Mian Hutchison DO Admit Provider Active Start: August 31, 2024 End: September 02, 2024 Dr. Mian Hutchison DO Other Provider Active Start: August 31, 2024 End: September 02, 2024 Dr. Graham Carr MD Other Provider Active St art: August 31, 2024 End: September 02, 2024 Dr. Mayra Rodriguez MD Attending Provider Active Start: August 31, 2024 End: September 02, 2024 Team Status: Active Member Role Status Dates Dr. Colton Krishnamurthy MD Primary Care Provider Active Start: September 01, 2024 Dr. Demian Burger DO Emergency Provider Active Start : September 01, 2024 Dr. Mian Hutchison DO Admit Provider Active Start: September 01, 2024 Dr. Mian Hutchison DO Other Provider Active Start: September 01, 2024 Dr. Graham Carr MD Attending Provider Active Start: September 01, 2024 Dr. Graham Carr MD Other Provider Active St art: September 01, 2024 Dr. Mayra Rodriguez MD Other Provider Active Star t: September 01, 2024 Team Status: Active Member Role Status Dates Dr. Colton Krishnamurthy MD Primary Care Provider Active Start: September 01, 2024 Dr. Cindy Chavez MD Attending Provider Activ e Start: September 01, 2024 Team Status: Active Member Role Status Dates Dr. Colton Krishnamurthy MD Primary Care Provider Active Start: September 01, 2024 Dr. Demian Burger DO Emergency Provider Active Start : September 01, 2024 Dr. Mian Hutchison DO Admit Provider Active Start: September 01, 2024 Dr. Mian Hutchison DO Other Provider Active Start: September 01, 2024 Dr. Graham Carr MD Other Provider Active St art: September 01, 2024 Dr. Mayra Rodriguez MD Attending Provider Active Start: September 01, 2024 Dr. Mayra Rodriguez MD Other Provider Active Star t: September 01, 2024 Team Status: Active Member Role Status Dates Dr. Colton Krishnamurthy MD Primary Care Provider Active Start: September 02, 2024 Dr. Demian Burger DO Emergency Provider Active Start : September 02, 2024 Dr. Mian Hutchison DO Admit Provider Active Start: September 02, 2024 Dr. Mian Hutchison DO Other Provider Active Start: September 02, 2024 Dr. Graham Carr MD Attending Provider Active Start: September 02, 2024 Dr. Graham Carr MD Other Provider Active St art: September 02, 2024 Dr. Mayra Rodriguez MD Other Provider Active Star t: September 02, 2024 Team Status: Active Member Role Status Dates Dr. Colton Krishnamurthy MD Primary Care Provider Active Start: September 02, 2024 Dr. Demian Burger DO Emergency Provider Active Start : September 02, 2024 Dr. Mian Hutchison DO Admit Provider Active Start: September 02, 2024 Dr. Mian Hutchison DO Other Provider Active Start: September 02, 2024 Dr. Graham Carr MD Other Provider Active St art: September 02, 2024 Dr. Mayra Rodriguez MD Attending Provider Active Start: September 02, 2024 Dr. Mayra Rodriguez MD Other Provider Active Star t: September 02, 2024 Adhesive Primer Relationship Specialty Start Date End Date Colton Krishnamurthy MD [address] [facility] [place] [address] PCP - General 05/11/15 Adhesive Primer Relationship Specialty Start Date End Date Colton Krishnamurthy MD [address] [facility] [place] [address] PCP - General 05/11/15 Adhesive Primer Relationship Specialty Start Date End Date Colton Krishnamurthy MD [facility] [place] [address] PCP - General 05/11/15 Adhesive Primer Relationship Specialty Start Date End Date Colton Krishnamurthy MD [facility] [place] [address] PCP - General 05/11/15 Adhesive Primer Relationship Specialty Start Date End Date [facility] [place] [address] PCP - General 05/11/15 Adhesive Primer Relationship Specialty Start Date End Date Colton Krish[facility] [place] [address] PCP - General 05/11/15 Adhesive Primer Relationship Specialty Start Date End Date Colton Krishnamurthy MD [facility] [place] [address] PCP - General 05/11/15 Adhesive Primer Relationship Specialty Start Date End Date Colton Krishnamurthy MD [facility] [place] [address] PCP - General 05/11/15 Adhesive Primer Relationship Specialty Start Date End Date Colton Krish[facility]ur[facility] [place] [address] PCP - General 05/11/15 Adhesive Primer Relationship Specialty Start Date End Date Colton Krishnamurthy MD [address] [facility] [place] [address] PCP - General 05/11/15 Adhesive Primer Relationship Specialty Start Date End Date Colton Krishnamurthy MD [address] [facility] [place] [address] PCP - General 05/11/15 Adhesive Primer Relationship Specialty Start Date End Date Colton Krishnamurthy MD [address] [facility] [place] [address] PCP - General 05/11/15 Adhesive Primer Relationship Specialty Start Date End Date Colton Krishnamurthy MD [address] [place] [address] PCP - General 05/11/15 Adhesive Primer Relationship Specialty Start Date End Date Colton Krishnamurthy MD [address] [facility] [place] [address] PCP - General 05/11/15 Adhesive Primer Relationship Specialty Start Date End Date Colton Krishnamurthy MD [address] [facility] [place] [address] PCP - General 05/11/15 Adhesive Primer Relationship Specialty Start Date End Date Colton Krishnamurthy MD [address] [facility] [place] [address] PCP - General 05/11/15 Adhesive Primer Relationship Specialty Start Date End Date Colton Krishnamurthy MD [address] [facility] [place] [address] PCP - General 05/11/15 Adhesive Primer Relationship Specialty Start Date End Date Colton Krishnamurthy MD 25 [facility] [place] [address] PCP - General 05/11/15 Adhesive Primer Relationship Specialty Start Date End Date Colton Krishnamurthy MD [address] [facility] [address] PCP - General 05/11/15 Adhesive Primer Relationship Specialty Start Date End Date Colton Krishnamurthy MD 25 [facility] [place] [address] PCP - General 05/11/15 Adhesive Primer Relationship Specialty Start Date End Date Colton Krishnamurthy MD [address] [facility] [address] PCP - General 05/11/15 Adhesive Primer Relationship Specialty Start Date End Date Colton Krishnamurthy MD 25 [facility] [place] [address] PCP - General 05/11/15 Adhesive Primer Relationship Specialty Start Date End Date Colton Krishnamurthy MD [address] [facility] [address] PCP - General 05/11/15 Adhesive Primer Relationship Specialty Start Date End Date Colton Krishnamurthy MD [address] [facility] [place] [address] PCP - General 05/11/15 Adhesive Primer Relationship Specialty Start Date End Date Colton Krishnamurthy MD [address] [place] [address] PCP - General 05/11/15 Adhesive Primer Relationship Specialty Start Date End Date Colton Krishnamurthy MD [address] [place] [address] PCP - General 05/11/15 Adhesive Primer Relationship Specialty Start Date End [place] [address] PCP - General 05/11/15 Adhesive Primer Relationship Specialty Start Date End Date Colton Krishnamurthy MD [address] [place] [address] PCP - General 05/11/15 Adhesive Primer Relationship Specialty Start Date End Date Colton Krishnamurthy MD [address] [place] [address] PCP - General 05/11/15 Adhesive Primer Relationship Specialty Start Date End Date Colton Krishnamurthy MD [address] [place] [address] PCP - General 05/11/15 Team Status: Active Member Role Status Dates Dr. Colton Krishnamurthy MD Primary Care Provider Active Start: August 31, 2024 Dr. Demian Burger DO Emergency Provider Active Start : August 31, 2024 Dr. Mian Hutchison , Admit Provider Active Start: August 31, 2024 Dr. Mian Hutchison , Attending Provider Active Start: August 31, 2024 Adhesive Primer Relationship Specialty Start Date End Date Colton Krishnamurthy MD [address] [place] [address] PCP - General 05/11/15 Team Status: Inactive Member Role Status Dates Dr. Colton Krishnamurthy MD Primary Care Provider Active Start: September 11, 2024 End: September 11, 2024 Dr. Colton Krishnamurthy MD Referring Provider Active Start: September 11, 2024 End: September 11, 2024 ISRAEL Henson Attending Provider Active St art: September 11, 2024 End: September 11, 2024 Team Status: Inactive Member Role Status Dates Dr. Colton Krishnamurthy MD Primary Care Provider Active Start: October 16, 2024 End: October 16, 2024 ISRAEL Henson Attending Provider Active St art: October 16, 2024 End: October 16, 2024 ISRAEL Henson Referring Provider Active St art: October 16, 2024 End: October 16, 2024 Team Status: Inactive Member Role Status Dates Dr. Colton Krishnamurthy MD Primary Care Provider Active Start: November 11, 2024 End: November 11, 2024 Dr. Colton Krishnamurthy MD Referring Provider Active Start: November 11, 2024 End: November 11, 2024 Dr. Graham Carr MD Attending Provider Active Start: November 11, 2024 End: November 11, 2024 Adhesive Primer Relationship Specialty Start Date End Date Colton Krishnamurthy MD [address] [place] [address] PCP - General 05/11/15 Adhesive Primer Relationship Specialty Start Date End Date Colton Krishnamurthy MD [address] [place] [address] PCP - General 05/11/15 Reason for Visit (unrecogniz ed section and content) Reason Comments Heat Intolerance Started after his me dication for prostate cancer-LupronLast inj. Was 21-22' Weight Loss Reason Comments Discuss Medications Reason Comments Med Refill Reason Comments New Patient Specialty Diagnoses / Procedures Referred By Contac t Referred To Contact Sleep Medicine Diagnoses Daytime hypersomnia Obesity, morbid (HCC) Procedures OR OFFICE/OUTPATIENT [facility] MDM 60-74 MINUTES Chris Antoine APRN - LOAN INTERVIEWER [employer] [address] [place] [address] [place] [address] [facility] [address] [place] [address] Referral ID Status Reason Start Date Expiration Date Visits Requested Visits Authorized [id number] Pending Review Specialty Services Required 01/08/2023 01/08/2024 1 1 Reason Comments Follow-up Reason Onset Date Comments Cpap 08/26/2023 Reason Onset Date Comments Cpap 09/03/2023 Reason Comments Medicare Annual Wellness Vis it Subsequent Blood Work question Having problem walki ng any distance and back pain worried about overall health stopped pain management due to cost of drug screening so has been off all pain medicationHas issues happen that has put the pt on edge Referral To therapy for his [facility] Apnea Is working on losing weight swimming about 40min per day and now having shoulder pain saw shoulder specialist and will get results this afternoon Orders Pt asking for combo med lisinopril- hydrochlorothiazide Reason Comments Cough Reason Comments Follow-up huey Reason Comments Follow-up huey Reason Comments New Patient HUEY Specialty Diagnoses / Procedures Referred By Yobani [place] Referred To Contact Otolaryngology Diagnoses HUEY (obstructive sleep apnea) Nasal congestion Procedures OR OFFICE/OUTPATIENT [facility] MDM 60 MINUTES Chris Li APRN - ROOF DESIGNER [address] [facility] [address] [place] [address] Irma Johnson MD [address] [facility] [address] [place] [address] Referral ID Status Reason Start Date Expiration Date Visits Requested Visits Authorized [id number] Pending Review Specialty Services Required 01/02/2024 01/01/2025 1 1 Specialty Diagnoses / Procedures Referred By Yobani [place] Referred To Contact Diagnoses Deviated nasal septum Nasal congestion Hypertrophy of nasal turbinates Procedures OR SEPTOPLASTY/SUBMUCOUS RESECJ W/WO CARTILAGE GRF OR SUBMUCOUS RESCJ INFERIOR TURBINATE PRTL/COMPL NASAL SEPTAL RECONSTRUCTION WITH BILATERAL INFERIOR TURBINATE REDUCTION SUBMUCOUS RESECTION INFERIOR TURBINATE Irma Johnson MD [address] [place] [address] Referral ID Status Reason Start Date Expiration Date Visits Re quested Visits Authorized [id number] 01/14/2024 1 1 Reason Comments Post-op 1 week NSR Reason Comments Hypertension Hyperlipidemia Depression Medication Check 6 month Health Maintenance Flu vaccine- [id number] h covid vaccine- not doneHep c screening- refuse Specialty Diagnoses / Procedures Referred By Contac t Referred To Contact Sleep Medicine Diagnoses HUEY (obstructive sleep apnea) Procedures Home sleep test Austen Mcneal MD [address] [facility] [address] [place] [address] [facility] [address] [place] [address] Referral ID Status Reason Start Date Expiration Date Visits Re quested Visits Authorized [id number] Closed 07/09/2023 07/03/2024 1 1 Specialty Diagnoses / Procedures Referred By Yobani [place] Referred To Contact Sleep Medicine Diagnoses HUEY (obstructive sleep apnea) Procedures Sleep study with pap titration Chris Li APRN - ROOF DESIGNER [address] [facility] [address] [place] [address] [facility] [address] [place] [address] Referral ID Status Reason Start Date Expiration Date Visits Re quested Visits Authorized [id number] Closed 07/30/2023 07/24/2024 1 1 Reason Comments Post-op 3 month post op Sept oplasty Reason Comments Diarrhea Pt states he has Kathleen rrhea depending on what he eats, he takes Imodium. Reason Comments New Patient Diarrhea Pt brought a record of episodes from 05/01/22 to present. Pt has Hx of prostate CA and he states since completing radiation he has had Diarrhea. Improving over the last 2 weeks. Reason Comments Diarrhea Pt states he has Kathleen rrhea depending on what he eats, he takes Imodium. Error (VOID this visit) Reason Comments Medicare Annual Wellness Visit [place]any [place] Wants to know if he can stop taking flomax? Health Maintenance Blood Work Reason Onset Date Comments Cough 06/10/2024 Reason Comments Cough For about 3 weeks Reason Onset Date Comments Breathing Problem 08/31/2024 Reason Comments Medicare Annual Wellness Visit Initial Health Maintenance Reason Comments Knee Pain B/l asking for injec tions Specialty Diagnoses / Procedures Referred By Yobani t Referred To Contact Diagnoses Bilateral primary osteoarthritis of knee Colton Krishnamurthy MD [address] [facility], [place] [address] Phone: tel: fax: Referral ID Status Reason Start Date Expiration Date V isits Requested Visits Authorized [id number] Pending Review 09/22/2024 09/17/2025 1 1 Reason Comments Medication Check Scheduled Active and Recently Administ ered Medications (unrecognized section and content) Medication Order 01/27/2024 01/28/2024 01/29/2024 acetaminophen (Tylenol) tablet 1,000 mg (COMPLETED) 1,000 mg, Oral, Once, On Sat01/29/24 at 0600, For 1 dose, Preprocedure, Maximum dose of acetaminophen is 4000 mg from all sources in 24 hours. Do not administer if patient has taken tylenol <6 hours earlier. Do not give if contraindicated ie. patient has active liver disease or cirrhosis. 611 (Given - Provid er: Harini Moser RN) famotidine (Pepcid) tablet 20 mg (COMPLETED)(Linked Group 1) 20 mg, Oral, Once, On Sat01/29/24 at 0600, For 1 dose, Preprocedure, IV or ORAL 611 (Given - Provid er: Harini Moser RN) sodium chloride 0.9% (NS) flush 10 mL 10 mL, IntraVENous, Every 12 hours scheduled (2 times per day), First dose on Sat01/29/24 at 0900, Preprocedure 0900 (Canceled Entry - Provider: Automatic Discharge Provider - Comment: Automatically canceled at discontinue of medication order) sodium chloride 0.9% (NS) flush 5-40 mL 5-40 mL, IntraVENous, Every 12 hours, First dose on Sat01/29/24 at 0600, Preprocedure, For Line Patency: Peripheral IV = 5 mL; Midline or Central Line = 10 mL/lumen. If following IV push medication, administer flush at same rate as the IV push. Flush volume is determined by type of infusion therapy being given. For non-viscous solutions use: Peripheral IV = 5 mL Midline or Central Line = 10 mL/lumen For viscous solutions (i.e. blood components, parenteral nutrition, contrast media, or after obtaining blood sample) use: Peripheral IV = 10 mL Midline or Central Line = 20 mL/lumen 0600 (Canceled Entry - Provider: Automatic Discharge Provider - Comment: Automatically canceled at discontinue of medication order) Continuous Medication Order 01/27/2024 01/28/2024 01/29/2024 lactated Ringer's (LR) infusion 50 mL/hr, IntraVENous, Continuous, Starting on Sat01/29/24 at 0600, Preprocedure, Upon admission to sameday - please start iv if patient does not have iv access. Use 500ml NS for patients on dialysis. 0730 (New Bag - Prov ider: JESENIA Torres CRNA)0817 (Anesthesia Volume Adjustment - Provider: JESENIA Torres CRNA) PRN Medication Order 01/27/2024 01/28/2024 01/29/2024 ALPRAZolam (Xanax) disintegrating tablet 0.25 mg (COMPLETED) 0.25 mg, Oral, PRN, anxiety, Starting on Sat01/29/24 at 0557, For 1 dose, Preprocedure 0601 (Given - Provid er: Harini Moser RN) lidocaine-EPINEPHrine (Xylocaine W/EPI) 1 %-[id number] injection (CANCELED) As needed, Starting on Sat01/29/24 at 0806, Intraprocedure 08 (Given - Provid er: Irma Johnson MD) mupirocin (Bactroban) 2 % ointment (CANCELED) As needed, Starting on Sat01/29/24 at 0809, Intraprocedure 08 (Given - Provid er: Irma Johnson MD) oxymetazoline (Afrin) 0.05 % nasal spray (CANCELED) As needed, Starting on Sat01/29/24 at 0807, Intraprocedure 0807 (Given - Provid er: Irma Johnson MD - Comment: 30ML ON FIELD TO SOAK PATTIES) sodium chloride 0.9 % infusion 5-250 mL/hr, IntraVENous, PRN, if patient receiving piggyback infusions and maintenance fluids are not ordered OR KVO fluids to protect IV site / prevent frequent line interruptions / long duration, Starting on Sat01/29/24 at 0557, Preprocedure, For piggyback infusion, administer at same rate as piggyback for a total of 25 mL. Enter 25 mL into dose field and piggyback rate into rate field of order. If piggyback is infusing at a rate less than 100 mL/hr, enter 25 mL into dose field and 100 mL/hr into rate field of order. For KVO fluids, enter rate of 20 mL/hr or less into rate field of order. sodium chloride 0.9 % infusion 5-250 mL/hr, IntraVENous, PRN, if patient receiving piggyback infusions and maintenance fluids are not ordered OR KVO fluids to protect IV site / prevent frequent line interruptions/ long duration, Starting on Sat01/29/24 at 0557, Preprocedure, For piggyback infusion, administer at same rate as piggyback for a total of 25 mL. Enter 25 mL into dose field and piggyback rate into rate field of order. If piggyback is infusing at a rate less than 100 mL/hr, enter 25 mL into dose field and 100 mL/hr into rate field of order. For KVO fluids, enter rate of 20 mL/hr or less into rate field of order. sodium chloride 0.9 % irrigation solution (CANCELED) As needed, Starting on Sat01/29/24 at 0806, Intraprocedure 0806 (Given - Provid er: Irma Johnson MD) sodium chloride 0.9% (NS) flush 10 mL 10 mL, IntraVENous, PRN, line care, Starting on Sat01/29/24 at 0557, Preprocedure, After every IV line use sodium chloride 0.9% (NS) flush 5-40 mL 5-40 mL, IntraVENous, PRN, line care, After every IV line use, Starting on 8/7/24 at 0557, Preprocedure, For Line Patency: Peripheral IV = 5 mL; Midline or Central Line = 10 mL/lumen. If following IV push medication, administer flush at same rate as the IV push. Flush volume is determined by type of infusion therapy being given. For non-viscous solutions use: Peripheral IV = 5 mL Midline or Central Line = 10 mL/lumen For viscous solutions (i.e. blood components, parenteral nutrition, contrast media, or after obtaining blood sample) use: Peripheral IV = 10 mL Midline or Central Line = 20 mL/lumen Linked Groups Order Group 1: famotidine (Pepcid) tablet 20 mg (COMPLETED)Jump to med 20 mg, Oral, Once, On Sat01/29/24 at 0600, For 1 dose, Preprocedure, IV or ORAL Or famotidine (Pepcid) 20 mg in sodium chloride (PF) 0.9 % 10 mL injection (COMPLETED) 20 mg, IntraVENous, Administer over 2 Minutes, Once, On Sat01/29/24 at 0600, For 1 dose, Preprocedure, IV or ORAL Goals (unrecognized section and content) Goals may be documented in a n alternate section FOR RECORDS PERTAINING TO PATIENTS WHO ARE OR HAVE BEEN ENROLLED IN A CHEMICAL DEPENDENCY/SUBSTANCEABUSE PROGRAM, SOME INFORMATION MAY BE OMITTED. This clinical summary was aggregated from multiple sources. Caution should be exercised in using it in the provision of clinical care. This summary normalizes information from multiple sources, and as a consequence, information in this document may materially change the coding, format and clinical context of patient data. In addition, data may be omitted in some cases. CLINICAL DECISIONS SHOULD BE BASED ON THE PRIMARY CLINICAL RECORDS. [employer] provides no warranty or guarantee of the accuracy or completeness of information in this document.
[2025-03-19 21:42] VITALS: PULSE 80; RESP 16
[2025-03-19 21:48] VITALS: BP 157/89; PULSE 80; RESP 16; TEMP 36.6; O2SAT 96
== END 2025-03-19 21:49 | disposition home or self-care (01) ==
PROVIDERS: Emergency Provider Emergency Medicine; PCP Family Medicine; Visit Provider Emergency Medicine
DX: J02.9 Acute pharyngitis, unspecified (principal); I25.10 Atherosclerotic heart disease of native coronary artery without angina pectoris; Z87.891 Personal history of nicotine dependence; I10 Essential (primary) hypertension; Z95.5 Presence of coronary angioplasty implant and graft; I25.2 Old myocardial infarction
CPT/HCPCS: 87651; 99282